=== PATIENT | male | born 1955 | race Caucasian/White ===

== ENCOUNTER 2019-10-16 16:46 | Emergency (ER) | payer OTHER, BC, SELFPAY ==
--- NOTE | 2019-10-16 16:54 | ED.WOUNDLAC ---
HPI - Wound/Laceration General Chief Complaint: Wound/Laceration Stated Complaint: lt hand index finger laceration Time Seen by Provider: 10/16/19 16:54 Source: patient and RN notes reviewed History of Present Illness HPI narrative: Patient is a 64-year-old male presents the urgent care with complaints of a laceration to the left index finger. Patient states that he was using a chisel to do some woodworking approximately 30 to 40 minutes prior to arrival, hitting his left index finger. Bleeding was controlled prior to arrival. Patient states he did clean it out with soap and water. Patient is not up-to-date on his tetanus shot. No other acute complaints or injuries. No acute distress noted. Patient read the plan of care. Related Data Home Medications Medication Instructions Recorded Confirmed alprazolam 10/16/19 anastrozole mg 10/16/19 atorvastatin 10/16/19 escitalopram oxalate mg 10/16/19 lisinopril-hydrochlorothiazide tablet 10/16/19 metoprolol tartrate 10/16/19 testosterone cypionate mg 10/16/19 ticagrelor [Brilinta] mg 10/16/19 Allergies Allergy/AdvReac Type Severity Reaction Status Date / Time No Known Allergies Allergy Verified 10/16/19 16:54 Review of Systems Review of Systems: Narrative: CONSTITUTIONAL: Denies fever, chills, or sweats. EYES: Denies visual changes, redness, or discharge. ENT: Denies rhinorrhea, congestion, sore throat, or otalgia. CARDIOVASCULAR: Denies chest pain, palpitations, or edema. RESPIRATORY: Denies cough or dyspnea. GASTROINTESTINAL: Denies abdominal pain, nausea, vomiting, or diarrhea. GENITOURINARY: Denies dysuria or hematuria. SKIN: Reports of a laceration to the left index finger MUSCULOSKELETAL: Denies back pain, joint pain, or myalgia. NEUROLOGIC: Denies headache, numbness, or weakness. All other systems reviewed are negative, except as documented in HPI. PMFSH Comments At the time of my signature, I reviewed and agree with the nursing past medical, surgical, social, and family history. There is no relevant family history pertinent to the patient complaint. Exam Narrative: Exam Narrative: GENERAL: This is a well-nourished, well-developed patient, in no apparent distress. HEAD: normocephalic, atraumatic. EYES: PERRL. Sclera clear/white. Vision is grossly intact. EARS: External ears normal NOSE: External nose normal with no obvious nasal discharge THROAT: Mucous membranes moist NECK: Neck supple CARDIOVASCULAR: Regular rate and rhythm without murmurs, gallops, or rubs. RESPIRATORY: Clear to auscultation. Breath sounds equal bilaterally. No wheezes, rales, or rhonchi. SKIN: 1 cm linear laceration noted to the radial aspect of the left index finger NEURO: awake, alert, and oriented to person, place and time. There were no obvious focal neurologic abnormalities. EXTREMITIES: No clubbing, cyanosis, or edema. Capillary refill less than 2 seconds to the left upper extremity with positive strong radial pulse Course Vital Signs Vital signs: Vital Signs Temperature 98.2 F 10/16/19 16:56 Pulse Rate 78 10/16/19 16:56 Respiratory Rate 16 10/16/19 16:56 Blood Pressure 164/93 H 10/16/19 16:56 Pulse Oximetry 99 10/16/19 16:56 Temperature 98.2 F 10/16/19 16:56 Pulse Rate 78 10/16/19 16:56 Respiratory Rate 16 10/16/19 16:56 Blood Pressure 164/93 H 10/16/19 16:56 Pulse Oximetry 99 10/16/19 16:56 Reviewed?patient is informed that they may have pre-hypertension or hypertension based on a blood pressure reading in the department. I recommend the patient call the primary care provider listed on their discharge instructions or a physician of their choice this week to arrange follow-up for further evaluation of possible pre-hypertension or hypertension. Procedures Laceration Laceration 1: Side (If applicable): left Size (cm): 1 Description: linear Local Anesthetic: none Pre-repair: irrigated ====== Ski
[2019-10-16 16:56] VITALS: BP 164/93; PULSE 78; RESP 16; TEMP 36.8; O2SAT 99
[2019-10-16] MEDS: TETANUS,DIPHTHERIA,AC PERTUSSIS ADULT 0.5 ML (ADACEL) IM (17:30)
--- NOTE | 2019-10-16 17:42 | PC.NURSE ---
Wound cleansed and steri striped. Metal finger splint fitted and given to patient.
== END 2019-10-16 17:44 | disposition home or self-care (01) ==
PROVIDERS: Emergency Provider Nurse Practitioner Family; PCP Family Medicine
DX: S61.211A Laceration without foreign body of left index finger without damage to nail, initial encounter (principal); W27.0XXA Contact with workbench tool, initial encounter; Z23 Encounter for immunization; I25.10 Atherosclerotic heart disease of native coronary artery without angina pectoris; I10 Essential (primary) hypertension; I25.2 Old myocardial infarction; Z95.5 Presence of coronary angioplasty implant and graft
CPT/HCPCS: 12001; 90471; 90715; 99212; G0463

== ENCOUNTER → 2021-01-01 16:06 | Outpatient (CLI) | payer OTHER, BC, SELFPAY ==
--- NOTE | ~2021-01-01 | XR_ITS ---
EXAMINATION: XR femur LT min 2V EXAM DATE: 01/01/2021 16:45 INDICATION: S70.12XA - Contusion of left thigh, initial encounter. TECHNIQUE: Left femur frontal and lateral projections of the proximal aspect, frontal and lateral pro jections of the lower aspect for review. Comparison is made to prior examination from 06/22/2012. FINDINGS: There are no acute fractures or dislocations identified. There is no subcutaneous gas. Th e soft tissue is unremarkable. There is mild left hip primary osteoarthritis. Left inguinal hernia repair clips. IMPRESSION: No acute osseous findings. Reviewed, dictated and finalized at location A. IMPRESSION: No acute osseous findings.
== END ==
PROVIDERS: PCP Family Medicine; Visit Provider Family Medicine
DX: S70.12XA Contusion of left thigh, initial encounter (principal); X58.XXXA Exposure to other specified factors, initial encounter
CPT/HCPCS: 73552

== ENCOUNTER 2021-10-30 00:01 | Day surgery (SDC) | payer OTHER, BC, SELFPAY ==
[2021-10-23 14:48] VITALS: BMI 33.5
[2021-10-30 07:15] VITALS: BP 144/90; PULSE 79; RESP 18; TEMP 36.6; O2SAT 97
[2021-10-30] MEDS: LACTATED RINGERS 1,000 ML 150 ML IV CONT (07:31)
--- NOTE | 2021-10-30 07:45 | WPDANESEPPF ---
Anes - Initial Pre Proc Eval Procedure: Operation Date: 10/30/21 08:30 Proposed Procedures p Screening Colonoscopy - Ovidio Gross MD Date/Time: 10/30/21 07:45 Surgeon: Ovidio Gross MD Pre Op Diagnosis: hx of colon polyps, neoplasm screening Patient Data Age: 66 Gender: M Height: 1.73 m Weight: 99.9 kg Last Vital Signs Temp 36.6 C 10/30/21 07:15 Pulse 79 10/30/21 07:15 Resp 18 10/30/21 07:15 BP 144/90 H 10/30/21 07:15 Pulse Ox 97 10/30/21 07:15 Allergies Allergy/AdvReac Type Severity Reaction Status Date / Time No Known Allergies Allergy Verified 10/30/21 07:13 Home Medications Medication Instructions Recorded Confirmed Type ticagrelor [Brilinta] 60 mg PO BID 10/16/19 10/30/21 History atorvastatin 40 mg tablet 40 mg PO QPM #90 tablet 06/06/21 10/24/21 Rx escitalopram oxalate 20 mg tablet 20 mg PO DAILY #90 tablet 08/20/21 10/24/21 Rx metoprolol tartrate 25 mg tablet 25 mg PO BID #180 tablet 08/20/21 10/24/21 Rx ascorbic acid (vitamin C) 500 mg PO DAILY 10/23/21 10/24/21 History omega-3 fatty acids-vitamin E 1 cap PO BID 10/23/21 10/24/21 History [Fish Oil] vit C-E-zinc np-ousr-dpz-zeax 2 cap PO DAILY 10/23/21 10/24/21 History [ICaps AREDS2] zinc gluconate [Zinc-50] 50 mg PO DAILY 10/23/21 10/24/21 History hydralazine 10 mg tablet 10 mg PO TID #270 tablet 10/24/21 10/24/21 Rx lisinopril 20 1 tablet PO DAILY #90 tablet 10/24/21 10/24/21 Rx mg-hydrochlorothiazide 25 mg tablet vilazodone 10 mg (7)-20 mg (23) See Rx Instructions PO PER PKG DIR 10/24/21 10/24/21 History tablets in a titration pack Patient hx anesthesia problems: none Family hx anesthesia problems: none Results Review: All pre-operative results and documents have been reviewed as part of the pre-operative evaluation. [facility] Past Medical History Medical History (Updated 10/30/21 @ 07:48 by Samuel Pinon MD) Benign essential HTN CAD (coronary artery disease) LOKI (generalized anxiety disorder) HTN (hypertension) with goal to be determined MDD (major depressive disorder), recurrent episode, moderate Mixed hyperlipidemia Obesity THOR (obstructive sleep apnea) Family History Family History Sibling Depression Family history of alcoholism Mother Hypertension Family history of elevated blood lipids Father Hypertension Family history of elevated blood lipids Family history of coronary artery disease Social History Social History (Updated 10/24/21 @ 09:39 by Mercedez Benitez) Social History: Smoking status: Never smoker Second hand tobacco smoke exposure: No Alcohol intake: current Drinks per week: 12 Alcohol use details: WEEK Substance use: never Substance use type: does not use Living arrangements: with family Additional occupation/education comments: Pt works parts assembler. Gender identity (if verbalized by the patient): Male Sexual Orientation (if Verbalized by the Patient): Straight or Heterosexual Spiritual care concerns: No Anes - Eval Final PreProcedure Day of Procedure 10/30/21 07:45 Patient weight: obese Heart: regular rate and rhythm Lungs: clear to auscultation and normal air movement Airway: Mallampati scale class II Neurological: alert and oriented Last oral intake: >/= 8 hours ASA classification: III Emergent: no Anesthetic plan: proceed Anesthesia type and monitoring: general GIVS Results Review: All pre-operative results and documents have been reviewed as part of the pre-operative evaluation. Informed Consent: The patient's anesthetic plan and its attendant risks and benefits were discussed with the patient/family/POA. Questions were solicited and answers provided to the satisfaction of the patient/family/POA.
--- NOTE | 2021-10-30 08:16 | PM.HPGS ---
History of Present Illness History of Present Illness Consent: Risks, benefits, and alternatives have been discussed and questions answered. Patient agrees to proceed with procedure. Chief complaint: hx of colon polyps, neoplasm screening Narrative: Arsh Leiva III is a 66 year old male with colon polyp in 2017 Review of Systems Constitutional: Constitutional: Denies headache(s) and Denies weakness Eyes: Eyes: Denies blurry vision ENT: Reports Normal hearing present, Denies headache(s) and Denies neck pain Cardiovascular: Cardiovascular: Denies chest pain and Denies dyspnea Respiratory: Respiratory: Denies dyspnea Gastrointestinal: Gastrointestinal: Reports no additional gastrointestinal complaints Genitourinary: Genitourinary: Denies dysuria Musculoskeletal: Musculoskeletal: Denies neck pain Integumentary/Breasts: Skin/Breast: Denies dry skin Neurologic: Reports Normal hearing present, Denies headache(s) and Denies weakness Psychiatric: Psychiatric: Denies anxiety Endocrine: Endocrine: Denies change in body appearance Hematologic/Lymphatic: Hematologic/Lymphatic: Denies easy bleeding Allergic/Immunologic: Allergic/Immunologic: Denies urticaria PMFSH Past Medical History Medical History (Updated 10/30/21 @ 07:48 by Samuel Pinon MD) Benign essential HTN CAD (coronary artery disease) LOKI (generalized anxiety disorder) HTN (hypertension) with goal to be determined MDD (major depressive disorder), recurrent episode, moderate Mixed hyperlipidemia Obesity THOR (obstructive sleep apnea) Family History Family History Sibling Depression Family history of alcoholism Mother Hypertension Family history of elevated blood lipids Father Hypertension Family history of elevated blood lipids Family history of coronary artery disease Social History Social History (Updated 10/24/21 @ 09:39 by Mercedez Benitez) Social History: Smoking status: Never smoker Second hand tobacco smoke exposure: No Alcohol intake: current Drinks per week: 12 Alcohol use details: WEEK Substance use: never Substance use type: does not use Living arrangements: with family Additional occupation/education comments: Pt works rehab department manager. Gender identity (if verbalized by the patient): Male Sexual Orientation (if Verbalized by the Patient): Straight or Heterosexual Spiritual care concerns: No Meds Home Medications and Allergies Home Medications Medication Instructions Recorded Confirmed Type ticagrelor [Brilinta] 60 mg PO BID 10/16/19 10/30/21 History atorvastatin 40 mg tablet 40 mg PO QPM #90 tablet 06/06/21 10/24/21 Rx escitalopram oxalate 20 mg tablet 20 mg PO DAILY #90 tablet 08/20/21 10/24/21 Rx metoprolol tartrate 25 mg tablet 25 mg PO BID #180 tablet 08/20/21 10/24/21 Rx ascorbic acid (vitamin C) 500 mg PO DAILY 10/23/21 10/24/21 History omega-3 fatty acids-vitamin E 1 cap PO BID 10/23/21 10/24/21 History [Fish Oil] vit C-E-zinc nt-byxv-lfc-zeax 2 cap PO DAILY 10/23/21 10/24/21 History [ICaps AREDS2] zinc gluconate [Zinc-50] 50 mg PO DAILY 10/23/21 10/24/21 History hydralazine 10 mg tablet 10 mg PO TID #270 tablet 10/24/21 10/24/21 Rx lisinopril 20 1 tablet PO DAILY #90 tablet 10/24/21 10/24/21 Rx mg-hydrochlorothiazide 25 mg tablet vilazodone 10 mg (7)-20 mg (23) See Rx Instructions PO PER PKG DIR 10/24/21 10/24/21 History tablets in a titration pack Allergies Allergy/AdvReac Type Severity Reaction Status Date / Time No Known Allergies Allergy Verified 10/30/21 07:13 Vital Signs Vital Signs - 24 hr 10/30/21 07:15 Temperature 97.9 F Pulse Rate 79 Respiratory Rate 18 Blood Pressure 144/90 H Pulse Oximetry 97 Exam Const: General: comfortable and no acute distress HENMT: General nose exam: Normal nares present Eyes: General: appearance normal, both eyes and all related struct
[2021-10-30 08:58] VITALS: BP 119/80; PULSE 74; RESP 26; O2SAT 97
[2021-10-30 09:08] VITALS: BP 128/87; PULSE 76; RESP 22; O2SAT 97
== END 2021-10-30 09:15 | disposition home or self-care (01) ==
PROVIDERS: PCP Family Medicine; Visit Provider Internal Medicine Gastroenterology
PROC: 0DJD8ZZ Inspection of Lower Intestinal Tract, Via Natural or Artificial Opening Endoscopic (ICD-10-PCS; CPT 45378; principal; 2021-10-30 08:30)
DX: Z12.11 Encounter for screening for malignant neoplasm of colon (principal); D12.3 Benign neoplasm of transverse colon; D12.8 Benign neoplasm of rectum; K63.5 Polyp of colon; K57.30 Diverticulosis of large intestine without perforation or abscess without bleeding; K64.8 Other hemorrhoids; I10 Essential (primary) hypertension; I25.10 Atherosclerotic heart disease of native coronary artery without angina pectoris; E78.2 Mixed hyperlipidemia; G47.33 Obstructive sleep apnea (adult) (pediatric); F41.1 Generalized anxiety disorder; F33.1 Major depressive disorder, recurrent, moderate; Z79.01 Long term (current) use of anticoagulants; E66.9 Obesity, unspecified; Z68.33 Body mass index [BMI] 33.0-33.9, adult
CPT/HCPCS: 45380; 45385; 88305; J2704; J7120

== ENCOUNTER 2023-07-15 10:49 | Outpatient (CLI) | payer BC, MEDICARE, SELFPAY ==
--- NOTE | ~2023-07-15 | XR_ITS ---
XR chest 2V 07/15/2023 11:06 Indication: Precordial pain. Procedure: 2 view chest Comparison: No prior studies for comparison. Findings: There is a right paramediastinal mass with smooth lateral contour involving the superior me diastinum. Heart size normal. Lungs clear. No pleural effusion or pneumothorax. No acute osseous abno rmality. Impression: 1: Large right paramediastinal mass. Considerations include lymphadenopathy and vascular abnormality. Recommend correlation with contrast-enhanced CT of the chest. Reviewed, dictated and finalized at location B. [employer] WORK[employer] Impression: 1: Large right paramediastinal mass. Considerations include lymphadenopathy and vascular abnormality. Recommend correlation with contrast-enhanced CT of the c hest.
== END 2023-07-15 10:50 | disposition home or self-care (01) ==
PROVIDERS: PCP Family Medicine; Visit Provider Family Medicine
DX: R07.2 Precordial pain (principal)
CPT/HCPCS: 71046

== ENCOUNTER 2023-07-21 02:49 | Day surgery (SDC) | payer BC, MEDICARE, SELFPAY ==
[2023-07-10 13:04] VITALS: BMI 31.1
--- NOTE | 2023-07-10 13:41 | PC.NURSE ---
Spoke with _patient___ regarding medication _Brilinta____. Pt. verbalizes understanding that the last dose of _Brilinta__ is to be taken on _07/16/2023__and the Endoscopist will instruct them when to restart after the procedure.
--- NOTE | 2023-07-20 09:34 | SUR.PREOP ---
Patient called regarding upcoming procedure. Reviewed preop instructions, appointment times, and procedure prep.
[2023-07-21 09:21] VITALS: BP 137/87; PULSE 86; RESP 16; TEMP 36.2; O2SAT 98; BMI 30.9
[2023-07-21] MEDS: LACTATED RINGERS 1,000 ML 150 ML IV CONT (09:32)
--- NOTE | 2023-07-21 09:56 | WPDANESEPPF ---
Anes - Initial Pre Proc Eval Procedure: Operation Date: 07/21/23 10:30 Proposed Procedures p Esophagogastroduodenoscopy - Ovidio Gross MD Date/Time: 07/21/23 09:56 Surgeon: Ovidio Gross MD Pre Op Diagnosis: Epigastric pain, Dysphagia, Abnormal weightloss Patient Data Age: 67 Gender: M Height: 1.73 m Weight: 92.3 kg Last Vital Signs Temp 97.2 F L 07/21/23 09:21 Pulse 86 07/21/23 09:21 Resp 16 07/21/23 09:21 BP 137/87 07/21/23 09:21 Pulse Ox 98 07/21/23 09:21 O2 Del Method Room Air 07/21/23 09:21 Allergies Allergy/AdvReac Type Severity Reaction Status Date / Time No Known Allergies Allergy Verified 07/21/23 09:20 Home Medications Medication Instructions Recorded Confirmed Type ticagrelor 60 mg tablet (Brilinta) 60 mg PO BID 10/16/19 07/21/23 History ascorbic acid (vitamin C) 500 mg 500 mg PO DAILY 10/23/21 07/21/23 History tablet omega-3 fatty acids-vitamin E 1 cap PO BID 10/23/21 07/21/23 History 1,000 mg capsule vit C 250 mg-vit E 200 unit-zinc 2 cap PO DAILY 10/23/21 07/21/23 History ox 12.5 as-zgzxto-oinpxn-zeax capsule (ICaps AREDS2) zinc gluconate 50 mg tablet 50 mg PO DAILY 10/23/21 07/21/23 History metoprolol tartrate 25 mg tablet See Rx Instructions .Route 04/29/23 07/21/23 Rx .COMPLEX #180 tabs hydralazine 10 mg tablet 20 mg PO BID #270 tabs 06/15/23 07/21/23 Rx cyclobenzaprine 5 mg tablet 5 mg PO TID PRN muscle spasm #90 07/09/23 07/21/23 Rx tabs lisinopril 20 See Rx Instructions .Route 07/09/23 07/21/23 Rx mg-hydrochlorothiazide 12.5 mg .COMPLEX #90 tabs tablet omeprazole 20 mg capsule,delayed 20 mg PO DAILY 07/10/23 07/21/23 History release atorvastatin 40 mg tablet 40 mg PO QPM #90 tabs 07/12/23 07/21/23 Rx Patient hx anesthesia problems: none Family hx anesthesia problems: none Results Review: All pre-operative results and documents have been reviewed as part of the pre-operative evaluation. [facility] Past Medical History Medical History Benign essential HTN CAD (coronary artery disease) Contusion of thigh, left LOKI (generalized anxiety disorder) HTN (hypertension) with goal to be determined MDD (major depressive disorder), recurrent episode, moderate Mixed hyperlipidemia Obesity THOR (obstructive sleep apnea) Family History Family History Sibling Depression Family history of alcoholism Mother Hypertension Family history of elevated blood lipids Father Hypertension Family history of elevated blood lipids Family history of coronary artery disease Social History Social History Social History: Smoking status: Never smoker Second hand tobacco smoke exposure: No Alcohol intake: current Drinks per week: 10 Alcohol use details: DRINKS Substance use: never Substance use type: does not use Lack of Transportation: No Lack of Food: Never True Current Housing: I Have Housing Concerned About Future Housing: No Difficulty Paying Gas/Electric Bills: No Difficulty Paying for Meds: No Currently Unemployed: YES Education: Decline to Answer Difficulty w/ Childcare or Family Care: No Living arrangements: with family Occupation/Education: retired Gender identity (if verbalized by the patient): Male Sexual Orientation (if Verbalized by the Patient): Straight or Heterosexual Spiritual care concerns: No Anes - Eval Final PreProcedure Day of Procedure 07/21/23 09:56 Patient weight: obese Heart: regular rate and rhythm Lungs: clear to auscultation Airway: Mallampati scale class II Neurological: alert and oriented Last oral intake: >/= 8 hours ASA classification: III Emergent: no Anesthetic plan: proceed Anesthesia type and monitoring: general GIVS and standard monitoring Results Review
--- NOTE | 2023-07-21 10:08 | PM.HPGS ---
History of Present Illness History of Present Illness Consent: Risks, benefits, and alternatives have been discussed and questions answered. Patient agrees to proceed with procedure. Chief complaint: Epigastric pain, Dysphagia, Abnormal weightloss Narrative: Arsh Leiva III is a 67 year old male with cough and sometimes chest discomfort, just recently saw ENT and told that had reflux in larynx, started on omeprazole but still ongoing symptoms, never had EGD. He will have CT scan in few more days. Review of Systems Constitutional: Constitutional: Denies headache(s) and Denies weakness Eyes: Eyes: Denies blurry vision ENT: Reports Normal hearing present, Denies headache(s) and Denies neck pain Cardiovascular: Cardiovascular: Denies chest pain and Denies dyspnea Respiratory: Respiratory: Denies dyspnea Gastrointestinal: Gastrointestinal: Reports no additional gastrointestinal complaints Genitourinary: Genitourinary: Denies dysuria Musculoskeletal: Musculoskeletal: Denies neck pain Integumentary/Breasts: Skin/Breast: Denies dry skin Neurologic: Reports Normal hearing present, Denies headache(s) and Denies weakness Psychiatric: Psychiatric: Denies anxiety Endocrine: Endocrine: Denies change in body appearance Hematologic/Lymphatic: Hematologic/Lymphatic: Denies easy bleeding Allergic/Immunologic: Allergic/Immunologic: Denies urticaria PMFSH Past Medical History Medical History (Updated 07/21/23 @ 10:09 by Ovidio Gross MD) Benign essential HTN CAD (coronary artery disease) Contusion of thigh, left Cough LOKI (generalized anxiety disorder) HTN (hypertension) with goal to be determined MDD (major depressive disorder), recurrent episode, moderate Mixed hyperlipidemia Obesity THOR (obstructive sleep apnea) Family History Family History Sibling Depression Family history of alcoholism Mother Hypertension Family history of elevated blood lipids Father Hypertension Family history of elevated blood lipids Family history of coronary artery disease Social History Social History Social History: Smoking status: Never smoker Second hand tobacco smoke exposure: No Alcohol intake: current Drinks per week: 10 Alcohol use details: DRINKS Substance use: never Substance use type: does not use Lack of Transportation: No Lack of Food: Never True Current Housing: I Have Housing Concerned About Future Housing: No Difficulty Paying Gas/Electric Bills: No Difficulty Paying for Meds: No Currently Unemployed: YES Education: Decline to Answer Difficulty w/ Childcare or Family Care: No Living arrangements: with family Occupation/Education: retired Gender identity (if verbalized by the patient): Male Sexual Orientation (if Verbalized by the Patient): Straight or Heterosexual Spiritual care concerns: No Meds Home Medications and Allergies Home Medications Medication Instructions Recorded Confirmed Type ticagrelor 60 mg tablet (Brilinta) 60 mg PO BID 10/16/19 07/21/23 History ascorbic acid (vitamin C) 500 mg 500 mg PO DAILY 10/23/21 07/21/23 History tablet omega-3 fatty acids-vitamin E 1 cap PO BID 10/23/21 07/21/23 History 1,000 mg capsule vit C 250 mg-vit E 200 unit-zinc 2 cap PO DAILY 10/23/21 07/21/23 History ox 12.5 se-nfxxpl-pujrzg-zeax capsule (ICaps AREDS2) zinc gluconate 50 mg tablet 50 mg PO DAILY 10/23/21 07/21/23 History metoprolol tartrate 25 mg tablet See Rx Instructions .Route 04/29/23 07/21/23 Rx .COMPLEX #180 tabs hydralazine 10 mg tablet 20 mg PO BID #270 tabs 06/15/23 07/21/23 Rx cyclobenzaprine 5 mg tablet 5 mg PO TID PRN muscle spasm #90 07/09/23 07/21/23 Rx tabs lisinopril 20 See Rx Instructions .Route 07/09/23 07/21/23 Rx mg-hydrochlorothiazide 12.5 mg .COMPLEX #90 tabs tablet omeprazole 2
[2023-07-21 10:25] VITALS: BP 113/78; PULSE 80; RESP 24; O2SAT 97
[2023-07-21 10:35] VITALS: BP 114/76; PULSE 77; RESP 20; O2SAT 98
[2023-07-21 10:45] VITALS: BP 125/82; PULSE 69; RESP 19; O2SAT 97
== END 2023-07-21 10:52 | disposition home or self-care (01) ==
PROVIDERS: PCP Family Medicine; Visit Provider Internal Medicine Gastroenterology
PROC: 0DJ08ZZ Inspection of Upper Intestinal Tract, Via Natural or Artificial Opening Endoscopic (ICD-10-PCS; CPT 43235; principal; 2023-07-21 10:30)
DX: K29.50 Unspecified chronic gastritis without bleeding (principal); K44.9 Diaphragmatic hernia without obstruction or gangrene; K22.2 Esophageal obstruction; K21.00 Gastro-esophageal reflux disease with esophagitis, without bleeding; K22.10 Ulcer of esophagus without bleeding; L85.9 Epidermal thickening, unspecified; I25.10 Atherosclerotic heart disease of native coronary artery without angina pectoris; I10 Essential (primary) hypertension; E78.5 Hyperlipidemia, unspecified
CPT/HCPCS: 43239; 43249; 88305; C1726; J2704; J7120

== ENCOUNTER 2023-07-23 13:30 | Outpatient (CLI) | payer BC, MEDICARE, SELFPAY ==
--- NOTE | ~2023-07-23 | CT_ITS ---
EXAMINATION:CT diagnostic chest w con DATE: 07/23/2023 13:51 INDICATION: Other diseases of mediastinum, not elsewhere specified. TECHNIQUE: Computed tomography (CT) of the chest was performed with 75 mL Omnipaque 350 intravenous c ontrast. Automated exposure control and iterative reconstruction technique were employed. The dose-le ngth product (DLP) was 320.64 mGy-cm. COMPARISON: Chest 2 views 07/15/2023 FINDINGS: There is mild atelectasis in the lungs bilaterally. There is a trace right pleural effusion . The heart size is normal. No pericardial effusion. There are coronary artery calcifications. There is a 9.4 x 8.5 cm mass in the mediastinum centered to the right of midline. There is mass effect on t he superior vena cava and right brachiocephalic vein. There is mass effect on the esophagus and trach ea. There is severe thoracic spondylosis. There is mild chronic anterior wedging of multiple vertebra l bodies. IMPRESSION: 1. 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 Reviewed, dictated and finalized at location A. [employer] SUPPORT WORKER
[2023-07-23 13:46] LABS: Estimated Glomerular Filt Rate > 60
== END 2023-07-23 13:31 | disposition home or self-care (01) ==
LOC: ANHIMG 13:30
PROVIDERS: PCP Family Medicine; Visit Provider Physician Assistant
DX: J98.59 Other diseases of mediastinum, not elsewhere classified (principal)
CPT/HCPCS: 71260; Q9967

== ENCOUNTER 2023-08-05 16:05 | Outpatient (CLI) | payer BC, MEDICARE, SELFPAY ==
[2023-08-05 16:23] LABS: Kit Draw Collected
== END 2023-08-05 16:06 | disposition home or self-care (01) ==
LOC: ANHLAB 16:07
PROVIDERS: PCP Family Medicine; Visit Provider Internal Medicine Hematology & Oncology
DX: C43.59 Malignant melanoma of other part of trunk (principal)
CPT/HCPCS: 36415

== ENCOUNTER 2023-08-11 10:31 | Outpatient (CLI) | payer BC, MEDICARE, SELFPAY ==
[2023-08-11 10:52] LABS: Basophils Absolute Auto 0.1 K/mm3 (0.0-0.1); Basophils Percent Auto 0.8 % (0.2-1.2); Eosinophils Absolute Auto 0.3 K/mm3 (0-0.3); Eosinophils Percent Auto 4.7 % (0-4.4); Hemoglobin 13.6 g/dL (14.0-18.0); Immature Granulocyte Absolute 0.05 K/mm3 (0.00-0.031); Immature Granulocyte Percent A 0.8 % (0-0.5); Lymphocytes Absolute Auto 1.95 K/mm3 (0.9-3.2); Lymphocytes Percent Auto 31.9 % (18.3-44.2); Mean Corpuscular HGB Conc 33.2 g/dl (32-36); Mean Corpuscular Hemoglobin 29.2 pg (26-34); Mean Corpuscular Volume 88.2 fl (80-100); Mean Platelet Volume 8.6 fl (7.4-10.4); Monocytes Absolute Auto 0.7 K/mm3 (0.1-0.6); Monocytes Percent Auto 11.6 % (2.6-8.5); Neutrophils Absolute Auto 3.1 K/mm3 (1.3-6.7); Neutrophils Percent Auto 50.2 % (45.5-73.1); Platelet Count Result 270 k/mm3 (150-375); Red Blood Count 4.65 M/mm3 (4.6-6.20); Red Cell Distribution Width 13.2 % (11.5-14.5); White Blood Count 6.1 K/mm3 (4.5-10.0)
[2023-08-11 11:22] LABS: INR 1.1; Prothrombin Time 14.5 Seconds (11.1-14.7)
[2023-08-11 11:24] LABS: Partial Thromboplastin Time 31.4 SECONDS (22.3-36.8)
== END 2023-08-11 10:32 | disposition home or self-care (01) ==
LOC: ANHSURGERY 10:34
PROVIDERS: PCP Family Medicine; Visit Provider Surgery
DX: C43.9 Malignant melanoma of skin, unspecified (principal); Z01.818 Encounter for other preprocedural examination
CPT/HCPCS: 36415; 85025; 85610; 85730

== ENCOUNTER 2023-08-13 11:41 | Outpatient (CLI) | payer BC, MEDICARE, SELFPAY ==
--- NOTE | ~2023-08-13 | PE_ITS ---
EXAMINATION: PET skull to mid thigh DATE: 08/13/2023 14:08 INDICATION: Mediastinal mass, history of melanoma of the trunk TECHNIQUE: Blood glucose level was 107 mg/dL. 10.320 mCi of 18-fluorodeoxyglucose (18-FDG) was admini stered i.v. Low dose computed tomography (CT) images were acquired from the base of the brain to the proximal thighs for attenuation correction and anatomic localization. Positron emission tomography (P ET) images were acquired in the same distribution beginning 53 minutes after injection. The dose-stu th product (DLP) was 1139.29 mGy-cm. COMPARISON: Chest CT, 07/23/2023 FINDINGS: Head/neck: No abnormal FDG uptake is identified. Minimal FDG uptake in the oral cavity is likely fredi gn given the lack of suspicious CT correlate. There are small fluid levels in the maxillary sinuses. Chest: There is an approximately 9.7 x 8.3 cm mediastinal mass in the right paratracheal region which causes leftward displacement of the trachea and esophagus. The mass demonstrates abnormal FDG uptake with an SUV max of 34.2. There is also mass effect on the superior vena cava and right brachiocephal ic vein. There is mild FDG uptake in a normal sized prevascular lymph node. There is a small right pl eural effusion. There is no pneumothorax. The heart size is normal. Calcified coronary artery atheros clerosis is noted. Abdomen/pelvis/proximal thighs: No abnormal FDG uptake is identified. Physiologic FDG activity is pre sent in the bowel and urinary tract. The liver, spleen, pancreas, gallbladder, and adrenal glands are normal. The kidneys are unremarkable. No pathologically enlarged abdominal or pelvic lymph nodes are identified. No free intraperitoneal gas or evidence of bowel obstruction. The appendix is normal. Th ere appear to be changes of bilateral inguinal hernia repair. Musculoskeletal: There is a tiny focus of FDG uptake in the right mid clavicle without definite CT co rrelate, significance unclear. There is severe cervical and thoracic spondylosis and moderate lumbar spondylosis. IMPRESSION: 1. Right mediastinal mass with abnormal FDG uptake as described above which could reflect primary mal ignancy such as small cell lung cancer or possibly melanoma given patient's clinical history. Reviewed, dictated and finalized at location B. SPECIALIST IMPRESSION: 1. Right mediastinal mass with abnormal FDG uptake as described above which cou ld reflect primary malignancy such as small cell lung cancer or possibly melano ma given patient's clinical history.
[2023-08-13 12:24] LABS: Glucose Point of Care 107 mg/dl (65-105)
== END 2023-08-13 11:42 | disposition home or self-care (01) ==
PROVIDERS: PCP Family Medicine; Visit Provider Internal Medicine Hematology & Oncology
DX: C43.59 Malignant melanoma of other part of trunk (principal)
CPT/HCPCS: 78815; A9552

== ENCOUNTER 2023-08-14 03:03 | Day surgery (SDC) | payer BC, MEDICARE, SELFPAY ==
--- NOTE | 2023-08-10 12:40 | PC.NURSE ---
PRE-OP INSTRUCTIONS, PLEASE READ CAREFULLY Report to the Outpatient Waiting Room, entrance under the green pavilion located off [facility], at time _0830_ on date _08/14/23_. Planned Procedure Time: _1030_. Time changes happen often and if your time is changed the preop area will call you the afternoon before. - You and your visitor will be asked to self-screen and do not enter if you have any COVID symptoms. - A mask is optional within the hospital at this time. Patients may have clear liquids (water, carbonated beverages, clear teas, apple juice) until 3 hours prior to surgery (0730 AM) with a maximum of 20 ounces. - No food from midnight until time of surgery Take the following medications with a SIP of water the morning of surgery: _HYDRALAZINE, METOPROLOL, & ALPRAZOLAM, CYCLOBENZAPRINE IF NEEDED_ DO NOT STOP ANY OF YOUR OTHER PRESCRIPTION MEDICATIONS PRIOR TO SURGERY ?EXCEPT THE FOLLOWING Medications to discontinue per - _PT STATES ALREADY STOPPING BRILINTA ON 07/16/23__ Medications to discontinue per ANESTHESIA -_VITAMINS & SUPPLEMENTS 3 DAYS PRIOR TO SURGERY, Date to take last dose 08/10/23_ Please no make-up, nail cymro, hairspray, perfume, deodorant, or body powder the day of surgery. No jewelry (including any body piercings) or valuables the day of surgery, leave them at home. Please take a shower or bath the night before, or the morning of, surgery with an antibacterial soap. Wear comfortable, loose fitting clothing. - Jewelry must be removed prior to entering the operating room. Rings and piercings that are not removed may be cut off. - The hospital will not accept responsibility for valuables. - Please leave all valuables, including medications, at home the day of surgery. If you are going home after surgery, a licensed class b truck driver must drive you home. - NO public transportation without another adult if you receive anesthesia. - We recommend that an adult stay with you for 24 hours following discharge. - We also recommend that you do not drive, make important decision, drink alcoholic beverages, or take any drugs that were not prescribed by your health care provider for at least 24 hours after your discharge time. Follow any additional instructions given to you from your surgeon. If you or anyone in your household have experienced Covid symptoms in the past week, please notify your surgeon or the nurse liaison at the phone number below for possible testing. Telephone instructions given to _PATIENT_and asked if any additional questions and then verbalized understanding. Patient advised to call surgeon office or pre surgery nurse liaison [phone] if any additional questions.
[2023-08-10 12:45] VITALS: BMI 31.2
--- NOTE | ~2023-08-14 | XR_ITS ---
EXAMINATION: XR fl guide central line place INDICATION: Port-A-Cath insertion TECHNIQUE: Single intraoperative fluoroscopic images submitted for review. Total fluoroscopic time is one minute 40 seconds. COMPARISON: None available FINDINGS: Fluoroscopic image demonstrates a right subclavian Port-A-Cath ending with its tip in the d istal brachiocephalic vein. Please refer to procedure note for full details. IMPRESSION: 1. Please refer to procedure note for full details. Reviewed, dictated and finalized at location B. URCE EFFICIENCY MANAGER
--- NOTE | ~2023-08-14 | XR_ITS ---
EXAMINATION: XR chest port-a-cath/central INDICATION: Port-A-Cath insertion TECHNIQUE: Portable AP chest at 1211 hours COMPARISON: 07/15/2023 FINDINGS: A left subclavian Port-A-Cath ends with its tip in the brachiocephalic vein. There is a lar ge mediastinal mass characterized in detail on yesterday's PET/CT. No pleural effusion or pneumothora x. The heart size is normal. IMPRESSION: 1. Left subclavian Port-A-Cath ending with its tip in the brachiocephalic vein. 2. Large mediastinal mass described on yesterday's PET/CT. Reviewed, dictated and finalized at location B. ESIUM MILL OPERATOR
[2023-08-14 09:23] LABS: Anion Gap 5 mmol/L (8-16); Blood Urea Nitrogen 13 mg/dL (9-20); Carbon Dioxide 29 mmol/L (22-30); Chloride 101 mmol/L (98-107); Estimated CRCL calculation 100 ml/min; Estimated Glomerular Filt Rate > 60; Glucose 102 mg/dL (65-110); Potassium 3.3 mmol/L (3.4-5.0); Sodium 135 mmol/L (137-145)
[2023-08-14] MEDS: LACTATED RINGERS 1,000 ML 30 ML IV CONT (09:30)
[2023-08-14 09:41] VITALS: BP 142/86; PULSE 99; RESP 14; TEMP 36.2; O2SAT 95
--- NOTE | 2023-08-14 10:04 | WPDANESEPPF ---
Anes - Initial Pre Proc Eval Procedure: Operation Date: 08/14/23 10:30 Proposed Procedures p Insertion Patricia Cath - Cooper Tan MD Date/Time: 08/14/23 10:04 Surgeon: Cooper Tan MD Pre Op Diagnosis: Melanoma Patient Data Age: 67 Gender: M Height: 1.73 m Weight: 90.3 kg Last Vital Signs Temp 36.2 C L 08/14/23 09:41 Pulse 99 08/14/23 09:41 Resp 14 08/14/23 09:41 BP 142/86 H 08/14/23 09:41 Pulse Ox 95 08/14/23 09:41 O2 Del Method Room Air 08/14/23 09:41 Allergies Allergy/AdvReac Type Severity Reaction Status Date / Time No Known Allergies Allergy Verified 08/14/23 09:45 Home Medications Medication Instructions Recorded Confirmed Type ticagrelor 60 mg tablet (Brilinta) 60 mg PO BID 10/16/19 08/10/23 History ascorbic acid (vitamin C) 500 mg 500 mg PO DAILY 10/23/21 08/10/23 History tablet omega-3 fatty acids-vitamin E 1 cap PO BID 10/23/21 08/10/23 History 1,000 mg capsule vit C 250 mg-vit E 200 unit-zinc 2 cap PO DAILY 10/23/21 08/10/23 History ox 12.5 ix-bwmekm-effudh-zeax capsule (ICaps AREDS2) zinc gluconate 50 mg tablet 50 mg PO DAILY 10/23/21 08/10/23 History lisinopril 20 See Rx Instructions .Route 07/09/23 08/10/23 Rx mg-hydrochlorothiazide 12.5 mg .COMPLEX #90 tabs tablet atorvastatin 40 mg tablet 40 mg PO QPM #90 tabs 07/12/23 08/10/23 Rx alprazolam 0.25 mg tablet 0.25 mg PO BID PRN anxiety #60 tabs 07/27/23 08/10/23 Rx omeprazole 40 mg capsule,delayed 40 mg PO .bid #60 caps 07/28/23 08/10/23 Rx release sucralfate 1 gram tablet 1 g PO TID 1 month #90 tabs 08/05/23 08/10/23 Rx benzonatate 200 mg capsule 200 mg PO TID PRN Cough #60 caps 08/07/23 08/10/23 Rx cyclobenzaprine 5 mg tablet See Rx Instructions .Route 08/11/23 Rx .COMPLEX #90 tabs hydralazine 10 mg tablet See Rx Instructions .Route 08/11/23 Rx .COMPLEX #270 tabs metoprolol tartrate 25 mg tablet See Rx Instructions .Route 08/11/23 Rx .COMPLEX #180 tabs Laboratory Tests 08/14/23 09:07 Sodium 135 L mmol/L (137-145) Potassium 3.3 L mmol/L (3.4-5.0) Chloride 101 mmol/L (98-107) Carbon Dioxide 29 mmol/L (22-30) Anion Gap 5 L mmol/L (8-16) BUN 13 mg/dL (9-20) Creatinine 0.70 mg/dL (0.7-1.3) Estim Creat Clear Calc 100 ml/min Estimated GFR > 60 (59 - ) Glucose 102 mg/dL (65-110) Calcium 9.0 mg/dL (8.4-10.2) Patient hx anesthesia problems: none Family hx anesthesia problems: none Results Review: All pre-operative results and documents have been reviewed as part of the pre-operative evaluation. [facility] Past Medical History Medical History Benign essential HTN CAD (coronary artery disease) Contusion of thigh, left Cough LOKI (generalized anxiety disorder) HTN (hypertension) with goal to be determined MDD (major depressive disorder), recurrent episode, moderate Mixed hyperlipidemia Obesity THOR (obstructive sleep apnea) Family History Family History Sibling Depression Family history of alcoholism Mother Hypertension Family history of elevated blood lipids Father Hypertension Family history of elevated blood lipids Family history of coronary artery disease Social History Social History Social History: Smoking status: Never smoker Second hand tobacco smoke exposure: No Alcohol intake: current Drinks per week: 10 Alcohol use details: DRINKS Substance use: never Substance use type: does not use Lack of Transportation: No Lack of Food: Never True Current Housing: I Have Housing Concerned About Future Housing: No Difficulty Paying Gas/Electric Bills: No Difficulty Paying for Meds: No Currently Unemployed: YES Education: Decline to Answer Difficulty w/ Childcare or Family Care
--- NOTE | 2023-08-14 10:20 | PM.IMHP ---
H&P: HPI History of Present Illness Date/Time: 08/14/23 10:20 Chief Complaint: Metastatic melanoma Narrative: Pt with remote hx of melanoma removed 10 years ago from left lateral neck. Most recently found to have metastatic disease to the mediastinum. He is to start immunnotherapy for treatment next week. No prior hx of port or central line placement. No hx of clavicular fracture. Review of Systems Review of Systems: The remainder of the review of systems to include constitutional, HEENT, cardiovascular, respiratory, GI, , integumentary, musculoskeletal, endocrine, immunologic, hematologic, psychiatric, and neurologic are all negative except for which is mentioned above in the HPI. [facility] Past Medical History Medical History Benign essential HTN CAD (coronary artery disease) Contusion of thigh, left Cough LOKI (generalized anxiety disorder) HTN (hypertension) with goal to be determined MDD (major depressive disorder), recurrent episode, moderate Mixed hyperlipidemia Obesity THOR (obstructive sleep apnea) Family History Family History Sibling Depression Family history of alcoholism Mother Hypertension Family history of elevated blood lipids Father Hypertension Family history of elevated blood lipids Family history of coronary artery disease Social History Social History Social History: Smoking status: Never smoker Second hand tobacco smoke exposure: No Alcohol intake: current Drinks per week: 10 Alcohol use details: DRINKS Substance use: never Substance use type: does not use Lack of Transportation: No Lack of Food: Never True Current Housing: I Have Housing Concerned About Future Housing: No Difficulty Paying Gas/Electric Bills: No Difficulty Paying for Meds: No Currently Unemployed: YES Education: Decline to Answer Difficulty w/ Childcare or Family Care: No Living arrangements: with family Occupation/Education: retired Gender identity (if verbalized by the patient): Male Sexual Orientation (if Verbalized by the Patient): Straight or Heterosexual Spiritual care concerns: No Meds Home Medications and Allergies Home Medications Medication Instructions Recorded Confirmed Type ticagrelor 60 mg tablet (Brilinta) 60 mg PO BID 10/16/19 08/10/23 History ascorbic acid (vitamin C) 500 mg 500 mg PO DAILY 10/23/21 08/10/23 History tablet omega-3 fatty acids-vitamin E 1 cap PO BID 10/23/21 08/10/23 History 1,000 mg capsule vit C 250 mg-vit E 200 unit-zinc 2 cap PO DAILY 10/23/21 08/10/23 History ox 12.5 nl-qpowtt-vwagib-zeax capsule (ICaps AREDS2) zinc gluconate 50 mg tablet 50 mg PO DAILY 10/23/21 08/10/23 History lisinopril 20 See Rx Instructions .Route 07/09/23 08/10/23 Rx mg-hydrochlorothiazide 12.5 mg .COMPLEX #90 tabs tablet atorvastatin 40 mg tablet 40 mg PO QPM #90 tabs 07/12/23 08/10/23 Rx alprazolam 0.25 mg tablet 0.25 mg PO BID PRN anxiety #60 tabs 07/27/23 08/10/23 Rx omeprazole 40 mg capsule,delayed 40 mg PO .bid #60 caps 07/28/23 08/10/23 Rx release sucralfate 1 gram tablet 1 g PO TID 1 month #90 tabs 08/05/23 08/10/23 Rx benzonatate 200 mg capsule 200 mg PO TID PRN Cough #60 caps 08/07/23 08/10/23 Rx cyclobenzaprine 5 mg tablet See Rx Instructions .Route 08/11/23 Rx .COMPLEX #90 tabs hydralazine 10 mg tablet See Rx Instructions .Route 08/11/23 Rx .COMPLEX #270 tabs metoprolol tartrate 25 mg tablet See Rx Instructions .Route 08/11/23 Rx .COMPLEX #180 tabs Allergies Allergy/AdvReac Type Severity Reaction Status Date / Time No Known Allergies Allergy Verified 08/14/23 09:45 Vital Signs Vital Signs - 24 hr 08/14/23 09:41 Temperature 36.2 C L Pulse Rate 99 Respiratory Rate 14 Blood Pressure 142/86 H Pulse Oximetry 95 Oxyge
--- NOTE | 2023-08-14 10:26 | WPDHPUPDATE1 ---
History and Physical Update Update Date/Time: 08/14/23 10:26 History and Physical has been reviewed, including an updated exam of the patient. There are NO changes in the patient's condition. Risks, benefits, and alternatives have been discussed and questions answered. Patient agrees to proceed with procedure.
[2023-08-14] MEDS: ceFAZolin 2 GM/D5W 50 ML 2 GM/50 ML BAG IVPB (10:45)
[2023-08-14] MEDS: HEPARIN SODIUM 5,000 UNITS/ML VIAL 5000 UNITS IRRIGATION (11:16)
[2023-08-14] MEDS: HEPARIN SODIUM 1,000 UNITS/ML VIAL 1000 UNITS IV PUSH (11:17)
[2023-08-14] MEDS: LIDO 1%/EPINEPHRINE 1:100,000 50 ML VIAL 30 ML INFILTRATE (11:39)
[2023-08-14 12:02] VITALS: BP 114/67; PULSE 93; RESP 14; O2SAT 97
--- NOTE | 2023-08-14 12:06 | SUR.PHASEII ---
XRAY CALLED FOR CXR.
[2023-08-14 12:30] VITALS: BP 118/68; PULSE 79; RESP 14; O2SAT 97
--- NOTE | 2023-08-14 12:34 | SUR.PHASEII ---
CXR SHOWS NO PNEUMOTHORAX.
--- NOTE | 2023-08-14 12:44 | W.PM.PROC2 ---
Procedure Note - Detailed Date of Procedure 08/14/23 Pre-op Diagnosis Metastatic melanoma Post-op Diagnosis Same Procedure Performed Unsuccessful placement of morena catheter and right internal jugular and right subclavian vein, successful placement of single-lumen port a catheter left subclavian vein with intraoperative fluoroscopy Surgeon Cooper Tan MD Dredge Pumper Kavya Bell, [facility] Anesthesia MAC Indications Patient is a 67-year-old gentleman who had a remote history of a melanoma removed from his left neck region over 10 years ago. Unfortunately he recently was diagnosed with a large mediastinal mass consistent with metastatic disease. He is to undergo immunotherapy treatment and presents for placement of morena catheter for treatments. Findings I was unable to pass a guidewire via the right subclavian vein and the right internal jugular vein likely due to compression from the large mediastinal mass which extended over to the right side of the mediastinum. The catheter was placed into the left subclavian vein eventually. The path of the catheter shows it to be going in a downward direction and is likely in the distal brachial cephalic vein or proximal superior vena cava. Due to the anatomic distortion from the large mediastinal mass is difficult to tell definitely on chest x-ray but the catheter is in a central venous vein. The port aspirates blood easily and flushes easily. Description of Procedure After informed consent was obtained patient brought to the operating room was placed in a supine position and then IV sedation was administered by anesthesia. The bilateral anterior neck and chest was then prepped and draped usual sterile fashion. A time-out was then performed correctly identifying the patient as well as procedure to be performed. He was given perioperative IV antibiotics. I 1st attempted placement of the morena catheter into the right subclavian vein. 1% lidocaine mixed with 0.5% Marcaine was injected just below the medial 3rd of the right clavicle. A transverse incision was then made this a with a scalpel the dissection was carried down through the subcutaneous tissues until I encountered the anterior pectoralis major muscle fascia. I then with a combination electrocautery dissection blunt finger dissection through the subcutaneous port pocket below the incision. Now with the patient in the head-down Trendelenburg position I utilizing a long 18gauge spinal needle to cannulate the right subclavian vein on the 1st pass out difficulty through the incision. I attempted to pass a guidewire through the needle into the right subclavian vein subcu down to the superior vena cava. The guidewire met resistance at about 10cm from the tip and so I eventually was not able to pass the guidewire the right subclavian vein. I then removed needle pelvic pressure on the area for hemostasis. I then turned my attention towards trying to access the right internal jugular vein. Again utilizing the long 18gauge needle was able to cannulate the right internal jugular vein on the 1st pass and difficulty. There was prompt return of dark venous appearing blood. I then tried to pass a guidewire via the right internal jugular vein and again it met resistance and I was not able to definitively get the guidewire down into the superior vena cava even with the use of intraoperative fluoroscopy. At this point I then removed the guidewire and needle from the right internal jugular vein and held pressure on the area for hemostasis. I then placed a moist 4x4 sponge into the right upper anterior chest incision. I then turned my attention towards tried access the left subclavian vein. Again the same long 18gauge spinal needle was then used to percutaneously cannulate the left subclavian vein on the 1st pass and a difficulty. This time I was able to advance a guidewire through the needle into the left subclavian vein and subsequently down words towards the heart. Intraoper
[2023-08-14 13:00] VITALS: BP 115/72; PULSE 87; RESP 14
== END 2023-08-14 13:35 | disposition home or self-care (01) ==
PROVIDERS: Anesthesiology; PCP Family Medicine; Visit Provider Surgery
PROC: (CPT 36561; principal; 2023-08-14 10:30)
DX: C43.9 Malignant melanoma of skin, unspecified (principal); C78.1 Secondary malignant neoplasm of mediastinum; I10 Essential (primary) hypertension; I25.10 Atherosclerotic heart disease of native coronary artery without angina pectoris; E78.2 Mixed hyperlipidemia; F41.1 Generalized anxiety disorder; F33.1 Major depressive disorder, recurrent, moderate; G47.33 Obstructive sleep apnea (adult) (pediatric); E66.9 Obesity, unspecified; Z68.30 Body mass index [BMI] 30.0-30.9, adult; Z79.01 Long term (current) use of anticoagulants
CPT/HCPCS: 36561; 36415; 77001; 80048; C1788; J0690; J1100; J1644; J2250; J2405; J2704; J3010; J7030; J7120

== ENCOUNTER 2023-08-19 09:07 | Outpatient (CLI) | payer BC, MEDICARE, SELFPAY ==
--- NOTE | ~2023-08-19 | MR_ITS ---
EXAMINATION: MR brain/brain stem wo/w con DATE: 08/19/2023 09:50 INDICATION: Melanoma of trunk. TECHNIQUE: Magnetic resonance imaging (MRI) of the brain and brainstem was performed without and with 17 mL MultiHance intravenous contrast. COMPARISON: None. FINDINGS: There is no intracranial hemorrhage, acute infarction, or abnormal intracranial mass lesion . The ventricles are normal in size. There is mucosal thickening in the paranasal sinuses. The orbits are normal. The mastoid air cells are normal. IMPRESSION: 1. Normal brain. No evidence of metastatic disease. Reviewed, dictated and finalized at location E. H HAND
== END 2023-08-19 09:08 | disposition home or self-care (01) ==
PROVIDERS: PCP Family Medicine; Visit Provider Internal Medicine Hematology & Oncology
DX: C43.59 Malignant melanoma of other part of trunk (principal)
CPT/HCPCS: 70553; A9577

== ENCOUNTER 2023-09-07 11:06 | Emergency (ER) | payer OTHER, SELFPAY ==
--- NOTE | ~2023-09-07 | XR_ITS ---
XR knee LT min 4V DATE: 09/07/2023 11:35 INDICATION: Fall 2 days ago. Anterior pain, swelling, bruising TECHNIQUE: 4 views COMPARISON: None FINDINGS: There is a comminuted minimally displaced fracture of the anterior lower aspect of the bullard lla with overlying soft tissue swelling. No other fracture or dislocation is evident. Joint spaces are preserved. No radiopaque intra-articula r loose body or chondrocalcinosis is detected. IMPRESSION: Comminuted minimally displaced fracture of the patella Reviewed, dictated and finalized at location B. RNATIONAL GUEST COORDINATOR
[2023-09-07 11:14] VITALS: BP 121/82; PULSE 113; RESP 16; TEMP 36.2; O2SAT 100
[2023-09-07 11:18] VITALS: BP 121/82; PULSE 113; RESP 16; TEMP 36.2; O2SAT 100
--- NOTE | 2023-09-07 11:56 | ED.LOWEXIN ---
HPI - Extremity Injury (Lower) General Chief Complaint: Extremity Injury, Lower Stated Complaint: Injured knee Time Seen by Provider: 09/07/23 11:56 Source: patient, RN notes reviewed and old records reviewed Mode of arrival: ambulatory Limitations: no limitations History of Present Illness HPI Narrative: 67 year old male presents to [facility] with complaints of slipping on ice Thursday evening falling onto concrete on his left knee. Patient reports that he has been able to walk on his leg but his pain has increased since yesterday and he can't hardly bend his knee. Patient has noted swelling and bruising to the left patella area with point tenderness distal region of patella. Patient reports that he has iced his knee and rested it.Patient is undergoing radiation treatment and immunotherapy for metastatic melanoma to mediastinal area. MD complaint: knee injury (patella) Onset (ago): day(s) (2 days ago) Injury: Left: knee Type of Injury: blunt Severity scale (1-10): 3 Treatments prior to arrival: cold therapy and other (rest) Related Data Home Medications Medication Instructions Recorded Confirmed ticagrelor 60 mg tablet (Brilinta) 60 mg PO BID 10/16/19 09/08/23 ascorbic acid (vitamin C) 500 mg 500 mg PO DAILY 10/23/21 09/08/23 tablet zinc gluconate 50 mg tablet 50 mg PO DAILY 10/23/21 09/08/23 Allergies Allergy/AdvReac Type Severity Reaction Status Date / Time No Known Allergies Allergy Verified 09/08/23 13:51 Review of Systems Review of Systems: CONSTITUTIONAL: Denies fever, chills, or sweats. EYES: Denies visual changes, redness, or discharge. ENT: Denies rhinorrhea, congestion, sore throat, or otalgia. CARDIOVASCULAR: Denies chest pain, palpitations, or edema. RESPIRATORY: Denies cough or dyspnea. GASTROINTESTINAL: Denies abdominal pain, nausea, vomiting, or diarrhea. GENITOURINARY: Denies dysuria or hematuria. SKIN: Denies rash or itching. MUSCULOSKELETAL: Denies back pain,positive for left knee patella area pain from injury, or myalgia. NEUROLOGIC: Denies headache, numbness, or weakness. PSYCHIATRIC: Reports anxiety or depression. All systems reviewed & are unremarkable except as noted in HPI and below PMFSH Past Medical History Medical History (Updated 09/09/23 @ 09:12 by Shabnam Lomas NP) Benign essential HTN CAD (coronary artery disease) Contusion of thigh, left Cough LOKI (generalized anxiety disorder) Hernia HTN (hypertension) with goal to be determined MDD (major depressive disorder), recurrent episode, moderate Metastatic melanoma mediastinal mass Mixed hyperlipidemia Obesity THOR (obstructive sleep apnea) Surgical History Surgical History (Updated 09/09/23 @ 08:58 by Shabnam Lomas NP) History of carpal tunnel surgery History of inguinal hernia repair, bilateral Family History Family History Sibling Depression Family history of alcoholism Mother Hypertension Family history of elevated blood lipids Father Hypertension Family history of elevated blood lipids Family history of coronary artery disease Social History Social History Social History: Smoking status: Never smoker Second hand tobacco smoke exposure: No Alcohol intake: current Drinks per week: 10 Alcohol use details: DRINKS Substance use: never Substance use type: does not use Lack of Transportation: No Lack of Food: Never True Current Housing: I Have Housing Concerned About Future Housing: No Difficulty Paying Gas/Electric Bills: No Difficulty Paying for Meds: No Currently Unemployed: YES Education: Decline to Answer Difficulty w/ Childcare or Family Care: No Living arrangements: with family Occupation/Education: retired Gender identity (if verbalized by the patient): Male Sexual Orientation (if Verbalized by the Patient): Straight or Heteros
== END 2023-09-07 12:48 | disposition home or self-care (01) ==
PROVIDERS: Emergency Provider Registered Nurse; PCP Family Medicine
DX: S82.042A Displaced comminuted fracture of left patella, initial encounter for closed fracture (principal); W00.0XXA Fall on same level due to ice and snow, initial encounter; I10 Essential (primary) hypertension; I25.10 Atherosclerotic heart disease of native coronary artery without angina pectoris; C78.1 Secondary malignant neoplasm of mediastinum; C80.1 Malignant (primary) neoplasm, unspecified; F41.1 Generalized anxiety disorder
CPT/HCPCS: 73564; 99214; G0463; L1830

== ENCOUNTER 2023-10-20 03:58 | Day surgery (SDC) | payer OTHER, SELFPAY ==
[2023-10-06 15:56] VITALS: BMI 28.1
--- NOTE | 2023-10-06 16:12 | PC.NURSE ---
Instructed to take last dose of Brilinta on 10/15/23 (as ok by Dr. Clay) then hold until after procedure 10/20/[address] Guzman. After procedure will be instructed when to renew Brilinta
--- NOTE | 2023-10-16 14:56 | PC.NURSE ---
Patient called regarding upcoming procedure. Reviewed preop instructions, appointment times, and procedure prep.
[2023-10-20 12:05] VITALS: BP 106/70; PULSE 97; RESP 16; TEMP 35.6; O2SAT 96; BMI 27.2
[2023-10-20] MEDS: LACTATED RINGERS 1,000 ML 150 ML IV CONT (12:30)
--- NOTE | 2023-10-20 12:37 | WPDANESEPPF ---
Anes - Initial Pre Proc Eval Procedure: Operation Date: 10/20/23 13:30 Proposed Procedures p Esophagogastroduodenoscopy - Ovidio Gross MD Date/Time: 10/20/23 12:37 Surgeon: Ovidio Gross MD Pre Op Diagnosis: Esophageal Ulcer Patient Data Age: 68 Gender: M Height: 1.73 m Weight: 81.2 kg Last Vital Signs Temp 35.6 C L 10/20/23 12:05 Pulse 97 10/20/23 12:05 Resp 16 10/20/23 12:05 BP 106/70 10/20/23 12:05 Pulse Ox 96 10/20/23 12:05 O2 Del Method Room Air 10/20/23 12:05 Allergies Allergy/AdvReac Type Severity Reaction Status Date / Time No Known Allergies Allergy Verified 10/20/23 12:14 Home Medications Medication Instructions Recorded Confirmed Type ticagrelor 60 mg tablet (Brilinta) 60 mg PO BID 10/16/19 10/20/23 History atorvastatin 40 mg tablet 40 mg PO QPM #90 tabs 07/12/23 10/20/23 Rx alprazolam 0.25 mg tablet 0.25 mg PO BID PRN anxiety #60 tabs 07/27/23 10/20/23 Rx omeprazole 40 mg capsule,delayed 40 mg PO .bid #60 caps 07/28/23 10/20/23 Rx release benzonatate 200 mg capsule 200 mg PO TID PRN Cough #60 caps 08/07/23 10/20/23 Rx lisinopril 20 See Rx Instructions .Route 08/17/23 10/20/23 Rx mg-hydrochlorothiazide 12.5 mg .COMPLEX #90 tabs tablet hydralazine 10 mg tablet See Rx Instructions .Route 08/18/23 10/20/23 Rx .COMPLEX #270 tabs hydrocodone 5 mg-acetaminophen 325 1 tablet PO Q6H PRN pain #10 tabs 09/07/23 10/20/23 Rx mg tablet Magic Mouthwash (Dr. Medina) 120 See Rx Instructions .Route 09/11/23 10/20/23 Rx mL suspension .COMPLEX PRN Odynophagia #360 mL cyclobenzaprine 5 mg tablet 5 mg PO TID #90 tabs 10/11/23 10/20/23 Rx Patient hx anesthesia problems: none Family hx anesthesia problems: none Results Review: All pre-operative results and documents have been reviewed as part of the pre-operative evaluation. FORMERLY [facility], 1928–1983 Past Medical History Medical History Benign essential HTN CAD (coronary artery disease) Contusion of thigh, left Cough LOKI (generalized anxiety disorder) Hernia HTN (hypertension) with goal to be determined MDD (major depressive disorder), recurrent episode, moderate Metastatic melanoma mediastinal mass Mixed hyperlipidemia Obesity THOR (obstructive sleep apnea) Surgical History Surgical History History of carpal tunnel surgery History of inguinal hernia repair, bilateral Family History Family History Sibling Depression Family history of alcoholism Mother Hypertension Family history of elevated blood lipids Father Hypertension Family history of elevated blood lipids Family history of coronary artery disease Social History Social History Social History: Smoking status: Never smoker Second hand tobacco smoke exposure: No Alcohol intake: current Drinks per week: 10 Alcohol use details: occasional Substance use: never Substance use type: does not use Lack of Transportation: No Lack of Food: Never True Current Housing: I Have Housing Concerned About Future Housing: No Difficulty Paying Gas/Electric Bills: No Difficulty Paying for Meds: No Currently Unemployed: YES Education: Decline to Answer Difficulty w/ Childcare or Family Care: No Living arrangements: with family Occupation/Education: retired Gender identity (if verbalized by the patient): Male Sexual Orientation (if Verbalized by the Patient): Straight or Heterosexual Spiritual care concerns: No Anes - Eval Final PreProcedure Day of Procedure 10/20/23 12:37 Patient weight: overweight Heart: regular rate and rhythm Lungs: clear to auscultation Airway: Mallampati scale class II Neurological: alert and oriented Last oral intake: >/= 8 hours ASA classificatio
--- NOTE | 2023-10-20 13:24 | PM.HPGS ---
History of Present Illness History of Present Illness Consent: Risks, benefits, and alternatives have been discussed and questions answered. Patient agrees to proceed with procedure. Chief complaint: Esophageal Ulcer Narrative: Arsh Leiva III is a 68 year old male here for egd, had erosive esophagitis but since also diagnosed with large mediastinal mass due to metastatic melanoma now undergoing XRT and immunotherapy with opdivo Review of Systems Constitutional: Constitutional: Denies headache(s) and Denies weakness Eyes: Eyes: Denies blurry vision ENT: Reports Normal hearing present, Denies headache(s) and Denies neck pain Cardiovascular: Cardiovascular: Denies chest pain and Denies dyspnea Respiratory: Respiratory: Denies dyspnea Gastrointestinal: Gastrointestinal: Reports no additional gastrointestinal complaints Genitourinary: Genitourinary: Denies dysuria Musculoskeletal: Musculoskeletal: Denies neck pain Integumentary/Breasts: Skin/Breast: Denies dry skin Neurologic: Reports Normal hearing present, Denies headache(s) and Denies weakness Psychiatric: Psychiatric: Denies anxiety Endocrine: Endocrine: Denies change in body appearance Hematologic/Lymphatic: Hematologic/Lymphatic: Denies easy bleeding Allergic/Immunologic: Allergic/Immunologic: Denies urticaria PMFSH Past Medical History Medical History (Updated 10/20/23 @ 13:26 by Ovidio Gross MD) Benign essential HTN CAD (coronary artery disease) Contusion of thigh, left Cough Erosive esophagitis LOKI (generalized anxiety disorder) Hernia HTN (hypertension) with goal to be determined MDD (major depressive disorder), recurrent episode, moderate Metastatic melanoma mediastinal mass Mixed hyperlipidemia Obesity THOR (obstructive sleep apnea) Surgical History Surgical History History of carpal tunnel surgery History of inguinal hernia repair, bilateral Family History Family History Sibling Depression Family history of alcoholism Mother Hypertension Family history of elevated blood lipids Father Hypertension Family history of elevated blood lipids Family history of coronary artery disease Social History Social History Social History: Smoking status: Never smoker Second hand tobacco smoke exposure: No Alcohol intake: current Drinks per week: 10 Alcohol use details: occasional Substance use: never Substance use type: does not use Lack of Transportation: No Lack of Food: Never True Current Housing: I Have Housing Concerned About Future Housing: No Difficulty Paying Gas/Electric Bills: No Difficulty Paying for Meds: No Currently Unemployed: YES Education: Decline to Answer Difficulty w/ Childcare or Family Care: No Living arrangements: with family Occupation/Education: retired Gender identity (if verbalized by the patient): Male Sexual Orientation (if Verbalized by the Patient): Straight or Heterosexual Spiritual care concerns: No Meds Home Medications and Allergies Home Medications Medication Instructions Recorded Confirmed Type ticagrelor 60 mg tablet (Brilinta) 60 mg PO BID 10/16/19 10/20/23 History atorvastatin 40 mg tablet 40 mg PO QPM #90 tabs 07/12/23 10/20/23 Rx alprazolam 0.25 mg tablet 0.25 mg PO BID PRN anxiety #60 tabs 07/27/23 10/20/23 Rx omeprazole 40 mg capsule,delayed 40 mg PO .bid #60 caps 07/28/23 10/20/23 Rx release benzonatate 200 mg capsule 200 mg PO TID PRN Cough #60 caps 08/07/23 10/20/23 Rx lisinopril 20 See Rx Instructions .Route 08/17/23 10/20/23 Rx mg-hydrochlorothiazide 12.5 mg .COMPLEX #90 tabs tablet hydralazine 10 mg tablet See Rx Instructions .Route 08/18/23 10/20/23 Rx .COMPLEX #270 tabs hydrocodone 5 mg-acetaminophen 325 1 tablet PO Q6H PRN pain #10
[2023-10-20 13:43] VITALS: BP 88/59; PULSE 81; RESP 20; O2SAT 93
[2023-10-20 13:53] VITALS: BP 82/55; PULSE 75; RESP 18; O2SAT 96
[2023-10-20 14:03] VITALS: BP 95/61; PULSE 80; RESP 21; O2SAT 96
== END 2023-10-20 14:14 | disposition home or self-care (01) ==
PROVIDERS: PCP Family Medicine; Visit Provider Internal Medicine Gastroenterology
PROC: 0DJ08ZZ Inspection of Upper Intestinal Tract, Via Natural or Artificial Opening Endoscopic (ICD-10-PCS; CPT 43235; principal; 2023-10-20 13:30)
DX: K29.50 Unspecified chronic gastritis without bleeding (principal); K21.00 Gastro-esophageal reflux disease with esophagitis, without bleeding; K22.2 Esophageal obstruction; C43.9 Malignant melanoma of skin, unspecified; C78.1 Secondary malignant neoplasm of mediastinum; I10 Essential (primary) hypertension; I25.10 Atherosclerotic heart disease of native coronary artery without angina pectoris; E78.2 Mixed hyperlipidemia; F41.1 Generalized anxiety disorder; F33.1 Major depressive disorder, recurrent, moderate; G47.33 Obstructive sleep apnea (adult) (pediatric); Z79.01 Long term (current) use of anticoagulants; Z79.891 Long term (current) use of opiate analgesic
CPT/HCPCS: 43239; 88305; 88312; J2704; J7120

== ENCOUNTER 2023-11-24 09:07 | Outpatient (CLI) | payer OTHER, SELFPAY ==
--- NOTE | ~2023-11-24 | CT_ITS ---
Clinical Indication: Mediastinal mass CT Scan of the Chest with Contrast: Technique: Contiguous sections were acquired throughout the chest after intravenous administration of 75 cc of Omnipaque 350. Dose reduction technique was used on this scan by utilizing automated exposu re control and iterative reconstruction technique. The dose-length product (DLP) was 237.54 mGy-cm. COMPARISON: 07/23/2023 Findings: There is amorphous soft tissue density along the right paratracheal stripe, measuring approximately 4 .3 x 2.2 x 6.5 cm in extent, abutting the right side of the trachea, amorphous in appearance. This ma ss is markedly decreased in size from prior exam. No large central pulmonary embolus seen. There is n o evidence of aortic dissection or aneurysm. There is no evidence of pleural or pericardial effusion. There is irregular, somewhat bandlike consolidation the right upper lobe, suggestive of aspiration pn eumonitis. There are 2 irregular, somewhat spiculated densities in the right lower lobe (axial images 4950 for example, and 63 for example). There is an additional 7 mm irregular pulmonary nodule right lower lobe (axial image 71). Images through the upper abdomen reveal no abnormalities. Impression: Significant interval decrease in size of right paratracheal/right mediastinal mass, now measuring lucinda roximately 4.3 x 2.2 x 6.5 cm, compatible with partial response to interval therapy. Irregular bandlike consolidation the right upper lobe, with additional irregular spiculated densities in the right lower lobe, as detailed above. Findings suggest postradiation pneumonitis. Other pneumo zina, or possibly metastatic disease, are felt to be less likely, though not definitively excluded. Co ntinued follow-up advised. Reviewed, dictated and finalized at location M. Impression: Significant interval decrease in size of right paratracheal/right mediastinal m ass, now measuring approximately 4.3 x 2.2 x 6.5 cm, compatible with partial re sponse to interval therapy. Irregular bandlike consolidation the right upper lobe, with additional irregula r spiculated densities in the right lower lobe, as detailed above. Findings sug gest postradiation pneumonitis. Other pneumonia, or possibly metastatic disease , are felt to be less likely, though not definitively excluded. Continued follo w-up advised.
[2023-11-24 09:52] LABS: Estimated Glomerular Filt Rate > 60
== END 2023-11-24 09:08 | disposition home or self-care (01) ==
LOC: ANHIMG 09:10
PROVIDERS: PCP Family Medicine; Visit Provider Nurse Practitioner Family
DX: C43.9 Malignant melanoma of skin, unspecified (principal); J98.59 Other diseases of mediastinum, not elsewhere classified
CPT/HCPCS: 71260; Q9967

== ENCOUNTER 2023-12-28 10:09 | Outpatient (CLI) | payer OTHER, SELFPAY ==
--- NOTE | ~2023-12-28 | CT_ITS ---
EXAMINATION: CTA chest DATE: 12/28/2023 10:53 INDICATION: Metastatic melanoma presenting with cough and shortness of breath TECHNIQUE: Computed tomography (CT) pulmonary angiogram of the chest was performed with 100 mL Omnipa que-350 intravenous contrast. Additional 3D reconstructions utilizing coronal maximum intensity proje ction (MIP) were performed. Automated exposure control and iterative reconstruction technique were em ployed. The dose-length product was 517.05 mGy-cm. COMPARISON: 11/24/2023 and 07/23/2023 FINDINGS: No pulmonary embolism. No change in a paramediastinal band of consolidation with volume loss consiste nt with radiation fibrosis at the medial aspect of the right mid to upper lung. Prior small patchy gr oundglass opacities in the superior segment of the right lower lobe have progressed to a larger regio n of more dense consolidation with air bronchograms the rapid progression favoring pneumonia over mal ignancy. New small right pleural effusion. Heart size is normal. Thoracic aorta is normal in caliber with no dissection. No interval change in a right-sided mediastinal mass currently measuring 5.1 x 2. 4 cm at the level of the inferior margin of the aortic arch which is significantly decreased from at which time it measured 7.7 x 6.8 cm consistent with response to treatment of malignancy. N o other new or enlarging thoracic lymphadenopathy. Visualized upper abdomen is unremarkable. Moderate to severe thoracic spondylosis. IMPRESSION: 1. No pulmonary embolism. 2. Enlarging region of consolidation in the superior segment of the right upper lobe which given the relatively rapid progression is most suspicious for pneumonia with differential including less likely progression of metastatic disease or radiation fibrosis. 3. No recent change in size of a previously significantly larger right superior mediastinal mass cons istent with treated metastatic disease with change of radiation fibrosis in the adjacent paramediasti nal right upper lung. Reviewed, dictated and finalized at location A. IMPRESSION: 1. No pulmonary embolism. 2. Enlarging region of consolidation in the superior segment of the right upper lobe which given the relatively rapid progression is most suspicious for pneum onia with differential including less likely progression of metastatic disease or radiation fibrosis. 3. No recent change in size of a previously significantly larger right superior mediastinal mass consistent with treated metastatic disease with change of rad iation fibrosis in the adjacent paramediastinal right upper lung.
== END 2023-12-28 10:10 | disposition home or self-care (01) ==
LOC: ANHIMG 10:10
PROVIDERS: PCP Family Medicine; Visit Provider Internal Medicine Hematology & Oncology
DX: C79.9 Secondary malignant neoplasm of unspecified site (principal)
CPT/HCPCS: 71275; Q9967

== ENCOUNTER 2024-03-11 09:31 | Outpatient (CLI) | payer OTHER, SELFPAY ==
--- NOTE | ~2024-03-11 | CT_ITS ---
Clinical Indication: Metastatic melanoma CT Scan of the Chest with Contrast: Technique: Contiguous sections were acquired throughout the chest after intravenous administration of 100 cc of Omnipaque 350. Dose reduction technique was used on this scan by utilizing automated expos ure control and iterative reconstruction technique. The dose-length product (DLP) was 478.78 mGy-cm. COMPARISON: 12/28/2023 Findings: There is stable mass at the right paratracheal stripe extending posterior to the trachea, measuring a pproximately 4.2 x 2.9 cm in extent (axial image 37). No lymphadenopathy or mediastinal mass seen. No aortic aneurysm or dissection. No pulmonary embolus seen. There is probable chronic post radiation change in the medial right lung, with continued evolution as compared to prior exam. Left lung clear. There is no evidence of pleural or pericardial effusion. Images through the upper abdomen reveal no abnormalities. Impression: Stable metastatic/neoplastic mass along the right paratracheal stripe, extending posterior to the tra jensen, as detailed above. Evolving chronic post radiation change in the medial right lung. Reviewed, dictated and finalized at location M. Impression: Stable metastatic/neoplastic mass along the right paratracheal stripe, extendin g posterior to the trachea, as detailed above. Evolving chronic post radiation change in the medial right lung.
== END 2024-03-11 09:32 | disposition home or self-care (01) ==
LOC: ANHIMG 09:32
PROVIDERS: PCP Family Medicine; Visit Provider Internal Medicine Hematology & Oncology
DX: C43.9 Malignant melanoma of skin, unspecified (principal)
CPT/HCPCS: 71260; Q9967

== ENCOUNTER 2024-03-24 11:26 | Outpatient (CLI) | payer OTHER, SELFPAY ==
--- NOTE | ~2024-03-24 | XR_ITS ---
XR shoulder RT min 2V Ordering provider: Bebe Obrien PA-C History: . M25.511 - Pain in right shoulder . Comparison: None. FINDINGS: BONES: No acute fracture or dislocation. Degenerative changes in the area of the greater tuberosity. JOINT SPACES: The acromioclavicular joint is normal. The glenohumeral joint is normal. SOFT TISSUES: Normal. IMPRESSION: No acute osseous abnormality right shoulder. Reviewed, dictated and finalized at location A.
== END 2024-03-24 11:27 ==
LOC: MICIMG 11:27
PROVIDERS: PCP Orthopaedic Surgery; Visit Provider Physician Assistant
DX: M25.511 Pain in right shoulder (principal)
CPT/HCPCS: 73030

== ENCOUNTER 2024-05-10 12:27 | Outpatient (CLI) | payer OTHER, SELFPAY ==
--- NOTE | 2024-05-12 08:37 | WPDPFTINT ---
PFT Procedure Performed PFT Procedure Performed Spirometry with Pre/Post Bronchodilator Plethysmography (Lung Vol) Diffusing Cap (DLCO) Flow Vol Loop PFT Interpretation Lung volumes were measured with the body plethysmography method. Lung volumes are unremarkable. Spirometry showed normal expiratory flow rates and a normal FEV1 to FVC ratio of 71%. Following administration of a bronchodilator there was no significant increase in expiratory flow rates. Lung diffusion capacity is within the normal range at 84% predicted. The flow-volume loop is unremarkable Impression: Spirometry, lung volumes, and lung diffusion capacity all within the normal range.
== END 2024-05-10 12:28 | disposition home or self-care (01) ==
LOC: ANHPFT 12:29
PROVIDERS: PCP Family Medicine; Visit Provider Internal Medicine Pulmonary Disease
DX: J61 Pneumoconiosis due to asbestos and other mineral fibers (principal)
CPT/HCPCS: 94060; 94726; 94729

== ENCOUNTER 2024-05-30 14:11 | Outpatient (CLI) | payer OTHER, SELFPAY ==
--- NOTE | ~2024-05-30 | MR_ITS ---
MRI of the right shoulder Technique: Axial proton-density fat-sat images, coronal proton density fat-sat and T2 fat-sat images, and sagittal T1-weighted and T2 fat-sat images were acquired. Clinical History: Pain Findings: There is [id number] AC joint degenerative change, with mild irregularity of the acrom ion, and small amount of fluid in the joint space. No subacromial spur. Coracoclavicular, coracoacrom ial, and coracohumeral ligaments are intact. Supraspinatus and infraspinatus tendons are intact, mild tendinosis, but no partial or full-thickness tear. Subscapularis tendon is intact, with moderate to advanced tendinosis. Tendon of the long head of the biceps is intact. No labral tear evident. Inferior glenohumeral ligament is intact. No degenerative change or effusion of the glenohumeral join t. There is minimal fluid of the subacromial/subdeltoid bursa. No muscle atrophy or edema. Impression: Rotator cuff tendinosis without definite partial or full-thickness tear. Minimal subacromial/subdeltoid bursitis. Mild to moderate AC joint degenerative change. Reviewed, dictated and finalized at location . Impression: Rotator cuff tendinosis without definite partial or full-thickness tear. Minimal subacromial/subdeltoid bursitis. Mild to moderate AC joint degenerative change.
== END 2024-05-30 14:12 | disposition home or self-care (01) ==
PROVIDERS: PCP Physician Assistant; Visit Provider Physician Assistant
DX: M75.21 Bicipital tendinitis, right shoulder (principal); M75.51 Bursitis of right shoulder; M25.311 Other instability, right shoulder; M19.011 Primary osteoarthritis, right shoulder
CPT/HCPCS: 73221

== ENCOUNTER 2024-06-01 09:19 | Outpatient (CLI) | payer OTHER, SELFPAY ==
--- NOTE | ~2024-06-01 | CT_ITS ---
Clinical Indication: Metastatic melanoma CT Scan of the Chest with Contrast: Technique: Contiguous sections were acquired throughout the chest after intravenous administration of 75 cc of Omnipaque 350. Dose reduction technique was used on this scan by utilizing automated exposu re control and iterative reconstruction technique. The dose-length product (DLP) was 382.98 mGy-cm. COMPARISON: 03/11/2024 Findings: There is increasing masslike lesion at the right infrahilar region measuring approximately 2.9 x 2.1 cm (axial image 61). There is stable medial right upper lobe consolidative change with air bronchogra ms, suggestive of post radiation or post therapy change. Stable soft tissue thickening medially at th e right supra hilar region (axial image 46 for example). There is no filling defect in the pulmonary arterial tree to suggest pulmonary embolus. There is no evidence of aortic dissection or aneurysm. Minimal right pleural effusion. No left pleural effusion. No pericardial effusion. The lungs are clear. No pulmonary nodules or infiltrates are noted. Images through the upper abdomen reveal no abnormalities. Impression: Increasing somewhat masslike area in the right infrahilar region measuring 2.9 x 2.1 cm. Progressing neoplasm is suspected, versus possibly evolving post radiation change. Follow-up exam at a minimum is advised. Depending on the timeframe of radiation therapy, PET/CT could be considered. Tissue samplin g could be considered as indicated as well. Stable soft tissue thickening/mass in the right suprahilar region extending to the mediastinum, which could reflect active neoplasm versus treated disease. Minimal right pleural effusion. Reviewed, dictated and finalized at [facility]. Impression: Increasing somewhat masslike area in the right infrahilar region measuring 2.9 x 2.1 cm. Progressing neoplasm is suspected, versus possibly evolving post radi ation change. Follow-up exam at a minimum is advised. Depending on the timefram e of radiation therapy, PET/CT could be considered. Tissue sampling could be co nsidered as indicated as well. Stable soft tissue thickening/mass in the right suprahilar region extending to the mediastinum, which could reflect active neoplasm versus treated disease. Minimal right pleural effusion.
== END 2024-06-01 09:20 | disposition home or self-care (01) ==
PROVIDERS: PCP Family Medicine; Visit Provider Internal Medicine Hematology & Oncology
DX: C43.9 Malignant melanoma of skin, unspecified (principal); J90 Pleural effusion, not elsewhere classified
CPT/HCPCS: 71260; Q9967

== ENCOUNTER 2024-11-09 10:03 | Emergency (ER) | payer OTHER, SELFPAY ==
[2024-11-09 10:19] VITALS: BP 112/92; PULSE 139; RESP 16; TEMP 36.2; O2SAT 98
--- NOTE | 2024-11-09 10:36 | ED.URI ---
HPI - URI/Sore Throat General Chief Complaint: Upper Respiratory Infection Stated Complaint: SOB/COUGH Source: patient Mode of arrival: ambulatory Limitations: no limitations History of Present Illness HPI Narrative: 69 y/o male with hx mediastinal melanoma and AR ( PTCA 2016) presented for c/o sob with exertion x1 week. States at night he has startled awake while wearing cpap, says it feels like he cannot catch his breath. Pt says he plays hockey three times a week, but was unable to tolerate long periods of play 2 nights ago. Denies any associated chest pain, palpitations, dizziness, nausea, sweating, fever or chills. Endorses chronic cough since melanoma diagnosis 1year ago. Says sputum is now changing color to green, brown/rust, and reports 'gravel sound' with deep breaths. Also reports decreased appetite. Chemo every 2 weeks. Pt says pcp called abx for his symptoms, but pt did not have time to get it filled. Pt follows with Dr Clay, cardiology. Related Data Home Medications ?Medication ?Instructions ?Recorded ?Confirmed ?Last Taken ?Type ticagrelor 60 mg tablet (Brilinta) 60 mg PO BID 10/16/19 10/10/24 10/15/23 History Allergies Allergy/AdvReac Type Severity Reaction Status Date / Time No Known Allergies Allergy Verified 11/09/24 10:30 Review of Systems Review of Systems: CONSTITUTIONAL: Denies body aches, fever, chills, or sweats. EYES: Denies visual changes, redness, or discharge. ENT: Denies rhinorrhea, congestion, sore throat, or otalgia. CARDIOVASCULAR: Denies chest pain, palpitations, or edema. RESPIRATORY: Reports cough, sob, wheezing. GASTROINTESTINAL: Denies abdominal pain, nausea, vomiting, or diarrhea. MUSCULOSKELETAL: Denies back pain, joint pain NEUROLOGIC: Denies headache, numbness, tingling, or weakness. All systems reviewed & are unremarkable except as noted in HPI and below PMFSH Past Medical History Medical History Erosive esophagitis Hernia Metastatic melanoma mediastinal mass Cough Obesity MDD (major depressive disorder), recurrent episode, moderate Benign essential HTN Contusion of thigh, left Mixed hyperlipidemia CAD (coronary artery disease) THOR (obstructive sleep apnea) HTN (hypertension) with goal to be determined LOKI (generalized anxiety disorder) Surgical History Surgical History History of inguinal hernia repair, bilateral History of carpal tunnel surgery Family History Family History Sibling Depression Family history of alcoholism Mother Hypertension Family history of elevated blood lipids Father Hypertension Family history of elevated blood lipids Family history of coronary artery disease Social History Social History Social History: Smoking status: Never smoker Second hand tobacco smoke exposure: No Alcohol intake: current Drinks per week: 10 Alcohol use details: occasional Substance use: never Substance use type: does not use Lack of Transportation: No Lack of Food: Never True Current Housing: I Have Housing Concerned About Future Housing: No Difficulty Paying Gas/Electric Bills: No Difficulty Paying for Meds: No Currently Unemployed: YES Education: Decline to Answer Difficulty w/ Childcare or Family Care: No Living arrangements: with family Occupation/Education: retired Gender identity (if verbalized by the patient): Male Sexual Orientation (if Verbalized by the Patient): Straight or Heterosexual Spiritual care concerns: No Comments At time of signature, I have reviewed and agree with nursing past medical, surgical, social and family history unless otherwise noted. Please see nursing chart for further information. There is no relevant family history pertinent to the presenting complaint Exam Narrative: GENERAL: Well-appearing, in no acute distress. EYES: EOMI. No redness or drainage. Conjunctivae normal. ENT: Mucous membranes pink and moist. No rhinorrhea. CHEST: No respiratory distress. Wheezing to left lower lobe HEART: HR regular, tachycardic. No murmur appreciated. ABDOMEN: Soft, nontender, nondistended, normal active bowel sounds. EXTREMITIES: Normal range of motion. No edema. SKIN: Warm, dry, no rash. Capillary refill normal. Normal skin turgor. NEURO: Alert and oriented x3. Gait steady. PSYCH: Normal affect. Course Course Emergency Course: Patient is aware of diagnosis, understands and agrees to treatment plan. Anticipatory guidance given. Patient agrees to follow-up as directed and is aware of reasons to seek care at the emergency department. Portions of this record may have been created with voice recognition software Level of Care: Express Care Visit Vital Signs Vital signs: Vital Signs Temperature 97.2 F L 11/09/24 10:19 Pulse Rate 139 H 11/09/24 10:19 Respiratory Rate 16 11/09/24 10:19 Blood Pressure 112/92 H 11/09/24 10:19 Pulse Oximetry 98 11/09/24 10:19 Temperature 97.2 F L 11/09/24 10:19 Pulse Rate 139 H 11/09/24 10:19 Respiratory Rate 16 11/09/24 10:19 Blood Pressure 112/92 H 11/09/24 10:19 Pulse Oximetry 98 11/09/24 10:19 Transfer Transfered to: [place] [facility]: Other (Private vehicle) Transfer rationale: Pt is agreeable to transfer. Requests transfer to [facility] via private vehicle; declined ambulance. Risks of transportation reviewed with pt including injury, worsening of condition and . v/u. Report called to hospital, spoke with Dr Doherty, accepting physician. Pt is in stable condition at time of transfer. Advised to remain NPO and go directly to the hospital. MDM - URI/Sore Throat MDM Narrative Medical decision making narrative: Pt presented with SOB with exertion x1 week, EKG shows Atrial Flutter RVR [address] elevation Leads II, AVF. Previous EKG 2016 reviewed, AR shows ST elevation in V3/V4. Reviewed with Collaborating physician Dr Alvarado as well, does not appear to be acute AR. Discussed physical exam findings an EKG with the patient, advise EMS transfer, however patient declines and states he will drive himself. VSS, pt is in stable condition, has the capacity to make decisions and is aware of the risk of EMS refusal. Requests [facility]. Differential Diagnosis Differential diagnosis: Likely other (Angioedema, perforation, asthma, pneumonia, PE, tension pneumothorax, cardiac tamponade AR, pericarditis, pleural effusion, CHF, bronchitis, cardiac arrhythmia) ECG Data EKG #1: Attestation: I personally reviewed and interpreted this ECG as follows: (Atrial flutter withRVR 141, ST elevated in V3/V4, II, aVF) ECG completion date: 11/09/24 ECG completion time: 09:37 Prior ECG tracings: available for review ([address] elevation V2, V3, V4) EKG Interpretation: atrial flutter (RVR) Discharge Plan Discharge Clinical Impression: Atrial tachycardia Patient Disposition: Acute Care Hospital Condition: Stable Patient Language: Jamaican Prescriptions: No Action Brilinta 60 mg tablet 60 mg PO BID omeprazole 40 mg capsule,delayed release(DR/EC) 40 mg PO .bid Qty: 60 4RF atorvastatin 40 mg tablet See Rx Instructions .ROUTE .COMPLEX Qty: 90 1RF Dose Instruction: TAKE 1 TABLET BY MOUTH EVERY EVENING Patient Comments: ...... Rx Instructions: TAKE 1 TABLET BY MOUTH EVERY EVENING lisinopril-hydrochlorothiazide 20-12.5 mg tablet See Rx Instructions .ROUTE .COMPLEX Qty: 90 0RF Dose Instruction: TAKE 1 TABLET BY MOUTH DAILY Patient Comments: . Rx Instructions: TAKE 1 TABLET BY MOUTH DAILY azelastine 137 mcg (0.1 %) spray,non-aerosol 1 spray intranasal Q12H Qty: 90 0RF Rx Instructions: administer into each nostril Follow-up/Referrals: Derick Celaya MD [Primary Care Provider] - Time of Disposition: 11:33
--- NOTE | 2024-11-09 10:45 | ECG_ITS ---
Test Date: 2024-11-09 09:37:23 Measurements Intervals [place] Rate: 141 P: 0 CT: 0 QRS: 3 QRSD: 118 T: 0 QT: 225 QTc: 345 Interpretive Statements ATRIAL FLUTTER/TACHYCARDIA WITH RAPID VENTRICULAR RESPONSE PROBABLE ANTERIOR MYOCARDIAL INFARCTION [35 ms Q WAVE IN V3/V4], OF INDETERMINATE AGE NONSPECIFIC ST ABNORMALITY ABNORMAL ECG Electronically Signed On 11-09-2024 12:52:26 CDT by Cyrus Garsia M.D.
== END 2024-11-09 11:02 | disposition short-term general hospital (02) ==
PROVIDERS: Emergency Provider Nurse Practitioner Family; PCP Family Medicine
DX: I47.19 Other supraventricular tachycardia (principal); C43.9 Malignant melanoma of skin, unspecified; C78.1 Secondary malignant neoplasm of mediastinum; Z79.60 Long term (current) use of unspecified immunomodulators and immunosuppressants; I25.10 Atherosclerotic heart disease of native coronary artery without angina pectoris; I10 Essential (primary) hypertension; E78.2 Mixed hyperlipidemia; E66.9 Obesity, unspecified; Z68.31 Body mass index [BMI] 31.0-31.9, adult; K20.80 Other esophagitis without bleeding
CPT/HCPCS: 93005; 99213; G0463

== ENCOUNTER 2024-11-09 11:20 | Inpatient (IN) | payer OTHER, SELFPAY ==
[2024-11-09] VITALS (24 sets, daily range): BP systolic 99–128; BP diastolic 68–91; PULSE 96–145; RESP 16–40; TEMP 36.6–36.8; O2SAT 95–100; BMI 31.4
--- NOTE | ~2024-11-09 | CT_ITS ---
EXAMINATION: CTA chest PE protocol DATE: 11/09/2024 13:02 INDICATION: Shortness of breath. Elevated d-dimer. TECHNIQUE: Computed tomography (CT) pulmonary angiogram of the chest was performed with 100 mL Omnipa que-350 intravenous contrast. Additional 3D reconstructions utilizing coronal maximum intensity proje ction (MIP) were performed. Automated exposure control and iterative reconstruction technique were em ployed. The dose-length product was 527.24 mGy-cm. COMPARISON: Chest CT dated 09/02/2024 FINDINGS: Diagnostic quality study demonstrating no pulmonary embolism. Persistent volume loss and paramediasti nal consolidation in the right upper lobe consistent with likely radiation fibrosis for treatment of reported metastatic melanoma. New patchy consolidation with surrounding groundglass opacity in the ri ght upper, right middle and bilateral lower lobes with appearance suspicious for pneumonia. Additiona l significant smaller regions of groundglass opacity in the left upper lobe and lingula also suspicio us for pneumonia. There is some mild smooth septal line thickening at the basilar aspect of the bilat eral lower lobes consistent with mild pulmonary edema. Small to moderate-sized right and very small l eft posterior layering pleural effusions. Heart size is normal. Atherosclerotic coronary artery calci fic lesion. Small pericardial effusion. Thoracic aorta is normal in caliber. No interval change in a mildly enlarged right paratracheal lymph node which is significantly decrease in size since 12/28/2023 and likely related to treated metastatic disease. Interval increase in size of a few still normal-siz ed anterior mediastinal lymph nodes which are likely reactive. 8 mm exophytic left renal cyst. The vi sualized upper abdomen is otherwise unremarkable. Moderate to severe thoracic spondylosis with chroni c appearing mild anterior wedging at T8 and T11. IMPRESSION: 1. No pulmonary embolism. 2. Patchy consolidation and groundglass opacities in both lungs most suspicious for pneumonia. 2. Mild pulmonary edema the bilateral lung bases with small to moderate-sized right and very small le ft pleural effusions. 3. Stable appearance of more chronic right upper lobe paramediastinal consolidation with volume loss and adjacent right paratracheal mass likely related to history of treated metastatic disease. 4. Increase in size with a few still normal-sized anterior mediastinal lymph nodes which are most lik nathan reactive. 5. Small pericardial effusion. Reviewed, dictated and finalized at location A. IMPRESSION: 1. No pulmonary embolism. 2. Patchy consolidation and groundglass opacities in both lungs most suspicious for pneumonia. 2. Mild pulmonary edema the bilateral lung bases with small to moderate-sized r ight and very small left pleural effusions. 3. Stable appearance of more chronic right upper lobe paramediastinal consolida tion with volume loss and adjacent right paratracheal mass likely related to hi story of treated metastatic disease. 4. Increase in size with a few still normal-sized anterior mediastinal lymph no shea which are most likely reactive. 5. Small pericardial effusion.
--- NOTE | ~2024-11-09 | XR_ITS ---
XR chest 1V portable Ordering provider: Leann Doherty MD History: 69 years Male with . CP . Comparison: None. FINDINGS: MEDIASTINUM: The cardiac silhouette is not enlarged. Soft tissue density is seen in the right tracheo bronchial area which is smaller than the previous study. Left Port-A-Cath with the tip overlying the superior vena cava. LUNGS: No infiltrates, effusions or pneumothorax. Minimal interstitial thickening bilaterally most li casey due to fibrotic changes. OTHER: No free air under the diaphragm. IMPRESSION: No acute cardiopulmonary pathology. Soft tissue density in the right tracheobronchial tree area which is most likely a mass. This site is slightly smaller than the previous study. Reviewed, dictated and finalized at location A. IMPRESSION: No acute cardiopulmonary pathology. Soft tissue density in the right tracheobronchial tree area which is most likel y a mass. This site is slightly smaller than the previous study.
--- NOTE | 2024-11-09 11:21 | ECG_ITS ---
Test Date: 2024-11-09 11:26:07 Measurements Intervals [place] Rate: 139 P: 0 AR: 0 QRS: -4 QRSD: 113 T: -75 QT: 287 QTc: 437 Interpretive Statements ATRIAL FLUTTER/TACHYCARDIA WITH RAPID VENTRICULAR RESPONSE CANNOT RULE OUT OLD SEPTAL INFARCT Compared to ECG 11/09/2024 09:37:23 No significant changes Electronically Signed On 11-09-2024 15:27:09 CDT by Kalpesh Ferraro M.D.
--- NOTE | 2024-11-09 11:43 | ED_ITS ---
HPI - SOB/Dyspnea General Chief Complaint: Shortness of Breath/Dyspnea Stated Complaint: sob Time Seen by Provider: 11/09/24 11:33 Source: other (Urgent Care) History of Present Illness HPI Narrative: Patient sent from [place]. ANDREZ there noted he has been short of breath and EKG performed in clinic showed atrial flutter with rapid ventricular response in the 140s. History of mediastinum melanoma for which he undergoes chemotherapy every 2 weeks. Otherwise fairly active he plays hockey 3 times a week. He denies any chest pain or dizziness. Came by private vehicle as he has refused EMS. They called back and 11:02 am after noticing that EKG obtained said Acute SC for ST elevation. They had consulted Dr Murcia (physician, urgent care biomedical equipment tech) who had reviewed this and compared it to prior EKG. Patient states that he has had symptoms for approximately 1 week. He denies any chest pain. No prior diagnosis of Afib/Aflutter. Cardiac risk factors HTN: + HLD: + DM: No Obese: Yes Smoker: No Personal history SC/TIA/CVA: stent approximately 10 years ago (2015) PCP now Dr Celaya given Dr Gutierrez retired. Related Data Home Medications ?Medication ?Instructions ?Recorded ?Confirmed ?Last Taken ?Type ticagrelor 60 mg tablet (Brilinta) 60 mg PO BID 10/16/19 11/09/24 11/09/24 History albuterol sulfate 90 mcg/actuation 2 puff inhalation Q4H PRN wheezing 11/09/24 11/09/24 11/07/24 History aerosol inhaler lisinopril 20 1 tablet PO DAILY 11/09/24 11/09/24 11/09/24 History mg-hydrochlorothiazide 12.5 mg tablet omeprazole 40 mg capsule,delayed 40 mg PO DAILY 11/09/24 11/09/24 11/09/24 History release potassium chloride 20 mEq 20 meq PO BID 11/09/24 11/09/24 11/09/24 History tablet,extended release(part/cryst) (Klor-Con M) pseudoephedrine-guaifenesin ER 120 1 tablet PO Q12H 11/09/24 11/09/24 11/09/24 History mg-1,200 mg tab,extend release 12hr (Mucinex D Maximum Strength) Allergies Allergy/AdvReac Type Severity Reaction Status Date / Time No Known Allergies Allergy Verified 11/09/24 19:49 [facility] Past Medical History Medical History Mixed hyperlipidemia CAD (coronary artery disease) MDD (major depressive disorder), recurrent episode, moderate LOKI (generalized anxiety disorder) Erosive esophagitis Hernia Metastatic melanoma mediastinal mass Cough Obesity Benign essential HTN Contusion of thigh, left THOR (obstructive sleep apnea) Surgical History Surgical History History of heart artery stent History of cardiac catheterization History of inguinal hernia repair, bilateral History of carpal tunnel surgery Family History Family History Sibling Depression Family history of alcoholism Mother Family history of elevated blood lipids Hypertension Father Family history of coronary artery disease Murmur, cardiac Social History Social History Social History: Active, plays ice hockey 3x/week Smoking status: Never smoker Second hand tobacco smoke exposure: No Alcohol intake: current Drinks per week: 5 Alcohol use details: occasional Substance use: never Substance use type: other Other substance usage details: cannibis gummies Do You Feel Safe in your Home?: Yes Lack of Transportation: No Lack of Food: Never True Current Housing: I Have Housing Concerned About Future Housing: No Difficulty Paying Gas/Electric Bills: No Difficulty Paying for Meds: No Currently Unemployed: No Education: Decline to Answer Difficulty w/ Childcare or Family Care: No Living arrangements: with family Occupation/Education: retired Gender identity (if verbalized by the patient): Male Sexual Orientation (if Verbalized by the Patient): Straight or Heterosexual Spiritual care concerns: No Exam 2 Narrative: GENERAL: Well-appearing, well-nourished, and in no acute distress. HEAD: Normocephalic, atraumatic. EYES: Non injected, non icteric ENT: Nares clear, no rhinorrhea or epistaxis. NECK: Supple. CHEST: Speaking in full sentences. No respiratory distress. HEART: Regular rate and rhythm. . ABDOMEN: Soft, nondistended. EXTREMITIES: Normal range of motion. No lower extremity edema. SKIN: Warm, dry, no rash. NEURO: No focal deficits. Alert and oriented x3. PSYCH: Normal mood and affect. Course Vital Signs Vital signs: Vital Signs Pulse Rate 139 H 11/09/24 11:41 Respiratory Rate 22 H 11/09/24 11:41 Blood Pressure 111/88 11/09/24 11:41 Temperature 98 F 11/09/24 19:08 Pulse Rate 99 11/09/24 22:00 Respiratory Rate 16 11/09/24 19:08 Blood Pressure 109/70 11/09/24 22:00 Pulse Oximetry 95 11/09/24 22:29 Oxygen Delivery Room Air 11/09/24 22:29 Fraction of Inspired Oxygen 21 11/09/24 22:29 MDM - SOB/Dyspnea MDM Narrative Medical decision making narrative: Patient presents shortness of breath. Physical exam revealed an irregular and rapid heartbeat at a rate of 139bpm. Patient is afebrile (by report from tech <99F) with vital signs notable for mild tachypnea as well as fast HR. An IV was placed and the patient was put on cardiac and pulse oximetry monitors. ECG showed an irregularly irregular narrow-complex tachycardia without associated P-waves, consistent with the diagnosis of Afib with RVR. Given the appearance of the EKG obtained in the emergency department, I did consult and discuss with on-call reclamation kettle tender Dr Ruiz who reviewed this EKG, the EKG obtained at [facility], and prior EKG. Determined not a STEMI activation and recommended rate control with beta-helen. Patient hemodynamically stable thus early priority in management was to slow the ventricular rate. Metoprolol was administered although not believed to have been responsive (though difficult as multiple personnel called to a critical patient at the same time). Will redose and observe for effect. Only transient change. 0.25mg/kg diltiazem administered. Minimal change. Started diltiazem gtt. Patient's atrial fibrillation appears to be paroxysmal (less than 7 days) versus persistent (greater than 7 days) given he reports approximately 1 week of symptoms. Dimer elevated greater than 1. Will proceed with CT imaging. BNP greater than 2000 with no prior for comparison. Lactic acid normal. Concern for pneumonia on CT scan. Ceftriaxone azithromycin ordered. UDS with cannabinoids. Patient will require admission for further work up and management. On dilt gtt he had been with rate 110s-120s though while on phone discussion admission with OUTSIDE INSTALLATION MACHINIST hospitalist Louise it is seen he is in 130s. She is notified. Will require IMU admission. Will need to discuss anticoagulation risks/benefits (CHADS-VASC versus HAS- BLED). He is relatively active with moderate risk given he is active and plays ice hockey 3x/week. == Critical Care: 1 or more vital organ systems impaired with a high probability of imminent or life-threatening deterioration in the patient's condition requiring frequent personal assessment and manipulation of the patient's condition. This included time spent evaluating the patient, speaking with pre- hospital personnel , reviewing/interpreting laboratory/imaging studies, discussing the case with consultants or admitting teams, retrieving data and reviewing charts, monitoring for decompensation, documenting the visit, and performing bundled procedures exclusive of separately billed procedures. Differential Diagnosis Differential diagnosis: Likely congestive heart failure, community acquired pneumonia, pulmonary embolism and other (new onset afib/aflutter; considered thyroid abnormality; considered ACS including STEMI) Lab Data Attestation: I reviewed the patient's lab results. 11/09/24 11:51 11/09/24 11:51 Labs: Lab Results 11/09/24 11/09/24 11/09/24 Range/Units 11:51 11:51 11:51 WBC 9.0 (4.5-10.0) K/mm3 RBC 5.52 (4.6-6.20) M/mm3 Hgb 16.6 (14.0-18.0) g/dL Hct 49.6 (42.0-52.0) % MCV 89.9 (80-100) fl MCH 30.1 (26-34) pg MCHC 33.5 (32-36) g/dl RDW 13.1 (11.5-14.5) % Plt Count 309 (150-375) k/mm3 MPV 8.8 (7.4-10.4) fl Immature Gran % (Auto) 1.0 H (0-0.5) % Neut % (Auto) 69.8 (45.5-73.1) % Lymph % (Auto) 7.7 L (18.3-44.2) % Giles % (Auto) 15.3 H (2.6-8.5) % Eos % (Auto) 5.4 H (0-4.4) % Baso % (Auto) 0.8 (0.2-1.2) % Lymph # (Auto) 0.69 L (0.9-3.2) K/mm3 Giles # (Auto) 1.4 H (0.1-0.6) K/mm3 Eos # (Auto) 0.5 H (0-0.3) K/mm3 Baso # (Auto) 0.1 (0.0-0.1) K/mm3 Abs Immat Gran (auto) 0.09 H (0.00-0.031) K/mm3 Absolute Neuts (auto) 6.3 (1.3-6.7) K/mm3 Absolute Nucleated RBC 0.000 (0.0-0.012) K/mm3 Nucleated RBC % 0.0 (0.0-0.2) % PT 14.7 (11.1-14.7) Seconds INR 1.1 APTT 34.5 (22.3-36.8) Seconds D-Dimer 1.28 H Cancelled (<0.48) ug/mL Sodium 137 (137-145) mmol/L Potassium 4.5 (3.4-5.0) mmol/L Chloride 99 (98-107) mmol/L Carbon Dioxide 23 (22-30) mmol/L Anion Gap 15 H (4-12) mmol/L BUN 16 (9-20) mg/dL Creatinine 1.16 (0.7-1.3) mg/dL Estim Creat Clear Calc 63 ml/min Estimated GFR > 60 (59 - ) Glucose 104 (65-110) mg/dL Lactic Acid 1.7 (0.7-2.0) mmol/L Calcium 9.4 (8.4-10.2) mg/dL Total Bilirubin 0.9 (0.2-1.3) mg/dL AST 22 (17-59) U/L ALT 19 (6-50) U/L Alkaline Phosphatase 95 (38-126) U/L Troponin I 0.012 (0.000-0.034) ng/mL NT-Pro-B Natriuret Pep 2030 H (19.9-100) pg/mL Total Protein 8.0 (6.3-8.2) g/dL Albumin 4.3 (3.5-5.1) g/dL TSH 4.190 Cancelled (0.465-4.680) uIU/mL Urine Color (Yellow) Urine Appearance (Clear) Urine pH (5.0-9.0) Ur Specific Imogene (1.001-1.035) Urine Protein (Negative) mg/dL Urine Glucose (UA) (Negative) mg/dL Urine Ketones (Negative) mg/dL Ur Blood (Man) (Negative) Urine Nitrate (Negative) Urine Bilirubin (Negative) Urine Urobilinogen (<2.0) mg/dL Leukocyte Esterase Rfl (Negative) STEPHEN/UL Urine Opiates Screen (Negative) Urine Methadone Screen (Negative) Ur Barbiturates Screen (Negative) Ur Phencyclidine Scrn (Negative) Ur Amphetamine Screen (Negative) U Benzodiazepines Scrn (Negative) Urine Cocaine Screen (Negative) U Cannabinoids Screen (Negative) Influenza A (RT-PCR) Negative (Negative) Influenza B (RT-PCR) Negative (Negative) RSV (RT-PCR) Negative (Negative) SARS-CoV-2 RNA (RT-PCR) Negative (Negative) 11/09/24 Range/Units 13:42 WBC (4.5-10.0) K/mm3 RBC (4.6-6.20) M/mm3 Hgb (14.0-18.0) g/dL Hct (42.0-52.0) % MCV (80-100) fl MCH (26-34) pg MCHC (32-36) g/dl RDW (11.5-14.5) % Plt Count (150-375) k/mm3 MPV (7.4-10.4) fl Immature Gran % (Auto) (0-0.5) % Neut % (Auto) (45.5-73.1) % Lymph % (Auto) (18.3-44.2) % Giles % (Auto) (2.6-8.5) % Eos % (Auto) (0-4.4) % Baso % (Auto) (0.2-1.2) % Lymph # (Auto) (0.9-3.2) K/mm3 Giles # (Auto) (0.1-0.6) K/mm3 Eos # (Auto) (0-0.3) K/mm3 Baso # (Auto) (0.0-0.1) K/mm3 Abs Immat Gran (auto) (0.00-0.031) K/mm3 Absolute Neuts (auto) (1.3-6.7) K/mm3 Absolute Nucleated RBC (0.0-0.012) K/mm3 Nucleated RBC % (0.0-0.2) % PT (11.1-14.7) Seconds INR APTT (22.3-36.8) Seconds D-Dimer (<0.48) ug/mL Sodium (137-145) mmol/L Potassium (3.4-5.0) mmol/L Chloride (98-107) mmol/L Carbon Dioxide (22-30) mmol/L Anion Gap (4-12) mmol/L BUN (9-20) mg/dL Creatinine (0.7-1.3) mg/dL Estim Creat Clear Calc ml/min Estimated GFR (59 - ) Glucose (65-110) mg/dL Lactic Acid (0.7-2.0) mmol/L Calcium (8.4-10.2) mg/dL Total Bilirubin (0.2-1.3) mg/dL AST (17-59) U/L ALT (6-50) U/L Alkaline Phosphatase (38-126) U/L Troponin I (0.000-0.034) ng/mL NT-Pro-B Natriuret Pep (19.9-100) pg/mL Total Protein (6.3-8.2) g/dL Albumin (3.5-5.1) g/dL TSH (0.465-4.680) uIU/mL Urine Color Yellow (Yellow) Urine Appearance Clear (Clear) Urine pH 5.0 (5.0-9.0) Ur Specific Imogene > 1.045 H (1.001-1.035) Urine Protein Negative (Negative) mg/dL Urine Glucose (UA) Negative (Negative) mg/dL Urine Ketones Trace H (Negative) mg/dL Ur Blood (Man) Negative (Negative) Urine Nitrate Negative (Negative) Urine Bilirubin Negative (Negative) Urine Urobilinogen 0.2 (<2.0) mg/dL Leukocyte Esterase Rfl Negative (Negative) STEPHEN/UL Urine Opiates Screen Negative (Negative) Urine Methadone Screen Negative (Negative) Ur Barbiturates Screen Negative (Negative) Ur Phencyclidine Scrn Negative (Negative) Ur Amphetamine Screen Negative (Negative) U Benzodiazepines Scrn Negative (Negative) Urine Cocaine Screen Negative (Negative) U Cannabinoids Screen Positive A (Negative) Influenza A (RT-PCR) (Negative) Influenza B (RT-PCR) (Negative) RSV (RT-PCR) (Negative) SARS-CoV-2 RNA (RT-PCR) (Negative) Imaging Data Radiologist's impression: Impressions Chest X-Ray 11/09/24 12:45 IMPRESSION: No acute cardiopulmonary pathology. Soft tissue density in the right tracheobronchial tree area which is most likely a mass. This site is slightly smaller than the previous study. Chest CTA 11/09/24 13:05 IMPRESSION: 1. No pulmonary embolism. 2. Patchy consolidation and groundglass opacities in both lungs most suspicious for pneumonia. 2. Mild pulmonary edema the bilateral lung bases with small to moderate-sized right and very small left pleural effusions. 3. Stable appearance of more chronic right upper lobe paramediastinal consolidation with volume loss and adjacent right paratracheal mass likely related to history of treated metastatic disease. 4. Increase in size with a few still normal-sized anterior mediastinal lymph nodes which are most likely reactive. 5. Small pericardial effusion. ECG Data EKG #1: Attestation: I personally reviewed and interpreted this ECG as follows: ECG completion date: 11/09/24 ECG completion time: 11:26 Prior ECG tracings: available for review (EKG from [facility] earlier this morning is review which was atrial flutter/tachycardia with RVR at rate 141. Appears similar. EKG from 3 04/12/[address] elevation/STEMI (anterior)) Interpretation: Atrial flutter versus tachycardia with rapid ventricular response at a rate 139 beats per minute. QRS 113. QT/QTC 287/368. Questionable ST elevation in inferior leads 2, 3, and AVF. Good R-wave progression across the precordial leads. Critical Care Time Critical Care Time Critical Care Time: Yes Total Critical Care Time: 45 Discharge Plan Discharge Clinical Impression: Atrial fibrillation with RVR, Acute heart failure, Marijuana use Pneumonia Qualifiers: Pneumonia type: due to unspecified organism Laterality: bilateral Lung location: unspecified part of lung Qualified Code(s): J18.9 - Pneumonia, unspecified organism Patient Disposition: Still a Patient
[2024-11-09] MEDS: METOPROLOL TARTRATE INJ 5 MG/5 ML VIAL 2.5 MG IV PUSH ×2 (11:58→13:07)
[2024-11-09 12:02] LABS: Basophils Absolute Auto 0.1 K/mm3 (0.0-0.1); Basophils Percent Auto 0.8 % (0.2-1.2); Eosinophils Absolute Auto 0.5 K/mm3 (0-0.3); Eosinophils Percent Auto 5.4 % (0-4.4); Hematocrit 49.6 % (42.0-52.0); Hemoglobin 16.6 g/dL (14.0-18.0); Immature Granulocyte Absolute 0.09 K/mm3 (0.00-0.031); Lymphocytes Absolute Auto 0.69 K/mm3 (0.9-3.2); Lymphocytes Percent Auto 7.7 % (18.3-44.2); Mean Corpuscular HGB Conc 33.5 g/dl (32-36); Mean Corpuscular Hemoglobin 30.1 pg (26-34); Mean Corpuscular Volume 89.9 fl (80-100); Mean Platelet Volume 8.8 fl (7.4-10.4); Monocytes Absolute Auto 1.4 K/mm3 (0.1-0.6); Monocytes Percent Auto 15.3 % (2.6-8.5); Neutrophils Absolute Auto 6.3 K/mm3 (1.3-6.7); Neutrophils Percent Auto 69.8 % (45.5-73.1); Platelet Count Result 309 k/mm3 (150-375); Red Blood Count 5.52 M/mm3 (4.6-6.20); Red Cell Distribution Width 13.1 % (11.5-14.5)
[2024-11-09 12:16] LABS: INR 1.1; Prothrombin Time 14.7 Seconds (11.1-14.7)
[2024-11-09 12:17] LABS: Lactic Acid Reflex 1.7 mmol/L (0.7-2.0); Partial Thromboplastin Time 34.5 Seconds (22.3-36.8)
[2024-11-09 12:19] LABS: Alanine Aminotransferase 19 U/L (6-50); Albumin Level 4.3 g/dL (3.5-5.1); Alkaline Phosphatase 95 U/L (38-126); Anion Gap 15 mmol/L (4-12); Aspartate Amino Transferase 22 U/L (17-59); Bilirubin,Total 0.9 mg/dL (0.2-1.3); Blood Urea Nitrogen 16 mg/dL (9-20); Calcium 9.4 mg/dL (8.4-10.2); Carbon Dioxide 23 mmol/L (22-30); Chloride 99 mmol/L (98-107); Estimated CRCL calculation 63 ml/min; Estimated Glomerular Filt Rate > 60; Glucose 104 mg/dL (65-110); Potassium 4.5 mmol/L (3.4-5.0); Sodium 137 mmol/L (137-145)
[2024-11-09 12:30] LABS: NT Pro B Type Natriuretic Pept 2030 pg/mL (19.9-100); Troponin I 0.012 ng/mL (0.000-0.034)
[2024-11-09 12:35] LABS: D Dimer 1.28 ug/mL (<0.48)
[2024-11-09 12:40] LABS: Influenza A QL RT-PCR Negative (Negative); Influenza B QL RT-PCR Negative (Negative); RSV RNA, RT-PCR Negative (Negative); SARS-CoV-2 RNA PCR Negative (Negative)
--- OUTSIDE RECORDS SUMMARY | 2024-11-09 13:16 | XMS_ITS | Encounter Summary ---
Author Organization [facility] Address [address] [facility] [place] [address] Care Team Providers Care Cutter V Groove Name Role Phone Brenda Resendiz MD Primary Care Provider + Encounter Details Date Type Department Care Team (Late st Contact Info) Description 01/10/[address] [facility] Care Pathology Lab [address] [place] [address] Jackelyn Yoder MD [address] [place], [place] [id number] Illness, unspecified Social History Tobacco Use Types Packs/Day Years Used Date Smoking Tobacco: Never Assessed Sex and Gender Information Value Date Recorded Sex Assigned at Not on file Gender Identity Not on file Sexual Orientation Not on file documented as of this encounter Plan of Treatment Not on file documented as of this encounter Procedures Procedure Name Priority Date/Time Associated Diagnosis Comments PATH CONSULT ON REFERRED CASE Routine 01/07/2021 10:27 AM CDT Illness, unspecified documented in this encounter Results * PATH CONSULT ON REFERRED CASE (01/07/2021 10:27 AM CDT) Final Diagnosis PROSTATE, LLB, NEEDLE BIOPSY (OSC: [id number], A; 01/07/2021): - Benign prostatic tissue PROSTATE, LLM, NEEDLE BIOPSY (OSC: [id number], B; 01/07/2021): - Benign prostatic tissue PROSTATE, LLA, NEEDLE BIOPSY (OSC: [id number], C; 01/07/2021): - Focal glandular atypia, consistent with partial atrophy PROSTATE, LB, NEEDLE BIOPSY (OSC: [id number], D; 01/07/2021): - Benign prostatic tissue PROSTATE, LM, NEEDLE BIOPSY (OSC: [id number], E; 01/07/2021): - Benign prostatic tissue PROSTATE, LA, NEEDLE BIOPSY (OSC: [id number], F; 01/07/2021): - Benign prostatic tissue PROSTATE, RB, NEEDLE BIOPSY (OSC: [id number], G; 01/07/2021): - Benign prostatic tissue PROSTATE, RM, NEEDLE BIOPSY (OSC: [id number], H; 01/07/2021): - Benign prostatic tissue PROSTATE, RA, NEEDLE BIOPSY (OSC: [id number], I; 01/07/2021): - Benign prostatic tissue PROSTATE, RLB, NEEDLE BIOPSY (OSC: [id number], J; 01/07/2021): - Benign prostatic tissue PROSTATE, RLM, NEEDLE BIOPSY (OSC: [id number], K; 01/07/2021): - Benign prostatic tissue PROSTATE, RLA, NEEDLE BIOPSY (OSC: [id number], L; 01/07/2021): - Benign prostatic tissue PROSTATE, BENITA, NEEDLE BIOPSY (OSC: [id number], M; 01/07/2021): - Benign prostatic tissue 01/11/2021 11:44 AM [facility] PATHOLOGY [facility] Microscopic Description and Comment Microscopic examination substantiates the above diagnosis. A provided PIN4 immunostain (multiplex stain procedure [AMACR, p63, HMWK], controls adequate) was evaluated to assess focal atypical glands in part C, which show luminal cell reactivity for AMACR with at least partially retained basal cell staining in morphologically similar glands. The morphologic and immunophenotypic features support an interpretation of partial atrophy. 01/11/2021 11:44 AM [facility] Clinical History PSA 4.9, ABNORMAL MR, FUSION BIOPSY, PROSTATE VOLUME 64 BENITA = RIGHT LATERAL CENTRAL PROSTATE LEVEL AT MID GLAND X3 01/11/2021 11:44 AM [facility] Materials Received Received are five prepared slides from [facility] labeled [id number] (A1-D1 and A-D PIN4). All material will be returned. 01/11/2021 11:44 AM CDT [facility] PATH[facility] Disclaimer The performance characteristics of all immunohistochemical and indirect immunofluorescence stains (if any) cited in this report were determined by the Histopathology Laboratory of [facility]. Some of these tests were developed by our own laboratory and have not been cleared or approved by the US Food and Drug Administration. The FDA does not require this test to go through premarket FDA review. These tests are used for clinical purposes. They should not be regarded as investigational or for research. This laboratory is certified under the Clinical Laboratory Improvement Amendments (CLIA) as qualified to perform high complexity clinical laboratory testing. This case has been personally reviewed and interpreted by the attending (teaching) pathologist. 01/11/2021 11:44 AM CDT [facility] PATH[facility] Case Report Surgical Pathology Report Case: [id number] Authorizing Provider: Jackelyn Yoder MD Collected: 01/07/2021 10:27 AM Ordering Location: [facility] Pathology Lab Received: 01/10/2021 10:27 AM Pathologist: [place] Moses MD Specimen: Slide Consultation 01/11/2021 11:44 AM CDT [facility] PATH[facility] Embedded Images 01/11/2021 11:[address] [facility] PATHOLOGY LAB Pathology/Cytolo gy SURGICAL PATHOLOGY CONSULTATION AND REPORT ON REFERRED SLIDES PREPARED ELSEWHERE / Unknown 01/07/2021 10:27 AM CDT 01/10/2021 10:27 AM CDT Jackelyn Yoder MD LAB - PATHOLOGY/CYTO LOGY ORDERABLES Performing Organization Address City/[facility] Co de Phone Number [facility] PATHOLOGY LAB [address] [phone] documented in this encounter Visit Diagnoses Diagnosis Illness, unspecified documented in this encounter Care Teams Cutter V Groove Relationship Specialty Start Date End Date Brenda Resendiz MD [address] [place] [address] PCP - General 11/01/21 documented as of this encounter
--- OUTSIDE RECORDS SUMMARY | 2024-11-09 13:16 | XMS_ITS | Encounter Summary ---
Author Organization [facility] Address [address] [place] [address] Care Team Providers Care Warm In Name Role Phone Derick Celaya MD Primary Care Provider [phone] Encounter Details Date Type Department Care Team (Late Contact Info) Description 11/08/2024 Orders Only [facility] Oncology and Hematology - Srikanth [address] [place] [address] Gino Basurto MD [address] [place], [place] [address] [employer] [address] [place] [address] Social History Tobacco Use Types Packs/Day Years Used Date Smoking Tobacco: Never Smokeless Tobacco: Never Alcohol Use Standard Drinks/Week Comments Yes 0 (1 standard drink = 0.6 oz pur e alcohol) socially Sex and Gender Information Value Date Recorded Sex Assigned at Not on file 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 Gender Identity Not on file Sexual Orientation Not on file documented as of this encounter Plan of Treatment Upcoming Encounters Date Type Department Care Team (Late st Contact Info) Description 12/02/2024 8:30 AM CDT Office Visit [facility] Oncology and Hematology - Srikanth Robert [address] [place] [address] Gino Basurto MD [address] [facility] [employer] [address] [place] [phone] documented as of this encounter Procedures Procedure Name Priority Date/Time Associated Diagnosis Comments BASIC METABOLIC PANEL Routine 11/04/2024 4:23 PM CDT BASIC METABOLIC PANEL Routine 11/04/2024 4:20 PM CDT documented in this encounter Results * BASIC METABOLIC PANEL (11/04/2024 4:23 PM CDT) Blood us Gino Basurto MD CHEMISTRY ORDERABLES Final Resu lt * BASIC METABOLIC PANEL (11/04/2024 4:20 PM CDT) Blood us Gino Basurto MD CHEMISTRY ORDERABLES Final Resu lt documented in this encounter Visit Diagnoses Not on filedocumented in this encounter Care Teams Warm In Relationship Specialty Start Date End Date Derick Celaya MD [address] [facility] [address] [place] [phone] PCP - General Family Practice 10/07/24 documented as of this encounter
--- OUTSIDE RECORDS SUMMARY | 2024-11-09 13:16 | XMS_ITS | Clinical Summary ---
Author Organization [facility] Address [address] [place] [address] Care Team Providers Care Manager Ccu Name Role Phone Brenda Resendiz MD Primary Care Provider + Source Comments [facility],non-owned Affiliates and Associated Physician Practices is amultiple site organization consisting of ambulatory clinics and hospital sitesin [place], [place], [place] and [place]. This disclosure is being madepursuant to the Care Everywhere program and may not contain all information available regarding this patient. Last updated 18.[facility] Social History Tobacco Use Types Packs/Day Years Used Date Smoking Tobacco: Never Assessed Sex and Gender Information Value Date Recorded Sex Assigned at Not on file Gender Identity Not on file Sexual Orientation Not on file Plan of Treatment Health Maintenance Due Date Last Done Comments COLOGUARD (AGES 45-75) - COL ON CA SCREENING 1957 COLON MONITORING 1957 COLONOSCOPY - COLON CA SCREENING 1957 CT COLONOGRAPHY - COLON CA SCREENING 1957 Colorectal Cancer Screening 1957 FIT - COLON CA SCREENING 1957 FLEX SIG - COLON CA SCREENING 1957 LIPID TESTING 1957 MEDICARE AWV 12 MONTHS 1957 HEPATITIS C SCREENING 10/09/1975 DTAP/TDAP/TD VACCINES (1 - Tdap) 1976 PNEUMOCOCCAL VACCINE 50+ (1 of 1 - PCV) 2007 ZOSTER VACCINE (1 of 2) 2007 COVID-19 VACCINE ( - 2023-2 5 season) 2024 INFLUENZA VACCINE (#1) 2024 DEPRESSION SCREENING 08/24/2024 Respiratory Syncytial Virus (RSV) Vaccine Pt: or over 60 yrs (1 - 1-dose 75+ series) 2032 HEPATITIS B VACCINE Aged Out No longe r eligible based on patient's age to complete this topic HIB VACCINE Aged Out No longer eligi ble based on patient's age to complete this topic HPV VACCINE Aged Out No longer eligi ble based on patient's age to complete this topic MENINGOCOCCAL (Group B) VACC INE SHARED DECISION-MAKING Aged Out No longer eligibl e based on patient's age to complete this topic MENINGOCOCCAL GROUPS A/C/Y/W VACCINE Aged Out No longer eligible b ased on patient's age to complete this topic Care Teams Manager Ccu Relationship Specialty Start Date End Date Brenda Resendiz MD [address] [place], [place] [phone] PCP - General 11/01/21
--- OUTSIDE RECORDS SUMMARY | 2024-11-09 13:16 | XMS_ITS | Encounter Summary ---
Author Organization [facility] [employer] [facility] Address [address] [place] [address] Care Team Providers Care Outer Diameter Grinder Name Role Phone Deirck Celaya MD Primary Care Provider [phone] Reason for Visit * Reason Onset Date Comments Cough 11/08/2024 Encounter Details Date Type Department Care Team (Late st Contact Info) Description 11/08/2024 Telephone [facility] Oncology and Hematology - Srikanth [address] [facility] [address] [place] [address] Gino Basurto MD [address] [facility] [address] [place] [address] Cough Social History Tobacco Use Types Packs/Day Years Used Date Smoking Tobacco: Never Smokeless Tobacco: Never Alcohol Use Standard Drinks/Week Comments Yes 0 (1 standard drink = 0.6 oz pur e alcohol) socially Sex and Gender Information Value Date Recorded Sex Assigned at Not on file 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 He verbalized understanding with no further questions. * Telephone Encounter - Jumana Desouza - 11/08/2024 8:30 AM CDT ----- Message from Dr. Gino Basurto sent at 11/07/2024 3:52 PM CDT ----- Regarding: RE: Cough Prescribe Levaquin 500 milligram daily for 7 days ----- Message ----- From: Jumana Desouza Sent: 11/07/2024 3:49 PM CDT To: Gino Basurto MD Subject: Cough Patient is calling stating that he is seen you last week and said that he was having some shortnessof breath. He called today to let us know that he is now coughing up some light brown phelm. He is wanting to know if he should be doing anything? Please advise. documented in this encounter Plan of Treatment Upcoming Encounters Date Type Department Care Team (Late st Contact Info) Description 12/02/2024 8:30 AM CDT Office Visit [facility] Oncology and Hematology - [place] [address] [place] [address] [address] [place] [phone] Gino Basurto MD [address] [facility] [address] [place] [address] documented as of this encounter Visit Diagnoses Not on filedocumented in this encounter Care Teams Outer Diameter Grinder Relationship Specialty Start Date End Date Derick Celaya MD [address] [facility] [address] [place] [phone] PCP - General Family Practice 10/07/24 documented as of this encounter
--- OUTSIDE RECORDS SUMMARY | 2024-11-09 13:16 | XMS_ITS | Encounter Summary ---
Author Organization [facility] Address [address] [place] [address] Care Team Providers Care Director Executive Communications Name Role Phone Derick Celaya MD Primary Care Provider [phone] Encounter Details Date Type Department Care Team (Late Contact Info) Description 11/07/2024 Orders Only [facility] Oncology and Hematology - Srikanth [address] [place] [address] Gino Basurto MD [address] [place], [place] [address] [address] [place] [phone] 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CMS/HCC) Social History Tobacco Use Types Packs/Day Years Used Date Smoking Tobacco: Never Smokeless Tobacco: Never Alcohol Use Standard Drinks/Week Comments Yes 0 (1 standard drink = 0.6 oz pur e alcohol) socially Sex and Gender Information Value Date Recorded Sex Assigned at Not on file 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 Gender Identity Not on file Sexual Orientation Not on file documented as of this encounter Plan of Treatment Upcoming Encounters Date Type Department Care Team (Late Contact Info) Description 12/02/2024 8:30 AM CDT Office Visit [facility] Oncology and Hematology - [address] [place] [address] Gino Basurto MD [address] [facility] [place] [phone] documented as of this encounter Procedures Procedure Name Priority Date/Time Associated Diagnosis Comments COMPREHENSIVE METABOLIC PANEL Routine 11/04/2024 4:14 PM CDT documented in this encounter Results * COMPREHENSIVE METABOLIC PANEL (11/04/2024 4:14 PM CDT) Blood Gino Basurto MD CHEMISTRY ORDERABLES Final Resu lt documented in this encounter Visit Diagnoses Diagnosis 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
--- OUTSIDE RECORDS SUMMARY | 2024-11-09 13:17 | XMS_ITS | Clinical Summary ---
Author Organization [facility] [address] [facility] [address] Address [address] [place] [address] Care Team Providers Care Organ Grinder Name Role Phone Brenda Resendiz MD Primary Care Provider Allergies No known active allergies Medications testosterone cypionate (DEPO-TESTOTERON E) 200 mg/mL injection once a week 09/05/2019 Active lisinopril-hydro CHLOROthiazide (ZESTORETIC) 20-12.5 mg per tabletIndication s:hypertension Take 1 tablet by mouth daily Active aspirin (Aspir-81) 81 mg enteric coated tablet Take 1 tablet (81 mg total) by mouth daily 90 tablet 2 08/22/2024 Active atorvastatin (LIPITOR) 40 mg tablet Take 1 tablet (40 mg total) by mouth daily 90 tablet 2 08/22/2024 Active Brilinta 60 mg tablet TAKE 1 TABLET(60 MG) BY MOUTH TWICE DAILY 180 tablet 2 09/30/2024 Active Active Problems Problem Noted Date Diagnosed Date CAD (coronary artery disease) 03/17/2017 History of coronary artery stent placement 03/17 Inguinal pain 10/26/2012 Encounters Date Type Department Care Team Description 08/22/2024 Telephone [facility] Cardiology [address] [place] [address] Morgan Clay MD changing pharmacy from Last 3 Months Surgical History Surgery Date Site/Laterality Comments HERNIA REPAIR CARPAL TUNNEL RELEASE Medical History Medical History Date Comments Heart attack (HCC) Hypertension Hypercholesteremia Heart disease Sleep apnea Family History Medical History Relation Name Comments Other Father Alive and well; Heart attack Maternal Grandfather Brandon Ayoub Hyperlipidemia Mother Moe Leiva Hyperlipide harriett; Hypertension Mother Moe Leiva Hypertension; Other Mother Moe Leiva Alive and wel l; Heart disease Other Relation Name Status Comments Father Alive Maternal Grandfather Brandon Ayoub Mother Moe Leiva Alive Other Social History Tobacco Use Types Packs/Day Years Used Date Smoking Tobacco: Never Smokeless Tobacco: Never Tobacco Cessation:Counseling Given: Not Answered Alcohol Use Standard Drinks/Week Comments Yes 0 (1 standard drink = 0.6 oz pur e alcohol) AUDIT-C Answer Date Recorded Q1: How often do you have a drink containing alc ohol? Monthly or less 04/06/2024 Q2: How many drinks containi ng alcohol do you have on a typical day when you are drinking? 1 or 2 04/06/2024 Q3: How often do you have si x or more drinks on one occasion? 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 Gender Identity Male 01/04/2021 12:36 PM CDT Sexual Orientation Straight 01/04/2021 12 :36 PM CDT Obstetrics History Last Filed Vital Signs Vital Sign Reading Time Taken Comments Blood Pressure 138/92 06/03/2024 11:32 AM CDT Pulse 92 06/03/2024 11:32 AM CDT Temperature 37 C (98.6 F) 01/02/2022 7:02 PM CDT Respiratory Rate 18 04/06/2024 2:59 PM CDT Oxygen Saturation 99% 05/19/2024 9:04 AM CDT Inhaled Oxygen Concentration - - Weight 95.7 kg (211 lb) 06/03/2024 11:32 AM CDT Height 175.3 cm (5' 9 ) 06/03/2024 11:32 AM CDT Body Mass Index 31.16 06/03/2024 11:32 AM CDT Plan of Treatment Health Maintenance Due Date Last Done Comments Colon Cancer Screening-Colonoscopy 1957 Depression Screening 1957 Fall Risk Assessment 1957 Hepatitis C Screening 1957 Prostate Cancer Screening-PSA 1957 Hepatitis B Screening 1975 Pneumococcal vaccine 65+ (1 of 2 - PCV) 1976 Zoster Vaccine (1 of 2) 1976 Well Visit 65+ 2022 DTaP/Tdap/Td Vaccine (2 - Td or Tdap) 05/26/2023 05/26/2013 Influenza Vaccine (#1) 2024 0, 05/13/2019, 05/18/2018, Additional history exists Insurance [employer] ADVANTAGE CHOICE PPO Care Teams Organ Grinder Relationship Specialty Start Date End Date Brenda Resendiz MD [address] [place] [address] PCP - General 11/27/16
--- OUTSIDE RECORDS SUMMARY | 2024-11-09 13:17 | XMS_ITS | Referral Summary ---
Author Organization [facility] [address] Address [address] [place] [address] Care Team Providers Care Night Auditor Name Role Phone Brenda Resendiz MD Primary Care Provider Encounters Date Type Department Care Team Description 08/22/2024 Telephone [facility] Cardiology [address] [place] [address] Morgan Clay MD changing pharmacy from Last 3 Months Allergies No known active allergies Medications testosterone [...] artery stent placement 03/17 Inguinal pain 10/26/2012 Social History Tobacco Use Types Packs/Day Years [...] on file 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
--- OUTSIDE RECORDS SUMMARY | 2024-11-09 13:17 | XMS_ITS | Clinical Summary ---
Author Organization [facility] Address [address] [place] [address] Care Team Providers Care Annealer Helper Name Role Phone Brenda Resendiz MD Primary Care Provider [phone] Social History Tobacco Use Types Packs/Day Years Used Date Smoking Tobacco: Never Assessed Sex and Gender Information Value Date Recorded Sex Assigned at Not on file Legal Sex Male 7:57 PM CDT Gender Identity Not on file Sexual Orientation Not on file Plan of Treatment Health Maintenance Due Date Last Done Comments Colorectal Cancer Screening Colonoscopy (10 Years) 1957 Hepatitis C 1975 DTaP, Tdap and Td Vaccines ( 1 - Tdap) 1976 Zoster Vaccines (1 of 2) 2007 Pneumococcal Vaccine: 65+ Ye ars (1 of 1 - PCV) 2022 COVID-19 Vaccine ( - 2023-2 5 season) 2024 Influenza Adult (#1) 2024 RSV Immunization or 60+ Years (1 - 1-dose 75+ series) 2032 Meningococcal B Vaccine Aged Out No l onger eligible based on patient's age to complete this topic Meningococcal Vaccine Aged Out No grisel rossana eligible based on patient's age to complete this topic RSV Immunizations Under 20 Months Aged Out No longer eligible based on patient's age to complete this topic Insurance [facility] Care Teams Annealer Helper Relationship Specialty Start Date End Date Brenda Resendiz MD [address] [facility] [address] [place] [address] PCP - General FAMILY PRACTICE 11/09/20
--- OUTSIDE RECORDS SUMMARY | 2024-11-09 13:17 | XMS_ITS | Clinical Summary ---
Author Organization [facility] Address [address] [place] [address] Phone Care Team Providers Care Tank Builder Supervisor Name Role Phone Derick Celaya MD Primary Care Provider [phone] Allergies No known active allergies Medications lisinopriL (PRINIVIL) 10 mg tablet Take 10 mg by mouth daily. Active METOPROLOL TARTRATE ORAL Take by mouth. A ctive atorvastatin (LIPITOR) 40 mg tablet Take 40 mg by mouth daily. Active omeprazole (PriLOSEC) 40 mg Capsule, Delayed Release(E.C.) Take 40 mg by mouth daily. Active hydralazine HCl (HYDRALAZINE ORAL) Take by mouth. Activ e ALPRAZolam (XANAX) 0.5 mg tabletIndicat ions:Anxiety state Take 1 Tablet (0.5 mg) by mouth nightly as needed for Anxiety. 30 Tablet 1 08/05/20 23 Active ondansetron (ZOFRAN ODT) 8 mg Tablet, Rapid DissolveIndic ations:Melano ma of trunk (CMS/HCC) Dissolve 1 tablet on top of tongue then swallow with saliva every 8 hours as needed for nausea or vomiting 30 Tablet 1 08/13/20 23 Active lidocaine-teri locaine (EMLA) 2.5-2.5 % CreamIndicati ons: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CMS/HCC) Apply to affected area see administration instructions. 30 Gram 1 08/13/20 23 Active traMADoL (ULTRAM) 50 mg tabletIndicat ions:Mediasti nal mass,Metastat ic melanoma (CMS/HCC),Linda nophagia Take 1 Tablet (50 mg) by mouth every 8 hours as needed for Pain, Moderate or Pain, Severe. May take up to 2 Tablets (100 mg) every 8 hours if needed. 90 Tablet 08/18/20 23 Active sucralfate (Carafate) 100 mg/mL suspensionInd ications:Medi astinal mass,Odynopha linwood,Metastati c melanoma (CMS/HCC) Take 10 mL (1 Gram) by mouth every 6 hours. Take 10 mL by mouth TID with meals. 414 mL 1 10/07/19 24 Active oxyCODONE-bryanna taminophen (PERCOCET) 5-325 mg tabletIndicat ions:Metastat ic melanoma (CMS/HCC),Med iastinal mass,Odynopha linwood Take 1 Tablet by mouth every 4 hours as needed for Pain, Moderate. Max Daily Amount: 6 Tablets 60 Tablet 12/03/19 24 Active methylPREDNIS olone (MEDROL DOSPACK) 4 mg Tablets, Dose Pack Use as directed 21 Tablet 01/05/20 24 Active Arnuity Ellipta 200 mcg/actuation inhaler Take 200 mcg by inhalation daily. 05/24/20 24 Active potassium chloride (KLOR-CON M20) 20 mEq Extended Release tabletIndicat ions: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CMS/HCC) Take 1 Tablet (20 mEq) by mouth 2 times daily. 180 Tablet 2 08/28/19 25 Active pseudoephedri ne-guaiFENesi n (MUCINEX D MAX STRENGHT) 120-1,200 mg Extended Release 12 hour tablet Take 1 Tablet by mouth 2 times daily. 60 Tablet 2 09/09/19 25 Active levoFLOXacin (LEVAQUIN) 500 mg tablet Take 1 Tablet (500 mg) by mouth daily. 7 Tablet 11/09/19 25 Active levoFLOXacin (LEVAQUIN) 500 mg tablet Take 1 Tablet (500 mg) by mouth daily. 7 Tablet 11/09/19 25 2024 Discontinued Active Problems Problem Noted Date Diagnosed Date Mediastinal mass 07/30/2023 Encounters Date Type Department Care Team Description 11/08/2024 Orders Only [facility] Oncology and Hematology - S[address] [place] [address] Gino Basurto MD 11/08/2024 Telephone [facility] Oncology and Hematology - [address] Gino Basurto MD Cough 11/07/2024 Orders Only [facility] Oncology and Hematology - S[address] [place] [id number] Gino Basurto MD 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[facility]) 11/04/2024 8:30 AM CDT Office Visit [facility] Oncology and Hematology - Srik[address] [place] [phone] Gino Basurto MD 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[facility]/HCC) (Primary Dx) 10/31/2024 Orders Only [facility] Oncology and Hematology - Srikanth [address] Gino Basurto MD Benign hypertension 10/27/2024 Orders Only [facility] Oncology and Hematology - Srikanth [address] [place] [phone] Gino Basurto MD 10/27/2024 Abstract [facility] Oncology and Hematology - Srikanth [address] Gino Basurto MD 10/24/2024 Orders Only [facility] Oncology and Hematology - Srik[address] [place] [id number] Gino Basurto MD 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[facility]/HCC) 10/17/2024 Orders Only [facility] Oncology and Hematology - Srikanth [address] [place] [id number] Gino Basurto MD Benign hypertension 10/10/2024 Orders Only [facility] Oncology and Hematology - Srikanth [address] [place] [id number] Gino Basurto MD 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[facility]/HCC) 10/07/2024 10:00 AM CONSTRUCTION INSPECTOR Office Visit [facility] Oncology and Hematology - Srikanth [address] [place] [address] Gino Basurto MD 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CMS/HCC) (Primary Dx) 10/07/2024 [facility] Oncology and Hematology - Srikanth [address] [place] [address] Gino Basurto MD 10/03/2024 Orders Only [facility] On[facility] and Hematology - Srikanth [address] [place] [address] Gino Basurto MD Benign hypertension 09/26/2024 Orders Only [facility] Oncology and Hematology - Srikanth [address] [place] [address] Gino Basurto MD 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CMS/HCC) 09/23/2024 Orders Only [facility] Oncology and Hematology - Srikanth [address] [place] [address] Gino Basurto MD 09/22/2024 Orders Only [facility] Oncology and Hematology - Srikanth [address] [place] [address] Gino Basurto MD Benign hypertension (Primary Dx) 09/12/2024 Orders Only [facility] Oncology and Hematology - Srikanth [address] [place] [address] Gino Basurto MD 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CMS/HCC) 09/09/2024 8:30 AM CONSTRUCTION INSPECTOR Office Visit [facility] Oncology and Hematology - Srikanth [address] Gino Basurto MD Metastatic melanoma (CMS/HCC) (Primary Dx) 09/09/2024 Orders Only [facility] Oncology and Hematology - Srikanth [address] Gino Basurto MD 09/05/2024 Orders Only [facility] Oncology and Hematology - Srikanth [address] [place] [id number] Gino Basurto MD 09/02/2024 Orders Only [facility] Oncology and Hematology - Srikanth [address] Gino Basurto MD 08/30/2024 Orders Only [facility] Oncology and Hematology - Srikanth [address] [place] [id number] Gino Basurto MD 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CMS/HCC) (Primary Dx) 08/28/2024 Refill [facility] Oncology and Hematology - Srikanth [address] [place] [id number] Gino Basurto MD 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[facility]/HCC) 08/15/2024 Orders Only [facility] Oncology and Hematology - Srikanth [address] [place] [address] Gino Basurto MD Metastatic melanoma (CMS/HCC); Benign hypertension 08/11/2024 Orders Only [facility] Oncology and Hematology - Srikanth [address] Gino Basurto MD from Last 3 Months Family History Medical History Relation Name Comments Colon Cancer Brother 1 No Known Problems Brother 2 Heart Disease Father Heart Disease Mother No Known Problems Sister No Known Problems Son 1 No Known Problems Son 2 Relation Name Status Comments Brother 1 Alive Brother 2 Father Mother Alive Sister Alive Son 1 Alive Son 2 Alive Social History Tobacco Use Types Packs/Day Years Used Date Smoking Tobacco: Never Smokeless Tobacco: Never Tobacco Cessation:Counseling Given: Not Answered Alcohol Use Standard Drinks/Week Comments Yes 0 (1 standard drink = 0.6 oz pur e alcohol) socially Sex and Gender Information Value Date Recorded Sex Assigned at Not on file Legal Sex Male 3:43 PM CONSTRUCTION INSPECTOR Gender Identity Not on file Sexual Orientation Not on file Last Filed Vital Signs Vital Sign Reading Time Taken Comments Blood Pressure 107/85 11/04/2024 8:41 AM CDT Pulse 73 11/04/2024 8:39 AM CDT Temperature 35.6 C (96.1 F) 11/04/2024 8:39 AM CDT Respiratory Rate 15 11/04/2024 8:39 AM CDT Oxygen Saturation 94% 11/04/2024 8:39 AM CDT Inhaled Oxygen Concentration - - Weight 96.8 kg (213 lb 6.4 oz) 11/04/2024 8:39 A M CDT Height 172.7 cm (5' 8 ) 08/05/2023 2:56 PM CONSTRUCTION INSPECTOR Body Mass Index 32.45 08/05/2023 2:56 PM CONSTRUCTION INSPECTOR Plan of Treatment Upcoming Encounters Date Type Department Care Team (Late st Contact Info) Description 12/02/2024 8:30 AM CDT Office Visit [facility] Oncology and Hematology [facility] [address] [facility] [address] [place] [address] Gino Basurto MD [address] [facility] [address] [place] [address] Health Maintenance Due Date Last Done Comments Pre-Diabetes and Diabetes Screening 1955 DTAP/TDAP/TD VACCINES (1 - Tdap) 1976 FIT-DNA Q 3 years 2002 FIT/FOBT Q 1 year 2002 Flex Sig/CT Colonography Q 5 years 2002 PNEUMOCOCCAL VACCINE 50+ YEARS (1 of 1 - PCV) 10/13/19 08 ZOSTER VACCINE (1 of 2) 2007 INFLUENZA VACCINE (#1) 2024 Medicare [place] ([place]) Prev entative Visit/Annual Wellness Visit 08/24/2024 COLORECTAL SCREENING 12/08/2026 12/08/2016 Colorectal Cancer Screening 12/08/2026 RSV VACCINE (60+ or ) (1 - 1-dose 75+ series) 2032 Procedures Procedure Name Priority Date/Time Associated Diagnosis Comments BASIC METABOLIC PANEL Routine 11/04/2024 4:23 PM CDT BASIC METABOLIC PANEL Routine 11/04/2024 4:20 PM CDT COMPREHENSIVE METABOLIC PANEL Routine 11/04/2024 4:14 PM CDT CBC WITH DIFFERENTIAL Routine 10/21/2024 2:01 PM CONSTRUCTION INSPECTOR COMPREHENSIVE METABOLIC PANEL Routine 10/21/2024 10:01 AM CONSTRUCTION INSPECTOR CBC WITH DIFFERENTIAL Routine 10/07/2024 10:09 AM CONSTRUCTION INSPECTOR BASIC METABOLIC PANEL Routine 09/23/2024 12:26 PM CONSTRUCTION INSPECTOR CBC WITH AUTODIFFERENTIAL Routine 2024 12:25 PM CONSTRUCTION INSPECTOR COMPREHENSIVE METABOLIC PANEL Routine 09/23/2024 8:51 AM CONSTRUCTION INSPECTOR BASIC METABOLIC PANEL Routine 09/09/2024 2:57 PM CONSTRUCTION INSPECTOR COMPREHENSIVE METABOLIC PANEL Routine 09/09/2024 2:[address] CHEST ABDOMEN PELVIS W CONT Routine 09/02/2024 10:48 AM CONSTRUCTION INSPECTOR BASIC METABOLIC PANEL Routine 08/26/2024 11:45 AM CONSTRUCTION INSPECTOR COMPREHENSIVE METABOLIC PANEL Routine 08/26/2024 11:13 AM CONSTRUCTION INSPECTOR CBC WITH DIFFERENTIAL Routine 08/26/2024 10:15 AM CONSTRUCTION INSPECTOR from Last 3 Months Results * BASIC METABOLIC PANEL (11/04/2024 4:23 PM CDT) Only the most recent of5 resultswithin the time period is included. Blood us Gino Basurto MD CHEMISTRY ORDERABLES Final Resu lt * COMPREHENSIVE METABOLIC PANEL (11/04/2024 4:14 PM CDT) Only the most recent of5 resultswithin the time period is included. Blood us Gino Basurto MD CHEMISTRY ORDERABLES Final Resu lt * CBC WITH DIFFERENTIAL (10/21/2024 2:01 PM CONSTRUCTION INSPECTOR) Only the most recent of3 resultswithin the time period is included. Blood us Gino Basurto MD HEMATOLOGY ORDERABLES Final Res ult * CBC WITH AUTODIFFERENTIAL (09/23/2024 12:25 PM CONSTRUCTION INSPECTOR) Blood us Gino Basurto MD HEMATOLOGY ORDERABLES Final Res ult * CT CHEST ABDOMEN PELVIS W CONT (09/02/2024 10:48 AM CONSTRUCTION INSPECTOR) Anatomical Region Laterality Modality Chest Computed Tomogra phy Gino Basurto MD CT ORDERABLES Final Result from Last 3 Months Insurance [facility] Care Teams Tank Builder Supervisor Relationship Specialty Start Date End Date Derick Celaya MD [address] [facility] [address] [place] [address] PCP - General Family Practice 10/07/24
--- OUTSIDE RECORDS SUMMARY | 2024-11-09 13:17 | XMS_ITS | Clinical Summary ---
Author Organization [facility] Address [address], [address] [address] Phone Care Team Providers Care Superintendent Sanitation Name Role Phone Brenda Resendiz MD Primary Care Provider [phone] Allergies No known active allergies Medications polyethylene glycol (MIRALAX) Powder Use entire 255g bottle with 64oz of clear liquid as directed for colonoscopy prep. 255 g 0 6 Active atorvastatin (LIPITOR) 40 MG Tablet Take 1 Tab by mouth daily. 3 7 Active escitalopram (LEXAPRO) 10 MG Tablet Take 10 mg by mouth daily. 5 7 Active lisinopril (PRINIVIL, ZESTRIL) 5 MG Tablet Take 5 mg by mouth daily. 3 7 Active BRILINTA 60 MG Tablet Take 1 Tab by mouth 2 times daily. 3 7 Active Aspirin 81 MG Tablet Take 81 mg by mouth daily. Active TESTOSTERONE IM 150 mg by Intramuscular route every 7 days. Active anastrozole (ARIMIDEX) 1 MG Tablet Take 1 mg by mouth daily. Active Coenzyme Q10 (COQ10) 100 MG Capsule Take 1 Tab by mouth daily. Active Mcleod-3 Fatty Acids (FISH OIL) 1200 MG Capsule Take 1,200 mg by mouth daily. Active Cholecalcifero l (VITAMIN D PO) Take 5,000 Units by mouth daily. Active Family History Medical History Relation Name Comments Heart Disease Father Breast Cancer Mother Relation Name Status Comments Father Mother Social History Tobacco Use Types Packs/Day Years Used Date Smoking Tobacco: Never Smokeless Tobacco: Never Alcohol Use Standard Drinks/Week Comments Yes 6 (1 standard drink = 0.6 oz pur e alcohol) Sex and Gender Information Value Date Recorded Sex Assigned at Not on file Legal Sex Male 4:02 PM MACHINE SKIVER Gender Identity Not on file Sexual Orientation Not on file Plan of Treatment Health Maintenance Due Date Last Done Comments Hepatitis C Virus (HCV) Screening 1955 TdaP Immunization 1955 SARS-COV-2 Immunization (#1) 1962 Zoster Immunization (1 of 2) 1976 Cologuard 2007 Immunochemical Fecal Occult Blood 2007 Pneumococcal Immunization (5 0+ years) (1 of 1 - PCV) 2007 PSA Discussion 2012 Respiratory Syncytial Virus (RSV) Immunization (Adult) (1 - Risk 60-74 years 1-dose series) 2017 Colonoscopy 12/08/2021 12/08/2016 Colorectal Cancer Screening 12/08/2021 Influenza Immunization (#1) 2024 12/08/2016 Hepatitis B Immunization Aged Out No longer eligible based on patient's age to complete this topic Meningococcal Immunization (ACWY) Aged Out No longer eligible based on patient's age to complete this topic Rotavirus Immunization Aged Out No lo nger eligible based on patient's age to complete this topic Procedures Procedure Name Priority Date/Time Associated Diagnosis Comments COLONOSCOPY Routine 12/08/2016 from Last 3 Months or Most Recently Relevant to Health Maintenance Results * COLONOSCOPY (12/08/2016) Brenda Resendiz MD PROCEDURE/MINOR SURGICAL O RDERABLES Final Result from Last 3 Months or Most Recently Relevant to Health Maintenance Insurance [facility] Care Teams Superintendent Sanitation Relationship Specialty Start Date End Date Brenda Resendiz MD [address] [facility] [address] [place] [address] PCP - General Family Medicine 08/06/16
[2024-11-09] MEDS: dilTIAZem HCl INJ 25 MG/5 ML VIAL 20 MG IV PUSH ×2 (13:19→21:18)
[2024-11-09 13:49] LABS: Add Urine Microscopic? NO; Appearance Urine Clear (Clear); Bilirubin Urine Negative (Negative); Blood Urine Negative (Negative); Color Urine Yellow (Yellow); Glucose Urine UA Negative (Negative); Ketones Urine Trace mg/dL (Negative); Leukocyte Esterase Ur Negative LEU/UL (Negative); Nitrate Urine Negative (Negative); Protein Urine Negative (Negative); Specific Grav Ur > 1.045 (1.001-1.035); Urobilinogen Urine 0.2 mg/dL (<2.0)
--- OUTSIDE RECORDS SUMMARY | 2024-11-09 13:56 | XMS_ITS | Referral Summary ---
Author Organization [facility] [address] Address [address] [place] [address] Care Team Providers Care Physics Tutor Name Role Phone Brenda Resendiz MD Primary Care Provider Encounters Date Type Department Care Team Description 08/22/2024 Telephone [facility] Cardiology [address] [place] [address] Morgan Clay MD changing pharmacy [...] on file Legal Sex Male 4:02 AM FOOTWEAR SALES COORDINATOR Gender Identity Male 01/04/2021 12:36 PM CDT [...] Plan of Treatment Not on file Insurance [employer] CHOICE PPO Care Teams Physics Tutor Relationship Specialty Start Date End Date Brenda Resendiz MD [address] [facility] [address] [place] [address] PCP - General 11/27/16
--- OUTSIDE RECORDS SUMMARY | 2024-11-09 13:56 | XMS_ITS | Encounter Summary ---
Author Organization [facility] Address [address] [place] [address] Care Team Providers Care Chief Drafter Name Role Phone Derick Celaya MD Primary Care Provider [phone] Encounter Details Date Type Department Care Team (Late Contact Info) Description 11/07/2024 Orders Only [facility] Oncology and Hematology - Srikanth [address] [place] [address] Gino Basurto MD [address] [place] [address] [place], [place] [address] [address] [place] [address] 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CMS/HCC) Social History Tobacco Use Types Packs/Day Years Used Date Smoking Tobacco: Never Smokeless Tobacco: Never Alcohol Use Standard Drinks/Week Comments Yes 0 (1 standard drink = 0.6 oz pur e alcohol) socially Sex and Gender Information Value Date Recorded Sex Assigned at Not on file Legal Sex Male 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 Gender Identity Not on file Sexual Orientation Not on file documented as of this encounter Plan of Treatment Upcoming Encounters Date Type Department Care Team (Late Contact Info) Description 12/02/2024 8:30 AM CDT Office Visit [facility] Oncology and Hematology - Srikanth [address] [place] [address] Gino Basurto MD [address] [facility] [employer] [address] [place] [address] documented as of this encounter Procedures [...] scrotum documented in this encounter Care Teams Chief Drafter Relationship Specialty Start Date End Date Derick Celaya MD [address] [facility] [address] [place] [address] PCP - General Family Practice 10/07/24 documented as of this encounter
--- OUTSIDE RECORDS SUMMARY | 2024-11-09 13:56 | XMS_ITS | Clinical Summary ---
Author Organization [facility] Address [address] [place] [address] Phone Care Team Providers Care Safekeeping Clerk Name Role Phone Derick Celaya MD Primary Care Provider [phone] Allergies No known active allergies Medications lisinopriL [...] Department Care Team Description 11/08/[address] [facility] Oncology and Hematology - Srikanth [address] [place] [address] Gino Basurto MD 11/08/[address] [facility]ology - Srikanth [address] Gino Basurto MD Cough 11/07/[address] [facility] On[facility] Hematology - Srikanth [address] [place] [phone] Gino Basurto MD 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[facility]/HCC) 11/04/2024 8:30 AM CDT Office Visit [facility] Oncology and Hematology - Srikanth [address] [place] [phone] Gino Basurto MD 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[facility]/HCC) (Primary Dx) 10/31/[address] [facility] Oncology and Hematology - Srikanth [address] Gino Basurto MD Benign hypertension 10/27/[address] [facility] Oncology and Hematology - Srikanth [address] [place] [phone] Gino Basurto MD 10/27/[address] [facility] Hematology - Srikanth [address] Gino Basutro MD 10/24/[address] [facility] Oncology and Hematology - Srikanth [address] [place] [id number] Gino Basurto MD 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[facility]/HCC) 10/17/[address] [facility] Oncology [facility] Hematology - Srikanth [address] [place] [id number] Gino Basurto MD Benign hypertension 10/10/[address] [facility] Oncology and Hematology - Srikanth [address] [place] [id number] Gino Basurto MD 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[facility]/HCC) 10/07/2024 10:00 AM FINISHING ROOM SUPERVISOR Office Visit [facility] Oncology and Hematology - Srikanth [address] [place] [address] Gino Basurto MD 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CMS/HCC) (Primary Dx) 10/07/2024 Orders Only [facility] Oncology and Hematology - Srikanth [address] [place] [address] Gino Basurto MD 10/03/2024 Orders Only [facility] Oncology and Hematology - Srikanth [address] [place] [address] Gino Basurto MD Benign hypertension 09/26/2024 Orders Only [facility] Oncology and Hematology - Srikanth [address] [place] [address] Gino Basurto MD 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CMS/HCC) 09/23/2024 Orders Only [facility] Oncology and Hematology - Srikanth [address] [place] [address] Gino Basurto MD 09/22/2024 Orders Only [facility] Oncology and Hematology - Srikanth [address] [place] [address] Gino Basurto MD Benign hypertension (Primary Dx) 09/12/2024 Orders Only [facility] Oncology and Hematology - Srikanth [address] [place] [address] Gino Basurto MD 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CMS/HCC) 09/09/2024 8:30 AM FINISHING ROOM SUPERVISOR Office Visit [facility] Oncology and Hematology - Srikanth [address] Gino Basurto MD Metastatic melanoma (CMS/HCC) (Primary Dx) 09/09/2024 Orders Only [facility] Oncology and Hematology - Srikanth [address] Gino Basurto MD 09/05/2024 Orders Only [facility] Oncology and Hematology - Srikanth [address] [place] [phone] Gino Basurto MD 09/02/[address] [facility] Oncology and Hematology - Srikanth [address] Gino Basurto MD 08/30/[address] [facility] Oncology and Hematology - Srikanth [address] [place] [phone] Gino Basurto MD 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CMS/HCC) (Primary Dx) 08/28/[address] [facility] Oncology and Hematology - Srikanth [address] [place] [id number] Gino Basurto MD 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[facility]/HCC) 08/15/[address] [facility] Oncology and Hematology - Srikanth [address] [place] [address] Gino Basurto MD Metastatic melanoma (CMS/HCC); Benign hypertension 08/11/[address] [facility] Oncology and Hematology - Srikanth [address] Gino Basurto MD from Last 3 [...] on file Legal Sex Male 3:43 PM FINISHING ROOM SUPERVISOR Gender Identity Not on file Sexual Orientation [...] cm (5' 8 ) 08/05/2023 2:56 PM FINISHING ROOM SUPERVISOR Body Mass Index 32.45 08/05/2023 2:56 PM FINISHING ROOM SUPERVISOR Plan of Treatment Upcoming Encounters Date Type Department Care Team (Late st Contact Info) Description 12/02/2024 8:30 AM CDT Office Visit [facility] Oncology and Hematology [facility] [address] [facility] [address] [place] [address] Gino Basurto MD [address] [facility] [address] [place] [address] Health Maintenance Due Date Last Done Comments Pre-Diabetes and Diabetes Screening 1957 DTAP/TDAP/TD VACCINES (1 - Tdap) 1976 FIT-DNA Q 3 years 2002 FIT/FOBT Q 1 year 2002 Flex Sig/CT Colonography Q 5 years 2002 PNEUMOCOCCAL VACCINE 50+ YEARS (1 of 1 - PCV) 10/13/19 08 ZOSTER VACCINE (1 of 2) 2007 INFLUENZA VACCINE (#1) 2024 Medicare Advantage ([place]) Prev entative Visit/Annual Wellness Visit 08/24/2024 COLORECTAL [...] CBC WITH DIFFERENTIAL Routine 10/21/2024 2:01 PM FINISHING ROOM SUPERVISOR COMPREHENSIVE METABOLIC PANEL Routine 10/21/2024 10:01 AM FINISHING ROOM SUPERVISOR CBC WITH DIFFERENTIAL Routine 10/07/2024 10:09 AM FINISHING ROOM SUPERVISOR BASIC METABOLIC PANEL Routine 09/23/2024 12:26 PM FINISHING ROOM SUPERVISOR CBC WITH AUTODIFFERENTIAL Routine 2024 12:25 PM FINISHING ROOM SUPERVISOR COMPREHENSIVE METABOLIC PANEL Routine 09/23/2024 8:51 AM FINISHING ROOM SUPERVISOR BASIC METABOLIC PANEL Routine 09/09/2024 2:57 PM FINISHING ROOM SUPERVISOR COMPREHENSIVE METABOLIC PANEL Routine 09/09/2024 2:48 PM FINISHING ROOM SUPERVISOR CT CHEST ABDOMEN PELVIS W CONT Routine 09/02/2024 10:48 AM FINISHING ROOM SUPERVISOR BASIC METABOLIC PANEL Routine 08/26/2024 11:45 AM FINISHING ROOM SUPERVISOR COMPREHENSIVE METABOLIC PANEL Routine 08/26/2024 11:13 AM FINISHING ROOM SUPERVISOR CBC WITH DIFFERENTIAL Routine 08/26/2024 10:15 AM FINISHING ROOM SUPERVISOR from Last 3 Months Results * BASIC [...] * CBC WITH DIFFERENTIAL (10/21/2024 2:01 PM FINISHING ROOM SUPERVISOR) Only the most recent of3 resultswithin the time period is included. Blood us Gino Basurto MD HEMATOLOGY ORDERABLES Final Res ult * CBC WITH AUTODIFFERENTIAL (09/23/2024 12:25 PM FINISHING ROOM SUPERVISOR) Blood us Gino Basurto MD HEMATOLOGY ORDERABLES Final Res ult * CT CHEST ABDOMEN PELVIS W CONT (09/02/2024 10:48 AM FINISHING ROOM SUPERVISOR) Anatomical Region Laterality Modality Chest Computed Tomogra phy Gino Basurto MD CT ORDERABLES Final Result from Last 3 Months Insurance [facility] Care Teams Safekeeping Clerk Relationship Specialty Start Date End Date Derick Celaya MD [address] [facility] [address] [place] [address] PCP - General Family Practice 10/07/24
--- OUTSIDE RECORDS SUMMARY | 2024-11-09 13:56 | XMS_ITS | Clinical Summary ---
Author Organization [facility] Address [address] [place] [address] Care Team Providers Care Package Line Relief Operator Name Role Phone Brenda Resendiz MD Primary Care Provider + Source Comments [facility],non-owned Affiliates and Associated Physician Practices is amultiple site organization consisting of ambulatory clinics and hospital sitesin [place], [place], [place] and [place]. This disclosure is being madepursuant to the Care Everywhere program and may not contain all information available regarding this patient. Last updated 18.[facility] Social History Tobacco Use Types Packs/Day Years [...] age to complete this topic Care Teams Package Line Relief Operator Relationship Specialty Start Date End Date Brenda Resendiz MD [address] [place], [place] [id number] PCP - General 11/01/21
--- OUTSIDE RECORDS SUMMARY | 2024-11-09 13:56 | XMS_ITS | Clinical Summary ---
Author Organization [facility] Address [address], [address] [address] Phone Care Team Providers Care Marketing Database Analyst Name Role Phone Brenda Resendiz MD Primary Care Provider [phone] Allergies No known active allergies Medications polyethylene [...] Take 1 Tab by mouth daily. 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
--- OUTSIDE RECORDS SUMMARY | 2024-11-09 13:56 | XMS_ITS | Encounter Summary ---
Author Organization [facility] Address [address] [place] [address] Care Team Providers Care Junior Software Engineer Name Role Phone Brenda Resendiz MD Primary Care Provider + Encounter Details Date Type Department Care Team (Late st Contact Info) Description 01/10/2021 Lab Requisition [facility] Care Pathology Lab [address] [place] [address] Jackelyn Yoder MD [address] [place], [place] [id number] Illness, unspecified Social History Tobacco Use Types [...] Final Diagnosis PROSTATE, LLB, NEEDLE BIOPSY (OSC: [id number], A; 01/07/2021): - Benign prostatic tissue PROSTATE, LLM, NEEDLE BIOPSY (OSC: [id number], B; 01/07/2021): - Benign prostatic tissue PROSTATE, LLA, NEEDLE BIOPSY (OSC: [id number], C; 01/07/2021): - Focal glandular atypia, consistent with partial atrophy PROSTATE, LB, NEEDLE BIOPSY (OSC: [id number], D; 01/07/2021): - Benign prostatic tissue PROSTATE, LM, NEEDLE BIOPSY (OSC: [id number], E; 01/07/2021): - Benign prostatic tissue PROSTATE, LA, NEEDLE BIOPSY (OSC: [id number], F; 01/07/2021): - Benign prostatic tissue PROSTATE, RB, NEEDLE BIOPSY (OSC: [id number], G; 01/07/2021): - Benign prostatic tissue PROSTATE, RM, NEEDLE BIOPSY (OSC: [id number], H; 01/07/2021): - Benign prostatic tissue PROSTATE, RA, NEEDLE BIOPSY (OSC: [id number], I; 01/07/2021): - Benign prostatic tissue PROSTATE, RLB, NEEDLE BIOPSY (OSC: [id number], J; 01/07/2021): - Benign prostatic tissue PROSTATE, RLM, NEEDLE BIOPSY (OSC: [id number], K; 01/07/2021): - Benign prostatic tissue PROSTATE, RLA, NEEDLE BIOPSY (OSC: [id number], L; 01/07/2021): - Benign prostatic tissue PROSTATE, BENITA, NEEDLE BIOPSY (OSC: [id number], M; 01/07/2021): - Benign prostatic tissue 01/11/2021 11:44 AM [facility] Microscopic Description and Comment [...] interpretation of partial atrophy. 01/11/2021 11:44 AM [facility] Clinical History PSA 4.9, ABNORMAL MR, FUSION BIOPSY, PROSTATE VOLUME 64 BENITA = RIGHT LATERAL CENTRAL PROSTATE LEVEL AT MID GLAND X3 01/11/2021 11:44 AM [facility] Materials Received Received are five prepared slides from [facility] labeled [id number] (A1-D1 and A-D PIN4). All material will be returned. 01/11/2021 11:44 AM CDT [facility] PATH[facility] Disclaimer The performance characteristics of all immunohistochemical and indirect immunofluorescence stains (if any) cited in this report were determined by the Histopathology Laboratory of [facility]. Some of these tests were developed [...] LAB Case Report Surgical Pathology Report Case: [id number] Authorizing Provider: Jackelyn Yoder MD Collected: 01/07/2021 10:27 AM Ordering Location: [facility] Pathology Lab Received: 01/10/2021 10:27 AM Pathologist: Irma Moses MD Specimen: Slide Consultation 01/11/2021 11:44 AM CDT [facility] PATH[facility] Embedded Images 01/11/2021 11:44 AM CDT [facility] PATH[facility] LAB Pathology/Cytolo gy SURGICAL PATHOLOGY CONSULTATION AND REPORT ON REFERRED SLIDES PREPARED ELSEWHERE / Unknown 01/07/2021 10:27 AM CDT 01/10/2021 10:27 AM CDT Jackelyn Yoder MD LAB - PATHOLOGY/CYTO LOGY ORDERABLES Performing Organization Address City/[facility] Co de Phone Number [facility] PATHOLOGY LAB [address] [phone] documented in this encounter Visit Diagnoses Diagnosis Illness, unspecified documented in this encounter Care Teams Junior Software Engineer Relationship Specialty Start Date End Date Brenda Resendiz MD [address] [place] [address] PCP - General 11/01/21 documented as of this encounter
--- OUTSIDE RECORDS SUMMARY | 2024-11-09 13:56 | XMS_ITS | Clinical Summary ---
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
--- OUTSIDE RECORDS SUMMARY | 2024-11-09 13:56 | XMS_ITS | Encounter Summary ---
Author Organization [facility] Address [address] [place] [address] Care Team Providers Care Slip Caster Name Role Phone Derick Celaya MD Primary Care Provider [phone] Encounter Details Date Type Department Care Team (Late Contact Info) Description 11/08/2024 Orders Only [facility] Oncology and Hematology - Srikanth [address] [place] [address] Gino Basurto MD [address] [place], [place] [address] [employer] [address] [place] [address] Social History Tobacco Use Types Packs/Day Years Used Date Smoking Tobacco: Never Smokeless Tobacco: Never Alcohol Use Standard Drinks/Week Comments Yes 0 (1 standard drink = 0.6 oz pur e alcohol) socially Sex and Gender Information Value Date Recorded Sex Assigned at Not on file 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 Gender Identity Not on file Sexual Orientation Not on file documented as of this encounter Plan of Treatment Upcoming Encounters Date Type Department Care Team (Late st Contact Info) Description 12/02/2024 8:30 AM CDT Office Visit [facility] Oncology and Hematology - Srikanth [address] [place] [address] Gino Basurto MD [address] [facility] [employer] [address] [place] [address] documented as of this encounter Procedures [...] on filedocumented in this encounter Care Teams Slip Caster Relationship Specialty Start Date End Date Derick Celaya MD [address] [facility] [address] [place] [address] PCP - General Family Practice 10/07/24 documented as of this encounter
--- OUTSIDE RECORDS SUMMARY | 2024-11-09 13:56 | XMS_ITS | Encounter Summary ---
Author Organization [facility] [employer] [facility] Address [address] [place] [address] Care Team Providers Care Warehouse Shipping Associate Name Role Phone Derick Celaya MD Primary Care Provider [phone] Reason for Visit * Reason Onset Date Comments Cough 11/08/2024 Encounter Details Date Type Department Care Team (Late st Contact Info) Description 11/08/2024 Telephone [facility] Oncology and Hematology - Srikanth [address] [facility] [address] [place] [address] Gino Basurto MD [address] [facility] [address] [place] [address] Cough Social History Tobacco Use Types Packs/Day Years Used Date Smoking Tobacco: Never Smokeless Tobacco: Never Alcohol Use Standard Drinks/Week Comments Yes 0 (1 standard drink = 0.6 oz pur e alcohol) socially Sex and Gender Information Value Date Recorded Sex Assigned at Not on file 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 Gender Identity Not on file Sexual Orientation [...] Description 12/02/2024 8:30 AM CDT Office Visit [facility] Oncology and Hematology - [place] [address] [place] [address] [address] [place] [phone] Gino Basurto MD [address] [facility] [address] [place] [address] documented as of this encounter Visit Diagnoses Not on filedocumented in this encounter Care Teams Warehouse Shipping Associate Relationship Specialty Start Date End Date Derick Celaya MD [address] [facility] [address] [place] [address] PCP - General Family Practice 10/07/24 documented as of this encounter
[2024-11-09 14:13] LABS: Amphetamine Screen Urine Negative (Negative); Barbiturate Screen Urine Negative (Negative); Benzodiazepines Screen Urine Negative (Negative); Cannabinoid Screen Urine Positive (Negative); Cocaine Screen Urine Negative (Negative); Methadone Screen Urine Negative (Negative); Opiate Screen Urine Negative (Negative); Phencyclidine Screen Urine Negative (Negative)
[2024-11-09] MEDS: AZITHROMYCIN 500 MG/NS 250 ML 500 MG/250 ML BAG 250 MG IVPB (14:33)
[2024-11-09] MEDS: dilTIAZem 100 MG/100 ML 100 MG/100 ML BAG IV CONT (14:35)
[2024-11-09] MEDS: FUROSEMIDE INJ 40 MG/4 ML VIAL IV PUSH (15:29)
--- NOTE | 2024-11-09 18:46 | PM.IMHP ---
H&P: HPI History of Present Illness Date/Time: 11/09/24 18:46 Chief Complaint: Shortness of Breath Narrative: 69 y/o M presents here with shortness of breath with PMH of metastatic melanoma, depression, HTN, HLD, coronary artery disease, THOR, HTN, generalized anxiety disorder. The patient presents here from a local urgent care for further evaluation of shortness of breath and an abnormal EKG. The patient initially began experiencing exertional shortness of breath approximately 1 week ago. The patient reports that he was initially unable to tolerate his CPAP last night due to the severity of the shortness of breath. He was able to increase his settings to full pressure faster and then was able to use it. The patient is very active and plays ice hockey 3 times per week. Newly unable to tolerate playing 2 nights ago. He reports associated productive cough, coarse lung sounds with a deep breath, decreased appetite. 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 He denies associated palpitations, chest pain, fever, chills, body aches, nausea, vomiting, diarrhea, diaphoresis, or dizziness. He has no previous history of dysrhythmia. He currently follows with Cardiology, Danna BAGLEY. Initial VS at presentation: 90.2? F, HR 139, R 22, 111/88, and 99% on RA. ED workup showed: No leukocytosis, no anemia, elevated D-dimer, creatinine 1.16 and normal GFR, initial troponin 0.012, BNP 2030, UA showed a high specific gravity and trace ketones, UDS + marijuana, and viral PCR negative. CXR showed no acute cardiopulmonary pathology, soft tissue density in the right tracheobronchial tree which is most likely a mass that is slightly smaller than previous study. Chest CTA showed no PE, patchy consolidation ground-glass opacities in both lungs most suspicious for pneumonia, mild pulmonary edema, bilateral pleural effusions, stable appearance of more chronic right upper lobe paramediastinal consolidation with volume loss and adjacent right paratracheal mass likely related to history of treated metastatic disease, increased in size with a few still normal-sized anterior mediastinal lymph nodes, and a small pericardial effusion. Review of Systems Review of Systems: All systems reviewed & are unremarkable except as noted in HPI and below PMFSH Past Medical History Medical History Mixed hyperlipidemia CAD (coronary artery disease) MDD (major depressive disorder), recurrent episode, moderate LOKI (generalized anxiety disorder) Erosive esophagitis Hernia Metastatic melanoma mediastinal mass Cough Obesity Benign essential HTN Contusion of thigh, left THOR (obstructive sleep apnea) Surgical History Surgical History History of heart artery stent History of cardiac catheterization History of inguinal hernia repair, bilateral History of carpal tunnel surgery Family History Family History Sibling Depression Family history of alcoholism Mother Family history of elevated blood lipids Hypertension Father Family history of coronary artery disease Murmur, cardiac Social History Social History Social History: Active, plays ice hockey 3x/week Smoking status: Never smoker Second hand tobacco smoke exposure: No Alcohol intake: current Drinks per week: 5 Alcohol use details: occasional Substance use: never Substance use type: other Other substance usage details: cannibis gummies Do You Feel Safe in your Home?: Yes Lack of Transportation: No Lack of Food: Never True Current Housing: I Have Housing Concerned About Future Housing: No Difficulty Paying Gas/Electric Bills: No Difficulty Paying for Meds: No Currently Unemployed: No Education: Decline to Answer Difficulty w/ Childcare or Family Care: No Living arrangements: with family Occupation/Education: retired Gender identity (if verbalized by the patient): Male Sexual Orientation (if Verbalized by the Patient): Straight or Heterosexual Spiritual care concerns: No Meds Home Medications and Allergies Home Medications ?Medication ?Instructions ?Recorded ?Confirmed ?Type ticagrelor 60 mg tablet (Brilinta) 60 mg PO BID 10/16/19 11/09/24 History atorvastatin 40 mg tablet See Rx Instructions .Route 03/29/24 11/09/24 Rx .COMPLEX #90 tabs azelastine 137 mcg (0.1 %) nasal 1 spray intranasal Q12H #90 mL 11/01/24 11/09/24 Rx spray albuterol sulfate 90 mcg/actuation 2 puff inhalation Q4H PRN wheezing 11/09/24 11/09/24 History aerosol inhaler lisinopril 20 1 tablet PO DAILY 11/09/24 11/09/24 History mg-hydrochlorothiazide 12.5 mg tablet omeprazole 40 mg capsule,delayed 40 mg PO DAILY 11/09/24 11/09/24 History release potassium chloride 20 mEq 20 meq PO BID 11/09/24 11/09/24 History tablet,extended release(part/cryst) (Klor-Con M) pseudoephedrine-guaifenesin ER 120 1 tablet PO Q12H 11/09/24 11/09/24 History mg-1,200 mg tab,extend release 12hr (Mucinex D Maximum Strength) Allergies Allergy/AdvReac Type Severity Reaction Status Date / Time No Known Allergies Allergy Verified 11/09/24 19:49 Vital Signs Vital Signs - 24 hr 11/09/24 11:41 11/09/24 11:58 11/09/24 12:01 Temperature Pulse Rate 139 H 132 H 139 H Respiratory Rate 22 H 28 H Blood Pressure 111/88 112/88 Pulse Oximetry 99 Oxygen Delivery 11/09/24 12:16 11/09/24 12:17 11/09/24 12:43 Temperature Pulse Rate 145 H 142 H Respiratory Rate 21 H 22 H Blood Pressure 111/87 111/87 Pulse Oximetry 99 99 96 Oxygen Delivery Room Air 11/09/24 13:07 11/09/24 13:07 11/09/24 13:15 Temperature 98.2 F Pulse Rate 130 H 143 H Respiratory Rate 20 Blood Pressure 113/86 Pulse Oximetry 100 Oxygen Delivery 11/09/24 13:16 11/09/24 14:35 11/09/24 15:25 Temperature Pulse Rate 141 H 142 H 140 H Respiratory Rate 24 H Blood Pressure 111/91 H 107/88 104/80 Pulse Oximetry 99 Oxygen Delivery 11/09/24 15:32 11/09/24 15:46 11/09/24 15:47 Temperature Pulse Rate 137 H 142 H 142 H Respiratory Rate 24 H 40 H 29 H Blood Pressure 99/68 L 101/87 101/80 Pulse Oximetry 96 97 97 Oxygen Delivery 11/09/24 16:15 11/09/24 16:20 11/09/24 17:25 Temperature Pulse Rate 128 H 134 H 120 H Respiratory Rate 24 H 36 H Blood Pressure 120/70 128/86 110/73 Pulse Oximetry 97 95 Oxygen Delivery 11/09/24 18:38 Temperature Pulse Rate 118 H Respiratory Rate 23 H Blood Pressure 101/79 Pulse Oximetry 95 Oxygen Delivery Exam Narrative: lungs clear. Abdomen rounded and slightly firm. nontender. normal bs. no peripheral edema. Const: General: comfortable and no acute distress Other: , male, nontoxic appearance HENMT: Face/Nose/Sinus: Normal nares present Mouth: Yes moist mucous membranes Eyes: General: appearance normal, both eyes and all related structures Sclera: sclerae normal Pupils: Equal, round and reactive pupils present EOM: EOMs intact bilaterally Resp: Effort & Inspection: normal respiratory effort Auscultation: clear to auscultation bilaterally Cardio: Rate: regular rate Rhythm: regular rhythm Other: S1-S2 present without murmur, rub, ectopy GI: Other: Abdomen firm, nontender, rounded. Normoactive bowel sounds in all quadrants. Skin: General skin exam: normal color and no rashes or lesions noted Wounds: no wounds Neuro: Speech: normal speech Motor exam (neuro): 5/5 motor strength present throughout Sensory Exam: normal sensation Other: A&O x4 Extrem: General: normal to inspection Psych: Mental Status: mental status grossly normal Affect: normal affect Other: Good insight and judgment, very pleasant H&P: Results Labs Labs: Short CBC 11/09/24 Range/Units 11:51 WBC 9.0 (4.5-10.0) K/mm3 Hgb 16.6 (14.0-18.0) g/dL Hct 49.6 (42.0-52.0) % Plt Count 309 (150-375) k/mm3 [facility] 11/09/24 11:51 Sodium 137 Potassium 4.5 Chloride 99 Carbon Dioxide 23 BUN 16 Creatinine 1.16 Glucose 104 Calcium 9.4 Cardiac Enzymes 11/09/24 Range/Units 11:51 Troponin I 0.012 (0.000-0.034) ng/mL Liver Function 11/09/24 Range/Units 11:51 Total Bilirubin 0.9 (0.2-1.3) mg/dL AST 22 (17-59) U/L ALT 19 (6-50) U/L Alkaline Phosphatase 95 (38-126) U/L Albumin 4.3 (3.5-5.1) g/dL Urine 11/09/24 Range/Units 13:42 Urine Color Yellow (Yellow) Urine Appearance Clear (Clear) Urine pH 5.0 (5.0-9.0) Ur Specific [place] > 1.045 H (1.001-1.035) Urine Protein Negative (Negative) mg/dL Urine Glucose (UA) Negative (Negative) mg/dL Assessment and Plan Assessment and plan (1) Atrial flutter with rapid ventricular response: Code(s): I48.92 - Unspecified atrial flutter Status: Acute Assessment and Plan: - EKG, initial (Urgent Care): Atrial flutter/tachycardia with RVR, probable anterior DE of indeterminate age, nonspecific ST abnormality - repeat EKG: Atrial flutter/tachycardia with RVR, cannot rule out septal infarct. No significant changes when compared to EKG done earlier same day. - initially given metoprolol IV with no effect. Started on diltiazem gtt. Currently at 15 mg/hour. - cardiology consulted, awaiting formal recs - TSH 4.190 - CHADSVasc: 2, 3 if CHF confirmed. However patient plays ice hockey 3 times per week and may not be suitable candidate. will defer to cardiac team. - telemetry monitoring (2) Pneumonia: Qualifiers: Laterality: bilateral Lung location: unspecified part of lung Pneumonia type: due to unspecified organism Qualified Code(s): J18.9 - Pneumonia, unspecified organism Code(s): J18.9 - Pneumonia, unspecified organism Status: Acute Assessment and Plan: - CXR: No acute cardiopulmonary pathology. Soft tissue density in the right tracheobronchial tree area which is most likely a mass. This site is slightly smaller than the previous study. - chest CTA: 1. No pulmonary embolism. 2. Patchy consolidation and groundglass opacities in both lungs most suspicious for pneumonia. 3. Mild pulmonary edema the bilateral lung bases with small to moderate-sized right and very small left pleural effusions. 4. Stable appearance of more chronic right upper lobe paramediastinal consolidation with volume loss and adjacent right paratracheal mass likely related to history of treated metastatic disease. 5. Increase in size with a few still normal-sized anterior mediastinal lymph nodes which are most likely reactive. 6. Small pericardial effusion. - risk factors and complicating factors: metastatic melanoma (mediastinal) - started on CAP tx: Ceftriaxone and azithromycin on 11/09 - check MRSA PCR and sputum culture - Viral PCR negative - supportive care - no current O2 requirement (3) Congestive heart failure: Qualifiers: Heart failure chronicity: acute Heart failure type: unspecified Qualified Code(s): I50.9 - Heart failure, unspecified Code(s): I50.9 - Heart failure, unspecified Status: Suspected Assessment and Plan: - BNP 2030 - no echo on file, ordered - not on a daily diuretic at home, will start Lasix 40 mg IV daily - monitor I&Os and daily weights - trend renal function (4) Benign essential HTN: Code(s): I10 - Essential (primary) hypertension Status: Chronic Assessment and Plan: - chronic, currently 109/70 - continue home medications: Lisinopril-hydrochlorothiazide - monitor (5) THOR (obstructive sleep apnea): Code(s): G47.33 - Obstructive sleep apnea (adult) (pediatric) Status: Chronic Assessment and Plan: - continue home CPAP Plan Diet: Heart healthy GI Prophylaxis: Not currently indicated DVT Prophylaxis: Lovenox SQ Lines: Peripheral Code Status: Full code Quality VTE Prophylaxis VTE prophylaxis: pharmacologic ordered Hospitalist [facility] Advance Care Plan I have confirmed that the patient's Advanced Care Plan is present, code status is documented, or surrogate decision maker is listed in patient medical record.: Yes Medication Reconciliation I have utilized all available resources to obtain, update and review the patients current medications (includes all prescriptions, OTC, herbals, cannabis, and nutritional supplements).: Yes
--- NOTE | 2024-11-09 19:10 | PC.NURSE ---
This patient, Arsh Leiva III, was admitted to IMU Room 202-. Patient/family oriented to hospital policies and general routines including ID bracelet, bed and alarms, visiting hours, pain management, procedures, bathroom and other care routines, personal items, smoking policy, room service/diet, and visiting hours. Information on how to activate the Rapid Response Team has been discussed. Patient/Family are encouraged to report perceived risks to care and to ask questions if they do not understand what they are told or what they should do.
[2024-11-09] MEDS: guaiFENesin 12 HR 600 MG TABCR PO (21:18)
[2024-11-09] MEDS: TICAGRELOR 60 MG TABLET PO (21:19)
[2024-11-09] MEDS: dilTIAZem 100 MG/100 ML 100 MG/100 ML BAG 15 MG IV CONT (21:40)
[2024-11-09] MEDS: ATORVASTATIN 40 MG TABLET PO (21:42)
[2024-11-09] MEDS: BENZOCAINE/MENTHOL (*BKC) 18 EA LOZENGE 1 LOZENGE PO (21:47)
[2024-11-10] VITALS (27 sets, daily range): BP systolic 82–126; BP diastolic 53–84; PULSE 78–127; RESP 16–20; TEMP 36.6–37.2; O2SAT 94–100; BMI 30.4
--- NOTE | 2024-11-10 | ECHO_ITS ---
Patient Info Name: Arsh Leiva Age: 69 years : 1955 Gender: Male Ht: 69 in Wt: 206 lbs BSA: 2.16 m2 HR: 98 bpm BP: 109 / 68 mmHg Heart Rhythm: Atrial Flutter, Tachycardia Technical Quality: Fair Exam Date: 11/10/2024 2:19 PM Exam Location: Echo Lab Patient Status: Inpatient Admit Date: 11/09/2024 Staff Ordering Physician: Jose Campos MD [employer] Battery Assembler: Jessica Rodriguez RDCS Attending Provider: Anamaria Segura MD Exam Type: CA echo doppler color flow Study Info Indications - A-flutter Complete two-dimensional, color flow and Doppler transthoracic echocardiogram is performed. Summary 1. Technically difficult study with limited views. 2. Left ventricular chamber dimension is normal. 3. Left ventricular systolic function is moderately reduced, estimated at 30-35%. 4. Right ventricular chamber dimension is normal. 5. Right ventricular systolic function is reduced. 6. Left atrial chamber dimension is severely enlarged. 7. Right atrial chamber dimension is mildly enlarged. 8. There is mild mitral valve regurgitation. 9. There is mild tricuspid valve regurgitation. Left Ventricle Left ventricular chamber dimension is normal. Left ventricular systolic function is moderately reduced, estimated at 30-35%. There is no increased left ventricular wall thickness. The left ventricular diastolic function is abnormal. Right Ventricle Right ventricular chamber dimension is normal. Right ventricular systolic function is reduced. Left Atria Left atrial chamber dimension is severely enlarged. Right Atria Right atrial chamber dimension is mildly enlarged. Atrial Septum Intact interatrial septum visualized by color flow imaging. Aortic Valve The aortic valve is not well visualized. There is no aortic valve regurgitation. Pulmonic Valve The pulmonic valve is not well visualized. Mitral Valve There is mild mitral valve regurgitation. Tricuspid Valve There is mild tricuspid valve regurgitation. Pericardium/Pleural The pericardium appears epicardial fat pad. There is no pericardial effusion. Inferior Vena Cava Dilated inferior vena cava with <50% collapse upon inspiration consistent with elevated right atrial pressure, 15 mmHg. Aorta The aortic root size at the sinus of Valsalva is normal. Left Ventricular Outflow Tract Name Value Normal LVOT 2D LVOT Diameter 2.0 cm LVOT Doppler LVOT Peak Gradient 2 mmHg LVOT Mean Gradient 1 mmHg LVOT VTI 17 cm LVOT Stroke Volume 55 ml LVOT CO 2.7 l/min LVOT CI 1.3 l/min/m2 Pulmonic Valve Name Value Normal RVOT Doppler RVOT Peak Gradient 1 mmHg PV Doppler PV Peak Gradient 3 mmHg Mitral Valve Name Value Normal MV Doppler MV Decel [place] 442 cm/s2 MV PHT 64 ms MV Area (PHT) 3.5 cm2 4.0-5.0 MV Diastolic Function MV E Peak Velocity 97 cm/s MV A Peak Velocity 1 cm/s MV E/A 136.6 MV Decel Time 219 ms MV Annular TDI MV E/e' (Septal) 14.8 <=8.0 Tricuspid Valve Name Value Normal TV Regurgitation Doppler TR Peak Velocity 303 cm/s TR Peak Gradient 37 mmHg Estimated PAP/RSVP RA Pressure 15 mmHg <=5 PA Systolic Pressure 52 mmHg <36 RV Systolic Pressure 52 mmHg <36 Aortic Valve Name Value Normal AV Regurgitation 2D LVOT Area 3.2 cm2 Ventricles Name Value Normal LV Dimensions 2D/MM IVS Diastolic Thickness (2D) 0.9 cm 0.6-1.0 LVID Diastole (2D) 5.4 cm 4.2-5.8 LVIW Diastolic Thickness (2D) 0.9 cm 0.6-1.0 LVID Systole (2D) 4.2 cm 2.5-4.0 LVOT Diameter 2.0 cm LV Mass (2D Cubed) 190.80 g 88.00-224.00 LV Mass Index (2D Cubed) 88 g/m2 49-115 Relative Wall Thickness (2D) 0.35 LV Fractional Shortening/Ejection Fraction 2D/MM LV Fractional Shortening (2D) 24 % 25-43 LV EF (2D Teicholz) 47 % 52-72 LV Diastolic Volume (4C MOD) 147 ml LV EF (4C MOD) 51 % LV Diastolic Volume (2C MOD) 117 ml LV EF (2C MOD) 43 % LV Diastolic Volume (BP MOD) 125 ml 62-150 LV Diastolic Volume Index (BP MOD) 58 ml/m2 34-74 LV Systolic Volume (BP MOD) 70 ml 21-61 LV Systolic Volume Index (BP MOD) 32 ml/m2 11-31 LV EF (BP MOD) 44 % 52-72 LV Diastolic Length (4C) 8.2 cm LV Systolic Length (4C) 6.6 cm LV Stroke Volume (4C MOD) 75 ml Atria Name Value Normal LA Dimensions LA Volume (4C A-L) 110 ml LA Volume (BP A-L) 113 ml RA Dimensions RA Area (4C) 18.9 cm2 <=18.0 Report Signatures
[2024-11-10 02:10] LABS: MRSA (PCR) NOT DETECTED (NOT DETECTE)
[2024-11-10] MEDS: dilTIAZem 100 MG/100 ML 100 MG/100 ML BAG 15 MG IV CONT ×2 (04:00→11:26)
[2024-11-10 04:46] LABS: Basophils Absolute Auto 0.1 K/mm3 (0.0-0.1); Basophils Percent Auto 0.7 % (0.2-1.2); Eosinophils Absolute Auto 0.4 K/mm3 (0-0.3); Eosinophils Percent Auto 4.9 % (0-4.4); Hematocrit 45.5 % (42.0-52.0); Hemoglobin 15.4 g/dL (14.0-18.0); Immature Granulocyte Absolute 0.09 K/mm3 (0.00-0.031); Immature Granulocyte Percent A 1.1 % (0-0.5); Lymphocytes Absolute Auto 0.57 K/mm3 (0.9-3.2); Lymphocytes Percent Auto 6.9 % (18.3-44.2); Mean Corpuscular HGB Conc 33.8 g/dl (32-36); Mean Corpuscular Hemoglobin 30.1 pg (26-34); Mean Corpuscular Volume 88.9 fl (80-100); Mean Platelet Volume 9.2 fl (7.4-10.4); Monocytes Absolute Auto 1.2 K/mm3 (0.1-0.6); Monocytes Percent Auto 14.1 % (2.6-8.5); Neutrophils Percent Auto 72.3 % (45.5-73.1); Platelet Count Result 277 k/mm3 (150-375); Red Blood Count 5.12 M/mm3 (4.6-6.20); Red Cell Distribution Width 13.1 % (11.5-14.5); White Blood Count 8.3 K/mm3 (4.5-10.0)
[2024-11-10 05:00] LABS: Alanine Aminotransferase 16 U/L (6-50); Albumin Level 3.8 g/dL (3.5-5.1); Alkaline Phosphatase 92 U/L (38-126); Anion Gap 15 mmol/L (4-12); Aspartate Amino Transferase 21 U/L (17-59); Bilirubin,Total 0.7 mg/dL (0.2-1.3); Blood Urea Nitrogen 20 mg/dL (9-20); Carbon Dioxide 20 mmol/L (22-30); Chloride 101 mmol/L (98-107); Estimated CRCL calculation 68 ml/min; Estimated Glomerular Filt Rate > 60; Glucose 90 mg/dL (65-110); Potassium 3.9 mmol/L (3.4-5.0); Sodium 136 mmol/L (137-145)
[2024-11-10] MEDS: TICAGRELOR 60 MG TABLET PO ×2 (09:07→20:59)
[2024-11-10] MEDS: guaiFENesin 12 HR 600 MG TABCR PO ×2 (09:07→20:59)
[2024-11-10] MEDS: hydroCHLOROthiazide 12.5 MG CAPSULE PO (09:07)
[2024-11-10] MEDS: lisinopriL 20 MG TABLET PO (09:08)
[2024-11-10] MEDS: PANTOPRAZOLE 40 MG TABLET PO ×2 (09:08→20:59)
[2024-11-10] MEDS: FUROSEMIDE INJ 40 MG/4 ML VIAL IV PUSH (09:08)
[2024-11-10] MEDS: ENOXAPARIN 40 MG/0.4 ML SYRINGE SUB-Q (09:08)
[2024-11-10] MEDS: POTASSIUM CHLORIDE 20 MEQ ER TABLET PO ×2 (09:08→18:27)
--- NOTE | 2024-11-10 11:27 | P.CONCA_ITS ---
Assessment and Plan Assessment and plan (1) Atrial flutter with rapid ventricular response: Code(s): I48.92 - Unspecified atrial flutter Status: Acute Assessment and Plan: New diagnosis of atrial flutter with rapid ventricular response in the setting of acute illness with pneumonia. I discussed this diagnosis with the patient including pathophysiology, management strategies, and risks/complications. For now, we will proceed with a rate control and anticoagulation strategy with plans to attempt cardioversion an outpatient when he has been anticoagulated for at least 4 weeks. * Will give 25 mg p.o. metoprolol tartrate now * Start metoprolol 25 mg p.o. q.12 hours thereafter * Will wean diltiazem for heart rate less than 90 * The goal would be for him to be rate controlled on metoprolol alone * Will discontinue Brilinta and start on Eliquis 5 mg p.o. b.i.d.. He has a CHADS2 Vasc score of at least 3 (age, hypertension, coronary artery disease) * If we have difficulty controlling his heart rate, then can discuss pily/DCCV * Echocardiogram is ordered and is pending * TSH is normal * He has sleep apnea, compliant with CPAP * Continuous telemetry monitoring (2) Benign essential HTN: Code(s): I10 - Essential (primary) hypertension Status: Chronic Assessment and Plan: At goal. (3) CAD (coronary artery disease): Code(s): I25.10 - Atherosclerotic heart disease of [place] coronary artery without angina pectoris Status: Acute Assessment and Plan: Is stable, no anginal symptoms. Continue aspirin, statin. As above, discontinuing Brilinta. (4) Congestive heart failure: Qualifiers: Heart failure type: unspecified Heart failure chronicity: acute Q ualified Code(s): I50.9 - Heart failure, unspecified Code(s): I50.9 - Heart failure, unspecified Status: Suspected Assessment and Plan: Some evidence of congestive heart failure with pulmonary edema and pleural effusions on chest x-ray. Receiving IV furosemide which can be continued for now. Echocardiogram is pending. (5) Pneumonia: Qualifiers: Laterality: bilateral Lung location: unspecified part of lung P neumonia type: due to unspecified organism Qualified Code(s): J18.9 - Pneumonia, unspecified organism Code(s): J18.9 - Pneumonia, unspecified organism Status: Acute Assessment and Plan: Management per hospitalist. History of Present Illness History of Present Illness Consult date/time: 11/10/24 11:27 Requesting physician: Louise Alfaro APRN Consult reason: Other (atrial flutter) Reason For Visit: new onset afib/aflutter w/ RVR on dilt gtt Narrative: Arsh Leiva is a 69 year old male with coronary artery disease who follows in our office with Dr. Clay. He comes to the hospital with a chief complaint of shortness of breath. Cardiology is consulted for atrial flutter with rapid ventricular response which is a new diagnosis for the patient. Patient states he has been experiencing progressive shortness of breath and a productive cough for about a week. He denies having any chest pain, palpitations, swelling. His initial EKG showed atrial flutter with rapid ventricular response, 2-1 conduction. He has been placed on a diltiazem drip which has provided some rate control but his heart rate is still generally 110-120 beats per minute. At the time of my evaluation he is comfortable does not have any active complaints. He states that his shortness of breath has improved but he is not back to baseline. Review of Systems 2 Constitutional: Constitutional: Denies chills, Denies fever(s), Denies headache(s) and Denies malaise Eyes: Eyes: Denies change in vision ENT: Reports Normal hearing present, Denies dizziness, Denies headache(s) and Denies hearing loss Cardiovascular: Cardiovascular: Denies chest pain, Denies chest pain at rest, Denies chest pain with activity, Denies syncope, Denies leg edema, Denies palpitations, Reports dyspnea and Reports dyspnea on exertion Respiratory: Respiratory: Reports cough, Reports dyspnea, Reports dyspnea on exertion and Denies wheezing Gastrointestinal: Gastrointestinal: Denies abdominal pain, Denies constipation and Denies diarrhea Genitourinary: Genitourinary: Denies hematuria and Denies dysuria Musculoskeletal: Musculoskeletal: Denies myalgias, Denies arthralgias and Denies muscle cramps Integumentary/Breasts: Skin/Breast: Denies wounds Neurologic: Reports Normal hearing present, Denies confusion, Denies dizziness, Denies syncope and Denies headache(s) Psychiatric: Psychiatric: Denies anxiety, Denies confusion and Denies depression Endocrine: Endocrine: Denies cold intolerance, Denies flushing, Denies heat intolerance and Denies palpitations Hematologic/Lymphatic: Hematologic/Lymphatic: Denies easy bleeding and Denies easy bruising Allergic/Immunologic: Allergic/Immunologic: Denies wheezing PMFSH Past Medical History Medical History (Updated 11/10/24 @ 13:06 by ERROL Newell) CAD (coronary artery disease) Mixed hyperlipidemia MDD (major depressive disorder), recurrent episode, moderate LOKI (generalized anxiety disorder) Erosive esophagitis Hernia Metastatic melanoma mediastinal mass Cough Obesity Benign essential HTN Contusion of thigh, left THOR (obstructive sleep apnea) Surgical History Surgical History History of heart artery stent History of cardiac catheterization History of inguinal hernia repair, bilateral History of carpal tunnel surgery Family History Family History Sibling Depression Family history of alcoholism Mother Family history of elevated blood lipids Hypertension Father Family history of coronary artery disease Murmur, cardiac Social History Social History Social History: Active, plays ice hockey 3x/week Smoking status: Never smoker Second hand tobacco smoke exposure: No Alcohol intake: current Drinks per week: 5 Alcohol use details: occasional Substance use: never Substance use type: other Other substance usage details: cannibis gummies Do You Feel Safe in your Home?: Yes Lack of Transportation: No Lack of Food: Never True Current Housing: I Have Housing Concerned About Future Housing: No Difficulty Paying Gas/Electric Bills: No Difficulty Paying for Meds: No Currently Unemployed: No Education: Decline to Answer Difficulty w/ Childcare or Family Care: No Living arrangements: with family Occupation/Education: retired Gender identity (if verbalized by the patient): Male Sexual Orientation (if Verbalized by the Patient): Straight or Heterosexual Spiritual care concerns: No Meds Home Medications and Allergies Home Medications ?Medication ?Instructions ?Recorded ?Confirmed ?Type ticagrelor 60 mg tablet (Brilinta) 60 mg PO BID 10/16/19 11/09/24 History atorvastatin 40 mg tablet See Rx Instructions .Route 03/29/24 11/09/24 Rx .COMPLEX #90 tabs azelastine 137 mcg (0.1 %) nasal 1 spray intranasal Q12H #90 mL 11/01/24 11/09/24 Rx spray albuterol sulfate 90 mcg/actuation 2 puff inhalation Q4H PRN wheezing 11/09/24 11/09/24 History aerosol inhaler lisinopril 20 1 tablet PO DAILY 11/09/24 11/09/24 History mg-hydrochlorothiazide 12.5 mg tablet omeprazole 40 mg capsule,delayed 40 mg PO DAILY 11/09/24 11/09/24 History release potassium chloride 20 mEq 20 meq PO BID 11/09/24 11/09/24 History tablet,extended release(part/cryst) (Klor-Con M) pseudoephedrine-guaifenesin ER 120 1 tablet PO Q12H 11/09/24 11/09/24 History mg-1,200 mg tab,extend release 12hr (Mucinex D Maximum Strength) Allergies Allergy/AdvReac Type Severity Reaction Status Date / Time No Known Allergies Allergy Verified 11/09/24 19:49 Vital Signs Vital Signs - 24 hr 11/09/24 11:41 11/09/24 11:58 11/09/24 12:01 Temperature Pulse Rate 139 H 132 H 139 H Respiratory Rate 22 H 28 H Blood Pressure 111/88 112/88 Pulse Oximetry 99 Oxygen Delivery Fraction of Inspired Oxygen 11/09/24 12:16 11/09/24 12:17 11/09/24 12:43 Temperature Pulse Rate 145 H 142 H Respiratory Rate 21 H 22 H Blood Pressure 111/87 111/87 Pulse Oximetry 99 99 96 Oxygen Delivery Room Air Fraction of Inspired Oxygen 11/09/24 13:07 11/09/24 13:07 11/09/24 13:15 Temperature 36.8 C Pulse Rate 130 H 143 H Respiratory Rate 20 Blood Pressure 113/86 Pulse Oximetry 100 Oxygen Delivery Fraction of Inspired Oxygen 11/09/24 13:16 11/09/24 14:35 11/09/24 15:25 Temperature Pulse Rate 141 H 142 H 140 H Respiratory Rate 24 H Blood Pressure 111/91 H 107/88 104/80 Pulse Oximetry 99 Oxygen Delivery Fraction of Inspired Oxygen 11/09/24 15:32 11/09/24 15:46 11/09/24 15:47 Temperature Pulse Rate 137 H 142 H 142 H Respiratory Rate 24 H 40 H 29 H Blood Pressure 99/68 L 101/87 101/80 Pulse Oximetry 96 97 97 Oxygen Delivery Fraction of Inspired Oxygen 11/09/24 16:15 11/09/24 16:20 11/09/24 17:25 Temperature Pulse Rate 128 H 134 H 120 H Respiratory Rate 24 H 36 H Blood Pressure 120/70 128/86 110/73 Pulse Oximetry 97 95 Oxygen Delivery Fraction of Inspired Oxygen 11/09/24 18:38 11/09/24 19:08 11/09/24 20:00 Temperature 36.6 C Pulse Rate 118 H 135 H 128 H Respiratory Rate 23 H 16 Blood Pressure 101/79 119/86 119/86 Pulse Oximetry 95 96 Oxygen Delivery Fraction of Inspired Oxygen 11/09/24 20:00 11/09/24 20:00 11/09/24 21:40 Temperature Pulse Rate 124 H 118 H Respiratory Rate Blood Pressure 109/70 Pulse Oximetry Oxygen Delivery Room Air Fraction of Inspired Oxygen 11/09/24 22:00 11/09/24 22:00 11/09/24 22:29 Temperature Pulse Rate 99 99 Respiratory Rate Blood Pressure 109/70 Pulse Oximetry 95 Oxygen Delivery Room Air Fraction of Inspired Oxygen 21 11/09/24 23:51 11/10/24 00:00 11/10/24 00:00 Temperature 36.6 C Pulse Rate 96 96 Respiratory Rate 16 Blood Pressure 108/72 108/72 Pulse Oximetry 98 Oxygen Delivery Room Air Fraction of Inspired Oxygen 11/10/24 00:00 11/10/24 01:50 11/10/24 02:00 Temperature Pulse Rate 83 80 83 Respiratory Rate 16 Blood Pressure 98/63 L 98/63 L Pulse Oximetry 95 Oxygen Delivery Fraction of Inspired Oxygen 11/10/24 02:00 11/10/24 04:00 11/10/24 04:00 Temperature 37.2 C Pulse Rate 83 78 105 H Respiratory Rate 20 Blood Pressure 106/66 106/66 Pulse Oximetry 97 Oxygen Delivery Fraction of Inspired Oxygen 11/10/24 04:00 11/10/24 04:00 11/10/24 04:00 Temperature Pulse Rate 105 H 82 Respiratory Rate Blood Pressure 106/66 Pulse Oximetry Oxygen Delivery Room Air Fraction of Inspired Oxygen 11/10/24 05:49 11/10/24 06:00 11/10/24 06:00 Temperature Pulse Rate 89 96 96 Respiratory Rate Blood Pressure 102/56 L 102/56 L Pulse Oximetry 97 Oxygen Delivery Fraction of Inspired Oxygen 11/10/24 07:43 11/10/24 08:00 11/10/24 09:11 Temperature 36.6 C 37.1 C Pulse Rate 118 H 118 H 115 H Respiratory Rate 20 18 Blood Pressure 113/64 113/64 122/73 Pulse Oximetry 96 94 Oxygen Delivery Fraction of Inspired Oxygen 11/10/24 09:21 11/10/24 10:00 11/10/24 11:26 Temperature Pulse Rate 115 H 112 H Respiratory Rate Blood Pressure 122/73 122/73 Pulse Oximetry 96 Oxygen Delivery Room Air Fraction of Inspired Oxygen 11/10/24 11:26 Temperature Pulse Rate 112 H Respiratory Rate Blood Pressure 122/73 Pulse Oximetry Oxygen Delivery Fraction of Inspired Oxygen Exam 2 Const: General: comfortable, no acute distress, alert and awake O rientation/consciousness: patient oriented x3 HENMT: Head: normal to inspection Eyes: General: appearance normal, both eyes and all related structures P upils: Equal, round and reactive pupils present Neck: Neck: normal visual inspection, supple and no JVD Carotids: normal carotid upstroke Resp: Effort & Inspection: normal respiratory effort Auscultation: clear to auscultation bilaterally Cardio: Rate: tachycardic Rhythm: abnormal rhythm Heart sounds: S1 normal heart sound present, S2 normal heart sound present and no murmurs GI: Auscultation: normal bowel sounds Skin: General skin exam: normal color Neuro: General: patient oriented x3 Cranial nerves: Yes Equal, round and reactive pupils present Extrem: General: normal to inspection Psych: Appearance: grossly normal Mental Status: mental status grossly normal Results Labs and Meds 11/10/24 03:53 11/10/24 03:53 Lab results: Cardiac Enzymes 11/09/24 11/10/24 Range/Units 11:51 03:53 AST 22 21 (17-59) U/L Troponin I 0.012 (0.000-0.034) ng/mL Coagulation 11/09/24 Range/Units 11:51 PT 14.7 (11.1-14.7) Seconds APTT 34.5 (22.3-36.8) Seconds CBC 11/09/24 11/10/24 Range/Units 11:51 03:53 WBC 9.0 8.3 (4.5-10.0) K/mm3 RBC 5.52 5.12 (4.6-6.20) M/mm3 Hgb 16.6 15.4 (14.0-18.0) g/dL Hct 49.6 45.5 (42.0-52.0) % Plt Count 309 277 (150-375) k/mm3 Lymph # (Auto) 0.69 L 0.57 L (0.9-3.2) K/mm3 Meagher # (Auto) 1.4 H 1.2 H (0.1-0.6) K/mm3 Eos # (Auto) 0.5 H 0.4 H (0-0.3) K/mm3 Baso # (Auto) 0.1 0.1 (0.0-0.1) K/mm3 Comprehensive Metabolic Panel 11/09/24 11/10/24 Range/Units 11:51 03:53 Sodium 137 136 L (137-145) mmol/L Potassium 4.5 3.9 (3.4-5.0) mmol/L Chloride 99 101 (98-107) mmol/L Carbon Dioxide 23 20 L (22-30) mmol/L BUN 16 20 (9-20) mg/dL Creatinine 1.16 1.08 (0.7-1.3) mg/dL Glucose 104 90 (65-110) mg/dL Calcium 9.4 9.0 (8.4-10.2) mg/dL AST 22 21 (17-59) U/L ALT 19 16 (6-50) U/L Alkaline Phosphatase 95 92 (38-126) U/L Total Protein 8.0 7.0 (6.3-8.2) g/dL Albumin 4.3 3.8 (3.5-5.1) g/dL Intake and Output 11/09/24 11/10/24 11/10/24 23:59 07:59 15:59 Intake Total 69.2 125 120 Output Total 300 520 Balance 69.2 -175 -400 Intake: IV 69.2 125 70 dilTIAZem 100 MG/100 ML 100 mg 69.2 125 70 In 100 ml @ 5 MG/HR 5 mls/hr IV CONT .Q20H [facility] Rx#:[id number] Oral 50 Output: Urine 300 520 Patient Weight 11/10/24 23:59 Weight 93.5 kg
[2024-11-10] MEDS: METOPROLOL TARTRATE 25 MG TABLET PO ×2 (13:10→20:59)
--- NOTE | 2024-11-10 13:35 | PC.NURSE ---
On 11/10/24, the student, [Silvia Genao], provided care and completed [facility] documentation on this patient. I have reviewed the student's documentation and agree with the findings.
[2024-11-10] MEDS: AZITHROMYCIN 500 MG/NS 250 ML 500 MG/250 ML BAG 250 MG IVPB (14:12)
--- NOTE | 2024-11-10 15:42 | ECG_ITS ---
Test Date: 2024-11-10 16:01:21 Measurements Intervals [place] Rate: 72 P: 0 [place]: 0 QRS: 17 QRSD: 137 T: -68 QT: 361 QTc: 398 Interpretive Statements ATRIAL FLUTTER/TACHYCARDIA Compared to ECG 11/09/2024 11:26:07 RAPID VENTRICULAR RESPONSE NO LONGER PRESENT Electronically Signed On 11-11-2024 18:22:12 CDT by Kalpesh Ferraro M.D.
[2024-11-10 15:44] LABS: Glucose Point of Care 122 mg/dl (65-105)
--- NOTE | 2024-11-10 15:48 | PC.NURSE ---
Pt reports dyspnea. RR 20. O2 100% on RA. Color normal for patient. Skin clammy. BG 122. BP 82/64. NSR via telemetry. Sue Coffey made aware. Advised to stop IV diltiazem and give 500 ml bolus at 250 ml/hr.
[2024-11-10] MEDS: SODIUM CHLORIDE 0.9% IV 500 ML 250 ML IV CONT (15:55)
--- NOTE | 2024-11-10 17:10 | P.PNIM_ITS ---
Progress Note: A&P Assessment and Plan (1) Atrial flutter with rapid ventricular response: Code(s): I48.92 - Unspecified atrial flutter Status: Acute Assessment and Plan: - EKG Atrial flutter/tachycardia with RVR TSH wnl ECHO pending - TSH 4.190 on Cardizem infusion and metoprolol Eliquis cardiology following (2) Pneumonia: Qualifiers: Laterality: bilateral Lung location: unspecified part of lung Pneumonia type: due to unspecified organism Qualified Code(s): J18.9 - Pneumonia, unspecified organism Code(s): J18.9 - Pneumonia, unspecified organism Status: Acute Assessment and Plan: CT Chest showed patchy consolidation and groundless opacities in both lungs suspicious for pneumonia increase in size of few normal sized anterior mediastinal lymph nodes which are reacitve MRSA negative Continue Rocephin and Azithromycin monitor cultures (3) Congestive heart failure: Qualifiers: Heart failure type: unspecified Heart failure chronicity: acute Qualified Code(s): I50.9 - Heart failure, unspecified Code(s): I50.9 - Heart failure, unspecified Status: Suspected Assessment and Plan: CT no pulm edema Awaiting ECHO results Held lasix (4) Benign essential HTN: Code(s): I10 - Essential (primary) hypertension Status: Chronic Assessment and Plan: titrate home meds with clinical course (5) THOR (obstructive sleep apnea): Code(s): G47.33 - Obstructive sleep apnea (adult) (pediatric) Status: Chronic Assessment and Plan: - continue home CPAP Plan CAD Aspirin, and Statin cardiology held Brilinta since patient started on Eliquis monitor Metastatic paratracheal melanoma Patient noted he is on Immunotherapy on 2 weekly continue outpatient follow u CT chest reviewed Diet: Heart healthy GI Prophylaxis: Not currently indicated DVT Prophylaxis: Lovenox SQ Lines: Peripheral Code Status: Full code Subjective Date/time seen: 11/10/24 17:10 Interval history: Comfortable at bedside Review of Systems Review of Systems: All systems reviewed & are unremarkable except as noted in HPI and below Exam Narrative: lungs clear. Abdomen rounded and slightly firm. nontender. normal bs. no peripheral edema. Const: General: comfortable and no acute distress Other: , male, nontoxic appearance HENMT: Face/Nose/Sinus: Normal nares present Mouth: Yes moist mucous membranes Eyes: General: appearance normal, both eyes and all related structures Sclera: sclerae normal Pupils: Equal, round and reactive pupils present EOM: EOMs intact bilaterally Resp: Effort & Inspection: normal respiratory effort Auscultation: clear to auscultation bilaterally Cardio: Rate: regular rate Rhythm: regular rhythm Other: S1-S2 present without murmur, rub, ectopy GI: Other: Abdomen firm, nontender, rounded. Normoactive bowel sounds in all quadrants. Skin: General skin exam: normal color and no rashes or lesions noted Wounds: no wounds Neuro: Cranial nerves: Yes Equal, round and reactive pupils present Speech: normal speech Motor exam (neuro): 5/5 motor strength present throughout Sensory Exam: normal sensation Other: A&O x4 Extrem: General: normal to inspection Psych: Mental Status: mental status grossly normal Affect: normal affect Other: Good insight and judgment, very pleasant Objective Data Vital Signs Vital Signs: Vital Signs - 24 hr 11/09/24 17:25 11/09/24 18:38 11/09/24 19:08 Temperature 98 F Pulse Rate 120 H 118 H 135 H Respiratory Rate 36 H 23 H 16 Blood Pressure 110/73 101/79 119/86 Pulse Oximetry 95 95 96 Oxygen Delivery Fraction of Inspired Oxygen 11/09/24 20:00 11/09/24 20:00 11/09/24 20:00 Temperature Pulse Rate 128 H 124 H Respiratory Rate Blood Pressure 119/86 Pulse Oximetry Oxygen Delivery Room Air Fraction of Inspired Oxygen 11/09/24 21:40 11/09/24 22:00 11/09/24 22:00 Temperature Pulse Rate 118 H 99 99 Respiratory Rate Blood Pressure 109/70 109/70 Pulse Oximetry Oxygen Delivery Fraction of Inspired Oxygen 11/09/24 22:29 11/09/24 23:51 11/10/24 00:00 Temperature 98 F Pulse Rate 96 Respiratory Rate 16 Blood Pressure 108/72 Pulse Oximetry 95 98 Oxygen Delivery Room Air Room Air Fraction of Inspired Oxygen 21 11/10/24 00:00 11/10/24 00:00 11/10/24 01:50 Temperature Pulse Rate 96 83 80 Respiratory Rate 16 Blood Pressure 108/72 98/63 L Pulse Oximetry 95 Oxygen Delivery Fraction of Inspired Oxygen 11/10/24 02:00 11/10/24 02:00 11/10/24 04:00 Temperature 98.9 F Pulse Rate 83 83 78 Respiratory Rate 20 Blood Pressure 98/63 L 106/66 Pulse Oximetry 97 Oxygen Delivery Fraction of Inspired Oxygen 11/10/24 04:00 11/10/24 04:00 11/10/24 04:00 Temperature Pulse Rate 105 H 105 H Respiratory Rate Blood Pressure 106/66 106/66 Pulse Oximetry Oxygen Delivery Room Air Fraction of Inspired Oxygen 11/10/24 04:00 11/10/24 05:49 11/10/24 06:00 Temperature Pulse Rate 82 89 96 Respiratory Rate Blood Pressure 102/56 L Pulse Oximetry 97 Oxygen Delivery Fraction of Inspired Oxygen 11/10/24 06:00 11/10/24 07:43 11/10/24 08:00 Temperature 97.9 F Pulse Rate 96 118 H 118 H Respiratory Rate 20 Blood Pressure 102/56 L 113/64 113/64 Pulse Oximetry 96 Oxygen Delivery Fraction of Inspired Oxygen 11/10/24 08:00 11/10/24 09:11 11/10/24 09:21 Temperature 98.7 F Pulse Rate 98 115 H Respiratory Rate 18 Blood Pressure 122/73 Pulse Oximetry 94 96 Oxygen Delivery Room Air Fraction of Inspired Oxygen 11/10/24 10:00 11/10/24 10:00 11/10/24 11:26 Temperature Pulse Rate 115 H 119 H 112 H Respiratory Rate Blood Pressure 122/73 122/73 Pulse Oximetry Oxygen Delivery Fraction of Inspired Oxygen 11/10/24 11:26 11/10/24 11:35 11/10/24 12:00 Temperature 98.6 F Pulse Rate 112 H 98 119 H Respiratory Rate 20 Blood Pressure 122/73 109/68 Pulse Oximetry 94 Oxygen Delivery Fraction of Inspired Oxygen 11/10/24 12:03 11/10/24 13:10 11/10/24 13:47 Temperature 98.7 F Pulse Rate 117 H 108 H 107 H Respiratory Rate 18 Blood Pressure 109/68 107/53 L Pulse Oximetry 94 Oxygen Delivery Fraction of Inspired Oxygen 11/10/24 14:00 11/10/24 14:00 11/10/24 15:40 Temperature Pulse Rate 106 H 78 78 Respiratory Rate Blood Pressure 107/53 L 82/64 L Pulse Oximetry Oxygen Delivery Fraction of Inspired Oxygen 11/10/24 15:40 11/10/24 16:00 11/10/24 16:00 Temperature 98.3 F Pulse Rate 78 88 87 Respiratory Rate 20 Blood Pressure 82/64 L 95/64 L Pulse Oximetry 100 Oxygen Delivery Fraction of Inspired Oxygen Intake/Output Intake/Output: Intake & Output 11/07/24 11/08/24 11/09/24 11/10/24 23:59 23:59 23:59 23:59 Intake Total 373.4 791.3 Output Total 1845 Balance 373.4 -1053.7 Meds/Results Medications: Active Medications Generic Name Dose Route Start Last Admin Trade Name Freq PRN Reason Stop Dose Admin Acetaminophen 650 mg 11/09/24 15:27 Acetaminophen 325 Mg Tablet PO Q4H PRN Mild Pain (1-3) or Fever Albuterol 2 puff 11/09/24 20:45 Albuterol Sulfate (*Sp) Aerosol 1 Puff INHALATION Q4H PRN wheezing Albuterol/Ipratropium 3 ml 11/09/24 20:41 Ipratropium 0.5 Mg/Albuterol Sulfate 2.5 Mg Ampul.Neb 3 Ml INHALATION Q6HRT PRN Shortness Of Breath Atorvastatin Calcium 40 mg 11/09/24 21:25 11/09/24 21:42 Atorvastatin 40 Mg Tablet PO 40 mg HS DEVON Administration Azelastine HCl 1 spray 11/09/24 21:00 11/10/24 09:10 Azelastine Hcl Nasal 0.1% 137 Mcg/Spr 30 Ml Btl NASAL Not Given Q12H DEVON Benzocaine 1 lozenge 11/09/24 20:41 11/09/24 21:47 Benzocaine/Menthol (*Bkc) 18 Ea Lozenge PO 1 lozenge PRN PRN Administration Sore Throat Benzonatate 100 mg 11/09/24 20:41 Benzonatate 100 Mg Capsule PO TID PRN Cough Enoxaparin Sodium 40 mg 11/10/24 09:00 11/10/24 09:08 Enoxaparin 40 Mg/0.4 Ml Syringe SUB-Q 40 mg DAILY DEVON Administration Furosemide 40 mg 11/10/24 09:00 11/10/24 09:08 Furosemide Inj 40 Mg/4 Ml Vial IV PUSH 40 mg DAILY DEVON Administration Guaifenesin 600 mg 11/09/24 21:00 11/10/24 09:07 Guaifenesin 12 Hr 600 Mg Tabcr PO 600 mg Q12HR DEVON Administration Hydrochlorothiazide 12.5 mg 11/10/24 09:00 11/10/24 09:07 Hydrochlorothiazide 12.5 Mg Capsule PO 12.5 mg QAM DEVON Administration Ceftriaxone Sodium 1 gm in 50 mls @ 100 mls/hr 11/10/24 14:00 11/10/24 13:41 Rocephin 1 Gm/Ns 50 Ml IVPB Infused Q24H DEVON Infusion Azithromycin 500 mg in 250 mls @ 250 mls/hr 11/10/24 15:00 11/10/24 15:12 Zithromax IVPB Infused Q24H DEVON Infusion Sodium Chloride 500 mls @ 250 mls/hr 11/10/24 15:46 11/10/24 15:55 Normal Saline Iv IV CONT 11/10/24 17:45 250 mls/hr .Q2H ONE Administration Lisinopril 20 mg 11/10/24 09:00 11/10/24 09:08 Lisinopril 20 Mg Tablet PO 20 mg QAM DEVON Administration Ondansetron HCl 4 mg 11/09/24 15:27 Ondansetron Inj 4 Mg/2 Ml Vial IV PUSH Q4H PRN Nausea Pantoprazole Sodium 40 mg 11/10/24 09:00 11/10/24 09:08 Pantoprazole 40 Mg Tablet PO 40 mg Q12HR DEVON Administration Perflutren Lipid Microsphere 0 ml 11/10/24 11:23 Perflutren Lipid Microspheres 1.5 Ml Vial Diluted To 10 Ml Total Volume IV PUSH 11/13/24 11:23 ONCE PRN adequate visualization Protocol Potassium Chloride 20 meq 11/10/24 09:00 11/10/24 09:08 Potassium Chloride 20 Meq Er Tablet PO 20 meq BID DEVON Administration Ticagrelor 60 mg 11/09/24 21:00 11/10/24 09:07 Ticagrelor 60 Mg Tablet PO 60 mg Q12HR DEVON Administration Radiology Results: ITS Impressions Chest X-Ray 11/09/24 12:45 IMPRESSION: No acute cardiopulmonary pathology. Soft tissue density in the right tracheobronchial tree area which is most likely a mass. This site is slightly smaller than the previous study. Chest CTA 11/09/24 13:05 IMPRESSION: 1. No pulmonary embolism. 2. Patchy consolidation and groundglass opacities in both lungs most suspicious for pneumonia. 2. Mild pulmonary edema the bilateral lung bases with small to moderate-sized right and very small left pleural effusions. 3. Stable appearance of more chronic right upper lobe paramediastinal consolidation with volume loss and adjacent right paratracheal mass likely related to history of treated metastatic disease. 4. Increase in size with a few still normal-sized anterior mediastinal lymph nodes which are most likely reactive. 5. Small pericardial effusion. Labs Labs: Laboratory Results - last 24 hr 11/10/24 11/10/24 11/10/24 00:49 03:53 15:41 WBC 8.3 RBC 5.12 Hgb 15.4 Hct 45.5 MCV 88.9 MCH 30.1 MCHC 33.8 RDW 13.1 Plt Count 277 MPV 9.2 Immature Gran % (Auto) 1.1 H Neut % (Auto) 72.3 Lymph % (Auto) 6.9 L [place] % (Auto) 14.1 H Eos % (Auto) 4.9 H Baso % (Auto) 0.7 Lymph # (Auto) 0.57 L [place] # (Auto) 1.2 H Eos # (Auto) 0.4 H Baso # (Auto) 0.1 Abs Immat Gran (auto) 0.09 H Absolute Neuts (auto) 6.0 Absolute Nucleated RBC 0.000 Nucleated RBC % 0.0 Sodium 136 L Potassium 3.9 Chloride 101 Carbon Dioxide 20 L Anion Gap 15 H BUN 20 Creatinine 1.08 Estim Creat Clear Calc 68 Estimated GFR > 60 Glucose 90 POC Capillary Glucose 122 H Calcium 9.0 Total Bilirubin 0.7 AST 21 ALT 16 Alkaline Phosphatase 92 Total Protein 7.0 Albumin 3.8 Nasal MRSA (PCR) Not detected Quality VTE Prophylaxis VTE prophylaxis: pharmacologic ordered
[2024-11-10] MEDS: AZELASTINE HCL NASAL 0.1% 137 MCG/SPR 30 ML BTL 1 SPRAY NASAL (20:59)
[2024-11-10] MEDS: ATORVASTATIN 40 MG TABLET PO (20:59)
[2024-11-10] MEDS: BENZOCAINE/MENTHOL (*BKC) 18 EA LOZENGE 1 LOZENGE PO (21:02)
[2024-11-10] MEDS: BENZONATATE 100 MG CAPSULE PO (21:05)
[2024-11-11] VITALS (27 sets, daily range): BP systolic 108–143; BP diastolic 65–102; PULSE 101–144; RESP 14–32; TEMP 36.7–36.9; O2SAT 94–99
[2024-11-11 04:44] LABS: Basophils Absolute Auto 0.1 K/mm3 (0.0-0.1); Eosinophils Absolute Auto 0.5 K/mm3 (0-0.3); Eosinophils Percent Auto 5.6 % (0-4.4); Hemoglobin 15.4 g/dL (14.0-18.0); Immature Granulocyte Absolute 0.09 K/mm3 (0.00-0.031); Immature Granulocyte Percent A 1.1 % (0-0.5); Lymphocytes Absolute Auto 0.78 K/mm3 (0.9-3.2); Lymphocytes Percent Auto 9.4 % (18.3-44.2); Mean Corpuscular HGB Conc 33.5 g/dl (32-36); Mean Corpuscular Hemoglobin 29.7 pg (26-34); Mean Corpuscular Volume 88.8 fl (80-100); Mean Platelet Volume 8.8 fl (7.4-10.4); Monocytes Absolute Auto 1.1 K/mm3 (0.1-0.6); Monocytes Percent Auto 13.3 % (2.6-8.5); Neutrophils Absolute Auto 5.8 K/mm3 (1.3-6.7); Neutrophils Percent Auto 69.6 % (45.5-73.1); Platelet Count Result 297 k/mm3 (150-375); Red Blood Count 5.18 M/mm3 (4.6-6.20); White Blood Count 8.3 K/mm3 (4.5-10.0)
[2024-11-11 04:57] LABS: Alanine Aminotransferase 16 U/L (6-50); Albumin Level 3.7 g/dL (3.5-5.1); Alkaline Phosphatase 86 U/L (38-126); Anion Gap 10 mmol/L (4-12); Aspartate Amino Transferase 21 U/L (17-59); Bilirubin,Total 0.8 mg/dL (0.2-1.3); Blood Urea Nitrogen 22 mg/dL (9-20); Calcium 8.9 mg/dL (8.4-10.2); Carbon Dioxide 24 mmol/L (22-30); Chloride 100 mmol/L (98-107); Estimated CRCL calculation 63 ml/min; Estimated Glomerular Filt Rate > 60; Glucose 95 mg/dL (65-110); Magnesium 1.7 mg/dL (1.6-2.3); Sodium 134 mmol/L (137-145)
[2024-11-11] MEDS: METOPROLOL TARTRATE 25 MG TABLET PO ×2 (07:48→20:20)
--- NOTE | 2024-11-11 08:59 | ECG_ITS ---
Test Date: 2024-11-11 09:06:03 Measurements Intervals [place] Rate: 123 P: 0 CO: 0 QRS: 7 QRSD: 125 T: -84 QT: 293 QTc: 420 Interpretive Statements ATRIAL FLUTTER/TACHYCARDIA WITH RAPID VENTRICULAR RESPONSE Compared to ECG 11/10/2024 16:01:21 RVR NOW PRESENT Electronically Signed On 11-11-2024 18:33:30 CDT by Kalpesh Ferraro M.D.
--- NOTE | 2024-11-11 09:01 | P.PNCA_ITS ---
Progress Note: A&P Assessment and Plan (1) Atrial flutter with rapid ventricular response: Code(s): I48.92 - Unspecified atrial flutter Status: Acute Assessment and Plan: New diagnosis of atrial flutter with rapid ventricular response in the setting of acute illness with pneumonia. I discussed this diagnosis with the patient including pathophysiology, management strategies, and risks/complications. Since his rate has been difficult to control, will proceed with KATRIN/DCCV later this afternoon. * Continue Eliquis 5 mg p.o. b.i.d.. He has a CHADS2 Vasc score of at least 3 (age, hypertension, coronary artery disease) * Echocardiogram is ordered and is pending * TSH is normal * He has sleep apnea, compliant with CPAP * Continuous telemetry monitoring (2) Benign essential HTN: Code(s): I10 - Essential (primary) hypertension Status: Chronic Assessment and Plan: At goal. (3) CAD (coronary artery disease): Code(s): I25.10 - Atherosclerotic heart disease of nikolai coronary artery without angina pectoris Status: Acute Assessment and Plan: Is stable, no anginal symptoms. Continue aspirin, statin. As above, discontinuing Brilinta. (4) Congestive heart failure: Qualifiers: Heart failure chronicity: acute Heart failure type: unspecified Qualified Code(s): I50.9 - Heart failure, unspecified Code(s): I50.9 - Heart failure, unspecified Status: Suspected Assessment and Plan: Some evidence of congestive heart failure with pulmonary edema and pleural effusions on chest x-ray. He received several doses of IV furosemide which is now on hold. Echocardiogram is pending. (5) Pneumonia: Qualifiers: Laterality: bilateral Lung location: unspecified part of lung Pneumonia type: due to unspecified organism Qualified Code(s): J18.9 - Pneumonia, unspecified organism Code(s): J18.9 - Pneumonia, unspecified organism Status: Acute Assessment and Plan: Management per hospitalist. Subjective Date/time seen: 11/11/24 09:01 Interval history: Cardiology follow up visit Yesterday afternoon, patient became hypotensive and was symptomatic with feelings of cold/clamminess, shortness of breath. Diltiazem drip was discontinued. His heart rate had become well controlled with the metoprolol. However, overnight patient did have atrial fibrillation with rapid ventricular response, rate in the 130s to 140s. This morning, he feels somewhat better but is still reporting some shortness of breath. He does not have any chest pain or palpitations. Review of Systems Constitutional: Constitutional: Denies chills, Denies fever(s), Denies headache(s) and Denies malaise Eyes: Eyes: Denies change in vision ENT: Reports Normal hearing present, Denies dizziness, Denies headache(s) and Denies hearing loss Cardiovascular: Cardiovascular: Denies chest pain, Denies chest pain at rest, Denies chest pain with activity, Denies syncope, Denies leg edema, Denies palpitations, Reports dyspnea and Reports dyspnea on exertion Respiratory: Respiratory: Reports cough, Reports dyspnea, Reports dyspnea on exertion and Denies wheezing Gastrointestinal: Gastrointestinal: Denies abdominal pain, Denies constipation and Denies diarrhea Genitourinary: Genitourinary: Denies hematuria and Denies dysuria Musculoskeletal: Musculoskeletal: Denies myalgias, Denies arthralgias and Denies muscle cramps Integumentary/Breasts: Skin/Breast: Denies wounds Neurologic: Reports Normal hearing present, Denies confusion, Denies dizziness, Denies syncope and Denies headache(s) Psychiatric: Psychiatric: Denies anxiety, Denies confusion and Denies depression Endocrine: Endocrine: Denies cold intolerance, Denies flushing, Denies heat intolerance and Denies palpitations Hematologic/Lymphatic: Hematologic/Lymphatic: Denies easy bleeding and Denies easy bruising Allergic/Immunologic: Allergic/Immunologic: Denies wheezing Exam Const: General: comfortable, no acute distress, alert and awake; No confusion Orientation/consciousness: patient oriented x3 and No confusion HENMT: Head: normal to inspection Eyes: General: appearance normal, both eyes and all related structures Pupils: Equal, round and reactive pupils present Neck: Neck: normal visual inspection, supple and no JVD Carotids: normal carotid upstroke Resp: Effort & Inspection: normal respiratory effort Auscultation: clear to auscultation bilaterally Cardio: Rate: tachycardic Rhythm: abnormal rhythm Heart sounds: S1 normal heart sound present, S2 normal heart sound present and no murmurs GI: Auscultation: normal bowel sounds Skin: General skin exam: normal color Neuro: General: patient oriented x3 and No confusion Cranial nerves: Yes Equal, round and reactive pupils present and Yes Normal hearing present Extrem: General: normal to inspection Psych: Appearance: grossly normal Mental Status: mental status grossly normal Objective Data Vital Signs Vital Signs: Vital Signs - 24 hr 11/10/24 09:11 11/10/24 09:21 11/10/24 10:00 Temperature 37.1 C Pulse Rate 115 H 115 H Respiratory Rate 18 Blood Pressure 122/73 122/73 Pulse Oximetry 94 96 Oxygen Delivery Room Air Oxygen Flow Rate Fraction of Inspired Oxygen 11/10/24 10:00 11/10/24 11:26 11/10/24 11:26 Temperature Pulse Rate 119 H 112 H 112 H Respiratory Rate Blood Pressure 122/73 122/73 Pulse Oximetry Oxygen Delivery Oxygen Flow Rate Fraction of Inspired Oxygen 11/10/24 11:35 11/10/24 12:00 11/10/24 12:03 Temperature 37.0 C Pulse Rate 98 119 H 117 H Respiratory Rate 20 Blood Pressure 109/68 109/68 Pulse Oximetry 94 Oxygen Delivery Oxygen Flow Rate Fraction of Inspired Oxygen 11/10/24 13:10 11/10/24 13:47 11/10/24 14:00 Temperature 37.1 C Pulse Rate 108 H 107 H 106 H Respiratory Rate 18 Blood Pressure 107/53 L Pulse Oximetry 94 Oxygen Delivery Oxygen Flow Rate Fraction of Inspired Oxygen 11/10/24 14:00 11/10/24 15:40 11/10/24 15:40 Temperature 36.8 C Pulse Rate 78 78 78 Respiratory Rate 20 Blood Pressure 107/53 L 82/64 L 82/64 L Pulse Oximetry 100 Oxygen Delivery Oxygen Flow Rate Fraction of Inspired Oxygen 11/10/24 16:00 11/10/24 16:00 11/10/24 18:00 Temperature Pulse Rate 88 87 92 Respiratory Rate Blood Pressure 95/64 L 112/64 Pulse Oximetry Oxygen Delivery Oxygen Flow Rate Fraction of Inspired Oxygen 11/10/24 18:00 11/10/24 20:00 11/10/24 20:00 Temperature 37.0 C Pulse Rate 99 127 H 122 H Respiratory Rate 18 18 Blood Pressure 126/68 Pulse Oximetry 97 97 Oxygen Delivery Nasal Cannula Oxygen Flow Rate 2 Fraction of Inspired Oxygen 28 11/10/24 20:00 11/10/24 20:20 11/10/24 20:59 Temperature Pulse Rate 122 H 122 H Respiratory Rate Blood Pressure Pulse Oximetry 97 Oxygen Delivery Nasal Cannula Oxygen Flow Rate 2 Fraction of Inspired Oxygen 11/10/24 22:00 11/10/24 22:45 11/10/24 23:44 Temperature Pulse Rate 112 H 113 H 114 H Respiratory Rate 18 Blood Pressure Pulse Oximetry 97 97 Oxygen Delivery Room Air Oxygen Flow Rate Fraction of Inspired Oxygen 28 11/10/24 23:44 11/10/24 23:44 11/11/24 02:00 Temperature 37.1 C Pulse Rate 114 H 114 H 118 H Respiratory Rate 20 Blood Pressure 114/84 Pulse Oximetry 97 Oxygen Delivery Oxygen Flow Rate Fraction of Inspired Oxygen 11/11/24 02:05 11/11/24 04:00 11/11/24 04:00 Temperature 36.9 C Pulse Rate 105 H 124 H 124 H Respiratory Rate 20 20 Blood Pressure 109/83 Pulse Oximetry 96 94 94 Oxygen Delivery Room Air Oxygen Flow Rate Fraction of Inspired Oxygen 11/11/24 04:00 11/11/24 06:00 11/11/24 07:48 Temperature Pulse Rate 124 H 116 H 143 H Respiratory Rate Blood Pressure Pulse Oximetry Oxygen Delivery Oxygen Flow Rate Fraction of Inspired Oxygen 11/11/24 07:59 11/11/24 08:38 Temperature 36.7 C Pulse Rate 144 H 135 H Respiratory Rate 20 Blood Pressure 115/98 H 124/83 Pulse Oximetry 94 Oxygen Delivery Oxygen Flow Rate Fraction of Inspired Oxygen Intake/Output Intake/Output: Intake & Output 11/08/24 11/09/24 11/10/24 11/11/24 23:59 23:59 23:59 23:59 Intake Total 373.4 991.3 700 Output Total 2045 350 Balance 373.4 -1053.7 350 Meds/Results Medications: Active Medications Generic Name Dose Route Start Last Admin Trade Name Freq PRN Reason Stop Dose Admin Acetaminophen 650 mg 11/09/24 15:27 Acetaminophen 325 Mg Tablet PO Q4H PRN Mild Pain (1-3) or Fever Albuterol 2 puff 11/09/24 20:45 Albuterol Sulfate (*Sp) Aerosol 1 Puff INHALATION Q4H PRN wheezing Albuterol/Ipratropium 3 ml 11/09/24 20:41 Ipratropium 0.5 Mg/Albuterol Sulfate 2.5 Mg Ampul.Neb 3 Ml INHALATION Q6HRT PRN Shortness Of Breath Atorvastatin Calcium 40 mg 11/09/24 21:25 11/10/24 20:59 Atorvastatin 40 Mg Tablet PO 40 mg HS DEVON Administration Azelastine HCl 1 spray 11/09/24 21:00 11/10/24 20:59 Azelastine Hcl Nasal 0.1% 137 Mcg/Spr 30 Ml Btl NASAL 1 spray Q12H DEVON Administration Benzocaine 1 lozenge 11/09/24 20:41 11/10/24 21:02 Benzocaine/Menthol (*Bkc) 18 Ea Lozenge PO 1 lozenge PRN PRN Administration Sore Throat Benzonatate 100 mg 11/09/24 20:41 11/10/24 21:05 Benzonatate 100 Mg Capsule PO 100 mg TID PRN Administration Cough Enoxaparin Sodium 40 mg 11/10/24 09:00 11/10/24 09:08 Enoxaparin 40 Mg/0.4 Ml Syringe SUB-Q 40 mg DAILY DEVON Administration Furosemide 40 mg 11/10/24 09:00 11/10/24 09:08 Furosemide Inj 40 Mg/4 Ml Vial IV PUSH 40 mg DAILY DEVON Administration Guaifenesin 600 mg 11/09/24 21:00 11/10/24 20:59 Guaifenesin 12 Hr 600 Mg Tabcr PO 600 mg Q12HR DEVON Administration Hydrochlorothiazide 12.5 mg 11/10/24 09:00 11/10/24 09:07 Hydrochlorothiazide 12.5 Mg Capsule PO 12.5 mg QAM DEVON Administration Ceftriaxone Sodium 1 gm in 50 mls @ 100 mls/hr 11/10/24 14:00 11/10/24 13:41 Rocephin 1 Gm/Ns 50 Ml IVPB Infused Q24H DEVON Infusion Azithromycin 500 mg in 250 mls @ 250 mls/hr 11/10/24 15:00 11/10/24 15:12 Zithromax IVPB Infused Q24H DEVON Infusion Magnesium Sulfate 2 gm in 50 mls @ 25 mls/hr 11/11/24 08:47 Magnesium Sulf 2 Gm/Water 50ml IVPB 11/11/24 10:46 ONCE ONE Lisinopril 20 mg 11/10/24 09:00 11/10/24 09:08 Lisinopril 20 Mg Tablet PO 20 mg QAM DEVON Administration Metoprolol Tartrate 25 mg 11/10/24 21:00 11/11/24 07:48 Metoprolol Tartrate 25 Mg Tablet PO 25 mg Q12HR DEVON Administration Ondansetron HCl 4 mg 11/09/24 15:27 Ondansetron Inj 4 Mg/2 Ml Vial IV PUSH Q4H PRN Nausea Pantoprazole Sodium 40 mg 11/10/24 09:00 11/10/24 20:59 Pantoprazole 40 Mg Tablet PO 40 mg Q12HR DEVON Administration Perflutren Lipid Microsphere 0 ml 11/10/24 11:23 Perflutren Lipid Microspheres 1.5 Ml Vial Diluted To 10 Ml Total Volume IV PUSH 11/13/24 11:23 ONCE PRN adequate visualization Protocol Potassium Chloride 20 meq 11/10/24 09:00 11/10/24 18:27 Potassium Chloride 20 Meq Er Tablet PO 20 meq BID DEVON Administration Ticagrelor 60 mg 11/09/24 21:00 11/10/24 20:59 Ticagrelor 60 Mg Tablet PO 60 mg Q12HR DEVON Administration Radiology Results: ITS Impressions Chest X-Ray 11/09/24 12:45 IMPRESSION: No acute cardiopulmonary pathology. Soft tissue density in the right tracheobronchial tree area which is most likely a mass. This site is slightly smaller than the previous study. Chest CTA 11/09/24 13:05 IMPRESSION: 1. No pulmonary embolism. 2. Patchy consolidation and groundglass opacities in both lungs most suspicious for pneumonia. 2. Mild pulmonary edema the bilateral lung bases with small to moderate-sized right and very small left pleural effusions. 3. Stable appearance of more chronic right upper lobe paramediastinal consolidation with volume loss and adjacent right paratracheal mass likely related to history of treated metastatic disease. 4. Increase in size with a few still normal-sized anterior mediastinal lymph nodes which are most likely reactive. 5. Small pericardial effusion. Labs Labs: Laboratory Results - last 24 hr 11/10/24 11/11/24 15:41 04:08 WBC 8.3 RBC 5.18 Hgb 15.4 Hct 46.0 MCV 88.8 MCH 29.7 MCHC 33.5 RDW 13.0 Plt Count 297 MPV 8.8 Immature Gran % (Auto) 1.1 H Neut % (Auto) 69.6 Lymph % (Auto) 9.4 L [place] % (Auto) 13.3 H Eos % (Auto) 5.6 H Baso % (Auto) 1.0 Lymph # (Auto) 0.78 L [place] # (Auto) 1.1 H Eos # (Auto) 0.5 H Baso # (Auto) 0.1 Abs Immat Gran (auto) 0.09 H Absolute Neuts (auto) 5.8 Absolute Nucleated RBC 0.000 Nucleated RBC % 0.0 Sodium 134 L Potassium 4.0 Chloride 100 Carbon Dioxide 24 Anion Gap 10 BUN 22 H Creatinine 1.14 Estim Creat Clear Calc 63 Estimated GFR > 60 Glucose 95 POC Capillary Glucose 122 H Calcium 8.9 Magnesium 1.7 Total Bilirubin 0.8 AST 21 ALT 16 Alkaline Phosphatase 86 Total Protein 7.0 Albumin 3.7 Quality VTE Prophylaxis VTE prophylaxis: pharmacologic ordered
[2024-11-11] MEDS: POTASSIUM CHLORIDE 20 MEQ ER TABLET PO (09:26)
[2024-11-11] MEDS: MAGNESIUM SULF 2 GM/WATER 50ML 2 GM/50 ML BAG IVPB (09:27)
[2024-11-11] MEDS: PANTOPRAZOLE 40 MG TABLET PO ×2 (09:27→20:19)
[2024-11-11] MEDS: guaiFENesin 12 HR 600 MG TABCR PO ×2 (09:27→20:19)
[2024-11-11] MEDS: APIXABAN 5 MG TABLET PO ×2 (09:27→20:19)
--- NOTE | 2024-11-11 12:35 | PC.NURSE ---
On 11/11/24, students, [Silvia Genao and Alivia Bhandari ], provided care and completed [facility] documentation on this patient. I have reviewed the student's documentation and agree with the findings.
--- NOTE | 2024-11-11 14:30 | P.PNIM_ITS ---
Progress Note: A&P Assessment and Plan (1) Atrial flutter with rapid ventricular response: Code(s): I48.92 - Unspecified atrial flutter Status: Acute Assessment and Plan: - EKG Atrial flutter/tachycardia with RVR TSH wnl ECHO pending - TSH 4.190 on Cardizem infusion and metoprolol Eliquis For DCCV today cardiology following (2) Pneumonia: Qualifiers: Laterality: bilateral Lung location: unspecified part of lung Pneumonia type: due to unspecified organism Qualified Code(s): J18.9 - Pneumonia, unspecified organism Code(s): J18.9 - Pneumonia, unspecified organism Status: Acute Assessment and Plan: CT Chest showed patchy consolidation and groundless opacities in both lungs suspicious for pneumonia increase in size of few normal sized anterior mediastinal lymph nodes which are reacitve MRSA negative s/p Rocephin and Azithromycin, now on Augmentin and Doxycycline monitor cultures (3) Congestive heart failure: Qualifiers: Heart failure type: unspecified Heart failure chronicity: acute Qualified Code(s): I50.9 - Heart failure, unspecified Code(s): I50.9 - Heart failure, unspecified Status: Suspected Assessment and Plan: CT no pulm edema Awaiting ECHO results Held lasix (4) Benign essential HTN: Code(s): I10 - Essential (primary) hypertension Status: Chronic Assessment and Plan: titrate home meds with clinical course (5) THOR (obstructive sleep apnea): Code(s): G47.33 - Obstructive sleep apnea (adult) (pediatric) Status: Chronic Assessment and Plan: - continue home CPAP Plan CAD Aspirin, and Statin cardiology held Brilinta since patient started on Eliquis monitor Metastatic paratracheal melanoma Patient noted he is on Immunotherapy on 2 weekly continue outpatient follow up CT chest reviewed Diet: Heart healthy GI Prophylaxis: Not currently indicated DVT Prophylaxis: Lovenox SQ Lines: Peripheral Code Status: Full code Subjective Date/time seen: 11/11/24 14:30 Interval history: Comfortable at bedside For DCCV today with cards Review of Systems Review of Systems: All systems reviewed & are unremarkable except as noted in HPI and below Exam Narrative: lungs clear. Abdomen rounded and slightly firm. nontender. normal bs. no peripheral edema. Const: General: comfortable and no acute distress Other: , male, nontoxic appearance HENMT: Face/Nose/Sinus: Normal nares present Mouth: Yes moist mucous membranes Eyes: General: appearance normal, both eyes and all related structures Sclera: sclerae normal Pupils: Equal, round and reactive pupils present EOM: EOMs intact bilaterally Resp: Effort & Inspection: normal respiratory effort Auscultation: clear to auscultation bilaterally Cardio: Rate: regular rate Rhythm: regular rhythm Other: S1-S2 present without murmur, rub, ectopy GI: Other: Abdomen firm, nontender, rounded. Normoactive bowel sounds in all quadrants. Skin: General skin exam: normal color and no rashes or lesions noted Wounds: no wounds Neuro: Cranial nerves: Yes Equal, round and reactive pupils present Speech: normal speech Motor exam (neuro): 5/5 motor strength present throughout Sensory Exam: normal sensation Other: A&O x4 Extrem: General: normal to inspection Psych: Mental Status: mental status grossly normal Affect: normal affect Other: Good insight and judgment, very pleasant Objective Data Vital Signs Vital Signs: Vital Signs - 24 hr 11/10/24 15:40 11/10/24 15:40 11/10/24 16:00 Temperature 98.3 F Pulse Rate 78 78 88 Respiratory Rate 20 Blood Pressure 82/64 L 82/64 L 95/64 L Pulse Oximetry 100 Oxygen Delivery Oxygen Flow Rate Fraction of Inspired Oxygen 11/10/24 16:00 11/10/24 18:00 11/10/24 18:00 Temperature Pulse Rate 87 92 99 Respiratory Rate Blood Pressure 112/64 Pulse Oximetry Oxygen Delivery Oxygen Flow Rate Fraction of Inspired Oxygen 11/10/24 20:00 11/10/24 20:00 11/10/24 20:00 Temperature 98.6 F Pulse Rate 127 H 122 H 122 H Respiratory Rate 18 18 Blood Pressure 126/68 Pulse Oximetry 97 97 Oxygen Delivery Nasal Cannula Oxygen Flow Rate 2 Fraction of Inspired Oxygen 28 11/10/24 20:20 11/10/24 20:59 11/10/24 22:00 Temperature Pulse Rate 122 H 112 H Respiratory Rate Blood Pressure Pulse Oximetry 97 Oxygen Delivery Nasal Cannula Oxygen Flow Rate 2 Fraction of Inspired Oxygen 28 11/10/24 22:45 11/10/24 23:44 11/10/24 23:44 Temperature Pulse Rate 113 H 114 H 114 H Respiratory Rate 18 Blood Pressure Pulse Oximetry 97 97 Oxygen Delivery Room Air Oxygen Flow Rate Fraction of Inspired Oxygen 28 11/10/24 23:44 11/11/24 02:00 11/11/24 02:05 Temperature 98.7 F Pulse Rate 114 H 118 H 105 H Respiratory Rate 20 Blood Pressure 114/84 Pulse Oximetry 97 96 Oxygen Delivery Oxygen Flow Rate Fraction of Inspired Oxygen 11/11/24 04:00 11/11/24 04:00 11/11/24 04:00 Temperature 98.4 F Pulse Rate 124 H 124 H 124 H Respiratory Rate 20 20 Blood Pressure 109/83 Pulse Oximetry 94 94 Oxygen Delivery Room Air Oxygen Flow Rate Fraction of Inspired Oxygen 28 11/11/24 06:00 11/11/24 07:48 11/11/24 07:59 Temperature 98.1 F Pulse Rate 116 H 143 H 144 H Respiratory Rate 20 Blood Pressure 115/98 H Pulse Oximetry 94 Oxygen Delivery Oxygen Flow Rate Fraction of Inspired Oxygen 11/11/24 08:38 11/11/24 08:40 11/11/24 10:00 Temperature Pulse Rate 135 H 139 H 125 H Respiratory Rate Blood Pressure 124/83 Pulse Oximetry Oxygen Delivery Oxygen Flow Rate Fraction of Inspired Oxygen 11/11/24 11:38 11/11/24 12:00 11/11/24 13:31 Temperature 98.4 F Pulse Rate 123 H 136 H 122 H Respiratory Rate 18 Blood Pressure 108/79 Pulse Oximetry 94 95 Oxygen Delivery Oxygen Flow Rate Fraction of Inspired Oxygen 11/11/24 14:00 Temperature Pulse Rate 138 H Respiratory Rate Blood Pressure Pulse Oximetry Oxygen Delivery Oxygen Flow Rate Fraction of Inspired Oxygen Intake/Output Intake/Output: Intake & Output 11/08/24 11/09/24 11/10/24 11/11/24 23:59 23:59 23:59 23:59 Intake Total 373.4 991.3 940 Output Total 2045 350 Balance 373.4 -1053.7 590 Meds/Results Medications: Active Medications Generic Name Dose Route Start Last Admin Trade Name Freq PRN Reason Stop Dose Admin Acetaminophen 650 mg 11/09/24 15:27 Acetaminophen 325 Mg Tablet PO Q4H PRN Mild Pain (1-3) or Fever Albuterol 2 puff 11/09/24 20:45 Albuterol Sulfate (*Sp) Aerosol 1 Puff INHALATION Q4H PRN wheezing Albuterol/Ipratropium 3 ml 11/09/24 20:41 Ipratropium 0.5 Mg/Albuterol Sulfate 2.5 Mg Ampul.Neb 3 Ml INHALATION Q6HRT PRN Shortness Of Breath Amoxicillin/Clavulanate Potassium 1 tablet 11/11/24 21:00 Amoxicillin/Clavulanate K 875-125 Mg Tab PO 11/14/24 09:01 Q12HR DEVON Apixaban 5 mg 11/11/24 09:05 11/11/24 09:27 Apixaban 5 Mg Tablet PO 5 mg Q12HR DEVON Administration Atorvastatin Calcium 40 mg 11/09/24 21:25 11/10/24 20:59 Atorvastatin 40 Mg Tablet PO 40 mg HS DEVON Administration Azelastine HCl 1 spray 11/09/24 21:00 11/11/24 09:42 Azelastine Hcl Nasal 0.1% 137 Mcg/Spr 30 Ml Btl NASAL Not Given Q12H [facility] Benzocaine 1 lozenge 11/09/24 20:41 11/10/24 21:02 Benzocaine/Menthol (*Bkc) 18 Ea Lozenge PO 1 lozenge PRN PRN Administration Sore Throat Benzonatate 100 mg 11/09/24 20:41 11/10/24 21:05 Benzonatate 100 Mg Capsule PO 100 mg TID PRN Administration Cough Doxycycline Hyclate 100 mg 11/11/24 21:00 Doxycycline Hyclate 100 Mg Tablet PO 11/14/24 09:01 Q12HR [facility] Furosemide 40 mg 11/10/24 09:00 11/11/24 09:43 Furosemide Inj 40 Mg/4 Ml Vial IV PUSH Not Given DAILY [facility] Guaifenesin 600 mg 11/09/24 21:00 11/11/24 09:27 Guaifenesin 12 Hr 600 Mg Tabcr PO 600 mg Q12HR DEVON Administration Hydrochlorothiazide 12.5 mg 11/10/24 09:00 11/11/24 09:43 Hydrochlorothiazide 12.5 Mg Capsule PO Not Given QAM DEVON Lisinopril 20 mg 11/10/24 09:00 11/11/24 09:43 Lisinopril 20 Mg Tablet PO Not Given QAM [facility] Metoprolol Tartrate 25 mg 11/10/24 21:00 11/11/24 07:48 Metoprolol Tartrate 25 Mg Tablet PO 25 mg Q12HR DEVON Administration Ondansetron HCl 4 mg 11/09/24 15:27 Ondansetron Inj 4 Mg/2 Ml Vial IV PUSH Q4H PRN Nausea Pantoprazole Sodium 40 mg 11/10/24 09:00 11/11/24 09:27 Pantoprazole 40 Mg Tablet PO 40 mg Q12HR DEVON Administration Perflutren Lipid Microsphere 0 ml 11/10/24 11:23 Perflutren Lipid Microspheres 1.5 Ml Vial Diluted To 10 Ml Total Volume IV PUSH 11/13/24 11:23 ONCE PRN adequate visualization Protocol Potassium Chloride 20 meq 11/10/24 09:00 11/11/24 09:26 Potassium Chloride 20 Meq Er Tablet PO 20 meq BID DEVON Administration Radiology Results: ITS Impressions Chest X-Ray 11/09/24 12:45 IMPRESSION: No acute cardiopulmonary pathology. Soft tissue density in the right tracheobronchial tree area which is most likely a mass. This site is slightly smaller than the previous study. Chest CTA 11/09/24 13:05 IMPRESSION: 1. No pulmonary embolism. 2. Patchy consolidation and groundglass opacities in both lungs most suspicious for pneumonia. 2. Mild pulmonary edema the bilateral lung bases with small to moderate-sized right and very small left pleural effusions. 3. Stable appearance of more chronic right upper lobe paramediastinal consolidation with volume loss and adjacent right paratracheal mass likely related to history of treated metastatic disease. 4. Increase in size with a few still normal-sized anterior mediastinal lymph nodes which are most likely reactive. 5. Small pericardial effusion. Labs Labs: Laboratory Results - last 24 hr 11/10/24 11/11/24 15:41 04:08 WBC 8.3 RBC 5.18 Hgb 15.4 Hct 46.0 MCV 88.8 MCH 29.7 MCHC 33.5 RDW 13.0 Plt Count 297 MPV 8.8 Immature Gran % (Auto) 1.1 H Neut % (Auto) 69.6 Lymph % (Auto) 9.4 L [place] % (Auto) 13.3 H Eos % (Auto) 5.6 H Baso % (Auto) 1.0 Lymph # (Auto) 0.78 L [place] # (Auto) 1.1 H Eos # (Auto) 0.5 H Baso # (Auto) 0.1 Abs Immat Gran (auto) 0.09 H Absolute Neuts (auto) 5.8 Absolute Nucleated RBC 0.000 Nucleated RBC % 0.0 Sodium 134 L Potassium 4.0 Chloride 100 Carbon Dioxide 24 Anion Gap 10 BUN 22 H Creatinine 1.14 Estim Creat Clear Calc 63 Estimated GFR > 60 Glucose 95 POC Capillary Glucose 122 H Calcium 8.9 Magnesium 1.7 Total Bilirubin 0.8 AST 21 ALT 16 Alkaline Phosphatase 86 Total Protein 7.0 Albumin 3.7 Quality VTE Prophylaxis VTE prophylaxis: pharmacologic ordered
--- NOTE | 2024-11-11 15:23 | WPDHPUPDATE1 ---
History and Physical Update Update Date/Time: 11/11/24 15:23 History and Physical has been reviewed, including an updated exam of the patient. There are NO changes in the patient's condition. Risks, benefits, and alternatives have been discussed and questions answered. Patient agrees to proceed with procedure.
--- NOTE | 2024-11-11 15:23 | WPDMODSED ---
Moderate Sedation Note-Pt Data Patient Data Diagnosis: Atrial flutter with RVR Present Complaint: Atrial flutter with RVR Procedure to be performed/Plan: KATRIN guided DCCV Allergies Allergy/AdvReac Type Severity Reaction Status Date / Time No Known Allergies Allergy Verified 11/09/24 19:49 Home Medications ?Medication ?Instructions ?Recorded ?Confirmed ?Type ticagrelor 60 mg tablet (Brilinta) 60 mg PO BID 10/16/19 11/09/24 History atorvastatin 40 mg tablet See Rx Instructions .Route 03/29/24 11/09/24 Rx .COMPLEX #90 tabs azelastine 137 mcg (0.1 %) nasal 1 spray intranasal Q12H #90 mL 11/01/24 11/09/24 Rx spray albuterol sulfate 90 mcg/actuation 2 puff inhalation Q4H PRN wheezing 11/09/24 11/09/24 History aerosol inhaler lisinopril 20 1 tablet PO DAILY 11/09/24 11/09/24 History mg-hydrochlorothiazide 12.5 mg tablet omeprazole 40 mg capsule,delayed 40 mg PO DAILY 11/09/24 11/09/24 History release potassium chloride 20 mEq 20 meq PO BID 11/09/24 11/09/24 History tablet,extended release(part/cryst) (Klor-Con M) pseudoephedrine-guaifenesin ER 120 1 tablet PO Q12H 11/09/24 11/09/24 History mg-1,200 mg tab,extend release 12hr (Mucinex D Maximum Strength) Current Medications: Active Medications Acetaminophen (Acetaminophen 325 Mg Tablet) 650 mg PO Q4H PRN PRN Reason: Mild Pain (1-3) or Fever Albuterol (Albuterol Sulfate (*Sp) Aerosol 1 Puff) 2 puff INHALATION Q4H PRN PRN Reason: wheezing Albuterol/Ipratropium (Ipratropium 0.5 Mg/Albuterol Sulfate 2.5 Mg Ampul.Neb 3 Ml) 3 ml INHALATION Q6HRT PRN PRN Reason: Shortness Of Breath Amoxicillin/Clavulanate Potassium (Amoxicillin/Clavulanate K 875-125 Mg Tab) 1 tablet PO Q12HR DEVON Stop: 11/14/24 09:01 Apixaban (Apixaban 5 Mg Tablet) 5 mg PO Q12HR DEVON Last Admin: 11/11/24 09:27 Dose: 5 mg Atorvastatin Calcium (Atorvastatin 40 Mg Tablet) 40 mg PO HS [facility] Last Admin: 11/10/24 20:59 Dose: 40 mg Azelastine HCl (Azelastine Hcl Nasal 0.1% 137 Mcg/Spr 30 Ml Btl) 1 spray NASAL Q12H [facility] Last Admin: 11/11/24 09:42 Dose: Not Given Benzocaine (Benzocaine/Menthol (*Bkc) 18 Ea Lozenge) 1 lozenge PO PRN PRN PRN Reason: Sore Throat Last Admin: 11/10/24 21:02 Dose: 1 lozenge Benzonatate (Benzonatate 100 Mg Capsule) 100 mg PO TID PRN PRN Reason: Cough Last Admin: 11/10/24 21:05 Dose: 100 mg Doxycycline Hyclate (Doxycycline Hyclate 100 Mg Tablet) 100 mg PO Q12HR [facility] Stop: 11/14/24 09:01 Furosemide (Furosemide Inj 40 Mg/4 Ml Vial) 40 mg IV PUSH DAILY [facility] Last Admin: 11/11/24 09:43 Dose: Not Given Guaifenesin (Guaifenesin 12 Hr 600 Mg Tabcr) 600 mg PO Q12HR [facility] Last Admin: 11/11/24 09:27 Dose: 600 mg Hydrochlorothiazide (Hydrochlorothiazide 12.5 Mg Capsule) 12.5 mg PO QAM [facility] Last Admin: 11/11/24 09:43 Dose: Not Given Lisinopril (Lisinopril 20 Mg Tablet) 20 mg PO QAM [facility] Last Admin: 11/11/24 09:43 Dose: Not Given Metoprolol Tartrate (Metoprolol Tartrate 25 Mg Tablet) 25 mg PO Q12HR [facility] Last Admin: 11/11/24 07:48 Dose: 25 mg Ondansetron HCl (Ondansetron Inj 4 Mg/2 Ml Vial) 4 mg IV PUSH Q4H PRN PRN Reason: Nausea Pantoprazole Sodium (Pantoprazole 40 Mg Tablet) 40 mg PO Q12HR [facility] Last Admin: 11/11/24 09:27 Dose: 40 mg Perflutren Lipid Microsphere (Perflutren Lipid Microspheres 1.5 Ml Vial Diluted To 10 Ml Total Volume) 0 ml IV PUSH ONCE PRN; Protocol PRN Reason: adequate visualization Stop: 11/13/24 11:23 Potassium Chloride (Potassium Chloride 20 Meq Er Tablet) 20 meq PO BID DEVON Last Admin: 11/11/24 09:26 Dose: 20 meq Sedation/Anesthesia: No previous sedation/anesthesia problems (including family history). [facility] Past Medical History Medical History CAD (coronary artery disease) Mixed hyperlipidemia MDD (major depressive disorder), recurrent episode, moderate LOKI (generalized anxiety disorder) Erosive esophagitis Hernia Metastatic melanoma mediastinal mass Cough Obesity Benign essential HTN Contusion of thigh, left THOR (obstructive sleep apnea) Surgical History Surgical History History of heart artery stent History of cardiac catheterization History of inguinal hernia repair, bilateral History of carpal tunnel surgery Family History Family History Sibling Depression Family history of alcoholism Mother Family history of elevated blood lipids Hypertension Father Family history of coronary artery disease Murmur, cardiac Social History Social History Social History: Active, plays ice hockey 3x/week Smoking status: Never smoker Second hand tobacco smoke exposure: No Alcohol intake: current Drinks per week: 5 Alcohol use details: occasional Substance use: never Substance use type: other Other substance usage details: cannibis gummies Do You Feel Safe in your Home?: Yes Lack of Transportation: No Lack of Food: Never True Current Housing: I Have Housing Concerned About Future Housing: No Difficulty Paying Gas/Electric Bills: No Difficulty Paying for Meds: No Currently Unemployed: No Education: Decline to Answer Difficulty w/ Childcare or Family Care: No Living arrangements: with family Occupation/Education: retired Gender identity (if verbalized by the patient): Male Sexual Orientation (if Verbalized by the Patient): Straight or Heterosexual Spiritual care concerns: No Mod Sed Physical Exam Physical Exam Pre Procedural Exam: Normal: Appearance, Neuro Exam, Extremities and Skin and Variation: Heart Rate (Atrial flutter with RVR) and Heart Rhythm (Atrial flutter with RVR) Hours since solid foods: 8 Hours since liquid intake: 8 Mallampati Classification: class III Internal Medicine - PN: Obj Da Vital Signs Vital Signs: Vital Signs - 24 hr 11/10/24 15:40 11/10/24 15:40 11/10/24 16:00 Temperature 36.8 C Pulse Rate 78 78 88 Respiratory Rate 20 Blood Pressure 82/64 L 82/64 L 95/64 L Pulse Oximetry 100 Oxygen Delivery Oxygen Flow Rate Fraction of Inspired Oxygen 11/10/24 16:00 11/10/24 18:00 11/10/24 18:00 Temperature Pulse Rate 87 92 99 Respiratory Rate Blood Pressure 112/64 Pulse Oximetry Oxygen Delivery Oxygen Flow Rate Fraction of Inspired Oxygen 11/10/24 20:00 11/10/24 20:00 11/10/24 20:00 Temperature 37.0 C Pulse Rate 127 H 122 H 122 H Respiratory Rate 18 18 Blood Pressure 126/68 Pulse Oximetry 97 97 Oxygen Delivery Nasal Cannula Oxygen Flow Rate 2 Fraction of Inspired Oxygen 28 11/10/24 20:20 11/10/24 20:59 11/10/24 22:00 Temperature Pulse Rate 122 H 112 H Respiratory Rate Blood Pressure Pulse Oximetry 97 Oxygen Delivery Nasal Cannula Oxygen Flow Rate 2 Fraction of Inspired Oxygen 28 11/10/24 22:45 11/10/24 23:44 11/10/24 23:44 Temperature Pulse Rate 113 H 114 H 114 H Respiratory Rate 18 Blood Pressure Pulse Oximetry 97 97 Oxygen Delivery Room Air Oxygen Flow Rate Fraction of Inspired Oxygen 28 11/10/24 23:44 11/11/24 02:00 11/11/24 02:05 Temperature 37.1 C Pulse Rate 114 H 118 H 105 H Respiratory Rate 20 Blood Pressure 114/84 Pulse Oximetry 97 96 Oxygen Delivery Oxygen Flow Rate Fraction of Inspired Oxygen 11/11/24 04:00 11/11/24 04:00 11/11/24 04:00 Temperature 36.9 C Pulse Rate 124 H 124 H 124 H Respiratory Rate 20 20 Blood Pressure 109/83 Pulse Oximetry 94 94 Oxygen Delivery Room Air Oxygen Flow Rate Fraction of Inspired Oxygen 28 11/11/24 06:00 11/11/24 07:48 11/11/24 07:59 Temperature 36.7 C Pulse Rate 116 H 143 H 144 H Respiratory Rate 20 Blood Pressure 115/98 H Pulse Oximetry 94 Oxygen Delivery Oxygen Flow Rate Fraction of Inspired Oxygen 11/11/24 08:38 11/11/24 08:40 11/11/24 10:00 Temperature Pulse Rate 135 H 139 H 125 H Respiratory Rate Blood Pressure 124/83 Pulse Oximetry Oxygen Delivery Oxygen Flow Rate Fraction of Inspired Oxygen 11/11/24 11:38 11/11/24 12:00 11/11/24 13:31 Temperature 36.9 C Pulse Rate 123 H 136 H 122 H Respiratory Rate 18 Blood Pressure 108/79 Pulse Oximetry 94 95 Oxygen Delivery Oxygen Flow Rate Fraction of Inspired Oxygen 11/11/24 14:00 Temperature Pulse Rate 138 H Respiratory Rate Blood Pressure Pulse Oximetry Oxygen Delivery Oxygen Flow Rate Fraction of Inspired Oxygen Intake/Output Intake/Output: Intake & Output 11/08/24 11/09/24 11/10/24 11/11/24 23:59 23:59 23:59 23:59 Intake Total 373.4 991.3 940 Output Total 2045 750 Balance 373.4 -1053.7 190 Meds/Results Medications: Active Medications Generic Name Dose Route Start Last Admin Trade Name Freq PRN Reason Stop Dose Admin Acetaminophen 650 mg 11/09/24 15:27 Acetaminophen 325 Mg Tablet PO Q4H PRN Mild Pain (1-3) or Fever Albuterol 2 puff 11/09/24 20:45 Albuterol Sulfate (*Sp) Aerosol 1 Puff INHALATION Q4H PRN wheezing Albuterol/Ipratropium 3 ml 11/09/24 20:41 Ipratropium 0.5 Mg/Albuterol Sulfate 2.5 Mg Ampul.Neb 3 Ml INHALATION Q6HRT PRN Shortness Of Breath Amoxicillin/Clavulanate Potassium 1 tablet 11/11/24 21:00 Amoxicillin/Clavulanate K 875-125 Mg Tab PO 11/14/24 09:01 Q12HR DEVON Apixaban 5 mg 11/11/24 09:05 11/11/24 09:27 Apixaban 5 Mg Tablet PO 5 mg Q12HR DEVON Administration Atorvastatin Calcium 40 mg 11/09/24 21:25 11/10/24 20:59 Atorvastatin 40 Mg Tablet PO 40 mg HS DEVON Administration Azelastine HCl 1 spray 11/09/24 21:00 11/11/24 09:42 Azelastine Hcl Nasal 0.1% 137 Mcg/Spr 30 Ml Btl NASAL Not Given Q12H DEVON Benzocaine 1 lozenge 11/09/24 20:41 11/10/24 21:02 Benzocaine/Menthol (*Bkc) 18 Ea Lozenge PO 1 lozenge PRN PRN Administration Sore Throat Benzonatate 100 mg 11/09/24 20:41 11/10/24 21:05 Benzonatate 100 Mg Capsule PO 100 mg TID PRN Administration Cough Doxycycline Hyclate 100 mg 11/11/24 21:00 Doxycycline Hyclate 100 Mg Tablet PO 11/14/24 09:01 Q12HR DEVON Furosemide 40 mg 11/10/24 09:00 11/11/24 09:43 Furosemide Inj 40 Mg/4 Ml Vial IV PUSH Not Given DAILY DEVON Guaifenesin 600 mg 11/09/24 21:00 11/11/24 09:27 Guaifenesin 12 Hr 600 Mg Tabcr PO 600 mg Q12HR DEVON Administration Hydrochlorothiazide 12.5 mg 11/10/24 09:00 11/11/24 09:43 Hydrochlorothiazide 12.5 Mg Capsule PO Not Given QAM DEVON Lisinopril 20 mg 11/10/24 09:00 11/11/24 09:43 Lisinopril 20 Mg Tablet PO Not Given QAM DEVON Metoprolol Tartrate 25 mg 11/10/24 21:00 11/11/24 07:48 Metoprolol Tartrate 25 Mg Tablet PO 25 mg Q12HR DEVON Administration Ondansetron HCl 4 mg 11/09/24 15:27 Ondansetron Inj 4 Mg/2 Ml Vial IV PUSH Q4H PRN Nausea Pantoprazole Sodium 40 mg 11/10/24 09:00 11/11/24 09:27 Pantoprazole 40 Mg Tablet PO 40 mg Q12HR DEVON Administration Perflutren Lipid Microsphere 0 ml 11/10/24 11:23 Perflutren Lipid Microspheres 1.5 Ml Vial Diluted To 10 Ml Total Volume IV PUSH 11/13/24 11:23 ONCE PRN adequate visualization Protocol Potassium Chloride 20 meq 11/10/24 09:00 11/11/24 09:26 Potassium Chloride 20 Meq Er Tablet PO 20 meq BID DEVON Administration Radiology Results: ITS Impressions Chest X-Ray 11/09/24 12:45 IMPRESSION: No acute cardiopulmonary pathology. Soft tissue density in the right tracheobronchial tree area which is most likely a mass. This site is slightly smaller than the previous study. Chest CTA 11/09/24 13:05 IMPRESSION: 1. No pulmonary embolism. 2. Patchy consolidation and groundglass opacities in both lungs most suspicious for pneumonia. 2. Mild pulmonary edema the bilateral lung bases with small to moderate-sized right and very small left pleural effusions. 3. Stable appearance of more chronic right upper lobe paramediastinal consolidation with volume loss and adjacent right paratracheal mass likely related to history of treated metastatic disease. 4. Increase in size with a few still normal-sized anterior mediastinal lymph nodes which are most likely reactive. 5. Small pericardial effusion. Labs 11/11/24 04:08 11/11/24 04:08 Labs: Laboratory Results - last 24 hr 11/10/24 11/11/24 15:41 04:08 WBC 8.3 RBC 5.18 Hgb 15.4 Hct 46.0 MCV 88.8 MCH 29.7 MCHC 33.5 RDW 13.0 Plt Count 297 MPV 8.8 Immature Gran % (Auto) 1.1 H Neut % (Auto) 69.6 Lymph % (Auto) 9.4 L [place] % (Auto) 13.3 H Eos % (Auto) 5.6 H Baso % (Auto) 1.0 Lymph # (Auto) 0.78 L [place] # (Auto) 1.1 H Eos # (Auto) 0.5 H Baso # (Auto) 0.1 Abs Immat Gran (auto) 0.09 H Absolute Neuts (auto) 5.8 Absolute Nucleated RBC 0.000 Nucleated RBC % 0.0 Sodium 134 L Potassium 4.0 Chloride 100 Carbon Dioxide 24 Anion Gap 10 BUN 22 H Creatinine 1.14 Estim Creat Clear Calc 63 Estimated GFR > 60 Glucose 95 POC Capillary Glucose 122 H Calcium 8.9 Magnesium 1.7 Total Bilirubin 0.8 AST 21 ALT 16 Alkaline Phosphatase 86 Total Protein 7.0 Albumin 3.7 ASA Classification/Sedation ASA Classification/Sedation ASA Class: III Emergent: No Risks: Risks, benefits and alternatives explained and patient/family accepted plan for sedation. Patient re-evaluated immediately prior to sedation.
--- NOTE | 2024-11-11 15:45 | ECG_ITS ---
Test Date: 2024-11-11 15:47:31 Measurements Intervals [place] Rate: 106 P: 36 IA: 152 QRS: 11 QRSD: 96 T: 36 QT: 340 QTc: 452 Interpretive Statements SINUS TACHYCARDIA WITH OCCASIONAL VENTRICULAR PREMATURE COMPLEXES POSSIBLE LEFT ATRIAL ENLARGEMENT [-0.1mV P WAVE IN V1/V2] POSSIBLE ANTEROSEPTAL MYOCARDIAL INFARCTION , OF INDETERMINATE AGE [30 ms Q WAVE IN V1-V4] Compared to ECG 11/11/2024 09:06:03 Atrial flutter no longer present Electronically Signed On 11-11-2024 18:40:12 CDT by Kalpesh Ferraro M.D.
--- NOTE | 2024-11-11 16:23 | P.PCNTEECA_ITS ---
KATRIN with Cardioversion Date of procedure: 11/11/24 Procedure Type: Date Of Procedure: 11/11/2024 Brief History Of Present Illness: Patient is a 69 year old male who is referred for KATRIN-guided DCCV for atrial flutter with RVR. Indication: Atrial flutter with RVR Procedure In Detail: After verbal and written informed consent was obtained, the patient risks, benefits, and alternatives explained in detail. The patient agreed to proceed with the plan of care as outlined above.?The patient was evaluated at bedside in the [facility] procedure room.?See pre-sedation note for further details. The patient was then placed in the appropriate 30 to 45 degree angle supine position at a slight left lateral decubitus position.?Patient was monitored throughout the study with telemetry, oxygen saturation, end-tidal CO2 monserrat toring, blood pressure, heart rate, and respirations.?The posterior hypopharynx was then locally anesthetized using repeated administration of Hurricaine spray as well as gargled viscous lidocaine. After local anesthetic of the posterior hypopharynx was achieved and the oral bite block placed, moderate sedation was administered.?After confirmation of adequate moderate sedation, the transesophageal echocardiogram probe was advanced through the oral bite block into the posterior hypopharynx and into the esophagus easily and without complication.?Multiple, multiplanar echocardiographic images were obtained in multiple standard re-projections.?At the conclusion of the study, the transesophageal echocardiogram probe was removed easily and without complication. The patient tolerated the procedure well without difficulty. Moderate Sedation / Anesthesia Administration: Procedure / sedation start time: 15:50 Procedure / sedation end time: 16:00 Total procedure time: 10 minutes Total of IV Versed 5mg and Fentanyl 50mg was administered by RN. FINDINGS: LEFT ATRIAL APPENDAGE: Anatomically normal structure with prominent pectinate muscles without thrombus or vegetation identified. CARDIOVERSION: Defibrillator pads were placed in an AP position. After confirmation of adequate sedation, synchronized electrical cardioversion was performed with 1 shock at 250 joules, which successfully cardioverted patient to sinus rhythm. CONCLUSION: Successful KATRIN-guided DCCV with 1 shock at 250 joules to sinus rhythm Complications: None
[2024-11-11] MEDS: AMOXICILLIN/CLAVULANATE K 875-125 MG TAB 1 TABLET PO (20:19)
[2024-11-11] MEDS: ATORVASTATIN 40 MG TABLET PO (20:19)
[2024-11-11] MEDS: DOXYCYCLINE HYCLATE 100 MG TABLET PO (20:19)
[2024-11-12] VITALS (9 sets, daily range): BP systolic 122–127; BP diastolic 74–89; PULSE 96–114; RESP 18–20; TEMP 36.7–36.8; O2SAT 93–98
[2024-11-12 05:07] LABS: Basophils Absolute Auto 0.1 K/mm3 (0.0-0.1); Basophils Percent Auto 0.7 % (0.2-1.2); Eosinophils Absolute Auto 0.5 K/mm3 (0-0.3); Eosinophils Percent Auto 5.5 % (0-4.4); Hematocrit 46.8 % (42.0-52.0); Hemoglobin 15.5 g/dL (14.0-18.0); Immature Granulocyte Absolute 0.09 K/mm3 (0.00-0.031); Immature Granulocyte Percent A 1.1 % (0-0.5); Lymphocytes Absolute Auto 0.75 K/mm3 (0.9-3.2); Mean Corpuscular HGB Conc 33.1 g/dl (32-36); Mean Corpuscular Hemoglobin 29.6 pg (26-34); Mean Corpuscular Volume 89.5 fl (80-100); Mean Platelet Volume 8.8 fl (7.4-10.4); Monocytes Percent Auto 12.5 % (2.6-8.5); Neutrophils Absolute Auto 5.9 K/mm3 (1.3-6.7); Neutrophils Percent Auto 71.2 % (45.5-73.1); Platelet Count Result 307 k/mm3 (150-375); Red Blood Count 5.23 M/mm3 (4.6-6.20); Red Cell Distribution Width 12.8 % (11.5-14.5); White Blood Count 8.3 K/mm3 (4.5-10.0)
[2024-11-12 05:15] LABS: Alanine Aminotransferase 17 U/L (6-50); Albumin Level 3.8 g/dL (3.5-5.1); Alkaline Phosphatase 89 U/L (38-126); Anion Gap 9 mmol/L (4-12); Aspartate Amino Transferase 20 U/L (17-59); Bilirubin,Total 0.9 mg/dL (0.2-1.3); Blood Urea Nitrogen 18 mg/dL (9-20); Calcium 8.8 mg/dL (8.4-10.2); Carbon Dioxide 25 mmol/L (22-30); Chloride 101 mmol/L (98-107); Estimated CRCL calculation 66 ml/min; Estimated Glomerular Filt Rate > 60; Glucose 99 mg/dL (65-110); Magnesium 1.9 mg/dL (1.6-2.3); Potassium 4.4 mmol/L (3.4-5.0); Sodium 135 mmol/L (137-145)
[2024-11-12] MEDS: AZELASTINE HCL NASAL 0.1% 137 MCG/SPR 30 ML BTL 1 SPRAY NASAL (08:17)
[2024-11-12] MEDS: SPIRONOLACTONE 25 MG TABLET PO (08:18)
[2024-11-12] MEDS: PANTOPRAZOLE 40 MG TABLET PO (08:18)
[2024-11-12] MEDS: AMOXICILLIN/CLAVULANATE K 875-125 MG TAB 1 TABLET PO (08:18)
[2024-11-12] MEDS: METOPROLOL SUCCINATE EXT REL 50 MG TABCR PO (08:18)
[2024-11-12] MEDS: DOXYCYCLINE HYCLATE 100 MG TABLET PO (08:18)
[2024-11-12] MEDS: lisinopriL 20 MG TABLET PO (08:18)
[2024-11-12] MEDS: APIXABAN 5 MG TABLET PO (08:19)
[2024-11-12] MEDS: guaiFENesin 12 HR 600 MG TABCR PO (08:19)
--- NOTE | 2024-11-12 12:02 | P.PNCA_ITS ---
Progress Note: A&P Assessment and Plan (1) Atrial flutter with rapid ventricular response: Code(s): I48.92 - Unspecified atrial flutter Status: Acute Assessment and Plan: New diagnosis of atrial flutter with rapid ventricular response in the setting of acute illness with pneumonia. I discussed this diagnosis with the patient including pathophysiology, management strategies, and risks/complications. * S/p successful KATRIN-guided DCCV 11/11. * Continue Eliquis 5 mg p.o. b.i.d.. He has a CHADS2 Vasc score of at least 3 (age, hypertension, coronary artery disease) * Continue Toprol. * TSH is normal * He has sleep apnea, compliant with CPAP * Continuous telemetry monitoring (2) Benign essential HTN: Code(s): I10 - Essential (primary) hypertension Status: Chronic Assessment and Plan: At goal. (3) CAD (coronary artery disease): Code(s): I25.10 - Atherosclerotic heart disease of [place] coronary artery without angina pectoris Status: Acute Assessment and Plan: Is stable, no anginal symptoms. Continue aspirin, statin. As above, discontinuing Brilinta. (4) Congestive heart failure: Qualifiers: Heart failure type: unspecified Heart failure chronicity: acute Qualified Code(s): I50.9 - Heart failure, unspecified Code(s): I50.9 - Heart failure, unspecified Status: Suspected Assessment and Plan: Echocardiogram shows LVEF 30-35%. May be tachycardia mediated. Started on Toprol, continue. Stopped home Lisinopril-HCTZ combo. Continue with Lisinopril. Instead of HCTZ, will do Spironolactone. PO Lasix daily. Further optimization of heart failure GDMT can be done as outpatient. Will need to reassess LVEF as o utpatient once he has been maintaining sinus. Ischemic evaluation can be done as outpatient. (5) Pneumonia: Qualifiers: Laterality: bilateral Lung location: unspecified part of lung Pneumonia type: due to unspecified organism Qualified Code(s): J18.9 - Pneumonia, unspecified organism Code(s): J18.9 - Pneumonia, unspecified organism Status: Acute Assessment and Plan: Management per hospitalist. Plan Okay to discharge home today. Recommendations and plan discussed with Hospitalist. Will arrange follow up in our office. Subjective Date/time seen: 11/12/24 12:02 Interval history: Reason for visit: Atrial flutter with RVR, CHF HPI: Arsh Leiva is a 69 year old male with coronary artery disease who follows in our office with Dr. Clay. He comes to the hospital with a chief complaint of shortness of breath. Cardiology is consulted for atrial flutter with rapid ventricular response which is a new diagnosis for the patient. Patient states he has been experiencing progressive shortness of breath and a productive cough for about a week. He denies having any chest pain, palpitations, swelling. His initial EKG showed atrial flutter with rapid ventricular response, 2-1 conduction. He has been placed on a diltiazem drip which has provided some rate control but his heart rate is still generally 110- 120 beats per minute. At the time of my evaluation he is comfortable does not have any active complaints. He states that his shortness of breath has improved but he is not back to baseline. Date of service 11/11: Yesterday afternoon, patient became hypotensive and was symptomatic with feelings of cold/clamminess, shortness of breath. Diltiazem drip was discontinued. His heart rate had become well controlled with the metoprolol. However, overnight patient did have atrial fibrillation with rapid ventricular response, rate in the 130s to 140s. This morning, he feels somewhat better but is still reporting some shortness of breath. He does not have any chest pain or palpitations. Date of service 11/12: Feeling well today. Remains in sinus rhythm. Review of Systems Review of Systems: All systems reviewed & are unremarkable except as noted in HPI and below (HPI) Exam Const: General: no acute distress HENMT: Mouth: Yes moist mucous membranes Eyes: General: appearance normal, both eyes and all related structures Sclera: sclerae normal Resp: Effort & Inspection: normal respiratory effort Cardio: Rate: tachycardic Rhythm: regular rhythm Skin: General skin exam: normal color Neuro: Speech: normal speech Psych: Mental Status: mental status grossly normal Affect: normal affect Objective Data Vital Signs Vital Signs: Vital Signs - 24 hr 11/11/24 13:31 11/11/24 14:00 11/11/24 15:30 Temperature Pulse Rate 122 H 138 H 139 H Respiratory Rate 24 H Blood Pressure 143/102 H Pulse Oximetry 95 95 Oxygen Delivery Nasal Cannula Oxygen Flow Rate 2 Fraction of Inspired Oxygen 11/11/24 15:35 11/11/24 15:40 11/11/24 16:00 Temperature Pulse Rate 141 H 104 H 105 H Respiratory Rate 28 H 20 14 Blood Pressure 114/65 109/86 113/81 Pulse Oximetry 96 97 96 Oxygen Delivery Nasal Cannula Nasal Cannula Room Air Oxygen Flow Rate 2 2 Fraction of Inspired Oxygen 11/11/24 16:15 11/11/24 16:30 11/11/24 16:45 Temperature 36.9 C Pulse Rate 104 H 106 H 104 H Respiratory Rate 14 32 H 25 H Blood Pressure 118/91 H 120/83 119/78 Pulse Oximetry 96 95 99 Oxygen Delivery Room Air Room Air Room Air Oxygen Flow Rate Fraction of Inspired Oxygen 11/11/24 17:00 11/11/24 17:15 11/11/24 20:00 Temperature 36.8 C Pulse Rate 103 H 101 H 116 H Respiratory Rate 21 H 24 H 20 Blood Pressure 121/77 113/77 137/85 Pulse Oximetry 95 95 95 Oxygen Delivery Room Air Room Air Oxygen Flow Rate Fraction of Inspired Oxygen 11/11/24 20:00 11/11/24 20:00 11/11/24 20:20 Temperature Pulse Rate 113 H 113 H 113 H Respiratory Rate 20 Blood Pressure Pulse Oximetry 95 Oxygen Delivery Room Air Oxygen Flow Rate Fraction of Inspired Oxygen 28 11/11/24 21:43 11/11/24 23:50 11/11/24 23:50 Temperature Pulse Rate 109 H 104 H 104 H Respiratory Rate 20 Blood Pressure Pulse Oximetry 95 Oxygen Delivery Room Air Oxygen Flow Rate Fraction of Inspired Oxygen 28 11/11/24 23:51 11/12/24 02:00 11/12/24 02:32 Temperature 36.8 C Pulse Rate 106 H 102 H 114 H Respiratory Rate 20 Blood Pressure 110/79 Pulse Oximetry 96 97 Oxygen Delivery Oxygen Flow Rate Fraction of Inspired Oxygen 11/12/24 04:00 11/12/24 04:00 11/12/24 04:00 Temperature 36.8 C Pulse Rate 107 H 110 H 110 H Respiratory Rate 18 18 Blood Pressure 127/76 Pulse Oximetry 97 97 Oxygen Delivery Room Air Oxygen Flow Rate Fraction of Inspired Oxygen 28 11/12/24 06:00 11/12/24 08:00 11/12/24 08:00 Temperature 36.7 C Pulse Rate 96 101 H Respiratory Rate 20 Blood Pressure 122/74 Pulse Oximetry 97 97 Oxygen Delivery Room Air Oxygen Flow Rate Fraction of Inspired Oxygen 11/12/24 08:00 11/12/24 08:18 11/12/24 08:58 Temperature Pulse Rate 102 H 110 H Respiratory Rate Blood Pressure Pulse Oximetry 93 Oxygen Delivery Room Air Oxygen Flow Rate Fraction of Inspired Oxygen 11/12/24 10:00 Temperature Pulse Rate 100 Respiratory Rate Blood Pressure Pulse Oximetry Oxygen Delivery Oxygen Flow Rate Fraction of Inspired Oxygen Intake/Output Intake/Output: Intake & Output 11/09/24 11/10/24 11/11/24 11/12/24 23:59 23:59 23:59 23:59 Intake Total 373.4 991.3 1530 1040 Output Total 2045 950 300 Balance 373.4 -1053.7 580 740 Meds/Results Medications: Active Medications Generic Name Dose Route Start Last Admin Trade Name Freq PRN Reason Stop Dose Admin Acetaminophen 650 mg 11/09/24 15:27 Acetaminophen 325 Mg Tablet PO Q4H PRN Mild Pain (1-3) or Fever Albuterol 2 puff 11/09/24 20:45 Albuterol Sulfate (*Sp) Aerosol 1 Puff INHALATION Q4H PRN wheezing Albuterol/Ipratropium 3 ml 11/09/24 20:41 Ipratropium 0.5 Mg/Albuterol Sulfate 2.5 Mg Ampul.Neb 3 Ml INHALATION Q6HRT PRN Shortness Of Breath Amoxicillin/Clavulanate Potassium 1 tablet 11/11/24 21:00 11/12/24 08:18 Amoxicillin/Clavulanate K 875-125 Mg Tab PO 11/14/24 09:01 1 tablet Q12HR DEVON Administration Apixaban 5 mg 11/11/24 09:05 11/12/24 08:19 Apixaban 5 Mg Tablet PO 5 mg Q12HR DEVON Administration Atorvastatin Calcium 40 mg 11/09/24 21:25 11/11/24 20:19 Atorvastatin 40 Mg Tablet PO 40 mg HS DEVON Administration Azelastine HCl 1 spray 11/09/24 21:00 11/12/24 08:17 Azelastine Hcl Nasal 0.1% 137 Mcg/Spr 30 Ml Btl NASAL 1 spray Q12H DEVON Administration Benzocaine 1 lozenge 11/09/24 20:41 11/10/24 21:02 Benzocaine/Menthol (*Bkc) 18 Ea Lozenge PO 1 lozenge PRN PRN Administration Sore Throat Benzonatate 100 mg 11/09/24 20:41 11/10/24 21:05 Benzonatate 100 Mg Capsule PO 100 mg TID PRN Administration Cough Doxycycline Hyclate 100 mg 11/11/24 21:00 11/12/24 08:18 Doxycycline Hyclate 100 Mg Tablet PO 11/14/24 09:01 100 mg Q12HR DEVON Administration Guaifenesin 600 mg 11/09/24 21:00 11/12/24 08:19 Guaifenesin 12 Hr 600 Mg Tabcr PO 600 mg Q12HR DEVON Administration Lisinopril 20 mg 11/10/24 09:00 11/12/24 08:18 Lisinopril 20 Mg Tablet PO 20 mg QAM DEVON Administration Metoprolol Succinate 50 mg 11/12/24 09:00 11/12/24 08:18 Metoprolol Succinate Ext Rel 50 Mg Tabcr PO 50 mg QAM DEVON Administration Ondansetron HCl 4 mg 11/09/24 15:27 Ondansetron Inj 4 Mg/2 Ml Vial IV PUSH Q4H PRN Nausea Pantoprazole Sodium 40 mg 11/10/24 09:00 11/12/24 08:18 Pantoprazole 40 Mg Tablet PO 40 mg Q12HR DEVON Administration Perflutren Lipid Microsphere 0 ml 11/10/24 11:23 Perflutren Lipid Microspheres 1.5 Ml Vial Diluted To 10 Ml Total Volume IV PUSH 11/13/24 11:23 ONCE PRN adequate visualization Protocol Spironolactone 25 mg 11/12/24 09:00 11/12/24 08:18 Spironolactone 25 Mg Tablet PO 25 mg QAM DEVON Administration Radiology Results: ITS Impressions Chest X-Ray 11/09/24 12:45 IMPRESSION: No acute cardiopulmonary pathology. Soft tissue density in the right tracheobronchial tree area which is most likely a mass. This site is slightly smaller than the previous study. Chest CTA 11/09/24 13:05 IMPRESSION: 1. No pulmonary embolism. 2. Patchy consolidation and groundglass opacities in both lungs most suspicious for pneumonia. 2. Mild pulmonary edema the bilateral lung bases with small to moderate-sized right and very small left pleural effusions. 3. Stable appearance of more chronic right upper lobe paramediastinal consolidation with volume loss and adjacent right paratracheal mass likely related to history of treated metastatic disease. 4. Increase in size with a few still normal-sized anterior mediastinal lymph nodes which are most likely reactive. 5. Small pericardial effusion. Labs Labs: Laboratory Results - last 24 hr 11/12/24 04:28 WBC 8.3 RBC 5.23 Hgb 15.5 Hct 46.8 MCV 89.5 MCH 29.6 MCHC 33.1 RDW 12.8 Plt Count 307 MPV 8.8 Immature Gran % (Auto) 1.1 H Neut % (Auto) 71.2 Lymph % (Auto) 9.0 L [place] % (Auto) 12.5 H Eos % (Auto) 5.5 H Baso % (Auto) 0.7 Lymph # (Auto) 0.75 L [place] # (Auto) 1.0 H Eos # (Auto) 0.5 H Baso # (Auto) 0.1 Abs Immat Gran (auto) 0.09 H Absolute Neuts (auto) 5.9 Absolute Nucleated RBC 0.000 Nucleated RBC % 0.0 Sodium 135 L Potassium 4.4 Chloride 101 Carbon Dioxide 25 Anion Gap 9 BUN 18 Creatinine 1.08 Estim Creat Clear Calc 66 Estimated GFR > 60 Glucose 99 Calcium 8.8 Magnesium 1.9 Total Bilirubin 0.9 AST 20 ALT 17 Alkaline Phosphatase 89 Total Protein 7.0 Albumin 3.8
[2024-11-12] MEDS: FUROSEMIDE 40 MG TABLET PO (12:38)
--- NOTE | 2024-11-12 13:43 | P.DS_ITS ---
DS: Admitting Diagnosis Discharge Date 11/12/24 Admitting Diagnosis Shortness of Breath DS: Discharge Diagnosis Discharge Diagnosis (1) Atrial flutter with rapid ventricular response: Code(s): I48.92 - Unspecified atrial flutter Status: Acute DS: Summary Hospital Course Hospital Course: 69 y/o M presents here with shortness of breath with PMH of metastatic melanoma, depression, HTN, HLD, coronary artery disease, THOR, HTN, generalized anxiety disorder. The patient presents here from a local urgent care for further evaluation of shortness of breath and an abnormal EKG. The patient initially began experiencing exertional shortness of breath approximately 1 week ago. The patient reports that he was initially unable to tolerate his CPAP last night due to the severity of the shortness of breath. He was able to increase his settings to full pressure faster and then was able to use it. The patient is very active and plays ice hockey 3 times per week. Newly unable to tolerate playing 2 nights ago. He reports associated productive cough, coarse lung sounds with a deep breath, decreased appetite. 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 He denies associated palpitations, chest pain, fever, chills, body aches, nausea, vomiting, diarrhea, diaphoresis, or dizziness. He has no previous history of dysrhythmia. He currently follows with Cardiology, Danna BAGLEY. Initial VS at presentation: 90.2? F, HR 139, R 22, 111/88, and 99% on RA. ED workup showed: No leukocytosis, no anemia, elevated D-dimer, creatinine 1.16 and normal GFR, initial troponin 0.012, BNP 2030, UA showed a high specific gravity and trace ketones, UDS + marijuana, and viral PCR negative. CXR showed no acute cardiopulmonary pathology, soft tissue density in the right tracheobronchial tree which is most likely a mass that is slightly smaller than previous study. Chest CTA showed no PE, patchy consolidation ground-glass opacities in both lungs most suspicious for pneumonia, mild pulmonary edema, bilateral pleural effusions, stable appearance of more chronic right upper lobe paramediastinal consolidation with volume loss and adjacent right paratracheal mass likely related to history of treated metastatic disease, increased in size with a few still normal-sized anterior mediastinal lymph nodes, and a small pericardial effusion. Cardiology was consulted and patient eventually underwent KATRIN with cardioversion and placed on Metoprolol 50mg daily. Also, he was placed on ELiquis. ECHO showed ef 30-35% and Lisinopril was continued, started on Spironolactone and discontinued on HCTZ. Patient will continue follow up with cardiology outpatient for further workup and further management F/u with PCP in 3-5 days F/u with cardiology as instructed Time Spent with Patient Time attestation: Total time spent providing and/or coordinating discharge services: DS: Data Data Completed and Pending Labs on day of discharge: Labs from last 24 hours 11/12/24 04:28 WBC 8.3 RBC 5.23 Hgb 15.5 Hct 46.8 MCV 89.5 MCH 29.6 MCHC 33.1 RDW 12.8 Plt Count 307 MPV 8.8 Immature Gran % (Auto) 1.1 H Neut % (Auto) 71.2 Lymph % (Auto) 9.0 L [place] % (Auto) 12.5 H Eos % (Auto) 5.5 H Baso % (Auto) 0.7 Lymph # (Auto) 0.75 L [place] # (Auto) 1.0 H Eos # (Auto) 0.5 H Baso # (Auto) 0.1 Abs Immat Gran (auto) 0.09 H Absolute Neuts (auto) 5.9 Absolute Nucleated RBC 0.000 Nucleated RBC % 0.0 Sodium 135 L Potassium 4.4 Chloride 101 Carbon Dioxide 25 Anion Gap 9 BUN 18 Creatinine 1.08 Estim Creat Clear Calc 66 Estimated GFR > 60 Glucose 99 Calcium 8.8 Magnesium 1.9 Total Bilirubin 0.9 AST 20 ALT 17 Alkaline Phosphatase 89 Total Protein 7.0 Albumin 3.8 Preliminary micro results at discharge 11/10/24 17:13 Sputum Culture - Preliminary Sputum 11/09/24 11:51 Blood Culture - Preliminary Blood 11/09/24 12:05 Blood Culture - Preliminary Blood Discharge Plan Discharge Attending physician on discharge: Jose Campos Consulting providers: Michael Ruiz Discharging Clinician: Jose Campos Anticipated Discharge Date/Time: 11/12/24 13:27 Patient Disposition: Home, Self-Care Activity: as tolerated Diet: heart healthy Patient Instructions: Antibiotic Form Patient Language: K[place] Stand Alone Forms: General Discharge Information Follow-up/Referrals: Derick Celaya MD [Primary Care Provider] - (F/u with PCP in 3-5 days ) Michael Ruiz MD [Physician] - (F/u with cardiology as instructed ) Discharge Medications: New lisinopril 20 mg Tablet 20 mg PO QAM 30 Days Qty: 30 0RF metoprolol succinate 50 mg Tablet Extended Release 24 Hr 50 mg PO QAM 30 Days Qty: 30 0RF Eliquis 5 mg Tablet 5 mg PO Q12HR 30 Days Qty: 60 1RF doxycycline hyclate 100 mg Tablet 100 mg PO Q12HR 5 Days Qty: 10 0RF spironolactone 25 mg Tablet 25 mg PO QAM 30 Days Qty: 30 0RF furosemide 40 mg Tablet 40 mg PO DAILY 30 Days Qty: 30 0RF amoxicillin-pot clavulanate 875-125 mg tablet 1 tablet PO Q12H 5 Days Qty: 10 0RF Continued albuterol sulfate 90 mcg/actuation HFA aerosol inhaler 2 puff INHALATION Q4H PRN (Reason: wheezing ) pseudoephedrine-guaifenesin [Mucinex D Maximum Strength] 120-1,200 mg tablet extended release 12 hr 1 tablet PO Q12H omeprazole 40 mg capsule,delayed release(DR/EC) 40 mg PO DAILY atorvastatin 40 mg tablet See Rx Instructions .ROUTE .COMPLEX Qty: 90 1RF Dose Instruction: TAKE 1 TABLET BY MOUTH EVERY EVENING Patient Comments: ...... Rx Instructions: TAKE 1 TABLET BY MOUTH EVERY EVENING azelastine 137 mcg (0.1 %) spray,non-aerosol 1 spray intranasal Q12H Qty: 90 0RF Rx Instructions: administer into each nostril Discontinued Brilinta 60 mg tablet 60 mg PO BID potassium chloride [Klor-Con M20] 20 mEq tablet,ER particles/crystals 20 meq PO BID lisinopril-hydrochlorothiazide 20-12.5 mg tablet 1 tablet PO DAILY Rx Instructions: TAKE 1 TABLET BY MOUTH DAILY Date of admission: 11/10/24 16:15 Primary Care Provider: Derick Celaya Admitting Provider: Anamaria Segura Attending physician on admission: Anamaria Segura Condition: Improved
--- NOTE | 2024-11-14 06:45 | P.CDI_ITS ---
CDI Query Clarification Request Please specify type of heart failure if known. * Systolic * Diastolic * Combined Systolic and Diastolic * Unknown The medical chart reflects the following: (4) Congestive heart failure: Qualifiers: Heart failure type: unspecified Heart failure chronicity: acute Qualified Code(s): I50.9 - Heart failure, unspecified Code(s): I50.9 - Heart failure, unspecified Status: Suspected Assessment and Plan: Echocardiogram shows LVEF 30-35%. May be tachycardia mediated. Started on Toprol, continue. Stopped home Lisinopril-HCTZ combo. Continue with Lisinopril. Instead of HCTZ, will do Spironolactone. PO Lasix daily. Further optimization of heart failure GDMT can be done as outpatient. Will need to reassess LVEF as outpatient once he has been maintaining sinus. Ischemic evaluation can be done as outpatient. Treatment: IV lasix <Rosemary Venegas RN - Last Filed: 11/14/24 06:46> Clarified Diagnosis Clarified Diagnosis: * Systolic <Jose Campos MD - Last Filed: 11/22/24 08:18>
== END 2024-11-12 13:55 | disposition home or self-care (01) | DRG 308 ==
LOC: ANHED 16:42 → ANHIMU 16:57
PROVIDERS: Internal Medicine; Student in an Organized Health Care Education/Training Program; Admitting Provider Hospitalist; Emergency Provider Student in an Organized Health Care Education/Training Program; PCP Family Medicine; Visit Provider Internal Medicine
PROC: B24BZZ4 Ultrasonography of Heart with Aorta, Transesophageal (ICD-10-PCS; CPT 93312; principal; 2024-11-11 14:00)
PROC: 5A2204Z Restoration of Cardiac Rhythm, Single (ICD-10-PCS; 2024-11-11 14:00)
DX: I48.92 Unspecified atrial flutter (principal); J18.9 Pneumonia, unspecified organism; C78.39 Secondary malignant neoplasm of other respiratory organs; C78.1 Secondary malignant neoplasm of mediastinum; I50.20 Unspecified systolic (congestive) heart failure; I48.0 Paroxysmal atrial fibrillation; I11.0 Hypertensive heart disease with heart failure; E78.2 Mixed hyperlipidemia; I25.10 Atherosclerotic heart disease of native coronary artery without angina pectoris; F41.1 Generalized anxiety disorder; G47.33 Obstructive sleep apnea (adult) (pediatric); Z20.822 Contact with and (suspected) exposure to COVID-19; Z95.5 Presence of coronary angioplasty implant and graft; I25.2 Old myocardial infarction; Z86.73 Personal history of transient ischemic attack (TIA), and cerebral infarction without residual deficits; Z85.820 Personal history of malignant melanoma of skin
CPT/HCPCS: 36415; 71045; 71275; 80053; 80307; 81003; 82948; 83605; 83735; 83880; 84443; 84484; 85025; 85380; 85610; 85730; 87040; 87070; 87205; 87637; 87641; 92960; 93005; 93306; 93312; 93320; 93325; 94640; 96365; 96366; 96367; 96368; 96372; 96375; 96376; 99213; 99285; A9270; G0378; G0463; J0456; J0696; J1650; J1940; J2250; J2704; J3010; J3475; J7040; Q9967

== ENCOUNTER 2024-11-21 09:28 | Outpatient (CLI) | payer OTHER, SELFPAY ==
--- NOTE | ~2024-11-21 | CT_ITS ---
Clinical Indication: Melanoma CT Scan of the Chest, Abdomen, and Pelvis with Contrast: Technique: Contiguous sections were acquired throughout the chest, abdomen, and pelvis after intraven ous administration of 100 cc of Omnipaque 350. Dose reduction technique was used on this scan by wilmar orantes automated exposure control and iterative reconstruction technique. The dose-length product (DL P) was 948.62 mGy-cm. Comparison: 09/02/2024 Findings: Stable soft tissue mass or thickening in the right paratracheal stripe region superior to the right h ilum. No other mediastinal lymphadenopathy evident. No axillary lymphadenopathy. No pericardial effus ion. Small right pleural effusion and minimal left pleural fluid are present. There is stable bandlike consolidation in the medial/central right lung centered about the hilum, com patible with post reduction change, extending into the right lower lobe. There is additional new cons olidation in the medial right lower lobe more inferiorly, adjacent pleural effusion which could refle ct atelectasis or pneumonia. There are additional patchy airspace opacities/consolidations in the lef t lower lobe with focal airspace consolidation the right upper lobe. These findings suggest pneumonia /infectious process. The liver, spleen, pancreas, gallbladder, adrenals and kidneys are within normal limits. No evidence of aortic aneurysm. No lymphadenopathy. No bowel obstruction or bowel wall thickening. There is no evidence to suggest acute appendicitis. Urinary bladder is unremarkable. Urinary bladder unremarkable. No pelvic mass seen. No ascites. Impression: Patchy airspace consolidation left lower lobe with additional focal airspace consolidation in the rig ht upper lobe. These findings are suspicious for pneumonia. Additional area of consolidation the right lower lobe medially adjacent to pleural effusion. This cou ld reflect additional pneumonia versus possibly atelectatic change. Small right pleural effusion and minimal left pleural effusion. Stable probable postradiation change in the central/perihilar right lung. Stable soft tissue mass/thickening along right paratracheal stripe. This could reflect active/residua l malignancy versus treated disease. No significant abnormality in the abdomen or pelvis. Reviewed, dictated and finalized at location M. Impression: Patchy airspace consolidation left lower lobe with additional focal airspace co nsolidation in the right upper lobe. These findings are suspicious for pneumoni a. Additional area of consolidation the right lower lobe medially adjacent to pleu ral effusion. This could reflect additional pneumonia versus possibly atelectat ic change. Small right pleural effusion and minimal left pleural effusion. Stable probable postradiation change in the central/perihilar right lung. Stable soft tissue mass/thickening along right paratracheal stripe. This could reflect active/residual malignancy versus treated disease. No significant abnormality in the abdomen or pelvis.
--- OUTSIDE RECORDS SUMMARY | 2024-11-21 10:19 | XMS_ITS | Encounter Summary ---
Author Organization [facility] Address [address] [facility] [place] [address] Care Team Providers Care Mandolin Repairer Name Role Phone Brenda Resendiz MD Primary Care Provider + Encounter Details Date Type Department Care Team (Late st Contact Info) Description 01/10/2021 Lab Requisition [facility] Care Pathology Lab [address] [place] [address] Jackelyn Yoder MD [address] [place], [place] [id number] Illness, unspecified Social History Tobacco Use Types [...] Final Diagnosis PROSTATE, LLB, NEEDLE BIOPSY (OSC: [id number], A; 01/07/2021): - Benign prostatic tissue PROSTATE, LLM, NEEDLE BIOPSY (OSC: [id number], B; 01/07/2021): - Benign prostatic tissue PROSTATE, LLA, NEEDLE BIOPSY (OSC: [id number], C; 01/07/2021): - Focal glandular atypia, consistent with partial atrophy PROSTATE, LB, NEEDLE BIOPSY (OSC: [id number], D; 01/07/2021): - Benign prostatic tissue PROSTATE, LM, NEEDLE BIOPSY (OSC: [id number], E; 01/07/2021): - Benign prostatic tissue PROSTATE, LA, NEEDLE BIOPSY (OSC: [id number], F; 01/07/2021): - Benign prostatic tissue PROSTATE, RB, NEEDLE BIOPSY (OSC: [id number], G; 01/07/2021): - Benign prostatic tissue PROSTATE, RM, NEEDLE BIOPSY (OSC: [id number], H; 01/07/2021): - Benign prostatic tissue PROSTATE, RA, NEEDLE BIOPSY (OSC: [id number], I; 01/07/2021): - Benign prostatic tissue PROSTATE, RLB, NEEDLE BIOPSY (OSC: [id number], J; 01/07/2021): - Benign prostatic tissue PROSTATE, RLM, NEEDLE BIOPSY (OSC: [id number], K; 01/07/2021): - Benign prostatic tissue PROSTATE, RLA, NEEDLE BIOPSY (OSC: [id number], L; 01/07/2021): - Benign prostatic tissue PROSTATE, BENITA, NEEDLE BIOPSY (OSC: [id number], M; 01/07/2021): - Benign prostatic tissue 01/11/2021 11:44 AM [facility] PATHOLOGY LAB Microscopic Description and [...] interpretation of partial atrophy. 01/11/2021 11:44 AM [facility] PATH[facility] Clinical History PSA 4.9, ABNORMAL MR, FUSION BIOPSY, PROSTATE VOLUME 64 BENITA = RIGHT LATERAL CENTRAL PROSTATE LEVEL AT MID GLAND X3 01/11/2021 11:44 AM [facility] PATHOLOG[facility] Materials Received Received are five prepared slides from [facility] labeled [id number] (A1-D1 and A-D PIN4). All material will be returned. 01/11/2021 11:44 AM CDT U PATHOLOGY LAB Disclaimer The performance characteristics of all immunohistochemical and indirect immunofluorescence stains (if any) cited in this report were determined by the Histopathology Laboratory of [facility]. Some of these tests were developed by [...] LAB Case Report Surgical Pathology Report Case: [id number] Authorizing Provider: Jackelyn Yoder MD Collected: 01/07/2021 10:27 AM Ordering Location: [facility] Pathology Lab Received: 01/10/2021 10:27 AM Pathologist: Irma Moses MD Specimen: Slide Consultation 01/11/2021 11:44 AM CDT U PATHOLOGY LAB Embedded Images 01/11/2021 11:44 AM CDT [facility] PATHOLOGY LAB Pathology/Cytolo gy SURGICAL PATHOLOGY CONSULTATION AND REPORT ON REFERRED SLIDES PREPARED ELSEWHERE / Unknown 01/07/2021 10:27 AM CDT 01/10/2021 10:27 AM CDT Jackelyn Yoder MD LAB - PATHOLOGY/CYTO LOGY ORDERABLES Performing Organization Address City/[facility] Co de Phone Number [facility] PATHOLOGY LAB [address] [phone] documented in this encounter Visit Diagnoses Diagnosis Illness, unspecified documented in this encounter Care Teams Mandolin Repairer Relationship Specialty Start Date End Date Brenda Resendiz MD [address] [place] [address] PCP - General 11/01/21 documented as of this encounter
--- OUTSIDE RECORDS SUMMARY | 2024-11-21 10:19 | XMS_ITS | Encounter Summary ---
Author Organization [facility] Address [address] [place] [address] Care Team Providers Care Forging Press Setter Up Name Role Phone Derick Celaya MD Primary Care Provider [phone] Encounter Details Date Type Department Care Team (Late Contact Info) Description 11/18/2024 Orders Only [facility] Oncology and Hematology - Srikanth [address] [place] [address] Gino Basurto MD [address] [place], [place] [address] [employer] [address] [place] [address] Social History Tobacco Use Types Packs/Day Years Used Date Smoking Tobacco: Never Smokeless Tobacco: Never Alcohol Use Standard Drinks/Week Comments Yes 0 (1 standard drink = 0.6 oz pur e alcohol) socially Sex and Gender Information Value Date Recorded Sex Assigned at Not on file 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 Gender Identity Not on file Sexual Orientation Not on file documented as of this encounter Plan of Treatment Upcoming Encounters Date Type Department Care Team (Late st Contact Info) Description 12/02/2024 8:30 AM CDT Office Visit [facility] Oncology and Hematology - Srikanth [address] [place] [address] Gino Basurto MD [address] [facility] [employer] [address] [place] [address] documented as of this encounter Procedures Procedure Name Priority Date/Time Associated Diagnosis Comments BASIC METABOLIC PANEL Routine 11/18/2024 1:22 PM CDT COMPREHENSIVE METABOLIC PANEL Routine 11/18/2024 1:19 PM CDT documented in this encounter Results * BASIC METABOLIC PANEL (11/18/2024 1:22 PM CDT) Blood us Gino Basurto MD CHEMISTRY ORDERABLES Final Resu lt * COMPREHENSIVE METABOLIC PANEL (11/18/2024 1:19 PM CDT) Blood us Gino Basurto MD CHEMISTRY ORDERABLES Final Resu lt documented in this encounter Visit Diagnoses Not on filedocumented in this encounter Care Teams Forging Press Setter Up Relationship Specialty Start Date End Date Derick Celaya MD [address] [facility] [address] [place] [address] PCP - General Family Practice 10/07/24 documented as of this encounter
--- OUTSIDE RECORDS SUMMARY | 2024-11-21 10:19 | XMS_ITS | Encounter Summary ---
Author Organization [facility] Address [address] [place] [address] Care Team Providers Care Filter Tip Inspector Name Role Phone Derick Celaya MD Primary Care Provider [phone] Encounter Details Date Type Department Care Team (Late Contact Info) Description 11/21/2024 Orders Only [facility] Oncology and Hematology [facility] [address] [place] [address] Gino Basurto MD [address] [place], [place] [address] [address] [place] [phone] 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CMS/HCC) Social History Tobacco Use Types Packs/Day Years Used Date Smoking Tobacco: Never Smokeless Tobacco: Never Alcohol Use Standard Drinks/Week Comments Yes 0 (1 standard drink = 0.6 oz pur e alcohol) socially Sex and Gender Information Value Date Recorded Sex Assigned at Not on file 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 Gender Identity Not on file Sexual Orientation Not on file documented as of this encounter Plan of Treatment Upcoming Encounters Date Type Department Care Team (Late Contact Info) Description 12/02/2024 8:30 AM CDT Office Visit [facility] Oncology and Hematology [facility] [address] [place] [address] Gino Basurto MD [address] [facility] [employer] [address] [place] [phone] documented as of this encounter Visit Diagnoses Diagnosis 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
--- OUTSIDE RECORDS SUMMARY | 2024-11-21 10:19 | XMS_ITS | Clinical Summary ---
Author Organization [facility] Address [address], [address] [address] Phone Care Team Providers Care Wastewater Process Engineer Name Role Phone Brenda Resendiz MD Primary Care Provider [phone] Allergies No known active allergies Medications polyethylene [...] Take 1 Tab by mouth daily. 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
--- OUTSIDE RECORDS SUMMARY | 2024-11-21 10:19 | XMS_ITS | Clinical Summary ---
Author Organization [facility] Address [address] [place] [address] Care Team Providers Care Management Analyst Name Role Phone Brenda Resendiz MD Primary Care Provider [phone] Social History Tobacco Use Types Packs/Day Years [...] patient's age to complete this topic Insurance [facility] Care Teams Management Analyst Relationship Specialty Start Date End Date Brenda Resendiz MD [address] [facility] [address] [place] [address] [place] [address] PCP - General FAMILY PRACTICE 11/09/20
--- OUTSIDE RECORDS SUMMARY | 2024-11-21 10:19 | XMS_ITS | Clinical Summary ---
Author Organization [facility] Address [address] [place] [address] Phone Care Team Providers Care Hanging Flags Decorator Name Role Phone Derick Celaya MD Primary Care Provider [phone] Allergies No known active allergies Medications lisinopriL [...] Encounters Date Type Department Care Team Description 11/21/2024 Orders Only [facility] Oncology and Hematology - [place] [address] [place] [address] Gino Basurto MD 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CMS/HCC) 11/18/2024 Orders Only [facility] On[facility] - Srikanth [address] Gino Basurto MD 11/14/2024 Orders Only [facility] On[facility]emat[facility] - Srikanth [address] Gino Basurto MD Benign hypertension 11/08/2024 [facility] Oncology and Hematology - Srikanth [address] [place] [phone] Gino Basurto MD 11/08/[address] [facility] Oncology and Hematology - Srikanth [address] Gino Basurto MD Cough 11/07/2024 Orders Only [facility] Oncology and Hematology - Srikanth [address] Gino Basurot MD 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CMS/HCC) 11/04/2024 8:30 AM CDT Office Visit [facility] Oncology and Hematology - Srikanth [address] Gino Basurto MD 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CMS/HCC) (Primary Dx) 10/31/2024 Orders Only [facility] Oncology and [facility]ematology - Srikanth Yassine [address] [place] [address] Gino Basurto MD Benign hypertension 10/27/2024 Orders Only [facility] Oncology and Hematology - Srikanth [address] [place] [address] Gino Basurto MD 10/27/[address] [facility] Oncology and Hematology - Srikanth [address] [place] [phone] Gino Basurto MD 10/24/2024 [facility] Oncology and Hematology - Srikanth [address] [place] [address] Gino Basurto MD 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[facility]/HCC) 10/17/2024 [facility] Oncology and Hematology - Srikanth [address] [place] [address] Gino Basurto MD Benign hypertension 10/10/2024 Orders Only [facility] Oncology and Hematology - Srikanth [address] [place] [address] Gino Basurto MD 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[facility]/HCC) 10/07/2024 10:00 AM CLASSROOM TECHNOLOGY COACH Office Visit [facility] Oncology and Hematology - Srikanth [address] [place] [address] Gino Basurto MD 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[facility]/HCC) (Primary Dx) 10/07/2024 [facility] Oncology and Hematology - Srikanth [address] [place] [address] Gino Basurto MD 10/03/2024 Orders Only [facility] Oncology and Hematology - Srikanth [address] [place] [id number] Gino Basurto MD Benign hypertension 09/26/2024 [facility] Oncology and Hematology - Srikanth [address] [place] [address] Gino Basurto MD 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[facility]/HCC) 09/23/2024 [facility] Oncology and Hematology - Srikanth [address] Gino Basurto MD 09/22/2024 Orders Only [facility] Oncology and Hematology - Srikanth [address] Gino Basurto MD Benign hypertension (Primary Dx) 09/12/2024 [facility] Oncology and Hematology - Srikanth [address] [place] [phone] Gino Basurto MD 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CMS/HCC) 09/09/2024 8:30 AM CLASSROOM TECHNOLOGY COACH Office Visit [facility] Oncology and Hematology - Srikanth [address] [place] [address] Gino Basurto MD Metastatic melanoma (CMS/HCC) (Primary Dx) 09/09/2024 Orders Only [facility] Oncology and Hematology - Srikanth [address] [place] [address] Gino Basurto MD 09/05/2024 Orders Only [facility] Oncology and Hematology - Srikanth [address] [place] [address] Gino Basurto MD 09/02/2024 Orders Only [facility] Oncology and Hematology - Srikanth [address] [place] [phone] Gino Basurto MD 08/30/2024 Orders Only [facility] Oncology and Hematology - [place] [address] [place] [id number] Gino Basurto MD 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CMS/HCC) (Primary Dx) 08/28/2024 Refill [facility] Oncology and Hematology - Srikanht [address] Gino Basurto MD 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CMS/HCC) from Last 3 Months Family History Medical [...] on file Legal Sex Male 3:43 PM CLASSROOM TECHNOLOGY COACH Gender Identity Not on file Sexual Orientation [...] cm (5' 8 ) 08/05/2023 2:56 PM CLASSROOM TECHNOLOGY COACH Body Mass Index 32.45 08/05/2023 2:56 PM CLASSROOM TECHNOLOGY COACH Plan of Treatment Upcoming Encounters Date Type Department Care Team (Late st Contact Info) Description 12/02/2024 8:30 AM CDT Office Visit [facility] Oncology and Hematology - [place] [address] [place] [address] [facility] 200 [place] [address] Gino Basurto MD [address] [facility] [address] [place] [address] Health Maintenance Due Date [...] METABOLIC PANEL Routine 11/18/2024 1:19 PM CDT BASIC METABOLIC PANEL Routine 11/04/2024 4:23 PM CDT BASIC METABOLIC PANEL Routine 11/04/2024 4:20 PM CDT COMPREHENSIVE METABOLIC PANEL Routine 11/04/2024 4:14 PM CDT CBC WITH DIFFERENTIAL Routine 10/21/2024 2:01 PM CLASSROOM TECHNOLOGY COACH COMPREHENSIVE METABOLIC PANEL Routine 10/21/2024 10:01 AM CLASSROOM TECHNOLOGY COACH CBC WITH DIFFERENTIAL Routine 10/07/2024 10:09 AM CLASSROOM TECHNOLOGY COACH BASIC METABOLIC PANEL Routine 09/23/2024 12:26 PM CLASSROOM TECHNOLOGY COACH CBC WITH AUTODIFFERENTIAL Routine 2024 12:25 PM CLASSROOM TECHNOLOGY COACH COMPREHENSIVE METABOLIC PANEL Routine 09/23/2024 8:51 AM CLASSROOM TECHNOLOGY COACH BASIC METABOLIC PANEL Routine 09/09/2024 2:57 PM CLASSROOM TECHNOLOGY COACH COMPREHENSIVE METABOLIC PANEL Routine 09/09/2024 2:[address] CHEST ABDOMEN PELVIS W CONT Routine 09/02/2024 10:48 AM CLASSROOM TECHNOLOGY COACH BASIC METABOLIC PANEL Routine 08/26/2024 11:45 AM CLASSROOM TECHNOLOGY COACH COMPREHENSIVE METABOLIC PANEL Routine 08/26/2024 11:13 AM CLASSROOM TECHNOLOGY COACH CBC WITH DIFFERENTIAL Routine 08/26/2024 10:15 AM CLASSROOM TECHNOLOGY COACH from Last 3 Months Results * BASIC METABOLIC PANEL (11/18/2024 1:22 PM CDT) Only the most recent of6 resultswithin the time period is included. Blood us Gino Basurto MD CHEMISTRY ORDERABLES Final Resu lt * COMPREHENSIVE METABOLIC PANEL (11/18/2024 1:19 PM CDT) Only the most recent of6 resultswithin the time period is included. Blood us Gino Basurto MD CHEMISTRY ORDERABLES Final Resu lt * CBC WITH DIFFERENTIAL (10/21/2024 2:01 PM CLASSROOM TECHNOLOGY COACH) Only the most recent of3 resultswithin the time period is included. Blood us Gino Basurto MD HEMATOLOGY ORDERABLES Final Res ult * CBC WITH AUTODIFFERENTIAL (09/23/2024 12:25 PM CLASSROOM TECHNOLOGY COACH) Blood Gino Basurto MD HEMATOLOGY ORDERABLES Final Res ult * CT CHEST ABDOMEN PELVIS W CONT (09/02/2024 10:48 AM CLASSROOM TECHNOLOGY COACH) Anatomical Region Laterality Modality Chest Computed Tomogra phy Gino Basurto MD CT ORDERABLES Final Result from Last 3 Months Insurance [facility] Address: [place] [id number] Care Teams Hanging Flags Decorator Relationship Specialty Start Date End Date Derick Celaya MD [address] [facility] 120 [place] [address] PCP - General Family Practice 10/07/24
--- OUTSIDE RECORDS SUMMARY | 2024-11-21 10:19 | XMS_ITS | Referral Summary ---
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 Gender Identity Male 01/04/2021 12:36 PM CDT [...] CDT Plan of Treatment Not on file Procedures Procedure Name Priority Date/Time Associated Diagnosis Comments CARDIOLOGY DOCUMENT SCAN Routine 025 11:03 AM CDT CARDIOLOGY DOCUMENT SCAN Routine 025 11:10 AM CDT CARDIOLOGY DOCUMENT SCAN Routine 025 11:01 AM CDT CARDIOLOGY DOCUMENT SCAN Routine 025 10:50 AM CDT CARDIOLOGY DOCUMENT SCAN Routine 025 10:48 AM CDT from Last 3 Months Results * Cardiology Document Scan (11/12/2024 11:03 AM CDT) Anatomical Region Laterality Modality Other [facility] Skyler Ferraro MD CV CARDIAC SERVICES PRO CEDURES Final Result * Cardiology Document Scan (11/11/2024 11:10 AM CDT) Anatomical Region Laterality Modality Other Sue Coffey NP CV CARDIAC SERVICES PROCEDUR ES Final Result * Cardiology Document Scan (11/11/2024 11:01 AM CDT) Anatomical Region Laterality Modality Other Kalpesh Ferraro MD CV CARDIAC SERVICES PRO CEDURES Final Result * Cardiology Document Scan (11/11/2024 10:50 AM CDT) Anatomical Region Laterality Modality Other Sue Coffey NP CV CARDIAC SERVICES PROCEDUR ES Final Result * Cardiology Document Scan (11/10/2024 10:48 AM CDT) Anatomical Region Laterality Modality Other Sue Coffey NP CV CARDIAC SERVICES PROCEDUR ES Final Result from Last 3 Months Insurance [employer] ADVANTAGE CHOICE PPO Care Teams Fence Erector Supervisor Relationship Specialty Start Date End Date Derick Celaya MD [address] [facility] [address] [place] [address] PCP - General Family Medicine 11/15/24
--- OUTSIDE RECORDS SUMMARY | 2024-11-21 10:19 | XMS_ITS | Clinical Summary ---
Author Organization [facility] [email or web address] Address [address] [place] [address] Care Team Providers Care Box Estimator Name Role Phone Brenda Resendiz MD Primary Care Provider + Source Comments [facility] [email or web address],non-owned Affiliates and Associated Physician Practices is amultiple site organization consisting of ambulatory clinics and hospital sitesin [place], [place], [place] and [place]. This disclosure is being madepursuant to the Care Everywhere program and may not contain all information available regarding this patient. Last updated 18.[facility] [email or web address] Social History Tobacco Use Types Packs/Day Years [...] age to complete this topic Care Teams Box Estimator Relationship Specialty Start Date End Date Brenda Resendiz MD [address] [place], [place] [id number] PCP - General 11/01/21
--- OUTSIDE RECORDS SUMMARY | 2024-11-21 10:20 | XMS_ITS | Clinical Summary ---
Author Organization [facility] [address] Address [address] [place] [address] Care Team Providers Care Matrix Inspector Name Role Phone Derick Celaya MD Primary Care Provider Allergies No known [...] Department Care Team Description 11/15/[address] 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
== END 2024-11-21 09:29 | disposition home or self-care (01) ==
PROVIDERS: PCP Family Medicine; Visit Provider Internal Medicine Hematology & Oncology
DX: C43.59 Malignant melanoma of other part of trunk (principal); J90 Pleural effusion, not elsewhere classified; R91.8 Other nonspecific abnormal finding of lung field
CPT/HCPCS: 71260; 74177; Q9967

== ENCOUNTER 2025-01-02 00:47 | Day surgery (SDC) | payer OTHER, SELFPAY ==
[2024-12-22 14:27] VITALS: BMI 29.6
--- NOTE | 2024-12-23 08:47 | PC.NURSE ---
0823-Spoke with anesthesia, Dr. Augustine, about pt's recent health history. Was in the hospital in October with SOB, Pneumonia, Atrial Flutter RVR, EF of 30-35%, & Cardioversion 11-09-24. Pt followed up with cardiology on 11-24-24. Pt states he's feeling good and is active playing hockey 3x week. Dr. Augustine okay with proceeding with colonoscopy on 01-02-25.
--- OUTSIDE RECORDS SUMMARY | 2025-01-02 00:50 | XMS_ITS | Continuity of Care Document ---
Author Organization [facility] Address [address] [place] [address] [place] [phone] Phone Care Team Providers Care Pastry Mixer Name Role Phone Lara PT,MPT,ATC, Lazaro Unavailable Unavai lable Procedures Procedure Date Therapeutic Activities Neuromuscular Re-Ed Therapeutic Exercise Therapeutic Activities Neuromuscular Re-Ed Therapeutic Exercise Therapeutic Activities Neuromuscular Re-Ed Therapeutic Exercise Therapeutic Activities Neuromuscular Re-Ed Therapeutic Activities Neuromuscular Re-Ed Therapeutic Exercise Doc neg elder mal no plan PT Evaluation Moderate Complexity Therapeutic Activities Neuromuscular Re-Ed Therapeutic Activities Therapeutic Exercise Neuromuscular Re-Ed Manual Therapy Therapeutic Activities Neuromuscular Re-Ed Manual Therapy Therapeutic Exercise Therapeutic Exercise Neuromuscular Re-Ed Manual Therapy Neuromuscular Re-Ed Manual Therapy Therapeutic Exercise Therapeutic Activities Manual Therapy Neuromuscular Re-Ed Therapeutic Exercise PT Evaluation Moderate Complexity Therapeutic Activities Manual Therapy Neuromuscular Re-Ed Advance Directives Directive Yes / No Effective Date File Name No Information Encounters Encounter Description Practice Location Reason(s) For Visit Diagnoses Date Provider Providers Copied on Encounter [facility] [address] [facility] [address], [place], [place], [id number], tel:[phone] [place] No Information 4 [place], [place], [place]. Referring Provider: Oleg Leonardo, 4 [facility] [address] [place], [address]. tel:[phone] [facility] [address] [facility] [address] [place] [address], [id number], tel:[phone] [place] No Information 4 [place], [place], [place]. Referring Provider: Oleg Leonardo, 4 [facility] [address] [facility], [place], [address]. tel:[phone] [facility] [address] [facility] [address], [place], [id number], [place] tel:[phone] [place] No Information 4 [place], [place]. Referring Provider: Oleg Leonardo, 4 [facility] [address] [place], [address]. tel:[phone] [facility] [address] [place] [address], [place], [id number], [place] tel:[phone] [place] No Information 4 [place], [place]. Referring Provider: Oleg Leonardo, 4 [facility] [address] [place], [address]. tel:[phone] [facility], [place], [place], [id number], [place] tel:[phone] [place] No Information 4 [place]. Referring Provider: Oleg Leonardo 4 [facility] [address] [place], [address]. tel:[phone] [facility] [address], [id number], tel:[phone] [place] No Information 4 [place], [place], . Referring Provider: Oleg Leonardo, 4 [facility] [address], [place], [address]. tel:[phone] [facility] [address], [id number], tel:[phone] [place] No Information 1 Garrels Beryl. . [facility], [id number], tel:[phone] [place] No Information 1 Garrels [place]. . [facility], [id number], tel:[phone] [place] No Information 1 Garrels Beryl. . [facility], [id number], tel:[phone] [place] No Information 0 1 Garrels Beryl. . [facility] [address], [id number], tel:[phone] [place] No Information 1 Garrels Beryl. . [facility], [id number], tel:[phone] [place] No Information 1 Garrels Beryl. . Family History Family Member Type Diagnosis Age At Onset No Information Payers Payer name Insurance type Covered green party ID Mónica pate(s) [facility] Insurance CI [id number] Social History Type Description Quantity Date Captured Comments Sex Male Smoking Status No Information Chief Complaint And Reason For Visit No Information Reason For Referral Reason For Referral No Information History Of Present Illness Encounter Date Complaint History Of Prese nt Illness No Information Functional Status Date Functional Assessmen t No Information Instructions Date Instruction Additional Infor nalini Giving encouragement to exercise Related to Overweight Giving encouragement to exercise Related to Overweight Assessments Type Assessment Date No Information Patient Care Teams Name Effective Dates (start - stop) Status Members No Information
--- OUTSIDE RECORDS SUMMARY | 2025-01-02 00:50 | XMS_ITS | Clinical Summary ---
Author Organization [facility] Address [address] [place] [address] Care Team Providers Care Derivatives Trader Name Role Phone Brenda Resendiz MD Primary Care Provider [phone] Social History Tobacco Use Types Packs/Day Years [...] Td Vaccines ( 1 - Tdap) 1976 Pneumococcal Vaccine: 50+ Ye ars (1 of 1 - PCV) 2007 Zoster Vaccines (1 of 2) 2007 COVID-19 Vaccine ( - 2023-2 5 season) 2024 RSV Immunization or 60+ Years (1 [...] patient's age to complete this topic Insurance [facility] Care Teams Derivatives Trader Relationship Specialty Start Date End Date Brenda Resendiz MD [address] [facility] [address] [place] [address] PCP - General FAMILY PRACTICE 11/09/20
--- OUTSIDE RECORDS SUMMARY | 2025-01-02 00:50 | XMS_ITS | Clinical Summary ---
Author Organization [facility] Address [address] [facility] [place] [address] Phone Care Team Providers Care Rag Baler Name Role Phone Derick Celaya MD Primary Care Provider [phone] Allergies No known active allergies Medications lisinopriL [...] mouth. Activ e ALPRAZolam (XANAX) 0.5 mg tabletIndicati ons:Anxiety state Take 1 Tablet (0.5 mg) by mouth nightly as needed for Anxiety. 30 Tablet 1 3 Active ondansetron (ZOFRAN ODT) 8 mg Tablet, Rapid DissolveIndica tions: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CMS/HCC) Dissolve 1 tablet on top of tongue then swallow with saliva every 8 hours as needed for nausea or vomiting 30 Tablet 1 3 Active lidocaine-pril ocaine (EMLA) 2.5-2.5 % CreamIndicatio ns: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CMS/HCC) Apply to affected area see administration instructions. 30 Gram 1 3 Active traMADoL (ULTRAM) 50 mg tabletIndicati ons:Mediastina l mass,Metastati c melanoma (CMS/HCC),Odyn ophagia Take 1 Tablet (50 mg) by mouth every 8 hours as needed for Pain, Moderate or Pain, Severe. May take up to 2 Tablets (100 mg) every 8 hours if needed. 90 Tablet 3 Active sucralfate (Carafate) 100 mg/mL suspensionIndi cations:Medias tinal mass,Odynophag ia,Metastatic melanoma (CMS/HCC) Take 10 mL (1 Gram) by mouth every 6 hours. Take 10 mL by mouth TID with meals. 414 mL 1 4 Active oxyCODONE-acet aminophen (PERCOCET) 5-325 mg tabletIndicati ons:Metastatic melanoma (CMS/HCC),Medi astinal mass,Odynophag ia Take 1 Tablet by mouth every 4 hours as needed for Pain, Moderate. Max Daily Amount: 6 Tablets 60 Tablet 4 Active Arnuity Ellipta 200 mcg/actuation inhaler Take 200 mcg by inhalation daily. 4 Active potassium chloride (KLOR-CON M20) 20 mEq Extended Release tabletIndicati ons: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CMS/HCC) Take 1 Tablet (20 mEq) by mouth 2 times daily. 180 Tablet 2 5 Active pseudoephedrin e-guaiFENesin (MUCINEX D MAX STRENGHT) 120-1,200 mg Extended Release 12 hour tablet Take 1 Tablet by mouth 2 times daily. 60 Tablet 2 5 Active levoFLOXacin (LEVAQUIN) 500 mg tablet Take 1 Tablet (500 mg) by mouth daily. 7 Tablet 5 Active methylPREDNISo lone (MEDROL DOSPACK) 4 mg Tablets, Dose Pack Use as directed 21 Tablet 5 Active methylPREDNISo lone (MEDROL DOSPACK) 4 mg Tablets, Dose Pack Use as directed 21 Tablet 5 Active Active Problems Problem Noted Date Diagnosed Date Mediastinal mass 07/30/2023 Encounters Date Type Department Care Team Description 01/02/2025 Orders Only [facility] - [place] [address] [place] [address] Gino Basurto MD 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CMS/HCC) 12/30/2024 8:30 AM CDT Office Visit [facility] - [facility] [address] Gino Basurto MD 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[facility]/HCC) (Primary Dx) 12/30/2024 Orders Only [facility] - [place] [address] [place] [address] Gino Basurto MD 12/26/2024 Orders Only [facility] - [place] Gino Basurto MD Benign hypertension 12/19/2024 Orders Only [facility] - [address] Gino Basurto MD 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[facility]/HCC) 12/12/2024 Orders Only [facility] - [place] Gino Basurto MD Benign hypertension 12/05/2024 Orders Only [facility] - [place] Gino Basurto MD 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[facility]/HCC) 12/02/2024 8:30 AM CDT Office Visit [facility] - [address] [place] [phone] Gino Basurto MD 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[facility]/HCC) (Primary Dx) 11/28/2024 Orders Only [facility] - [place] Gino Basurto MD Benign hypertension 11/21/2024 Orders Only [facility] - [place] Gino Basurto MD 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[facility]/HCC) 11/18/2024 [facility] On[facility] H[facility]ology - [place] [address] [place] [id number] Gino Basurto MD 11/14/2024 Orders Only [facility] - [place] [address] [place] [id number] Gino Basurto MD Benign hypertension 11/08/2024 [facility] On[facility] and Hematology - [place] [address] [place] [phone] Gino Basurto MD 11/08/2024 Telephone [facility] - [place] [address] [place] [address] Gino Basurto MD Cough 11/07/2024 [facility] On[facility] and H[facility]ology - [place] [address] [place] [id number] Gino Basurto MD 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CMS/HCC) 11/04/2024 8:30 AM CDT Office Visit [facility] - [place] [address] [place] [phone] Gino Basurto MD 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CMS/HCC) (Primary Dx) 10/31/2024 [facility] On[facility] and Hematology - [place] [address] [place] [address] Gino Basurto MD Benign hypertension 10/27/2024 [facility] On[facility] and Hematology - [place] [address] [place] [address] Gino Basurto MD 10/27/[address] [facility] On[facility] and Hematology - [place] [address] [place] [address] Gino Basurto MD 10/24/2024 [facility] On[facility] and Hematology - [place] [address] Gino Basurto MD 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[facility]/HCC) 10/17/2024 Orders Only [facility] [address] Gino Basurto MD Benign hypertension 10/10/2024 Orders Only [facility] [address] [place] [address] Gino Basurto MD 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[facility]/HCC) 10/07/2024 10:00 AM JACKSPOOLER Office Visit [facility] [address] [place] [id number] Gino Basurto MD 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[facility]) (Primary Dx) 10/07/2024 Orders Only [facility] [address] [place] [id number] Gino Basurto MD from Last 3 Months [...] on file Legal Sex Male 3:43 PM JACKSPOOLER Gender Identity Not on file Sexual Orientation Not on file Last Filed Vital Signs Vital Sign Reading Time Taken Comments Blood Pressure 108/68 12/30/2024 8:35 AM CDT Pulse 91 12/30/2024 8:35 AM CDT Temperature 36.6 C (97.9 F) 12/30/2024 8:35 AM CDT Respiratory Rate 16 12/30/2024 8:35 AM CDT Oxygen Saturation 93% 12/30/2024 8:35 AM CDT Inhaled Oxygen Concentration - - Weight 90.1 kg (198 lb 9.6 oz) 12/30/2024 8:35 A M CDT Height 172.7 cm (5' 8 ) 08/05/2023 2:56 PM JACKSPOOLER Body Mass Index 30.2 08/05/2023 2:56 PM JACKSPOOLER Plan of Treatment Upcoming Encounters Date Type Department Care Team (Late st Contact Info) Description 02/03/2025 9:30 AM CDT Office Visit [facility] - [place] [address] [facility] [address] [place] [address] Gino Basurto MD [address] [facility] [address] [place] [address] Health Maintenance Due Date Last Done Comments Pre-Diabetes and Diabetes Screening 1955 DTAP/TDAP/TD VACCINES (1 - Tdap) 1976 FIT-DNA Q 3 years 2002 FIT/FOBT Q 1 year 2002 Flex Sig/CT Colonography Q 5 years 2002 PNEUMOCOCCAL VACCINE 50+ YEARS (1 of 1 - PCV) 10/13/19 08 ZOSTER VACCINE (1 of 2) 2007 INFLUENZA VACCINE (#1) 2024 COLORECTAL SCREENING 12/08/2026 12/08/2016 Colorectal Cancer Screening 12/08/2026 RSV VACCINE (60+ or ) (1 - 1-dose 75+ series) 2032 Procedures Procedure Name Priority Date/Time Associated Diagnosis Comments BASIC METABOLIC PANEL Routine 12/30/2024 1:29 PM CDT CBC WITH AUTODIFFERENTIAL Routine 2024 1:26 PM CDT BASIC METABOLIC PANEL Routine 12/16/2024 10:18 AM CDT COMPREHENSIVE METABOLIC PANEL Routine 12/16/2024 9:48 AM CDT COMPREHENSIVE METABOLIC PANEL Routine 12/02/2024 12:23 PM CDT BASIC METABOLIC PANEL Routine 12/02/2024 11:[address] CHEST ABDOMEN PELVIS W CONT Routine 11/21/2024 11:27 AM CDT BASIC METABOLIC PANEL Routine 11/18/2024 1:22 PM CDT COMPREHENSIVE METABOLIC PANEL Routine 11/18/2024 1:19 PM CDT BASIC METABOLIC PANEL Routine 11/04/2024 4:23 PM CDT BASIC METABOLIC PANEL Routine 11/04/2024 4:20 PM CDT COMPREHENSIVE METABOLIC PANEL Routine 11/04/2024 4:14 PM CDT CBC WITH DIFFERENTIAL Routine 10/21/2024 2:01 PM JACKSPOOLER COMPREHENSIVE METABOLIC PANEL Routine 10/21/2024 10:01 AM JACKSPOOLER CBC WITH DIFFERENTIAL Routine 10/07/2024 10:09 AM JACKSPOOLER from Last 3 Months Results * BASIC METABOLIC PANEL (12/30/2024 1:29 PM CDT) Only the most recent of6 resultswithin the time period is included. Blood us Gino Basurto MD CHEMISTRY ORDERABLES Final Resu lt * CBC WITH AUTODIFFERENTIAL (12/30/2024 1:26 PM CDT) Blood us Gino Basurto MD HEMATOLOGY ORDERABLES Final Res ult * COMPREHENSIVE METABOLIC PANEL (12/16/2024 9:48 AM CDT) Only the most recent of5 resultswithin the time period is included. Blood us Gino Basurto MD CHEMISTRY ORDERABLES Final Resu lt * CT CHEST ABDOMEN PELVIS W CONT (11/21/2024 11:27 AM CDT) Anatomical Region Laterality Modality Chest Computed Tomogra phy us Gino Basurto MD CT ORDERABLES Final Result * CBC WITH DIFFERENTIAL (10/21/2024 2:01 PM JACKSPOOLER) Only the most recent of2 resultswithin the time period is included. Blood us Gino Basurto MD HEMATOLOGY ORDERABLES Final Res ult from Last 3 Months Insurance [facility] Care Teams Rag Baler Relationship Specialty Start Date End Date Derick Celaya MD [address] [facility] [address] [place] [id number] PCP - General Family Practice 10/07/24
--- OUTSIDE RECORDS SUMMARY | 2025-01-02 00:50 | XMS_ITS | Encounter Summary ---
Author Organization [facility] Address [address] [facility] [place] [address] Care Team Providers Care Bunch Maker Hand Name Role Phone Brenda Resendiz MD Primary Care Provider + Encounter Details Date Type Department Care Team (Late st Contact Info) Description 01/10/2021 Lab Requisition [facility] Care Pathology Lab [address] [place] [address] Jackelyn Yoder MD [address] [place], [place] [id number] Illness, unspecified Social History Tobacco Use Types Packs/Day Years Used Date Smoking Tobacco: Never Assessed Sex and Gender Information Value Date Recorded Sex Assigned at Not on file Legal Sex Male 8:43 AM CDT Gender Identity Not on file Sexual [...] Final Diagnosis PROSTATE, LLB, NEEDLE BIOPSY (OSC: [id number], A; 01/07/2021): - Benign prostatic tissue PROSTATE, LLM, NEEDLE BIOPSY (OSC: [id number], B; 01/07/2021): - Benign prostatic tissue PROSTATE, LLA, NEEDLE BIOPSY (OSC: [id number], C; 01/07/2021): - Focal glandular atypia, consistent with partial atrophy PROSTATE, LB, NEEDLE BIOPSY (OSC: [id number], D; 01/07/2021): - Benign prostatic tissue PROSTATE, LM, NEEDLE BIOPSY (OSC: [id number], E; 01/07/2021): - Benign prostatic tissue PROSTATE, LA, NEEDLE BIOPSY (OSC: [id number], F; 01/07/2021): - Benign prostatic tissue PROSTATE, RB, NEEDLE BIOPSY (OSC: [id number], G; 01/07/2021): - Benign prostatic tissue PROSTATE, RM, NEEDLE BIOPSY (OSC: [id number], H; 01/07/2021): - Benign prostatic tissue PROSTATE, RA, NEEDLE BIOPSY (OSC: [id number], I; 01/07/2021): - Benign prostatic tissue PROSTATE, RLB, NEEDLE BIOPSY (OSC: [id number], J; 01/07/2021): - Benign prostatic tissue PROSTATE, RLM, NEEDLE BIOPSY (OSC: [id number], K; 01/07/2021): - Benign prostatic tissue PROSTATE, RLA, NEEDLE BIOPSY (OSC: [id number], L; 01/07/2021): - Benign prostatic tissue PROSTATE, BENITA, NEEDLE BIOPSY (OSC: [id number], M; 01/07/2021): - Benign prostatic tissue 01/11/2021 11:44 AM [facility] Microscopic Description and Comment [...] interpretation of partial atrophy. 01/11/2021 11:44 AM [facility] Clinical History PSA 4.9, ABNORMAL MR, FUSION BIOPSY, PROSTATE VOLUME 64 BENITA = RIGHT LATERAL CENTRAL PROSTATE LEVEL AT MID GLAND X3 01/11/2021 11:44 AM [facility] Materials Received Received are five prepared slides from [facility] labeled [id number] (A1-D1 and A-D PIN4). All material will be returned. 01/11/2021 11:44 AM CDT [facility] Disclaimer The performance characteristics of all immunohistochemical and indirect immunofluorescence stains (if any) cited in this report were determined by the Histopathology Laboratory of [facility]. Some of these tests were developed by [...] attending (teaching) pathologist. 01/11/2021 11:44 AM CDT [facility] Case Report Surgical Pathology Report Case: [id number] Authorizing Provider: Jackelyn Yoder MD Collected: 01/07/2021 10:27 AM Ordering Location: [facility] Received: 01/10/2021 10:27 AM Pathologist: Irma Moses MD Specimen: Slide Consultation 01/11/2021 11:44 AM CDT [facility] Embedded Images 01/11/2021 11:44 AM CDT [facility] Pathology/Cytolo gy SURGICAL PATHOLOGY CONSULTATION AND REPORT ON REFERRED SLIDES PREPARED ELSEWHERE / Unknown 01/07/2021 10:27 AM CDT 01/10/2021 10:27 AM CDT Jackelyn Yoder MD LAB - PATHOLOGY/CYTOLOGY ORDERAB LES Final Result [facility] [address] [phone] documented in this encounter Visit Diagnoses Diagnosis Illness, unspecified documented in this encounter Care Teams Bunch Maker Hand Relationship Specialty Start Date End Date Brenda Resendiz MD [address] [place] [address] PCP - General 11/01/21 documented as of this encounter
--- OUTSIDE RECORDS SUMMARY | 2025-01-02 00:50 | XMS_ITS | Clinical Summary ---
Author Organization [facility] Address [address] [place] [address] Care Team Providers Care Fha Underwriter Name Role Phone Brenda Resendiz MD Primary Care Provider + Source Comments [facility],non-owned Affiliates and Associated Physician Practices is amultiple site organization consisting of ambulatory clinics and hospital sitesin [place], [place], [place] and [place]. This disclosure is being madepursuant to the Care Everywhere program and may not contain all information available regarding this patient. Last updated 18.[facility] Social History Tobacco Use Types Packs/Day Years [...] VACCINE ( - 2023-2 5 season) 2024 DEPRESSION SCREENING 08/24/2024 INFLUENZA VACCINE (Season Ended) 2025 Respiratory Syncytial Virus (RSV) Vaccine Pt: or [...] patient's age to complete this topic Insurance [employer] AD[employer] PPO [employer] [place] [address] [address] [phone] SELF PAY NO INSURANCE Member Subscriber Plan / Payer (Ef fective for All Dates) Name:Schnur, Arsh W II Member ID:Not on file Relation to Subscriber:Not on file Name:RADHAAidaARSH SAENZ Subscriber ID:Not on file [facility] [address] Payer ID:Not on file Group ID:Not on file Type:Self Pay Address: [place], [place] MEDICARE ADV PPO SELF PAY NO INSURANCE Member Subscriber Plan / Payer (Ef fective for All Dates) Name:Arsh Leiva W II Member ID:Not on file Relation to Subscriber:Not on file Name:RADHAAidaARSH SAENZ Subscriber ID:Not on file Address: [address] [place], [place] [address] [address] Payer ID:Not on file Group ID:Not on file Type:Self Pay Address: [place] MEDICARE ADV PPO SELF PAY NO INSURANCE Member Subscriber Plan / Payer (Ef fective for All Dates) Name:Arsh Leiva II Member ID:Not on file Relation to Subscriber:Not on file Name:ARSH LEIVA Subscriber ID:Not on file Address: [address] [place] [address] Payer ID:Not on file Group ID:Not on file Type:Self Pay Address: [place], [place] Care Teams Fha Underwriter Relationship Specialty Start Date End Date Brenda Resendiz MD [address] [place] [address] PCP - General 11/01/21
--- OUTSIDE RECORDS SUMMARY | 2025-01-02 00:50 | XMS_ITS | Encounter Summary ---
Author Organization [facility] Address [address] [place] [address] Care Team Providers Care Hand Booked Folder And Stitcher Name Role Phone Derick Celaya MD Primary Care Provider [phone] Encounter Details Date Type Department Care Team (Late Contact Info) Description 01/02/[address] [facility] Oncology and Hematology [facility] [address] [place] [address] Gino Basurto MD [address] [place], [place] [address] [address] [place] [phone] 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CMS/HCC) Social History Tobacco Use Types Packs/Day Years Used Date Smoking Tobacco: Never Smokeless Tobacco: Never Alcohol Use Standard Drinks/Week Comments Yes 0 (1 standard drink = 0.6 oz pur e alcohol) socially Sex and Gender Information Value Date Recorded Sex Assigned at Not on file Legal Sex Male 3:43 PM HEALTHCARE LIAISON Gender Identity Not on file Sexual Orientation Not on file documented as of this encounter Plan of Treatment Upcoming Encounters Date Type Department Care Team (Late Contact Info) Description 02/03/2025 9:30 AM CDT Office Visit 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
--- OUTSIDE RECORDS SUMMARY | 2025-01-02 00:50 | XMS_ITS | Clinical Summary ---
Author Organization [facility] Address [address], [address] [address] Phone Care Team Providers Care Painter Assistant Name Role Phone Brenda Resendiz MD Primary Care Provider [phone] Allergies No known active allergies Medications polyethylene [...] Take 1 Tab by mouth daily. 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
--- OUTSIDE RECORDS SUMMARY | 2025-01-02 00:51 | XMS_ITS | Clinical Summary ---
Author Organization [facility] [address] Address [address] [place] [address] Care Team Providers Care Tractor Operator Battery Name Role Phone Derick Celaya MD Primary Care Provider Allergies No known active allergies Medications testosterone cypionate (DEPO-TESTOTER ONE) 200 mg/mL injection once a week 0 Active atorvastatin (LIPITOR) 40 mg tablet Take 1 tablet (40 mg total) by mouth daily 90 tablet 2 4 Active azelastine (ASTELIN) 137 mcg (0.1 %) nasal spray USE 1 SPRAY INTRANASALLY EVERY 12 HOURS ADMINISTER INTO EACH NOSTRIL 5 Active spironolactone (ALDACTONE) 25 mg tablet Take 1 tablet (25 mg total) by mouth daily 90 tablet 3 5 Active metoprolol XL (TOPROL-XL) 50 mg extended release tablet Take 1 tablet (50 mg total) by mouth daily 90 tablet 3 5 Active lisinopriL (PRINIVIL,ZEST RIL) 20 mg tablet Take 1 tablet (20 mg total) by mouth daily 90 tablet 3 5 Active furosemide (LASIX) 40 mg tablet Take 1 tablet (40 mg total) by mouth daily 90 tablet 3 5 Active Eliquis 5 mg tablet Take 1 tablet (5 mg total) by mouth 2 (two) times a day 180 tablet 2 5 Active lisinopriL (PRINIVIL,ZEST RIL) 20 mg tablet Take 1 tablet (20 mg total) by mouth daily 5 025 Discontin ued(Reord er) metoprolol XL (TOPROL-XL) 50 mg extended release tablet Take 1 tablet (50 mg total) by mouth daily 5 025 Discontin ued(Reord er) Eliquis 5 mg tablet Take 1 tablet (5 mg total) by mouth 2 (two) times a day 5 025 Discontin ued(Reord er) furosemide (LASIX) 40 mg tablet Take 1 tablet (40 mg total) by mouth daily 5 025 Discontin ued(Reord er) spironolactone (ALDACTONE) 25 mg tablet Take 1 tablet (25 mg total) by mouth daily 5 025 Discontin ued(Reord er) Active Problems Problem Noted Date Diagnosed Date CAD (coronary artery disease) 03/17/2017 History of coronary artery stent placement 03/17 Inguinal pain 10/26/2012 Encounters Date Type Department Care Team Description 12/08/2024 Telephone [facility] Cardiology [address] [place] [phone] Morgan Clay MD 12/02/2024 Telephone [facility] Cardiology [address] [place] [address] [place] [phone] Morgan Clay MD 11/24/2024 10:00 AM CDT Office Visit [facility] Cardiology [address] [place] [phone] Kaylin Narvaez NP Cardiomyopathy, unspecified type (HCC) (Primary Dx); Paroxysmal atrial fibrillation (HCC); Paroxysmal atrial flutter (HCC); Chronic anticoagulation; Coronary artery disease involving [place] coronary artery of [place] heart without angina pectoris; Hospital discharge follow-up 11/15/2024 Orders Only [facility] Cardiology [address] [place] [address] [place] [phone] Sue Coffey NP from Last 3 Months [...] more drinks on one occasion? Monthly 04/06/2024 Sex and Gender Information Value Date Recorded Sex Assigned at Not on file Legal Sex Male 4:02 AM PROCESS WORKER Gender Identity Male 01/04/2021 12:36 PM CDT Sexual Orientation Straight 01/04/2021 12 :36 PM CDT Obstetrics History Last Filed Vital Signs Vital Sign Reading Time Taken Comments Blood Pressure 130/84 11/24/2024 10:02 AM CDT Pulse 96 11/24/2024 10:02 AM CDT Temperature 37 C (98.6 F) 01/02/2022 7:02 PM CDT Respiratory Rate 18 04/06/2024 2:59 PM CDT Oxygen Saturation 97% 11/24/2024 10:02 AM CDT Inhaled Oxygen Concentration - - Weight 93.4 kg (206 lb) 11/24/2024 10:02 AM CDT Height 175.3 cm (5' 9 ) 11/24/2024 10:02 AM CDT Body Mass Index 30.42 11/24/2024 10:02 AM CDT Plan of Treatment Health Maintenance [...] Td or Tdap) 05/26/2023 05/26/2013 Influenza Vaccine (Season Ended) 2025 05/03/2020, 05/13/2019, 05/18/2018, Additional history exists Procedures Procedure [...] AM CDT) Anatomical Region Laterality Modality Other Seu Coffey NP [facility] PROCEDUR ES Final Result from Last 3 Months Insurance [employer] PPO Care Teams Tractor Operator Battery Relationship Specialty Start Date End Date Derick Celaya MD [address] [facility] [address] [place] [address] PCP - General Family Medicine 11/15/24
--- OUTSIDE RECORDS SUMMARY | 2025-01-02 00:51 | XMS_ITS | Encounter Summary ---
Author Organization [facility] Address [address] [place] [address] Care Team Providers Care Behavior Clinician Name Role Phone Derick Celaya MD Primary Care Provider [phone] Encounter Details Date Type Department Care Team (Late Contact Info) Description 12/30/2024 Orders Only [facility] Oncology and Hematology - Srikanth [address] [place] [address] Gino Basurto MD 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 [employer] [address] [place] [phone] documented as of this encounter Procedures Procedure Name Priority Date/Time Associated Diagnosis Comments BASIC METABOLIC PANEL Routine 12/30/2024 1:29 PM CDT CBC WITH AUTODIFFERENTIAL Routine 2024 1:26 PM CDT documented in this encounter Results * BASIC METABOLIC PANEL (12/30/2024 1:29 PM CDT) Blood us Gino Basurto MD CHEMISTRY ORDERABLES Final Resu lt * CBC WITH AUTODIFFERENTIAL (12/30/2024 1:26 PM CDT) Blood us Gino Basurto MD HEMATOLOGY ORDERABLES Final Res ult documented in this encounter Visit Diagnoses Not on filedocumented in this encounter Care Teams Behavior Clinician Relationship Specialty Start Date End Date Derick Celaya MD [address] [facility] [address] [place] [phone] PCP - General Family Practice 10/07/24 documented as of this encounter
--- OUTSIDE RECORDS SUMMARY | 2025-01-02 00:51 | XMS_ITS | Referral Summary ---
Author Organization [facility] [address] [address] [place] [address] [address] [place] [address] Care Team Providers Care Emergency Care Attendant Name Role Phone Derick Celaya MD Primary Care Provider Encounters Date Type Department Care Team Description 12/08/2024 Telephone [facility] Cardiology [address] [place] [address] [address] [place] [address] Morgan Clay MD 12/02/2024 Telephone [facility] Cardiology [address] [place] [address] [address] [place] [address] Morgan Clay MD 11/24/2024 10:00 AM CDT Office Visit [facility] Cardiology [address] [place] [address] [address] [place] [address] Kaylin Narvaez NP Cardiomyopathy, unspecified type (HCC) (Primary Dx); Paroxysmal atrial fibrillation (HCC); Paroxysmal atrial flutter (HCC); Chronic anticoagulation; Coronary artery disease involving [place] coronary artery of [place] heart without angina pectoris; Hospital discharge follow-up 11/15/2024 Orders Only [facility] Cardiology [address] [place] [address] [address] [place] [address] Sue Coffey NP from Last [...] on file Legal Sex Male 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
[2025-01-02 12:44] VITALS: BP 131/79; PULSE 86; RESP 20; TEMP 36.1; O2SAT 99; BMI 29.5
[2025-01-02] MEDS: LACTATED RINGERS 1,000 ML 150 ML IV CONT (12:55)
--- NOTE | 2025-01-02 13:18 | P.PNAN_ITS ---
Anes - Initial Pre Proc Eval Procedure: Operation Date: 01/02/25 14:00 Proposed Procedures p Colonoscopy - Ovidio Gross MD Date/Time: 01/02/25 13:18 Surgeon: Ovidio Gross MD Pre Op Diagnosis: Personal history of colon polyps, unspecified Patient Data Age: 69 Gender: M Height: 1.73 m Weight: 88.2 kg Last Vital Signs Temp 36.1 C L 01/02/25 12:44 Pulse 86 01/02/25 12:44 Resp 20 01/02/25 12:44 BP 131/79 01/02/25 12:44 Pulse Ox 99 01/02/25 12:44 O2 Del Method Room Air 01/02/25 12:44 Allergies Allergy/AdvReac Type Severity Reaction Status Date / Time No Known Allergies Allergy Verified 01/02/25 12:42 Home Medications ?Medication ?Instructions ?Recorded ?Confirmed ?Type atorvastatin 40 mg tablet See Rx Instructions .Route 03/29/24 01/02/25 Rx .COMPLEX #90 tabs azelastine 137 mcg (0.1 %) nasal 1 spray intranasal Q12H #90 mL 11/01/24 01/02/25 Rx spray omeprazole 40 mg capsule,delayed 40 mg PO DAILY 11/09/24 01/02/25 History release pseudoephedrine-guaifenesin ER 120 1 tablet PO Q12H 11/09/24 01/02/25 History mg-1,200 mg tab,extend release 12hr (Mucinex D Maximum Strength) furosemide 40 mg tablet 40 mg PO DAILY 30 days #30 tabs 11/12/24 01/02/25 Rx lisinopril 20 mg tablet 20 mg PO QAM 30 days #30 tabs 11/12/24 01/02/25 Rx metoprolol succinate 50 mg 50 mg PO QAM 30 days #30 tabs 11/12/24 01/02/25 Rx tablet,extended release 24 hr spironolactone 25 mg tablet 25 mg PO QAM 30 days #30 tabs 11/12/24 01/02/25 Rx potassium chloride 20 mEq 20 meq PO DAILY 12/02/24 01/02/25 History tablet,extended release(part/cryst) (Klor-Con M) Patient hx anesthesia problems: none Family hx anesthesia problems: none Results Review: All pre-operative results and documents have been reviewed as part of the pre- operative evaluation. [facility] Past Medical History Medical History CAD (coronary artery disease) Mixed hyperlipidemia MDD (major depressive disorder), recurrent episode, moderate LOKI (generalized anxiety disorder) Erosive esophagitis Hernia Metastatic melanoma mediastinal mass Cough Obesity Benign essential HTN Contusion of thigh, left THOR (obstructive sleep apnea) Surgical History Surgical History History of heart artery stent History of cardiac catheterization History of inguinal hernia repair, bilateral History of carpal tunnel surgery Family History Family History Sibling Depression Family history of alcoholism Mother Family history of elevated blood lipids Hypertension Father Family history of coronary artery disease Murmur, cardiac Social History Social History Social History: Active, plays ice hockey 3x/week Smoking status: Never smoker Second hand tobacco smoke exposure: No Alcohol intake: current Drinks per week: 6 Alcohol use details: occasionally Substance use: former Substance use type: does not use Other substance usage details: cannibis gummies, pt stop taking them. Do You Feel Safe in your Home?: Yes Lack of Transportation: No Lack of Food: Never True Current Housing: I Have Housing Concerned About Future Housing: No Difficulty Paying Gas/Electric Bills: No Difficulty Paying for Meds: No Currently Unemployed: No Education: Decline to Answer Difficulty w/ Childcare or Family Care: No Living arrangements: with family Occupation/Education: retired Gender identity (if verbalized by the patient): Male Sexual Orientation (if Verbalized by the Patient): Straight or Heterosexual Spiritual care concerns: No Anes - Eval Final PreProcedure Day of Procedure 01/02/25 13:18 Patient weight: overweight Heart: regular rate and rhythm Lungs: clear to auscultation Airway: Mallampati scale class II Neurological: alert and oriented Last oral intake: >/= 8 hours ASA classification: III Emergent: no Anesthetic plan: proceed Anesthesia type and monitoring: general GIVS and standard monitoring Results Review: All pre-operative results and documents have been reviewed as part of the pre-operative evaluation. Informed Consent: The patient's anesthetic plan and its attendant risks and benefits were discussed with the patient/family/POA. Questions were solicited and answers provided to the satisfaction of the patient/family/POA.
--- NOTE | 2025-01-02 13:51 | PM.HPGS ---
History of Present Illness History of Present Illness Consent: Risks, benefits, and alternatives have been discussed and questions answered. Patient agrees to proceed with procedure. Chief complaint: Personal history of colon polyps, unspecified Narrative: Arsh Leiva III is a 69 year old male here for colon polyp in 2021 Review of Systems Review of Systems: All systems reviewed & are unremarkable except as noted in HPI and below PMFSH Past Medical History Medical History (Updated 01/02/25 @ 13:51 by Ovidio Gross MD) Adenomatous colon polyp CAD (coronary artery disease) Mixed hyperlipidemia MDD (major depressive disorder), recurrent episode, moderate LOKI (generalized anxiety disorder) Erosive esophagitis Hernia Metastatic melanoma mediastinal mass Cough Obesity Benign essential HTN Contusion of thigh, left THOR (obstructive sleep apnea) Surgical History Surgical History History of heart artery stent History of cardiac catheterization History of inguinal hernia repair, bilateral History of carpal tunnel surgery Family History Family History Sibling Depression Family history of alcoholism Mother Family history of elevated blood lipids Hypertension Father Family history of coronary artery disease Murmur, cardiac Social History Social History Social History: Active, plays ice hockey 3x/week Smoking status: Never smoker Second hand tobacco smoke exposure: No Alcohol intake: current Drinks per week: 6 Alcohol use details: occasionally Substance use: former Substance use type: does not use Other substance usage details: cannibis gummies, pt stop taking them. Do You Feel Safe in your Home?: Yes Lack of Transportation: No Lack of Food: Never True Current Housing: I Have Housing Concerned About Future Housing: No Difficulty Paying Gas/Electric Bills: No Difficulty Paying for Meds: No Currently Unemployed: No Education: Decline to Answer Difficulty w/ Childcare or Family Care: No Living arrangements: with family Occupation/Education: retired Gender identity (if verbalized by the patient): Male Sexual Orientation (if Verbalized by the Patient): Straight or Heterosexual Spiritual care concerns: No Meds Home Medications and Allergies Home Medications ?Medication ?Instructions ?Recorded ?Confirmed ?Type atorvastatin 40 mg tablet See Rx Instructions .Route 03/29/24 01/02/25 Rx .COMPLEX #90 tabs azelastine 137 mcg (0.1 %) nasal 1 spray intranasal Q12H #90 mL 11/01/24 01/02/25 Rx spray omeprazole 40 mg capsule,delayed 40 mg PO DAILY 11/09/24 01/02/25 History release pseudoephedrine-guaifenesin ER 120 1 tablet PO Q12H 11/09/24 01/02/25 History mg-1,200 mg tab,extend release 12hr (Mucinex D Maximum Strength) furosemide 40 mg tablet 40 mg PO DAILY 30 days #30 tabs 11/12/24 01/02/25 Rx lisinopril 20 mg tablet 20 mg PO QAM 30 days #30 tabs 11/12/24 01/02/25 Rx metoprolol succinate 50 mg 50 mg PO QAM 30 days #30 tabs 11/12/24 01/02/25 Rx tablet,extended release 24 hr spironolactone 25 mg tablet 25 mg PO QAM 30 days #30 tabs 11/12/24 01/02/25 Rx potassium chloride 20 mEq 20 meq PO DAILY 12/02/24 01/02/25 History tablet,extended release(part/cryst) (Klor-Con M) Allergies Allergy/AdvReac Type Severity Reaction Status Date / Time No Known Allergies Allergy Verified 01/02/25 12:42 Vital Signs Vital Signs - 24 hr 01/02/25 12:44 Temperature 97 F L Pulse Rate 86 Respiratory Rate 20 Blood Pressure 131/79 Pulse Oximetry 99 Oxygen Delivery Room Air Exam Const: General: comfortable and no acute distress HENMT: Face/Nose/Sinus: Normal nares present Eyes: General: appearance normal, both eyes and all related structures Neck: Neck: no JVD Resp: Auscultation: clear to auscultation bilaterally Cardio: Rate: regular rate Rhythm: regular rhythm GI: Inspection: non-distended GI Palp: Yes Soft to palpation Skin: General skin exam: normal color Neuro: General: gait normal Speech: normal speech Extrem: General: normal to inspection Psych: Mental Status: mental status grossly normal Assessment and Plan Assessment and plan (1) Adenomatous colon polyp: Code(s): D12.6 - Benign neoplasm of colon, unspecified Status: Acute Assessment and Plan: colonoscopy
[2025-01-02 14:05] VITALS: BP 110/77; PULSE 78; RESP 24; O2SAT 93
[2025-01-02 14:15] VITALS: BP 114/80; PULSE 76; RESP 25; O2SAT 93
[2025-01-02 14:25] VITALS: BP 118/79; PULSE 72; RESP 24; O2SAT 97
== END 2025-01-02 14:30 | disposition home or self-care (01) ==
PROVIDERS: PCP Family Medicine; Referring Provider Internal Medicine Gastroenterology; Visit Provider Internal Medicine Gastroenterology
PROC: 0DJD8ZZ Inspection of Lower Intestinal Tract, Via Natural or Artificial Opening Endoscopic (ICD-10-PCS; CPT 45378; principal; 2025-01-02 14:00)
DX: Z12.11 Encounter for screening for malignant neoplasm of colon (principal); D12.3 Benign neoplasm of transverse colon; K57.30 Diverticulosis of large intestine without perforation or abscess without bleeding; K64.8 Other hemorrhoids
CPT/HCPCS: 45380; 88305; J2003; J2704; J7120

== ENCOUNTER 2025-02-22 09:00 | Outpatient (CLI) | payer OTHER, SELFPAY ==
--- NOTE | ~2025-02-22 | CT_ITS ---
Clinical Indication: Metastatic melanoma CT Scan of the Chest, Abdomen, and Pelvis with Contrast: Technique: Contiguous sections were acquired throughout the chest, abdomen, and pelvis after intraven ous administration of 100 cc of Omnipaque 350. Dose reduction technique was used on this scan by uti lizing automated exposure control and iterative reconstruction technique. The dose-length product (DL P) was 871.61 mGy-cm. Comparison: 11/21/2024 Findings: Stable possible soft tissue thickening or lymph node along the right paratracheal stripe (axial image 29). No pulmonary embolus evident. No aortic aneurysm or dissection. No other lymphadenopathy curren tly identified. Minimal right pleural effusion is present. No left pleural effusion. No significant pericardial effus ion. There is stable right perihilar bandlike consolidation or rounded mass, most compatible post radiatio n change. The liver, spleen, pancreas, gallbladder, adrenals and kidneys are within normal limits. No evidence of aortic aneurysm. No lymphadenopathy. No bowel obstruction or bowel wall thickening. There is no evidence to suggest acute appendicitis. Urinary bladder is unremarkable. Prostate gland is enlarged. No ascites. Impression: Stable postradiation change in the right perihilar region. Previously noted additional bibasilar airs pace opacities are resolved. Minimal right pleural effusion. Stable possible lymph node or soft tissue thickening in the right paratracheal stripe. Enlarged prostate gland. Reviewed, dictated and finalized at [facility]. Impression: Stable postradiation change in the right perihilar region. Previously noted add itional bibasilar airspace opacities are resolved. Minimal right pleural effusion. Stable possible lymph node or soft tissue thickening in the right paratracheal stripe. Enlarged prostate gland.
--- OUTSIDE RECORDS SUMMARY | 2025-02-22 09:09 | XMS_ITS | Clinical Summary ---
Author Organization [facility] [address] Address [address] [place] [address] Care Team Providers Care Sales Representative Name Role Phone Derick Celaya MD Primary Care Provider Allergies No known active allergies Medications testosterone cypionate (DEPO-TESTOTERO NE) 200 mg/mL injection once a week 0 [...] daily 90 tablet 3 5 Active lisinopriL (PRINIVIL,ZESTR IL) 20 mg tablet Take 1 tablet (20 mg total) by mouth daily 90 tablet 3 5 Active furosemide (LASIX) 40 mg tablet Take 1 tablet (40 mg total) by mouth daily 90 tablet 3 5 Active Eliquis 5 mg tablet Take 1 tablet (5 mg total) by mouth 2 (two) times a day 180 tablet 2 5 Active Active Problems Problem Noted Date Diagnosed Date Typical atrial flutter 02/20/2025 CAD (coronary artery disease) 03/17/2017 History of coronary artery stent placement 03/17 Inguinal pain 10/26/2012 Encounters Date Type Department Care Team Description 02/20/2025 8:15 AM CDT Office Visit [facility] [address] [place] [address] [place] [phone] Morgan Clay MD Coronary artery disease involving narrag[place]ett coronary artery of narrag[place] heart without angina pectoris (Primary Dx); History of coronary artery stent placement; Typical atrial flutter (HCC) 02/13/2025 10:15 AM CDT Ancillary Procedure [facility] [address] [place] [address] [place] [phone] Cardiomyopathy, unspecified type (HCC) 02/13/2025 Results Follow-Up [place] [address] [place] [phone] Kaylin Steen NP Transthoracic Echo (TTE) Limited/Followup 12/08/2024 Telephone [facility] [address] [place] [address] [place] [phone] Morgan Clay MD 12/02/2024 Telephone [place] [address] [place] [phone] Morgan Clay MD 11/24/2024 10:00 AM CDT Office Visit [facility] [address] [place] [address] [place] [phone] Kaylin Steen NP Cardiomyopathy, unspecified type (HCC) (Primary Dx); Paroxysmal atrial fibrillation (HCC); Paroxysmal atrial flutter (HCC); Chronic anticoagulation; Coronary artery disease involving narrag[place] coronary artery of narrag[place]ett heart without angina pectoris; Hospital discharge follow-up from Last 3 Months Surgical History Surgery Date Site/Laterality Comments HERNIA REPAIR CARPAL TUNNEL RELEASE Medical History Medical History Date Comments Heart attack (HCC) Hypertension Hypercholesteremia Heart disease Sleep apnea Family History Medical History Relation Name Comments Other Father Alive and well; Heart attack Maternal Grandfather Brandon Ayoub Hyperlipidemia Mother Moe Garciafartun Hyperlipide harriett; Hypertension Mother Nataliomaría Leiva Hypertension; Other Mother Moe Garciafartun Alive and wel l; Heart disease Other [...] on file 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 Gender Identity Male 01/04/2021 12:36 PM CDT Sexual Orientation Straight 01/04/2021 12 :36 PM CDT Obstetrics History Last Filed Vital Signs Vital Sign Reading Time Taken Comments Blood Pressure 118/60 02/20/2025 8:16 AM CDT Pulse 86 02/20/2025 8:16 AM CDT Temperature 37 C (98.6 F) 01/02/2022 7:02 PM CDT Respiratory Rate 18 04/06/2024 2:59 PM CDT Oxygen Saturation 95% 02/20/2025 8:16 AM CDT Inhaled Oxygen Concentration - - Weight 89.2 kg (196 lb 9.6 oz) 02/20/2025 8:16 A M CDT Height 175.3 cm (5' 9) 02/20/2025 8:16 AM CDT Body Mass Index 29.03 02/20/2025 8:16 AM CDT Plan of Treatment Health Maintenance [...] Procedure Name Priority Date/Time Associated Diagnosis Comments POCT LIPID PANEL Routine 02/20/2025 8:39 AM CDT Coronary artery disease involving narr[place] coronary artery of narr[place] heart without angina pectoris TRANSTHORACIC ECHO (TTE) LIMITED/FOLLOW UP W LTD DOPPLER/CF WO CONTRAST Routine 02/13/2025 11:08 AM CDT Cardiomyopathy, unspecified type (HCC) from Last 3 Months Results * POCT lipid panel (02/20/2025 8:39 AM CDT) Cholesterol, POC 170 <200 MG/DL HDL, POC 40 >=40 mg/dL Triglycerides, POC 107 <=149 mg/dL LDL Cholesterol POC 108 <=129 mg/dL Chol/HDL Ratio, POC 2.7 NONE Non-HDL Cholesterol, POC 130 NONE mg/dL Cholesterol Total, POC 170 30 - 199 mg/dL Capillary blood 02/20/2025 8 :39 AM CDT us Morgan Clay MD POINT OF CARE TEST ORDER ELBA Final Result * TRANSTHORACIC ECHO (TTE) LIMITED/FOLLOW UP W LTD DOPPLER/CF WO CONTRAST (02/13/2025 11:08 AM CDT) Estimated EF 50-55 % CONS SCIMAGE EF Mod BP 53 % CONS SCIMAGE Anatomical Region Laterality Modality Ultrasound 02/13/2025 10:4 4 AM CDT Narrative 02/13/2025 11:34 AM CDT [facility] [address], [place] [address] [address], [place] [address] P:[phone] P:[phone] Echocardiographic Report Patient Name: ARSH LEIVA W : 1955 Study Date: 02/13/2025 10:44:08 AM Gender: M Inside Account Executive: Estephania Wall)(CT), [facility] Location: [facility] Provider: KAYLIN STEEN Height(Cm): 175 BSA: 2.13 Weight(Kg): 93.4 Heart Rate: 91 BP: 130 / 84 Quality: Good Order Provider: KAYLIN STEEN PROCEDURES: Echocardiographic Report: Limited Transthoracic Echocardiogram with 2D, Color, and Doppler examination. With Strain Analysis. INDICATIONS: I42.9 Cardiomyopathy, unspecified. MEASUREMENTS: 2D/MM Value Range Doppler Value Range EF Mod BP 53 % [ 52 - 72 ] LVOT Peak Tremaine 1.01 m/s [ 0.70 - 1.10 ] Estimated EF 50-55 % LVOT VTI 16.50 cm LVIDd 2D 4.43 cm [ 4.20 - 5.80 ] MV E Peak Tremaine 0.61 m/s [ 0.60 - 1.30 ] LVIDs 2D 3.16 cm [ 2.50 - 4.00 ] MV A Peak Tremaine 1.11 m/s [ 1.00 - 1.20 ] IVSd 2D 1.03 cm [ 0.60 - 1.00 ] MV Decel Time 232 msec [ 104 - 258 ] Lateral E` 0.09 m/s [ 0.10 - 0.15 ] E` 0.07 m/s E/E` 7 2D/MM Value Range Doppler Value Range - FINDINGS: Interpretation Site: Exam was interpreted at [facility]. Left Ventricle: Normal left ventricular size. Left ventricular wall thickness upper limits of normal. Left ventricular systolic function at the lower limit of normal. Impaired diastolic relaxation Grade I. Ejection fraction is measured at 53 %. Ejection Fraction is visually estimated to be 50-55 %. Global Longitudinal Strain is -6 %. GLS is abnormal. These segments of the LV are akinetic: apical segment, apical inferior segment, apical septum segment and mid anteroseptum segment. Right Ventricle: Normal right ventricular size. Normal right ventricular systolic function. Left Atrium: There is mild enlargement of left atrium. Right Atrium: The right atrium is normal in size. Atrial Septum: Normal atrial septum. Mitral Valve: Mild mitral annular calcification. Aortic Valve: Normal appearance of the aortic valve. Tricuspid Valve: Normal appearance of the tricuspid valve. Pulmonic Valve: Pulmonic valve not well visualized. Pericardium: Normal pericardium with no significant pericardial effusion. Aorta: Normal aortic root. IVC: Normal size and no respiratory collapse consistent with elevated right atrial pressure (5-10 mmHg). CONCLUSIONS: Normal left ventricular size. Left ventricular wall thickness upper limits of normal. Left ventricular systolic function at the lower limit of normal. Impaired diastolic relaxation Grade I. Ejection fraction is measured at 53 %. Ejection Fraction is visually estimated to be 50-55 %. Global Longitudinal Strain is -6 %. GLS is abnormal. These segments of the LV are akinetic: apical segment, apical inferior segment, apical septum segment and mid anteroseptum segment. There is mild enlargement of left atrium. Normal sinus rhythm. Electronically Signed By: Cyrus Garsia MD 02/13/2025 11:34:04 AM CDT Procedure Note Cyrus Garsia MD - 02/13/2025 [facility] [address] [facility] [address], [place] [address] [address] [facility] [address], [place] [address] P:[phone] P:[phone] Echocardiographic Report Patient Name: ARSH LEIVA W : 1955 Study Date: 02/13/2025 10:44:08 AM Gender: M Inside Account Executive: Estephania Meng (Joseph)(CT), [facility] Location: [place] Ref Provider: KAYLIN STEEN Height(Cm): 175 BSA: 2.13 Weight(Kg): 93.4 Heart Rate: 91 BP: 130 / 84 Quality: Good Order Provider: KAYILN STEEN PROCEDURES: Echocardiographic Report: Limited Transthoracic Echocardiogram with 2D, Color, and Dopplerexamination. With Strain Analysis. INDICATIONS: I42.9 Cardiomyopathy, unspecified. MEASUREMENTS: 2D/MM Value Range Doppler ValueRange EF Mod BP 53 % [ 52 - 72 ] LVOT Peak Tremaine 1.01 m/s[ 0.70 - 1.10 ] Estimated EF 50-55 % LVOT VTI 16.50 cm LVIDd 2D 4.43 cm [ 4.20 - 5.80 ] MV E Peak Tremaine 0.61 m/s[ 0.60 - 1.30 ] LVIDs 2D 3.16 cm [ 2.50 - 4.00 ] MV A Peak Tremaine 1.11 m/s[ 1.00 - 1.20 ] IVSd 2D 1.03 cm [ 0.60 - 1.00 ] MV Decel Time 232 msec[ 104 - 258 ] Lateral E` 0.09 m/s [ 0.10 - 0.15 ] E` 0.07 m/s E/E` 7 2D/MM Value Range Doppler ValueRange - FINDINGS: Interpretation Site: Exam was interpreted at [facility]. Left Ventricle: Normal left ventricular size. Left ventricular wall thickness upper limitsof normal. Left ventricular systolic function at the lower limit of normal. Impaireddiastolic relaxation Grade I. Ejection fraction is measured at 53 %. EjectionFraction is visually estimated to be 50-55 %. Global Longitudinal Strain is -6 %. GLS isabnormal. These segments of the LV are akinetic: apical segment, apical inferior segment,apical septum segment and mid anteroseptum segment. Right Ventricle: Normal right ventricular size. Normal right ventricular systolicfunction. Left Atrium: There is mild enlargement of left atrium. Right Atrium: The right atrium is normal in size. Atrial Septum: Normal atrial septum. Mitral Valve: Mild mitral annular calcification. Aortic Valve: Normal appearance of the aortic valve. Tricuspid Valve: Normal appearance of the tricuspid valve. Pulmonic Valve: Pulmonic valve not well visualized. Pericardium: Normal pericardium with no significant pericardial effusion. Aorta: Normal aortic root. IVC: Normal size and no respiratory collapse consistent with elevated rightatrial pressure (5-10 mmHg). CONCLUSIONS: Normal left ventricular size. Left ventricular wall thickness upper limitsof normal. Left ventricular systolic function at the lower limit of normal. Impaireddiastolic relaxation Grade I. Ejection fraction is measured at 53 %. EjectionFraction is visually estimated to be 50-55 %. Global Longitudinal Strain is -6 %. GLS isabnormal. These segments of the LV are akinetic: apical segment, apical inferior segment,apical septum segment and mid anteroseptum segment. There is mild enlargement of left atrium. Normal sinus rhythm. Electronically Signed By: Cyrus Garsia MD 02/13/2025 11:34:04 AM CDT Kaylin Steen NP CV ECHO PROCEDURES Final Result from Last 3 Months Insurance [employer] ADVANTAGE CHOICE PPO Care Teams Sales Representative Relationship Specialty Start Date End Date Derick Celaya MD [address] [place] [address] PCP - General Family Medicine 11/15/24
--- OUTSIDE RECORDS SUMMARY | 2025-02-22 09:09 | XMS_ITS | Clinical Summary ---
Author Organization [facility] Address [address] [place] [address] Care Team Providers Care Icer Machine Operator Name Role Phone Brenda Resendiz MD Primary Care Provider + Source Comments [facility],non-owned Affiliates and Associated Physician Practices is amultiple site organization consisting of ambulatory clinics and hospital sitesin [place], [place], [place] and [place]. This disclosure is being madepursuant to the Care Everywhere program and may not contain all information available regarding this patient. Last updated 18.[facility] Social History Tobacco Use Types Packs/Day Years [...] patient's age to complete this topic Insurance [employer] MEDICARE ADV PPO SELF PAY NO INSURANCE Member Subscriber Plan / Payer (Ef fective for All Dates) Name:Arsh Leiva II Member ID:Not on file Relation to Subscriber:Not on file Name:ARSH LEIVA II Subscriber ID:Not on file (Home) Address: [address] [place] [phone] Payer ID:Not on file Group ID:Not on file Type:Self Pay Address: [place], [place] [facility] MEDICARE ADV PPO [facility] MEDICARE ADV PPO SELF PAY NO INSURANCE Member Subscriber Plan / Payer (Ef fective for All Dates) Name:RadhaaidaKyle saenzur W II Member ID:Not on file Relation to Subscriber:Not on file Name:RADHAJEANNEKYLEARSH Subscriber ID:Not on file Address: [address] [phone] Payer ID:Not on file Group ID:Not on file Type:Self Pay Address: [place], [place] [facility] MEDICARE ADV PPO SELF PAY NO INSURANCE Member Subscriber Plan / Payer (Ef fective for All Dates) Name:Arsh Leiva W II Member ID:Not on file Relation to Subscriber:Not on file Name:ARSH LEIVA Subscriber ID:Not on file Address: [address] [place] [address] Payer ID:Not on file Group ID:Not on file Type:Self Pay Address: [place], [place] [employer] MED[employer] ADV PPO SELF PAY NO INSURANCE Member Subscriber Plan / Payer (Ef fective for All Dates) Name:Arsh Leiva W II Member ID:Not on file Relation to Subscriber:Not on file Name:RADHAAidaARSH SAENZ Subscriber ID:Not on file Address: [address] [place] [address] Payer ID:Not on file Group ID:Not on file Type:Self Pay Address: [place], [place] Care Teams Icer Machine Operator Relationship Specialty Start Date End Date Brenda Resendiz MD [address] [place] [address] PCP - General 11/01/21
--- OUTSIDE RECORDS SUMMARY | 2025-02-22 09:09 | XMS_ITS | Encounter Summary ---
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
--- OUTSIDE RECORDS SUMMARY | 2025-02-22 09:09 | XMS_ITS | Encounter Summary ---
Author Organization [facility] Address [address] [facility] [place] [address] Care Team Providers Care Raking Machine Operator Name Role Phone Brenda Resendiz MD Primary Care Provider + Encounter Details Date Type Department Care Team (Late st Contact Info) Description 01/10/2021 Lab Requisition [facility] Care Pathology Lab [address] [place] [address] Jackelyn Yoder MD [address] [place], [place] [id number] Illness, unspecified Social History Tobacco Use Types [...] Final Diagnosis PROSTATE, LLB, NEEDLE BIOPSY (OSC: [id number], A; 01/07/2021): - Benign prostatic tissue PROSTATE, LLM, NEEDLE BIOPSY (OSC: [id number], B; 01/07/2021): - Benign prostatic tissue PROSTATE, LLA, NEEDLE BIOPSY (OSC: [id number], C; 01/07/2021): - Focal glandular atypia, consistent with partial atrophy PROSTATE, LB, NEEDLE BIOPSY (OSC: [id number], D; 01/07/2021): - Benign prostatic tissue PROSTATE, LM, NEEDLE BIOPSY (OSC: [id number], E; 01/07/2021): - Benign prostatic tissue PROSTATE, LA, NEEDLE BIOPSY (OSC: [id number], F; 01/07/2021): - Benign prostatic tissue PROSTATE, RB, NEEDLE BIOPSY (OSC: [id number], G; 01/07/2021): - Benign prostatic tissue PROSTATE, RM, NEEDLE BIOPSY (OSC: [id number], H; 01/07/2021): - Benign prostatic tissue PROSTATE, RA, NEEDLE BIOPSY (OSC: [id number], I; 01/07/2021): - Benign prostatic tissue PROSTATE, RLB, NEEDLE BIOPSY (OSC: [id number], J; 01/07/2021): - Benign prostatic tissue PROSTATE, RLM, NEEDLE BIOPSY (OSC: [id number], K; 01/07/2021): - Benign prostatic tissue PROSTATE, RLA, NEEDLE BIOPSY (OSC: [id number], L; 01/07/2021): - Benign prostatic tissue PROSTATE, BENITA, NEEDLE BIOPSY (OSC: [id number], M; 01/07/2021): - Benign prostatic tissue 01/11/2021 11:44 AM [facility] at 1144 CDT Microscopic Description and Comment Microscopic examination substantiates [...] interpretation of partial atrophy. 01/11/2021 11:44 AM [facility] Clinical History PSA 4.9, ABNORMAL MR, FUSION BIOPSY, PROSTATE VOLUME 64 BENITA = RIGHT LATERAL CENTRAL PROSTATE LEVEL AT MID GLAND X3 01/11/2021 11:44 AM [facility] Materials Received Received are five prepared slides from [facility] labeled [id number] (A1-D1 and A-D PIN4). All material will be returned. 01/11/2021 11:44 AM CDT [facility] Disclaimer The performance characteristics of all immunohistochemical and indirect immunofluorescence stains (if any) cited in this report were determined by the Histopathology Laboratory of [facility]. Some of these tests were developed [...] attending (teaching) pathologist. 01/11/2021 11:44 AM CDT [facility] Case Report Surgical Pathology Report Case: [id number] Authorizing Provider: Jackelyn Yoder MD Collected: 01/07/2021 10:27 AM Ordering Location: [facility] Received: 01/10/2021 10:27 AM Pathologist: Irma Moses MD Specimen: Slide Consultation 01/11/2021 11:44 AM CDT [facility] Embedded Images 01/11/2021 11:44 AM CDT [facility] Pathology/Cytolo gy SURGICAL PATHOLOGY CONSULTATION AND REPORT ON REFERRED SLIDES PREPARED ELSEWHERE / Unknown 01/07/2021 10:27 AM CDT 01/10/2021 10:27 AM CDT Jackelyn Yoder MD LAB - PATHOLOGY/CYTOLOGY ORDERAB LES Final Result [facility] [address] [phone] documented in this encounter Visit Diagnoses Diagnosis Illness, unspecified documented in this encounter Care Teams Raking Machine Operator Relationship Specialty Start Date End Date Brenda Resendiz MD [address] [place] [address] PCP - General 11/01/21 documented as of this encounter
--- OUTSIDE RECORDS SUMMARY | 2025-02-22 09:09 | XMS_ITS | Referral Summary ---
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 (Primary Dx); History of coronary artery stent placement; Typical atrial flutter (HCC) 02/13/2025 Results Follow-Up [facility] [address] [place] [address] [address] [place] [phone] Vandana Steen NP Transthoracic Echo (TTE) Limited/Followup 02/13/2025 10:15 AM CDT Ancillary Procedure [facility] [address] [place] [address] [address] [place] [phone] Cardiomyopathy, unspecified type (HCC) 12/08/2024 Telephone [facility]iology [address] [place] [address] [address] [place] [phone] Morgan Clay MD 12/02/2024 Telephone [facility] [address] [place] [address] [address] [place] [phone] Morgan Clay MD 11/24/2024 10:00 AM CDT Office Visit [facility] [address] [place] [address] Vandana Steen NP Cardiomyopathy, unspecified type (HCC) (Primary Dx); Paroxysmal atrial fibrillation (HCC); Paroxysmal atrial flutter (HCC); Chronic anticoagulation; Coronary artery disease involving ewiiaapaayp coronary artery of ewiiaapaayp heart without angina pectoris; Hospital discharge follow-up from Last 3 Months Allergies No known [...] on file 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 Gender Identity Male 01/04/2021 12:36 PM [...] 02/20/2025 8:16 AM CDT Plan of Treatment Not on file Procedures Procedure Name Priority Date/Time Associated Diagnosis Comments POCT LIPID PANEL Routine 02/20/2025 8:39 AM CDT Coronary artery disease involving ewiiaapaayp coronary artery of ewiiaapaayp heart without angina pectoris TRANSTHORACIC ECHO (TTE) [...] AM CDT Narrative 02/13/2025 11:34 AM CDT [facility] Cardiology [address] [facility] [address], [place] [address] [address] [facility] [address], [place] [address] P:[phone] P:[phone] Echocardiographic Report Patient Name: HIMANSHU LEIVA W : 1955 Study Date: 02/13/2025 10:44:08 AM Gender: M Sugar Grinder: Estephania Wall)([place]), [facility] Location: [facility] Provider: VANDANA STEEN Height(Cm): 175 BSA: 2.13 Weight(Kg): 93.4 Heart Rate: 91 BP: 130 / 84 Quality: Good Order Provider: VANDANA STEEN PROCEDURES: Echocardiographic Report: Limited Transthoracic Echocardiogram with 2D, Color, and Doppler examination. With Strain Analysis. INDICATIONS: I42.9 Cardiomyopathy, unspecified. MEASUREMENTS: 2D/MM Value Range Doppler Value Range EF Mod BP 53 % [ 52 - 72 ] LVOT Peak Termaine 1.01 m/s [ 0.70 - 1.10 ] [...] FINDINGS: Interpretation Site: Exam was interpreted at [facility]. Left Ventricle: Normal left ventricular size. Left [...] Procedure Note Cyrus Garsia MD - 02/13/2025 [facility] Cardiology [address] [facility] [address], [place] [address] [address] [facility] [address], [place] [address] [phone] P:[phone] Echocardiographic Report Patient Name: HIMANSHU LEIVA W : 1955 Study Date: 02/13/2025 10:44:08 AM Gender: M Sugar Grinder: Estephania Wall)(CT), [facility] Location: [facility] Provider: VANDANA STEEN Height(Cm): 175 BSA: 2.13 Weight(Kg): 93.4 Heart Rate: 91 BP: 130 / 84 Quality: Good Order Provider: VANDANA STEEN PROCEDURES: Echocardiographic Report: Limited Transthoracic Echocardiogram [...] FINDINGS: Interpretation Site: Exam was interpreted at [facility]. Left Ventricle: Normal left ventricular size. Left [...] Cyrus Garsia MD 02/13/2025 11:34:04 AM CDT Vandana Steen NP CV ECHO PROCEDURES Final Result from Last 3 Months Insurance [employer] PPO Care Teams Business Taxes Specialist Relationship Specialty Start Date End Date Derick Celaya MD [address] [facility] [address] [place] [address] PCP - General Family Medicine 11/15/24
--- OUTSIDE RECORDS SUMMARY | 2025-02-22 09:09 | XMS_ITS | Clinical Summary ---
Author Organization [facility] Address [address], [address] [address] Phone Care Team Providers Care Warping Mill Operator Name Role Phone Brenda Resendiz MD Primary Care Provider +1- [phone] Allergies No known active allergies Medications polyethylene [...] Take 1 Tab by mouth daily. 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
--- OUTSIDE RECORDS SUMMARY | 2025-02-22 09:09 | XMS_ITS | Clinical Summary ---
Author Organization [facility] Address [address] [place] [address] Care Team Providers Care Hand Almond Blancher Name Role Phone Brenda Resendiz MD Primary Care Provider +1- [phone] Social History Tobacco Use Types Packs/Day Years [...] patient's age to complete this topic Insurance [facility] Care Teams Hand Almond Blancher Relationship Specialty Start Date End Date Brenda Resendiz MD [address] [place] [address] [place] [address] PCP - General FAMILY PRACTICE 11/09/20
== END 2025-02-22 09:01 | disposition home or self-care (01) ==
PROVIDERS: PCP Family Medicine; Visit Provider Internal Medicine Hematology & Oncology
DX: C43.9 Malignant melanoma of skin, unspecified (principal); J90 Pleural effusion, not elsewhere classified; N40.0 Benign prostatic hyperplasia without lower urinary tract symptoms
CPT/HCPCS: 71260; 74177; Q9967

== ENCOUNTER 2025-05-29 07:54 | Outpatient (CLI) | payer OTHER, SELFPAY ==
--- NOTE | ~2025-05-29 | CT_ITS ---
EXAMINATION: CT chest abdomen pelvis w con DATE: 05/29/2025 08:13 INDICATION: Metastatic melanoma. TECHNIQUE: Computed tomography (CT) of the chest, abdomen, and pelvis was performed with 100 mL Omnipaque 350 intravenous contrast. Automated exposure control and iterative reconstruction technique were employed. The dose-length product was 1131.36 mGy-cm. COMPARISON: CT 02/22/2025, 11/21/24, 07/23/23 FINDINGS: CHEST CT: There is a mediastinal radiation fibrosis in right lung. There is a trace right pleural effusion. The heart size is normal. There are coronary artery calcifications. No pericardial effusion. There is mediastinal lymphadenopathy. For example, a right paratracheal node measures 1.9 x 1.6 cm. There is severe thoracic spondylosis. ABDOMEN/PELVIS CT: The liver, gallbladder, spleen, pancreas, adrenal glands, and kidneys are normal. There is a 12 mm cyst in left kidney. The prostate is moderately enlarged. There are changes of bilateral inguinal hernia repairs. There are no dilated loops of bowel. The appendix is normal. There are no pathologically e nlarged lymph nodes. There is no free intraperitoneal fluid. There is mild lumbar spondylosis. IMPRESSION: 1. Stable mediastinal lymphadenopathy, consistent with metastatic disease. Reviewed, dictated and finalized at location E.
--- OUTSIDE RECORDS SUMMARY | 2025-05-29 08:01 | XMS_ITS | Patient Health Record ---
Author Organization [facility] [employer] Address [address] [facility] [address] [place] [address] Care Team Providers Care Corporate Ethics Officer Name Role Phone Geo Lema Unavailable [phone] Reason For Referral No Information Medications Medication SIG (Take, Route, Frequency, Duration) Notes Start Date End Date Status Lisinopril-hydroCHLOROthia zide 20-25 MG Tablet Oral Active Escitalopram Oxalate 20 MG Tablet Oral Active hydrALAZINE HCl 10 MG Tablet Oral Active Erythromycin 5 MG/GM Ointment Ophthalmic Active Brilinta 60 mg Tablet Oral Active Testosterone Cypionate 200 MG/ML Solution Intramuscular Active Atorvastatin Calcium 40 MG Tablet Oral Active clomiPHENE Citrate 50 MG Tablet Oral Active Ezetimibe 10 MG Tablet Oral Active Lisinopril-hydroCHLOROthia zide 20-12.5 MG Tablet Oral Activ e Metoprolol Tartrate 25 MG Tablet Oral Active Viibryd 20 MG Tablet Oral Active Plan Of Treatment No Information Insurance Providers Payer Name Payer Address Payer Phone Subscriber Number Group Number Insured Name Patient Relationship to Insured Coverage Start Date Coverage End Date Medicare-I l Medicare [address] [place] [id number] HIMANSHU MARQUEZ Self - patient is the insured
--- OUTSIDE RECORDS SUMMARY | 2025-05-29 08:01 | XMS_ITS | Clinical Summary ---
Author Organization [facility] Address [address] [place] [address] Care Team Providers Care Boiler Water Tester Name Role Phone Brenda Resedniz MD Primary Care Provider +1- [phone] Social History Tobacco Use Types Packs/Day Years [...] COVID-19 Vaccine ( - 2023-2 5 season) 2025 RSV Immunization or 60+ Years (1 - [...] topic Insurance [facility] Care Teams Boiler Water Tester Relationship Specialty Start Date End Date Brenda Resendiz MD [address] [facility] [address] [place] [address] [place] [address] PCP - General FAMILY PRACTICE 11/09/20
--- OUTSIDE RECORDS SUMMARY | 2025-05-29 08:01 | XMS_ITS | Clinical Summary ---
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
--- OUTSIDE RECORDS SUMMARY | 2025-05-29 08:01 | XMS_ITS | Encounter Summary ---
Author Organization [facility] Address [address] [facility] [place] [address] Care Team Providers Care Airport Maintenance Chief Name Role Phone Brenda Resendiz MD Primary Care Provider + Encounter Details Date Type Department Care Team (Late st Contact Info) Description 01/10/2021 Lab Requisition [facility] Care Pathology Lab [address] [place] [address] Jackelyn Yoder MD [address] [place], [place] [id number] Illness, unspecified Social History Tobacco Use Types [...] Final Diagnosis PROSTATE, LLB, NEEDLE BIOPSY (OSC: [id number], A; 01/07/2021): - Benign prostatic tissue PROSTATE, LLM, NEEDLE BIOPSY (OSC: [id number], B; 01/07/2021): - Benign prostatic tissue PROSTATE, LLA, NEEDLE BIOPSY (OSC: [id number], C; 01/07/2021): - Focal glandular atypia, consistent with partial atrophy PROSTATE, LB, NEEDLE BIOPSY (OSC: [id number], D; 01/07/2021): - Benign prostatic tissue PROSTATE, LM, NEEDLE BIOPSY (OSC: [id number], E; 01/07/2021): - Benign prostatic tissue PROSTATE, LA, NEEDLE BIOPSY (OSC: [id number], F; 01/07/2021): - Benign prostatic tissue PROSTATE, RB, NEEDLE BIOPSY (OSC: [id number], G; 01/07/2021): - Benign prostatic tissue PROSTATE, RM, NEEDLE BIOPSY (OSC: [id number], H; 01/07/2021): - Benign prostatic tissue PROSTATE, RA, NEEDLE BIOPSY (OSC: [id number], I; 01/07/2021): - Benign prostatic tissue PROSTATE, RLB, NEEDLE BIOPSY (OSC: [id number], J; 01/07/2021): - Benign prostatic tissue PROSTATE, RLM, NEEDLE BIOPSY (OSC: [id number], K; 01/07/2021): - Benign prostatic tissue PROSTATE, RLA, NEEDLE BIOPSY (OSC: [id number], L; 01/07/2021): - Benign prostatic tissue PROSTATE, BENITA, NEEDLE BIOPSY (OSC: [id number], M; 01/07/2021): - Benign prostatic tissue 01/11/2021 11:44 AM [facility] at 1144 CDT Microscopic [...] interpretation of partial atrophy. 01/11/2021 11:44 AM [facility] Clinical History PSA 4.9, ABNORMAL MR, FUSION BIOPSY, PROSTATE VOLUME 64 BENITA = RIGHT LATERAL CENTRAL PROSTATE LEVEL AT MID GLAND X3 01/11/2021 11:44 AM [facility] Materials Received Received are five prepared slides from [facility] labeled [id number] (A1-D1 and A-D PIN4). All material will be returned. 01/11/2021 11:44 AM CDT [facility] Disclaimer The performance characteristics of all immunohistochemical and indirect immunofluorescence stains (if any) cited in this report were determined by the Histopathology Laboratory of [facility]. Some of these tests were developed [...] attending (teaching) pathologist. 01/11/2021 11:44 AM CDT [facility] Case Report Surgical Pathology Report Case: [id number] Authorizing Provider: Jackelyn Yoder MD Collected: 01/07/2021 10:27 AM Ordering Location: [facility] Received: 01/10/2021 10:27 AM Pathologist: Irma Moses MD Specimen: Slide Consultation 01/11/2021 11:44 AM CDT [facility] Embedded Images 01/11/2021 11:44 AM CDT [facility] Pathology/Cytolo gy SURGICAL PATHOLOGY CONSULTATION AND REPORT ON REFERRED SLIDES PREPARED ELSEWHERE / Unknown 01/07/2021 10:27 AM CDT 01/10/2021 10:27 AM CDT Jackelyn Yoder MD LAB - PATHOLOGY/CYTOLOGY ORDERAB LES Final Result [facility] [address] [phone] documented in this encounter Visit Diagnoses Diagnosis Illness, unspecified documented in this encounter Care Teams Airport Maintenance Chief Relationship Specialty Start Date End Date Brenda Resendiz MD [address] [place] [address] PCP - General 11/01/21 documented as of this encounter
--- OUTSIDE RECORDS SUMMARY | 2025-05-29 08:01 | XMS_ITS | Clinical Summary ---
Author Organization [facility] Address [address] [facility] [place] [address] Phone Care Team Providers Care Ab Initio Etl Developer Name Role Phone Derick Celaya MD Primary Care Provider [phone] Allergies No known active allergies Medications lisinopriL [...] or vomiting 30 Tablet 1 3 Active traMADoL (ULTRAM) 50 mg tabletIndicati ons:Mediastina l mass,Metastati c melanoma,Odyno phagia Take 1 Tablet (50 mg) by mouth every 8 hours as needed for Pain, Moderate or Pain, Severe. May take up to 2 Tablets (100 mg) every 8 hours if needed. 90 Tablet 3 Active sucralfate (Carafate) 100 mg/mL suspensionIndi cations:Medias tinal mass,Odynophag ia,Metastatic melanoma Take 10 mL (1 Gram) by mouth every 6 hours. Take 10 mL by mouth TID with meals. 414 mL 1 4 Active oxyCODONE-acet aminophen (PERCOCET) 5-325 mg tabletIndicati ons:Metastatic melanoma,Media stinal mass,Odynophag ia Take 1 Tablet by mouth [...] Use as directed 21 Tablet 5 Active lidocaine-pril ocaine (EMLA) 2.5-2.5 % CreamIndicatio ns: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CMS/HCC) Apply to affected area see administration instructions. 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/2025 Orders Only [facility] Oncology and Hematology - [address] [place] [address] Gino Basurto MD Benign hypertension 05/09/2025 External Device Data STL ABSTRACTION Provider, Abstract 05/09/2025 External Device Data STL ABSTRACTION Provider, Abstract 05/08/2025 Orders Only [facility] On[facility]ematology - [address] [place] [address] Gino Basurto MD 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[facility]/HCC) 05/02/2025 External Device Data STL ABSTRACTION Provider, Abstract 05/02/2025 External Device Data STL ABSTRACTION Provider, Abstract 05/02/2025 External Device Data STL ABSTRACTION Provider, Abstract 05/01/2025 Orders Only [facility] Oncology and Hematology - [address] Gino Basurto MD Benign hypertension 04/27/2025 9:00 AM CDT Office Visit [facility] Oncology and Hematology - [address] [place] [phone] Jazz Loyd MD Metastatic melanoma ([facility]/HCC) (Primary Dx) 04/27/2025 Orders Only [facility] Oncology and Hematology - [address]rik[address] [place] [address] Gino Basurto MD 04/24/2025 Orders Only [facility] Oncology and Hematology - [address]rik[address] [place] [address] Gino Basurto MD 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[facility]/HCC) 04/17/2025 Orders Only [facility] Oncology and Hematology - [address] [place] [address] Gino Basurto MD Benign hypertension 04/14/2025 Orders Only [facility] Oncology and Hematology - [address] [place] [address] Gino Basurto MD 04/10/2025 Orders Only [facility] Oncology and Hematology - [address] [place] [address] Gino Basurto MD 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[facility]/HCC) 04/03/2025 Orders Only [facility] Oncology and Hematology - Srik[address] [place] [id number] Gino Basurto MD Benign hypertension 03/31/2025 9:00 AM CDT [facility] Oncology and Hematology - S[address] [place] [address] Gino Basurto MD 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[facility]/HCC) (Primary Dx) 03/31/2025 Orders Only [facility] Oncology and Hematology - Srikanth [address] [place] [address] Gino Basurto MD 03/27/2025 Orders Only [facility] Oncology and Hematology - [address] [place] [id number] Gino Basurto MD 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[facility]/HCC) 03/20/2025 Orders Only [facility] Oncology and Hematology - [address] [place] [address] Gino Basurto MD Benign hypertension 03/17/2025 Orders Only [facility] Oncology and Hematology - [address] [place] [address] Gino Basurto MD 03/13/2025 Orders Only [facility] Oncology and Hematology - [address] [place] [address] Gino Basurto MD 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[facility]/HCC) 03/06/2025 Orders Only [facility] Oncology and Hematology - [address] [place] [address] Gino Basurto MD Benign hypertension 03/03/2025 9:30 AM CDT Office Visit [facility] Oncology and Hematology [facility] [address] [place] [address] Gino Basurto MD 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CMS/HCC) (Primary Dx) 02/27/2025 Orders Only [facility] Oncology and Hematology [facility] [address] [place] [address] Gino Basurto MD 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CMS/HCC) [...] on file 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 Gender Identity Not on file Sexual Orientation Not on file Last Filed Vital Signs Vital Sign Reading Time Taken Comments Blood Pressure 129/84 04/27/2025 8:56 AM CDT Pulse 77 04/27/2025 8:56 AM CDT Temperature 36.6 C (97.8 F) 04/27/2025 8:56 AM CDT Respiratory Rate 15 04/27/2025 8:56 AM CDT Oxygen Saturation 96% 04/27/2025 8:56 AM CDT Inhaled Oxygen Concentration - - Weight 93.4 kg (206 lb) 04/27/2025 8:56 AM CDT Height 172.7 cm (5' 8) 08/05/2023 2:56 PM CONVENTIONAL UNDERWRITER Body Mass Index 31.32 08/05/2023 2:56 PM CONVENTIONAL UNDERWRITER Plan of Treatment Upcoming Encounters Date Type Department Care Team (Late st Contact Info) Description 06/09/2025 8:30 AM CDT Office Visit [facility] Oncology and Hematology - Srikanth [address] [facility] [address] [place] [address] Gino Basurto MD [address] [facility] [address] [place] [address] Health Maintenance Due Date Last Done Comments Pre-Diabetes and Diabetes Screening 1955 FIT-DNA Q 3 years 2002 FIT/FOBT Q 1 year 2002 Flex Sig/CT Colonography Q 5 years 2002 PNEUMOCOCCAL VACCINE 50+ YEA RS (1 of 1 - PCV) 2007 ZOSTER VACCINE (1 of 2) 2007 INFLUENZA VACCINE (#1) 2025 9, 05/18/2018, 06/02/2017, Additional history exists DTAP/TDAP/TD VACCINES (3 - T d or Tdap) 10/16/2029 10/16/2019, 05/26/2013 COLORECTAL SCREENING 10/31/2031 10/30/2021, 12/09/19 Colorectal Cancer Screening 10/31/2031 RSV VACCINE (60+ or ) (1 - 1-dose 75+ series) 2032 Procedures Procedure Name Priority Date/Time Associated Diagnosis Comments COMPREHENSIVE METABOLIC PANEL Routine 05/12/2025 2:48 PM CDT CBC WITH AUTODIFFERENTIAL Routine 2024 12:59 PM CDT BASIC METABOLIC PANEL Routine 04/27/2025 11:46 AM CDT BASIC METABOLIC PANEL Routine 04/27/2025 11:45 AM CDT COMPREHENSIVE METABOLIC PANEL Routine 04/27/2025 11:42 AM CDT BASIC METABOLIC PANEL Routine 04/14/2025 12:00 PM CDT CBC WITH AUTODIFFERENTIAL Routine 2024 11:59 AM CDT COMPREHENSIVE METABOLIC PANEL Routine 04/14/2025 11:28 AM CDT BASIC METABOLIC PANEL Routine 03/31/2025 1:21 PM CDT COMPREHENSIVE METABOLIC PANEL Routine 03/31/2025 1:18 PM CDT BASIC METABOLIC PANEL Routine 03/17/2025 1:47 PM CDT COMPREHENSIVE METABOLIC PANEL Routine 03/17/2025 11:39 AM CDT from Last 3 Months Results * COMPREHENSIVE METABOLIC PANEL (05/12/2025 2:48 PM CDT) Only the most recent of5 resultswithin the time period is included. Blood us Gino Basurto MD CHEMISTRY ORDERABLES Final Resu lt * CBC WITH AUTODIFFERENTIAL (05/12/2025 12:59 PM CDT) Only the most recent of2 resultswithin the time period is included. Blood us Gino Basurto MD HEMATOLOGY ORDERABLES Final Res ult * BASIC METABOLIC PANEL (04/27/2025 11:46 AM CDT) Only the most recent of5 resultswithin the time period is included. Blood us Gino Basurto MD CHEMISTRY ORDERABLES Final Resu lt from Last 3 Months Insurance [facility] Care Teams Ab Initio Etl Developer Relationship Specialty Start Date End Date Derick Celaya MD [address] [facility] [address] [facility] [address] [place] [address] PCP - General Family Practice 10/07/24
--- OUTSIDE RECORDS SUMMARY | 2025-05-29 08:01 | XMS_ITS | Clinical Summary ---
Author Organization [facility] Address [address] [place] [address] Care Team Providers Care Carbonizer Tester Name Role Phone Brenda Resendiz MD Primary Care Provider + Source Comments [facility],non-owned Affiliates and Associated Physician Practices is amultiple site organization consisting of ambulatory clinics and hospital sitesin [place], [place], [place]. This disclosure is being madepursuant to the Care Everywhere program and may not contain all information available regarding this patient. Last updated 18.[facility] Social History Tobacco Use Types Packs/Day Years [...] 2007 ZOSTER VACCINE (1 of 2) 2007 DEPRESSION SCREENING 08/24/2024 COVID-19 VACCINE ( - 2024-2 5 season) 2025 INFLUENZA VACCINE (#1) 2025 Respiratory Syncytial Virus (RSV) Vaccine Pt: [...] patient's age to complete this topic Insurance [facility] MEDICARE ADV PPO SELF PAY NO INSURANCE Member Subscriber Plan / Payer (Ef fective for All Dates) Name:Arsh Leiva II Member ID:Not on file Relation to Subscriber:Not on file Name:ARSH LEIVA II Subscriber ID:Not on file (Home) Address: [address] [place] [address] Payer ID:Not on file Group ID:Not on file Type:Self Pay Address: [place], [place] [facility] MEDICARE ADV PPO - Financial Reconciliation Care Address: [address] [address] [facility] MEDICARE ADV PPO SELF PAY NO INSURANCE Member Subscriber Plan / Payer (Ef fective for All Dates) Name:RdahaaidaKyle saenzur W II Member ID:Not on file Relation to Subscriber:Not on file Name:RADHAJEANNEKYLEARSH Subscriber ID:Not on file Address: [address] [place] [id number] Payer ID:Not on file Group ID:Not on file Type:Self Pay Address: [place], [place] [facility] MEDICARE ADV PPO SELF PAY NO INSURANCE Member Subscriber Plan / Payer (Ef fective for All Dates) Name:Arsh Leiva W II Member ID:Not on file Relation to Subscriber:Not on file Name:ARSH LEIVA Subscriber ID:Not on file Address: [address] [place] [address] Payer ID:Not on file Group ID:Not on file Type:Self Pay Address: [place], [place] [employer] MED[employer] ADV PPO SELF PAY NO INSURANCE Member Subscriber Plan / Payer (Ef fective for All Dates) Name:Arsh Leiva W II Member ID:Not on file Relation to Subscriber:Not on file Name:RADHAAidaARSH SAENZ Subscriber ID:Not on file Address: [address] [place] [address] Payer ID:Not on file Group ID:Not on file Type:Self Pay Address: [place], [place] Care Teams Carbonizer Tester Relationship Specialty Start Date End Date Brenda Resendiz MD [address] [place] [address] PCP - General 11/01/21
--- OUTSIDE RECORDS SUMMARY | 2025-05-29 08:01 | XMS_ITS | Clinical Summary ---
Author Organization [facility] Address [address], [address] [address] Phone Care Team Providers Care Construction Craft Laborer Name Role Phone Brenda Resendiz MD Primary Care Provider [phone] Allergies No known active allergies Medications polyethylene [...] Take 1 Tab by mouth daily. 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 Gender Identity Not on file Sexual Orientation Not on file Plan of Treatment Health Maintenance Due Date Last Done Comments Hepatitis C Virus (HCV) Screening 1955 TdaP Immunization 1955 SARS-COV-2 Immunization (#1) 1962 Zoster Immunization (1 of 2) 1976 Cologuard 2002 Immunochemical Fecal Occult Blood 2002 Pneumococcal Immunization (5 0+ years) (1 of 1 - PCV) 2007 Respiratory Syncytial Virus (RSV) Immunization (Adult) (1 - Risk 60-74 years 1-dose series) 2017 Colonoscopy 12/08/2021 12/08/2016 Colorectal Cancer Screening 12/08/2021 Influenza Immunization (#1) 2025 Hepatitis B Immunization Aged Out No longer eligible based on patient's age to complete this topic Human Papillomavirus (HPV) Immunization Aged Out No longer eligible b ased [...] Most Recently Relevant to Health Maintenance Insurance [facility] Care Teams Construction Craft Laborer Relationship Specialty Start Date End Date Brenda Resendiz MD [address] [facility] [address] [place] [address] PCP - General Family Medicine 08/06/16
--- OUTSIDE RECORDS SUMMARY | 2025-05-29 08:01 | XMS_ITS | Encounter Summary ---
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 Gender Identity Male 01/04/2021 12:36 PM CDT Sexual Orientation Straight 01/04/2021 12 :36 PM CDT documented as of this encounter Plan of Treatment Not on file documented as of this encounter Procedures Procedure Name Priority Date/Time Associated Diagnosis Comments SCAN - RADIOLOGY/IMAGING 11/09/2024 documented in this encounter Results * SCAN - RADIOLOGY/IMAGING (11/09/2024) Anatomical Region Laterality Modality Other us Provider Scanning Edited Result - Final documented in this encounter Visit Diagnoses Not on filedocumented in this encounter Care Teams Adoption Worker Relationship Specialty Start Date End Date Brenda Resendiz MD [address] [place] [address] PCP - General 11/27/16 11/14/24 Derick Celaya MD [address] [place] [address] PCP - General Family Medicine 11/15/24 documented as of this encounter
--- OUTSIDE RECORDS SUMMARY | 2025-05-29 08:01 | XMS_ITS | Encounter Summary ---
Author Organization [facility] Address [address] [place] [address] Care Team Providers Care Director Power Name Role Phone Derick Celaya MD Primary Care Provider [phone] Encounter Details Date Type Department Care Team (Late Contact Info) Description 05/29/2025 Orders Only [facility] Oncology and Hematology - [address] [place] [address] Gino Basurto MD [address] [place] [id number] Benign hypertension Social History Tobacco Use Types Packs/Day Years Used Date Smoking Tobacco: Never Smokeless Tobacco: Never Alcohol Use Standard Drinks/Week Comments Yes 0 (1 standard drink = 0.6 oz pur e alcohol) socially Sex and Gender Information Value Date Recorded Sex Assigned at Not on file 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 Gender Identity Not on file Sexual Orientation Not on file documented as of this encounter Plan of Treatment Upcoming Encounters Date Type Department Care Team (Late st Contact Info) Description 06/09/2025 8:30 AM CDT Office Visit [facility] Oncology and Hematology - [address] [place] [address] Gino Basurto MD [address] [place] [address] documented as of this encounter Visit Diagnoses Diagnosis Benign hypertension Essential hypertension, benign documented in this encounter Care Teams Director Power Relationship Specialty Start Date End Date Derick Celaya MD [address] [facility] [address] [place] [address] PCP - General Family Practice 10/07/24 documented as of this encounter
== END 2025-05-29 07:55 | disposition home or self-care (01) ==
PROVIDERS: PCP Family Medicine; Visit Provider Internal Medicine Hematology & Oncology
DX: C43.9 Malignant melanoma of skin, unspecified (principal)
CPT/HCPCS: 71260; 74177; Q9967